=== PATIENT | male | born 1945 | race Caucasian/White ===

== ENCOUNTER → 2018-05-20 | Outpatient (CLI) | payer MEDICARE ==
--- NOTE | 2018-05-20 14:28 | XR ---
EXAMINATION TYPE: XR chest 2V DATE OF EXAM: 05/20/2018 COMPARISON: Chest x-ray January 12, 2016 HISTORY: History of COPD with shortness of breath for 3 weeks. TECHNIQUE: Frontal and lateral views of the chest are obtained. FINDINGS: There is background chronic emphysematous change redemonstrated. There is no focal air spa ce opacity, pleural effusion, or pneumothorax seen. The cardiac silhouette size is mildly enlarged o n current study. The osseous structures are intact. IMPRESSION: Chronic emphysematous change and mild cardiomegaly without acute pulmonary process.
== END | disposition home or self-care (01) ==
LOC: RADXRMAIN 13:47
PROVIDERS: ATTEND Family Medicine
DX: J43.9 Emphysema, unspecified (principal); I51.7 Cardiomegaly
CPT/HCPCS: 71046

== ENCOUNTER → 2019-05-05 | Outpatient (CLI) | payer MEDICARE ==
--- NOTE | 2019-05-05 16:09 | MR ---
EXAMINATION TYPE: MR brain wo/w con DATE OF EXAM: 05/05/2019 COMPARISON: MRI IAC from 2011. HISTORY: Chronic Headache Disorder TECHNIQUE: Multiplanar, multisequence images of the brain and brainstem is performed without and with IV contras t, utilizing 9 mL intravenous Gadavist . FINDINGS: Diffusion weighted images demonstrate no evidence of a recent infarct or other diffusion ab normality. There is no worrisome extra-axial fluid collection. Diffuse ventricular and sulcal promin ence. Scattered foci of T2 hyperintensity throughout the white matter most prominent periventricular levels. Some progression in both from 2011 MRI. Midline structures demonstrate normal morphology. The craniocervical junction appears within normal limits. Post contrast images demonstrate no abnormal enhancement. The dural venous sinuses appear pa tent. There is moderate mucosal thickening and patchy opacification left frontal sinus. Mild mucosal thickening right frontal sinus. Fairly severe mucosal thickening and patchy fluid throughout the ethm oid sinuses bilaterally on current study. Fluid completely filling the larger left sphenoid sinus and current study. There is artifact distortion or level of maxillary sinuses. There is some artifact di stortion of the globes on current study. IMPRESSION: 1. There is [id number] diffuse cerebral atrophy and nonspecific white matter changes presumed o n the basis of product of chronic small vessel ischemic change in patient of this age. Products of al tered vascular mechanics related to migraine headaches is in differential. Some progression from 2011 MRI noted. 2. There is acute on chronic paranasal sinus disease as detailed above also progressed from 2011 MRI.
== END | disposition home or self-care (01) ==
LOC: RADMRIMAIN 14:48
PROVIDERS: ATTEND Family Medicine
DX: G31.9 Degenerative disease of nervous system, unspecified (principal); R90.89 Other abnormal findings on diagnostic imaging of central nervous system
CPT/HCPCS: 70553; A9585

== ENCOUNTER 2019-10-29 14:32 | Emergency (ER) | payer MEDICARE ==
[2019-10-29 14:41] VITALS: PULSE 78; RESP 18; TEMP 98.3
[2019-10-29] MEDS ORDERED: PANTOPRAZOLE 40 MG/10 ML VIAL IVP STA (15:22)
[2019-10-29 15:38] LABS: HCT 44.1 % (39.0-53.0); HGB 14.7 gm/dL (13.0-17.5); MCH 30.5 pg (25.0-35.0); MCHC 33.3 g/dL (31.0-37.0); MCV 91.5 fL (80.0-100.0); Mean Platelet Volume 8.5; Platelet Count 243 k/uL (150-450); RBC 4.82 m/uL (4.30-5.90); RDW 13.4 % (11.5-15.5); WBC 9.6 k/uL (3.8-10.6)
[2019-10-29 15:45] LABS: ALT 22 U/L (4-49); AST 25 U/L (17-59); African American GFR (CKD) >90 (>60 ml/min/1.73 sqM); Albumin 4.3 g/dL (3.5-5.0); Alkaline Phosphatase 100 U/L (38-126); Anion Gap 11 mmol/L; Blood Urea Nitrogen 16 mg/dL (9-20); Calcium 9.1 mg/dL (8.4-10.2); Carbon Dioxide 22 mmol/L (22-30); Chloride 101 mmol/L (98-107); Glucose 137 mg/dL (74-99); Non-African American GFR(CKD) >90 (>60 ml/min/1.73 sqM); Potassium 4.7 mmol/L (3.5-5.1); Sodium 134 mmol/L (137-145); Total Bilirubin 0.7 mg/dL (0.2-1.3); Total Protein 8.2 g/dL (6.3-8.2)
--- NOTE | 2019-10-29 15:52 | XR ---
EXAMINATION TYPE: XR chest 2V DATE OF EXAM: 10/29/2019 COMPARISON: Prior chest x-ray 05/20/2018 HISTORY: Shortness of breath, pain, rectal bleeding TECHNIQUE: Frontal and lateral views of the chest are obtained. FINDINGS: Left hilar region appears abnormal increased intensity is compared to prior exam. No evide nt pneumothorax or pleural effusion. Patient is rotated. Heart size is stable. Aorta is dense. Possib le patchy subsegmental basilar atelectatic changes on the left, interstitium is mildly increased. Bon e mineralization is unchanged. There are overlying leads. IMPRESSION: There may be an underlying pneumonia. Follow-up to resolution, consider chest CT for bet ter evaluation as indicated. Possible underlying interstitial lung changes.
[2019-10-29 16:18] LABS: INR 0.9 (<1.2); Partial Thromboplastin Time 23.2 sec (22.0-30.0); Prothrombin Time 9.8 sec (9.0-12.0)
[2019-10-29 16:32] LABS: Eosinophils # (M) 0.29 k/uL (0-0.7); Lymphocytes # (M) 1.44 k/uL (1.0-4.8); Monocytes # (M) 1.15 k/uL (0-1.0); Neutrophils # (M) 6.72 k/uL (1.3-7.7); Neutrophils % (M) 70 %; Nucleated Red Blood Cells 0 /100 WBC (0-0); Total Cells Counted 100
[2019-10-29] MEDS ORDERED: CLINDAMYCIN 150 MG CAP PO STA (18:07)
--- NOTE | 2019-10-29 18:08 | ED ---
GI Bleed HPI - General Chief complaint: GI Bleed Stated complaint: SOB, blood in stool, sore on foot Time Seen by Provider: 10/29/19 15:00 Source: patient Mode of arrival: ambulatory Limitations: no limitations - History of Present Illness Initial comments: The patient is a 74-year-old male with past medical history of diabetes, hyperlipidemia and hyperthyroidism presents emergency room with reported bright red blood per rectum. He states the incident happened 3 days ago when he was straining to have a bowel movement. States that after his bowel movement he turned to look the toilet was bright red blood in the bowl. Denies melenic stools. No history of GI bleeding. He had a colonoscopy several years ago. She says no history of polyps. He has had bowel movement since this episode and denies that the bleeding is still present. He also reports to a boil that has been on his buttock. States that it was draining a few days ago however has stopped. He denies any rectal pain or abdominal pain. No fevers or chills. Denies dizziness, headaches or weakness. He takes aspirin however denies any blood thinners. He may Dr. Martino aware that he was having blood in his stool and Dr. Martino instructed that he going to the emergency room. The patient also mentions that he has exertional shortness of breath which seems to be getting progressively worse over the past year. Does admit a history of COPD. Is not on any oxygen at home. Does use inhalers but has never seen a credit collections specialist. Denies any chest pain. No history of cardiac disease. Denies any lower she was swelling. No history of DVT or PE. There are no alleviating, precipitating or modifying factors - Related Data Home Medications Medication Instructions Recorded Confirmed Ranitidine HCl [Zantac] 150 mg PO DAILY PRN 12/15/13 08/05/15 Levothyroxine Sodium [Synthroid] 25 mcg PO DAILY 04/12/15 08/05/15 amLODIPine BESYLATE [Norvasc] 5 mg PO HS 04/12/15 08/05/15 Albuterol Inhaler (Bulk) [Ventolin 2 puff INHALATION Q4-6H PRN 08/02/15 08/05/15 Hfa Inhaler (Bulk)] Aspirin 81 mg PO DAILY 08/02/15 08/05/15 Atorvastatin [Lipitor] 20 mg PO HS 08/02/15 08/05/15 Cholecalciferol [Vitamin D3] 2,000 unit PO DAILY@1200 08/02/15 08/05/15 Fluticasone Nasal [place] [Flonase 2 spr EA NOSTRIL DAILY 08/02/15 08/05/15 Nasal [place]] Fluticasone/Vilanterol [Breo 1 each IH DAILY PRN 08/02/15 08/05/15 Ellipta 200-25 Mcg INH] Glimepiride [Amaryl] 4 mg PO AC-BRKFST 08/02/15 08/05/15 [place]-3 Fatty Acids/Fish Oil [Fish 1 each PO DAILY 08/02/15 08/05/15 Oil 1,000 mg Softgel] Previous Rx's Medication Instructions Recorded Clindamycin HCl [Cleocin] 300 mg PO Q6HR #28 cap 10/29/19 Allergies Allergy/AdvReac Type Severity Reaction Status Date / Time latex Allergy Rash/Hives Verified 10/29/19 14:46 Penicillins Allergy Swelling Verified 10/29/19 14:46 Sulfa (Sulfonamide Allergy Swelling Verified 10/29/19 14:46 Antibiotics) Review of Systems ROS Statement: Those systems with pertinent positive or pertinent negative responses have been documented in the HPI. ROS Other: All systems not noted in ROS Statement are negative. Past Medical History Past Medical History: COPD, Diabetes Mellitus, GERD/Reflux, Hyperlipidemia, Hypertension, Thyroid Disorder History of Any Multi-Drug Resistant Organisms: None Reported Past Surgical History: Heart Catheterization, Orthopedic Surgery Past Psychological History: No Psychological Hx Reported Smoking Status: Former smoker General Exam Limitations: no limitations General appearance: alert, in no apparent distress Head exam: Present: atraumatic, normocephalic, normal inspection Eye exam: Present: normal appearance, PERRL, EOMI. Absent: scleral icterus, conjunctival injection, periorbital swelling ENT exam: Present: normal exam, mucous membranes moist Neck exam: Present: normal inspection. Absent: tenderness, meningismus, lymphadenopathy Respiratory exam: Present: normal lung sounds bilaterally. Absent: respiratory distress, wheezes, rales, rhonchi, stridor Cardiovascular Exam: Present: regular rate, normal rhythm, normal heart sounds. Absent: systolic murmur, diastolic murmur, rubs, gallop, clicks GI/Abdominal exam: Present: soft, normal bowel sounds. Absent: distended, tenderness, guarding, rebound, rigid Rectal exam: Present: normal inspection, heme (-) stool, hemorrhoids. Absent: black stool, bloody stool Extremities exam: Present: normal inspection, full ROM, normal capillary refill. Absent: tenderness, pedal edema, joint swelling, calf tenderness Back exam: Present: normal inspection Neurological exam: Present: alert, oriented X3, CN II-XII intact Psychiatric exam: Present: normal affect, normal mood Skin exam: Present: warm, dry, normal color, other (scabbed abscess with no fluctuance on the right buttock measuring 1.0 x 1.0 x 1.0 cm. Very minimal surrounding erythema. Abscess does not extend to the rectum). Absent: rash Course Vital Signs 10/29/19 10/29/19 10/29/19 14:35 14:41 15:41 Temperature 98.3 F Pulse Rate 78 Respiratory 18 18 18 Rate Blood Pressure 124/75 O2 Sat by Pulse 97 Oximetry 10/29/19 10/29/19 10/29/19 16:41 17:41 18:29 Temperature Pulse Rate 72 78 78 Respiratory 18 18 18 Rate Blood Pressure 121/78 117/78 117/78 O2 Sat by Pulse 97 Oximetry Procedures - Stool Hemoccult Hemoccult result: negative Medical Decision Making - Medical Decision Making Upon arrival the patient is placed in room 9. A thorough history and physical exam is performed. Peripheral IV is established. A 12-lead EKG demonstrates no acute ST segment elevation or depression. CBC, coagulation studies are unremarkable. Sodium is 134. Rectal exam is performed and is negative for fecal occult blood. Troponin is negative. Chest x-ray is performed because of the patient's worsening dyspnea over one year which demonstrates an underlying possible pneumonia. The patient denies any symptoms of cough, fevers or sick contacts with similar symptoms. I did recommend antibiotic treatment because of the patient's buttock boil which has no fluctuance at this time does not require drainage. The patient does not have any abdominal pain and therefore I do not CT his abdomen. He is feccal occult negative at this time with a stable hemoglobin. The patient has had worsening dyspnea for the past year for which I do think he should follow with the credit collections specialist. I did recommend CT of his chest because of his abnormal x-ray however the patient can have this done on an outpatient basis. The patient agreed to this treatment plan. He is eager to go home. I sent the antibiotic to the pharmacy and the patient was discharged h ome in stable condition - Lab Data Result diagrams: 10/29/19 14:51 10/29/19 14:51 Lab Results 10/29/19 10/29/19 10/29/19 Range/Units 14:51 14:51 14:51 WBC 9.6 (3.8-10.6) k/uL RBC 4.82 (4.30-5.90) m/uL Hgb 14.7 (13.0-17.5) gm/dL Hct 44.1 (39.0-53.0) % MCV 91.5 (80.0-100.0) fL MCH 30.5 (25.0-35.0) pg MCHC 33.3 (31.0-37.0) g/dL RDW 13.4 (11.5-15.5) % Plt Count 243 (150-450) k/uL Neutrophils % (Manual) 70 % Lymphocytes % (Manual) 15 % Monocytes % (Manual) 12 % Eosinophils % (Manual) 3 % Neutrophils # (Manual) 6.72 (1.3-7.7) k/uL Lymphocytes # (Manual) 1.44 (1.0-4.8) k/uL Monocytes # (Manual) 1.15 H (0-1.0) k/uL Eosinophils # (Manual) 0.29 (0-0.7) k/uL Nucleated RBCs 0 (0-0) /100 WBC Manual Slide Review Performed PT 9.8 (9.0-12.0) sec INR 0.9 (<1.2) APTT 23.2 (22.0-30.0) sec Sodium 134 L (137-145) mmol/L Potassium 4.7 (3.5-5.1) mmol/L Chloride 101 (98-107) mmol/L Carbon Dioxide 22 (22-30) mmol/L Anion Gap 11 mmol/L BUN 16 (9-20) mg/dL Creatinine 0.62 L (0.66-1.25) mg/dL Est GFR (CKD-EPI)AfAm >90 (>60 ml/min/1.73 sqM) Est GFR (CKD-EPI)NonAf >90 (>60 ml/min/1.73 sqM) Glucose 137 H (74-99) mg/dL Plasma Lactic Acid Luis (0.7-2.0) mmol/L Calcium 9.1 (8.4-10.2) mg/dL Total Bilirubin 0.7 (0.2-1.3) mg/dL AST 25 (17-59) U/L ALT 22 (4-49) U/L Alkaline Phosphatase 100 (38-126) U/L Troponin I (0.000-0.034) ng/mL Total Protein 8.2 (6.3-8.2) g/dL Albumin 4.3 (3.5-5.0) g/dL Stool Occult Blood (Negative) Blood Type Blood Type Confirm Blood Type Recheck Bld Type Recheck Status Antibody Screen Spec Expiration Date 10/29/19 10/29/19 10/29/19 Range/Units 14:51 14:51 14:51 WBC (3.8-10.6) k/uL RBC (4.30-5.90) m/uL Hgb (13.0-17.5) gm/dL Hct (39.0-53.0) % MCV (80.0-100.0) fL MCH (25.0-35.0) pg MCHC (31.0-37.0) g/dL RDW (11.5-15.5) % Plt Count (150-450) k/uL Neutrophils % (Manual) % Lymphocytes % (Manual) % Monocytes % (Manual) % Eosinophils % (Manual) % Neutrophils # (Manual) (1.3-7.7) k/uL Lymphocytes # (Manual) (1.0-4.8) k/uL Monocytes # (Manual) (0-1.0) k/uL Eosinophils # (Manual) (0-0.7) k/uL Nucleated RBCs (0-0) /100 WBC Manual Slide Review PT (9.0-12.0) sec INR (<1.2) APTT (22.0-30.0) sec Sodium (137-145) mmol/L Potassium (3.5-5.1) mmol/L Chloride (98-107) mmol/L Carbon Dioxide (22-30) mmol/L Anion Gap mmol/L BUN (9-20) mg/dL Creatinine (0.66-1.25) mg/dL Est GFR (CKD-EPI)AfAm (>60 ml/min/1.73 sqM) Est GFR (CKD-EPI)NonAf (>60 ml/min/1.73 sqM) Glucose (74-99) mg/dL Plasma Lactic Acid Luis 1.9 (0.7-2.0) mmol/L Calcium (8.4-10.2) mg/dL Total Bilirubin (0.2-1.3) mg/dL AST (17-59) U/L ALT (4-49) U/L Alkaline Phosphatase (38-126) U/L Troponin I <0.012 (0.000-0.034) ng/mL Total Protein (6.3-8.2) g/dL Albumin (3.5-5.0) g/dL Stool Occult Blood (Negative) Blood Type O Positive Blood Type Confirm Blood Type Recheck No Previous Record Bld Type Recheck Status CABO Indicated Antibody Screen NEGATIVE Spec Expiration Date 11/01/2019 - 235010/29/19 10/29/19 Range/Units 14:54 16:57 WBC (3.8-10.6) k/uL RBC (4.30-5.90) m/uL Hgb (13.0-17.5) gm/dL Hct (39.0-53.0) % MCV (80.0-100.0) fL MCH (25.0-35.0) pg MCHC (31.0-37.0) g/dL RDW (11.5-15.5) % Plt Count (150-450) k/uL Neutrophils % (Manual) % Lymphocytes % (Manual) % Monocytes % (Manual) % Eosinophils % (Manual) % Neutrophils # (Manual) (1.3-7.7) k/uL Lymphocytes # (Manual) (1.0-4.8) k/uL Monocytes # (Manual) (0-1.0) k/uL Eosinophils # (Manual) (0-0.7) k/uL Nucleated RBCs (0-0) /100 WBC Manual Slide Review PT (9.0-12.0) sec INR (<1.2) APTT (22.0-30.0) sec Sodium (137-145) mmol/L Potassium (3.5-5.1) mmol/L Chloride (98-107) mmol/L Carbon Dioxide (22-30) mmol/L Anion Gap mmol/L BUN (9-20) mg/dL Creatinine (0.66-1.25) mg/dL Est GFR (CKD-EPI)AfAm (>60 ml/min/1.73 sqM) Est GFR (CKD-EPI)NonAf (>60 ml/min/1.73 sqM) Glucose (74-99) mg/dL Plasma Lactic Acid Luis (0.7-2.0) mmol/L Calcium (8.4-10.2) mg/dL Total Bilirubin (0.2-1.3) mg/dL AST (17-59) U/L ALT (4-49) U/L Alkaline Phosphatase (38-126) U/L Troponin I (0.000-0.034) ng/mL Total Protein (6.3-8.2) g/dL Albumin (3.5-5.0) g/dL Stool Occult Blood Negative (Negative) Blood Type Blood Type Confirm O Positive Blood Type Recheck Bld Type Recheck Status Antibody Screen Spec Expiration Date - EKG Data EKG Comments: EKG demonstrates a normal sinus rhythm with a ventricular rate of 74. OH interval 194. QRS 88. QTC of 439. No acute ST segment elevations or depressions concerning for ischemic changes Disposition Clinical Impression: Hematochezia, Abscess of buttock, Exertional shortness of breath, COPD (chronic obstructive pulmonary disease), Hemorrhoids, Constipation Disposition: HOME SELF-CARE Condition: Stable Instructions (If sedation given, give patient instructions): Hemorrhoids (ED), Abscess (ED) Additional Instructions: Please follow-up with Dr. Martino in 2-4 days. Take the antibiotic as directed. Take MiraLAX daily for your constipation. Please follow-up with the credit collections specialist in regards to your symptoms. I do recommend a CAT scan of your lungs. Return to the emergency room for any new or worsening symptoms Prescriptions: Clindamycin HCl [Cleocin] 300 mg PO Q6HR #28 cap Is patient prescribed a controlled substance at d/c from ED?: No Referrals: Benito Martino MD [Primary Care Provider] - 1-2 days Time of Disposition: 18:07
[2019-10-29 18:25] VITALS: BP 117/78
== END 2019-10-29 18:32 | disposition home or self-care (01) ==
LOC: EC 14:32
DX: L02.31 Cutaneous abscess of buttock (principal); K92.1 Melena; J44.9 Chronic obstructive pulmonary disease, unspecified; K64.9 Unspecified hemorrhoids; K59.00 Constipation, unspecified; E11.9 Type 2 diabetes mellitus without complications; K21.9 Gastro-esophageal reflux disease without esophagitis; E78.5 Hyperlipidemia, unspecified; I10 Essential (primary) hypertension; E07.9 Disorder of thyroid, unspecified; Z79.890 Hormone replacement therapy; Z79.51 Long term (current) use of inhaled steroids; Z79.84 Long term (current) use of oral hypoglycemic drugs; Z79.899 Other long term (current) drug therapy; Z79.82 Long term (current) use of aspirin; Z88.0 Allergy status to penicillin; Z91.040 Latex allergy status; Z88.2 Allergy status to sulfonamides; Z95.5 Presence of coronary angioplasty implant and graft; Z87.891 Personal history of nicotine dependence
CPT/HCPCS: 99285; 96374; 36415; 93005; 86900; 86901; 80053; 83605; 84484; 85025; 85610; 85730; 86850; 82272; 71046; C9113

== ENCOUNTER 2020-04-09 11:18 | Emergency (ER) | payer MEDICARE ==
[2020-04-09 11:25] VITALS: TEMP 98.1
--- NOTE | 2020-04-09 12:14 | XR ---
EXAMINATION TYPE: XR shoulder complete LT DATE OF EXAM: 04/09/2020 CLINICAL HISTORY: Left shoulder pain after falling injury 2 weeks ago. TECHNIQUE: Three views of the left shoulder are obtained. COMPARISON: Chest x-ray 2 days ago.. FINDINGS: Osseous structures demineralized. There is no acute fracture/dislocation evident in the le ft shoulder. Mild to moderate narrowing gadolinium, a ventricular joint with moderate capsular hypert rophy. Distal acromion morphology unremarkable. Glenohumeral joint preserved. The visualized ribs are intact. There is suspicious left hilar spiculated mass or nodule redemonstrated. IMPRESSION: There is no acute fracture or dislocation in the left shoulder.
[2020-04-09] MEDS ORDERED: HYDROcodone/APAP 5-325MG 1 EACH TAB PO STA (12:29)
[2020-04-09] MEDS ORDERED: IBUPROFEN 600 MG TAB PO STA (12:29)
[2020-04-09] MEDS ORDERED: ACET/COD 300 MG/30 MG STARTER PACK 6 TAB BTL PO STA (12:36)
--- NOTE | 2020-04-09 12:37 | ED ---
Upper Extremity HPI - General Source: patient, RN notes reviewed Mode of arrival: ambulatory Limitations: no limitations <Melecio Olson - Last Filed: 04/09/20 12:28> <Raymundo Peres - Last Filed: 04/09/20 14:08> - General Chief Complaint: Extremity Injury, Upper Stated Complaint: Left Shoulder Pain Time Seen by Provider: 04/09/20 11:47 - History of Present Illness Initial Comments: 75-year-old male present emergency Department with chief complaint of left shoulder pain. Patient states he fell 3 weeks ago onto outstretched arm. Patient states she's has pain at top of his shoulder. Patient states it's been worsening and more achy. Patient states he cannot tolerate the pain. Patient denies any decreased range of motion or paresthesias no focal weakness. No head injury no loss conscious, neck pain. (Melecio Olson) - Related Data Home Medications Medication Instructions Recorded Confirmed Ranitidine HCl [Zantac] 150 mg PO DAILY PRN 12/15/13 08/05/15 Levothyroxine Sodium [Synthroid] 25 mcg PO DAILY 04/12/15 08/05/15 amLODIPine BESYLATE [Norvasc] 5 mg PO HS 04/12/15 08/05/15 Albuterol Inhaler (Mhu) [Ventolin 2 puff INHALATION Q4-6H PRN 08/02/15 08/05/15 Hfa Inhaler (Mhu)] Aspirin 81 mg PO DAILY 08/02/15 08/05/15 Atorvastatin [Lipitor] 20 mg PO HS 08/02/15 08/05/15 Cholecalciferol [Vitamin D3] 2,000 unit PO DAILY@1200 08/02/15 08/05/15 Fluticasone Nasal [place] [Flonase 2 spr EA NOSTRIL DAILY 08/02/15 08/05/15 Nasal [place]] Fluticasone/Vilanterol [Breo 1 each IH DAILY PRN 08/02/15 08/05/15 Ellipta 200-25 Mcg INH] Glimepiride [Amaryl] 4 mg PO AC-BRKFST 08/02/15 08/05/15 [place]-3 Fatty Acids/Fish Oil [Fish 1 each PO DAILY 08/02/15 08/05/15 Oil 1,000 mg Softgel] Previous Rx's Medication Instructions Recorded clindamycin HCL [Cleocin] 300 mg PO Q6HR #28 cap 10/29/19 Allergies Allergy/AdvReac Type Severity Reaction Status Date / Time latex Allergy Rash/Hives Verified 04/09/20 11:22 Penicillins Allergy Swelling Verified 04/09/20 11:22 Sulfa (Sulfonamide Allergy Swelling Verified 04/09/20 11:22 Antibiotics) Review of Systems ROS Other: All systems not noted in ROS Statement are negative. <Melecio Olson - Last Filed: 04/09/20 12:28> ROS Other: All systems not noted in ROS Statement are negative. <Raymundo Peres - Last Filed: 04/09/20 14:08> ROS Statement: Those systems with pertinent positive or pertinent negative responses have been documented in the HPI. Past Medical History Past Medical History: COPD, Diabetes Mellitus, GERD/Reflux, Hyperlipidemia, Hypertension, Thyroid Disorder Additional Past Medical History / Comment(s): "spot on lungs" History of Any Multi-Drug Resistant Organisms: None Reported Past Surgical History: Heart Catheterization, Orthopedic Surgery Past Psychological History: No Psychological Hx Reported Smoking Status: Former smoker Past Alcohol Use History: None Reported Past Drug Use History: None Reported <Melecio Olsno - Last Filed: 04/09/20 12:28> General Exam Limitations: no limitations General appearance: alert, in no apparent distress Head exam: Present: atraumatic, normocephalic, normal inspection Eye exam: Present: normal appearance, PERRL, EOMI. Absent: scleral icterus, conjunctival injection, periorbital swelling Neck exam: Present: normal inspection, full ROM. Absent: tenderness, meningismus, lymphadenopathy Respiratory exam: Present: normal lung sounds bilaterally. Absent: respiratory distress, wheezes, rales, rhonchi, stridor Cardiovascular Exam: Present: regular rate, normal rhythm, normal heart sounds. Absent: systolic murmur, diastolic murmur, rubs, gallop, clicks Extremities exam: Present: other (Left shoulder some tenderness over the AC joint, tenderness of the left trapezius patient does have full range of motion reports moderate discomfort. An and flexion. No pain with pronation supination or external rotation of the arm. Radial pulses equal bilaterally resident medical officer strength equal) <Melecio Olson - Last Filed: 04/09/20 12:28> Course <Raymundo Peres - Last Filed: 04/09/20 14:08> Vital Signs 04/09/20 04/09/20 11:22 12:57 Temperature 98.1 F Pulse Rate 77 68 Respiratory 18 16 Rate Blood Pressure 116/72 115/75 O2 Sat by Pulse 97 96 Oximetry - Reevaluation(s) Reevaluation #1: 04/09/20 14:08 PA supervision: I personally evaluate this case patient did present with complains left shoulder pain. There is tenderness palpation over left shoulder. X-ray shows no evidence of acute fractures or subluxation. Patient be discharged and follow-up as planned. (Raymundo Peres) Medical Decision Making <Melecio Olson - Last Filed: 04/09/20 12:28> - Medical Decision Making There is some tenderness over the AC joint neck surgery review shows slight separation, mild degenerative changes otherwise unremarkable. Patient will follow-up with orthopedics for possible MRI. Patient provided anti- inflammatories. (Melecio Olson) Disposition Is patient prescribed a controlled substance at d/c from ED?: No Time of Disposition: 12:37 <Melecio Olson - Last Filed: 04/09/20 12:28> <Raymundo Peres - Last Filed: 04/09/20 14:08> Clinical Impression: Left shoulder strain, AC separation Disposition: HOME SELF-CARE Condition: Stable Instructions (If sedation given, give patient instructions): Shoulder Sprain (ED) Additional Instructions: Please return to the Emergency Department if symptoms worsen or any other concerns. Referrals: Benito Martino MD [Primary Care Provider] - 1-2 days Heber Garrett MD [STAFF PHYSICIAN] - 1-2 days
[2020-04-09 12:59] VITALS: BP 115/75; PULSE 68; RESP 16
== END 2020-04-09 13:07 | disposition home or self-care (01) ==
LOC: EC 11:18
DX: S46.912A Strain of unspecified muscle, fascia and tendon at shoulder and upper arm level, left arm, initial encounter (principal); S43.102A Unspecified dislocation of left acromioclavicular joint, initial encounter; J44.9 Chronic obstructive pulmonary disease, unspecified; E07.9 Disorder of thyroid, unspecified; E78.5 Hyperlipidemia, unspecified; I10 Essential (primary) hypertension; K21.9 Gastro-esophageal reflux disease without esophagitis; E11.9 Type 2 diabetes mellitus without complications; Z79.51 Long term (current) use of inhaled steroids; Z79.890 Hormone replacement therapy; Z79.899 Other long term (current) drug therapy; Z79.84 Long term (current) use of oral hypoglycemic drugs; Z88.0 Allergy status to penicillin; Z88.2 Allergy status to sulfonamides; Z91.040 Latex allergy status; Z95.5 Presence of coronary angioplasty implant and graft; Z87.891 Personal history of nicotine dependence; W01.0XXA Fall on same level from slipping, tripping and stumbling without subsequent striking against object, initial encounter
CPT/HCPCS: 99283

== ENCOUNTER → 2020-04-09 | Outpatient (CLI) | payer MEDICARE ==
[2020-04-09 13:42] LABS: African American GFR (CKD) >90 (>60 ml/min/1.73 sqM); Blood Urea Nitrogen 10 mg/dL (9-20); Non-African American GFR(CKD) >90 (>60 ml/min/1.73 sqM)
--- NOTE | 2020-04-10 17:56 | CT ---
"EXAMINATION TYPE: CT chest w con DATE OF EXAM: 04/09/2020 COMPARISON: 08/30/2014 HISTORY: Abnormal chest x-ray, weight loss CT DLP: 373.0 mGycm, Automated exposure control for dose reduction was used. CONTRAST: Performed injected with 100 mL of Isovue 300. TECHNIQUE: Axial images were obtained at 5 mm thick sections. Reconstructed images are reviewed on [employer] computer in the coronal plane. FINDINGS: There is a hypodensity within the left lobe thyroid. There is a 6.3 x 4.3 cm mass in the posterior left hilar region. Soft tissue extension mediastinum is likely present. Enlarged lymphadenopathy is within the left perihilar region with a 1.3 cm lymph nod e adjacent to the left main pulmonary artery. Series 3 image 27. A 1.5 cm lymph node is in the left i nfrahilar region. Aortopulmonic window lymphadenopathy is present 1.7 cm laterally and a 1.4 cm lymph node immediately. Small paratracheal lymphadenopathy is present. A 1.4 cm subcarinal lymph node may be present. The ascending aorta diameter at the level of the main pulmonary artery is 4.1 cm. The main pulmonary artery diameter at the bifurcation is 2.8 cm. There is some mild compressive atelectasis within the dependent portions of the lung bases. Limited CT sections are obtained through the upper abdomen. Abdomen is essentially unremarkable. IMPRESSIONS: 1. 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 Additional workup with PET CT is recommended. A Yellow level critical message alert has been initiated for Benito Martino MD via the [employer] | Critical Results System on 04/10/2020 5:53 PM. This message alert has been sent to Benito Martino MD via the preferences provided by the clinician for the receipt of Radiology Critical Findings. [facility] ID [id number]."
== END | disposition home or self-care (01) ==
LOC: RADCTMAIN 06:59
PROVIDERS: ATTEND Family Medicine
DX: R59.0 Localized enlarged lymph nodes (principal); R91.8 Other nonspecific abnormal finding of lung field
CPT/HCPCS: 82565; 84520; 71260; 36415; Q9967

== ENCOUNTER → 2020-04-16 | Outpatient (CLI) | payer MEDICARE ==
--- NOTE | 2020-04-17 15:06 | PE ---
Nuclear medicine PET/CT HISTORY: Left lung nodule, initial Patient received 11.5 mCi F-18 FDG intravenously in delayed scanning was performed from skull base to the mid thighs. Localization and attenuation correction CT scan was performed. Correlation CT chest 04/09/2020 Chest and neck: At the level of the hyoid bone on the left deep to the sternocleidomastoid muscle the re is an enlarged node with associated hypermetabolic uptake. Supraclavicular node is also present on the left which shows enlargement and associated uptake. At the level of the thoracic inlet anteriorl y there is an additional no with increased uptake, superior mediastinum shows a nonenlarged node axia l image #76 on the right as well as adjacent to the trachea anterior to the esophagus on axial image 79 which shows abnormal uptake. Some mild uptake present in the aorticopulmonary window, there is abn ormal uptake present at the level of the left hilum and prevascular space, multiple nodes showing abn ormal uptake, patient's mass in the left lower lobe, left hilar region shows abnormal uptake. There i s no pleural or pericardial effusion present. ABDOMEN: No evident adrenal mass or hypermetabolic uptake, no retroperitoneal adenopathy or evident l iver uptake. Aorta and iliac regions show atheromatous change. There is some abnormal soft tissue pre sent just cephalad to the urinary bladder within the fat there is ill-defined which shows abnormal up take. Osseous structures show no hypermetabolic uptake. 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 Indeterminate soft tissu e within the pelvis may represent a metastatic focus.
== END | disposition home or self-care (01) ==
LOC: RADPETMAIN 08:05
PROVIDERS: ATTEND Family Medicine
DX: R91.1 Solitary pulmonary nodule (principal); C34.90 Malignant neoplasm of unspecified part of unspecified bronchus or lung
CPT/HCPCS: 78815; A9552

== ENCOUNTER 2020-04-19 10:56 | Day surgery (SDC) | payer MEDICARE ==
[2020-04-15 15:24] VITALS: BMI 22.8
[~2020-04-19 10:56] MED LIST: ALBUTEROL NEB (CONC) 2.5 MG/0.5 ML INHALATION ONE; LACTATED RINGERS 1,000 ML IV SCH; LIDOCAINE 2% (PF) 20 MG/ML 5 ML VIAL INHALATION ONE; LIDOCAINE VISCOUS 300 MG/15 ML CUP MUCOUS MEM ONE; SODIUM CHLORIDE 0.9% 1,000 ML IV SCH
[2020-04-19 11:43] VITALS: TEMP 97
[2020-04-19] MEDS ORDERED: LIDOCAINE 1% (10MG/ML) FOR IV START INTRADERMA ONE (11:45)
[2020-04-19] MEDS ORDERED: PROPOFOL 10 MG/ML 20 ML VIAL IV ONE (12:32)
[2020-04-19] MEDS ORDERED: fentaNYL (PF) 50 MCG/ML 2 ML AMP ONE (12:32)
[2020-04-19] MEDS ORDERED: LIDOCAINE 1% INJ 10MG/ML (20 ML MDV) ONE (12:32)
[2020-04-19] MEDS ORDERED: LIDOCAINE 2% INJ 20 MG/ML INTRATRACH ONE (12:46)
--- NOTE | 2020-04-19 13:12 | P.PCN ---
Date of Procedure: 04/19/20 Preoperative Diagnosis: LLL mass, hemoptysis Postoperative Diagnosis: LLL mass Procedure(s) Performed: Flexible bronchoscopy, airway inspection, Endobronchial biopsy of a LLL mass, brushig of a LLL mass, BAL of the LLL Anesthesia: MAC Surgeon: Jac Coronel Estimated Blood Loss (ml): 5 Pathology: other Disposition: same day Operative Findings: This is a flexible bronchoscopy that was done for left lower lobe mass. The patient presented to [facility] with an abnormal CAT scan of the chest revealing a left lower lobe mass and the patient was having episodic hemoptysis. The procedure was done under conscious sedation in the endoscopy suite. The patient was given a combination of propofol, and lidocaine and fentanyl. After achieving adequate sedation, the flexible bronchoscope was introduced through the left nostril was advanced into the upper airway. Examination of the posterior oropharynx, larynx, epiglottis, arytenoids and the vocal cords was done and all of the upper airway structures were within normal limits. Vocal cords structure and function was within normal and the patient had normal abduction and abduction of the vocal cords. A total of 2 mL of 1% lidocaine was applied to the vocal cords and following that the bronchoscope was advanced into the upper trachea. Examination of the airways was done and the visualized airways included the entire trachea, elder, bilateral mainstem bronchi, right upper lobe bronchus, bronchus intermedius, right middle lobe bronchus, the right lower lobe lobe bronchus, left upper lobe bronchus and left lower lobe bronchus. The examination of the right thigh was within normal limits. Examination of left side revealed a narrowing and endobronchial tumor extending into the posterior segment of the left lower lobe bronchus. The orifice of the second and was quite narrowed and the airway had an endobronchial irregularity representing the edge of the left lower lobe tumor. At that point, under direct visualization, endobronchial biopsies of the left lower lobe bronchus was done and multiple biopsies were obtained from the involved segment. Following that, the bronchial brushings of the left lower lobe mass was done through the posterior segment. At the completion of the procedure, I bronchioloalveolar lavage of the left lower lobe posterior segment was done with a total of 80 mL of fluid was infused and 20 disease was aspirated without any major difficulties. Aspirate was obviously bloody. Note that following the biopsy, we did have some blood return from the left lower lobe bronchus, the source of bleeding was probably the endobronchial tumor. This ultimately stopped spontaneously and that was bloody secretion and the clots were suctioned out of the airway. The bronchoscope was removed. The patient was transferred recovery in stable condition. Note that the oxygenation remained stable throughout the procedure without any significant desaturation. The patient tolerated the procedure well and the patient will be discharged home.
[2020-04-19 13:24] VITALS: BP 107/59; PULSE 71; RESP 16
== END 2020-04-19 14:14 | disposition home or self-care (01) ==
LOC: ORWHC2ENDO 10:56
PROVIDERS: ATTEND Internal Medicine Critical Care Medicine
DX: C7A.090 Malignant carcinoid tumor of the bronchus and lung (principal); I25.10 Atherosclerotic heart disease of native coronary artery without angina pectoris; I10 Essential (primary) hypertension; J44.9 Chronic obstructive pulmonary disease, unspecified; K21.9 Gastro-esophageal reflux disease without esophagitis; G43.909 Migraine, unspecified, not intractable, without status migrainosus; E03.9 Hypothyroidism, unspecified; E11.9 Type 2 diabetes mellitus without complications; E78.5 Hyperlipidemia, unspecified; Z88.0 Allergy status to penicillin; Z88.1 Allergy status to other antibiotic agents; Z88.2 Allergy status to sulfonamides; Z79.82 Long term (current) use of aspirin; Z79.1 Long term (current) use of non-steroidal anti-inflammatories (NSAID); Z79.899 Other long term (current) drug therapy; Z79.890 Hormone replacement therapy; Z79.51 Long term (current) use of inhaled steroids; Z82.49 Family history of ischemic heart disease and other diseases of the circulatory system; Z80.9 Family history of malignant neoplasm, unspecified; Z81.8 Family history of other mental and behavioral disorders; Z87.891 Personal history of nicotine dependence; Z98.890 Other specified postprocedural states
CPT/HCPCS: 87798 ×3; 87496; 87498; 87529; 88104; 88108; 88305; 88342; 87252; 87502; 87634; 88341; 87070; 87205; 87116; 87102; 87206; 31625; 31623; 31624; J2001 ×2; J3010; J2704; 31628

== ENCOUNTER 2020-05-10 19:13 | Inpatient (IN) | payer MEDICARE ==
[2020-05-10] MEDS ORDERED: SODIUM CHLORIDE 0.9% 1,000 ML IV STA (19:25)
--- NOTE | 2020-05-10 19:41 | ED ---
Weakness HPI - General Chief complaint: Weakness Stated complaint: Near Syncope Time Seen by Provider: 05/10/20 19:25 Source: patient Mode of arrival: wheelchair Limitations: no limitations - History of Present Illness Initial comments: 75-year-old male with history of coronary artery disease small cell lung cancer currently undergoing treatment with carboplatin and tecentriq,COPD diabetes hypertension is lipidemia and thyroid disorder presenting to the emergency department today for chief complaint of lightheadedness and nausea slight shortness breath. Patient states that this afternoon he fell on while he states he felt lightheaded and like he was going to pass out when he stood up. Patient denies any syncopal episodes he denies any chest pain he states is slight shortness of breath however this is the pretty consistent with his daily short ness of breath since he's been diagnosed with a lung mass. Patient denies experiencing this before he denies headache vision changes diarrhea dark tarry stools or bloody stools. Denies sensation that room is spinning or headaches. Patient denies any anticoagulation use he states he is not even taking a daily aspirin at this time. Patient states that his previous hemoglobin on 1016 was within normal limits at 13.5. Patient denies abdominal pain denies rashes or new cough,denies fevers. Patient on arrival appear pale, nontoxic, he is not diaphoretic--he does not appear in distress. Pleasant. BP on the lower aspect of normal. Pt oncologist Dr. Samson, supplier engineer Dr. Coronel. - Related Data Home Medications Medication Instructions Recorded Confirmed Levothyroxine Sodium [Synthroid] 25 mcg PO HS 04/12/15 05/10/20 amLODIPine BESYLATE [Norvasc] 5 mg PO DAILY 04/12/15 05/10/20 Atorvastatin [Lipitor] 20 mg PO HS 08/02/15 05/10/20 Cholecalciferol [Vitamin D3] 2,000 unit PO HS 08/02/15 05/10/20 Fluticasone Nasal [place] [Flonase 1 spr EA NOSTRIL BID 08/02/15 05/10/20 Nasal [place]] Acetaminophen-Codeine 300-30mg 1 tab PO Q6H PRN 04/15/20 05/10/20 [Tylenol w/codeine #3] Budesonide-Formot 160-4.5 Mcg 2 puff INHALATION RT-BID 04/15/20 05/10/20 [Symbicort 160-4.5 Mcg Inhaler] Empagliflozin [Jardiance] 25 mg PO DAILY 04/15/20 05/10/20 Fish Oil (Unknown Dose) 1 tab PO HS 04/15/20 05/10/20 Ibuprofen [Motrin] 600 mg PO Q8HR PRN 04/15/20 05/10/20 Linagliptin [Tradjenta] 5 mg PO DAILY 04/15/20 05/10/20 Loratadine [Claritin] 10 mg PO DAILY 04/15/20 05/10/20 Montelukast [Singulair] 10 mg PO DAILY 04/15/20 05/10/20 Allergies Allergy/AdvReac Type Severity Reaction Status Date / Time Sulfa (Sulfonamide Allergy Severe Anaphylaxis Verified 05/10/20 21:25 Antibiotics) cefuroxime [From Ceftin] Allergy Unknown Verified 05/10/20 21:25 latex Allergy Rash/Hives Verified 05/10/20 21:25 Penicillins Allergy Swelling Verified 05/10/20 21:25 Review of Systems ROS Statement: Those systems with pertinent positive or pertinent negative responses have been documented in the HPI. ROS Other: All systems not noted in ROS Statement are negative. Past Medical History Past Medical History: Coronary Artery Disease (CAD), Cancer, Chest Pain / Angina, COPD, Diabetes Mellitus, GERD/Reflux, Hyperlipidemia, Hypertension, Osteoarthritis (OA), Thyroid Disorder Additional Past Medical History / Comment(s): Skin cancer, lung CA Hx of hemoptysis, wgt loss 70# in 3 months, found lung mass on scan. History of Any Multi-Drug Resistant Organisms: None Reported Past Surgical History: Heart Catheterization, Orthopedic Surgery Additional Past Surgical History / Comment(s): hear cath x2. Lt Knee scope, Rt Shoulder surg. Colonoscopy. bilat cataracts w/ lens implants Past Anesthesia/Blood Transfusion Reactions: No Reported Reaction Past Psychological History: No Psychological Hx Reported Smoking Status: Former smoker - Past Family History Mother Family Medical History: Cancer, Dementia General Exam - General Exam Comments Initial Comments: General: The patient is awake and alert, in no distress, cachectic Eye: Pupils are equal, round and reactive to light, extra-ocular movements are intact. No nystagmus. There is normal conjunctiva bilaterally. No signs of icterus. Ears, nose, mouth and throat: There are moist mucous membranes and no oral lesions. Neck: The neck is supple, there is no tenderness or JVD. Cardiovascular: There is a regular rate and rhythm. No murmur, rub or gallop is appreciated. Respiratory: Lungs are clear to auscultation, respirations are non-labored, breath sounds are equal. No wheezes, stridor, rales, or rhonchi. Gastrointestinal: Soft, non-distended, non-tender abdomen without masses or organomegaly noted. There is no rebound or guarding present. Musculoskeletal: Normal ROM, no tenderness. Strength 5/5. Sensation intact. Radial pulses equal bilaterally 2+. Neurological: A&O x 3. CN II-XII intact, There are no obvious motor or sensory deficits. Coordination appears grossly intact. Speech is normal. Skin: Skin is warm and dry and no rashes or lesions are noted. No LE pitting edema, swelling or calf pain Psychiatric: Cooperative, appropriate mood & affect, normal judgment. Limitations: no limitations Course Vital Signs 05/10/20 05/10/20 05/10/20 19:19 20:18 21:28 Temperature 98.1 F Pulse Rate 84 70 75 Respiratory 16 18 18 Rate Blood Pressure 96/59 109/70 108/66 O2 Sat by Pulse 95 96 95 Oximetry Medical Decision Making - Medical Decision Making 75-year-old male presented for presyncope he states he feels like he is going to pass out when he stands up. Patient blood pressure the lower aspect of normal on arrival. He denies any melena hematochezia or bright red stools patient does not have any significant changes in his hemoglobin. Patient sodium decreased at 128. Patient endorses some nausea. EKG no acute changes, troponin (-). Dimer +, CTA (-) for PE. Patient on 75cc/hr of 0.9NS he will be admitted on telemetry for monitoring. Paitent is agreeable to admission. I discussed case with attending Dr Schulz who reviewed laboratory studies/EKG. I soke with accepting admitting provider JANAK Blanco who is agreeable to care plan and requested medication reconciliation. - Lab Data Result diagrams: 05/10/20 19:37 05/10/20 19:37 Lab Results 10/27/20 10/27/20 10/27/20 Range/Units 19:37 19:37 19:37 WBC 0.9 L* (3.8-10.6) k/uL RBC 4.19 L (4.30-5.90) m/uL Hgb 12.8 L (13.0-17.5) gm/dL Hct 38.3 L (39.0-53.0) % MCV 91.4 (80.0-100.0) fL MCH 30.5 (25.0-35.0) pg MCHC 33.4 (31.0-37.0) g/dL RDW 14.3 (11.5-15.5) % Plt Count 90 L (150-450) k/uL Manual Slide Review Performed PT 9.9 (9.0-12.0) sec INR 0.9 (<1.2) APTT 23.6 (22.0-30.0) sec D-Dimer 1.54 H (<0.60) mg/L FEU Sodium 128 L (137-145) mmol/L Potassium 4.3 (3.5-5.1) mmol/L Chloride 100 (98-107) mmol/L Carbon Dioxide 21 L (22-30) mmol/L Anion Gap 7 mmol/L BUN 13 (9-20) mg/dL Creatinine 0.48 L (0.66-1.25) mg/dL Est GFR (CKD-EPI)AfAm >90 (>60 ml/min/1.73 sqM) Est GFR (CKD-EPI)NonAf >90 (>60 ml/min/1.73 sqM) Glucose 133 H (74-99) mg/dL Plasma Lactic Acid Luis (0.7-2.0) mmol/L Calcium 8.3 L (8.4-10.2) mg/dL Magnesium 2.0 (1.6-2.3) mg/dL Total Bilirubin 0.9 (0.2-1.3) mg/dL AST 34 (17-59) U/L ALT 25 (4-49) U/L Alkaline Phosphatase 94 (38-126) U/L Troponin I (0.000-0.034) ng/mL NT-Pro-B Natriuret Pep pg/mL Total Protein 7.5 (6.3-8.2) g/dL Albumin 3.5 (3.5-5.0) g/dL 05/10/20 05/10/20 05/10/20 Range/Units 19:37 19:37 19:37 WBC (3.8-10.6) k/uL RBC (4.30-5.90) m/uL Hgb (13.0-17.5) gm/dL Hct (39.0-53.0) % MCV (80.0-100.0) fL MCH (25.0-35.0) pg MCHC (31.0-37.0) g/dL RDW (11.5-15.5) % Plt Count (150-450) k/uL Manual Slide Review PT (9.0-12.0) sec INR (<1.2) APTT (22.0-30.0) sec D-Dimer (<0.60) mg/L FEU Sodium (137-145) mmol/L Potassium (3.5-5.1) mmol/L Chloride (98-107) mmol/L Carbon Dioxide (22-30) mmol/L Anion Gap mmol/L BUN (9-20) mg/dL Creatinine (0.66-1.25) mg/dL Est GFR (CKD-EPI)AfAm (>60 ml/min/1.73 sqM) Est GFR (CKD-EPI)NonAf (>60 ml/min/1.73 sqM) Glucose (74-99) mg/dL Plasma Lactic Acid Luis 0.9 (0.7-2.0) mmol/L Calcium (8.4-10.2) mg/dL Magnesium (1.6-2.3) mg/dL Total Bilirubin (0.2-1.3) mg/dL AST (17-59) U/L ALT (4-49) U/L Alkaline Phosphatase (38-126) U/L Troponin I <0.012 (0.000-0.034) ng/mL NT-Pro-B Natriuret Pep 195 pg/mL Total Protein (6.3-8.2) g/dL Albumin (3.5-5.0) g/dL Disposition Clinical Impression: Pre-syncope, Generalized weakness, Hyponatremia Disposition: ADMITTED IP TO THIS HOSP Condition: Stable Is patient prescribed a controlled substance at d/c from ED?: No Referrals: Benito Martino MD [Primary Care Provider] - 1-2 days Time of Disposition: 21:32 Decision to Admit Reason: Admit from EC Decision Date: 05/10/20 Decision Time: 21:32
[2020-05-10 20:08] LABS: ALT 25 U/L (4-49); AST 34 U/L (17-59); African American GFR (CKD) >90 (>60 ml/min/1.73 sqM); Albumin 3.5 g/dL (3.5-5.0); Alkaline Phosphatase 94 U/L (38-126); Anion Gap 7 mmol/L; Blood Urea Nitrogen 13 mg/dL (9-20); Calcium 8.3 mg/dL (8.4-10.2); Carbon Dioxide 21 mmol/L (22-30); Chloride 100 mmol/L (98-107); Glucose 133 mg/dL (74-99); Non-African American GFR(CKD) >90 (>60 ml/min/1.73 sqM); Potassium 4.3 mmol/L (3.5-5.1); Sodium 128 mmol/L (137-145); Total Bilirubin 0.9 mg/dL (0.2-1.3); Total Protein 7.5 g/dL (6.3-8.2)
[2020-05-10 20:13] LABS: INR 0.9 (<1.2); Partial Thromboplastin Time 23.6 sec (22.0-30.0); Prothrombin Time 9.9 sec (9.0-12.0)
--- NOTE | 2020-05-10 20:19 | XR ---
EXAMINATION TYPE: XR chest 2V DATE OF EXAM: 05/10/2020 COMPARISON: 04/07/2020 HISTORY: Weakness TECHNIQUE: FINDINGS: There is some mild linear infiltrate and atelectasis at the left lung base. There is no hea rt failure. There is slight coarsening of interstitial markings. There are chest leads. Bony thorax i s intact. IMPRESSION: There is some mild linear infiltrate and atelectasis at the left lung base not significan tly different than old exam. No heart failure seen. There is probably pulmonary interstitial fibrosis .
[2020-05-10 20:20] LABS: HCT 38.3 % (39.0-53.0); HGB 12.8 gm/dL (13.0-17.5); MCH 30.5 pg (25.0-35.0); MCHC 33.4 g/dL (31.0-37.0); MCV 91.4 fL (80.0-100.0); Mean Platelet Volume 7.5; Platelet Count 90 k/uL (150-450); RBC 4.19 m/uL (4.30-5.90); RDW 14.3 % (11.5-15.5)
[2020-05-10] MEDS ORDERED: ONDANSETRON 4 MG/2 ML VIAL IVP STA (20:35)
[2020-05-10 20:39] LABS: D-Dimer 1.54 mg/L FEU (<0.60)
[2020-05-10 20:52] LABS: WBC 0.9 k/uL (3.8-10.6)
--- NOTE | 2020-05-10 21:27 | CT ---
EXAMINATION TYPE: CT chest angio for PE DATE OF EXAM: 05/10/2020 COMPARISON: PET/CT scan 04/16/2020 HISTORY: elevated d-dimer, hx of lung ca CT DLP: 322.8 mGycm Automated exposure control for dose reduction was used. CONTRAST: Performed with IV Contrast, patient injected with 68cc mL of Isovue 370. Heart is enlarged. There is no pericardial effusion. There is some patchy atelectasis at the lung bas es. There is no pleural effusion. There is masslike infiltrate at the inferior left perihilum the noa sures 5 cm consistent with tumor. There is normal contrast opacification of the pulmonary arteries. There are no filling defects. There is no mediastinal adenopathy. Thoracic aorta shows mild atheromatous change. Bony thorax is intact. IMPRESSION: No evidence of pulmonary embolism. 5 cm mass at the posterior aspect left pulmonary hilum consistent with tumor unchanged. Patchy atelec tasis at the lung bases unchanged.
[2020-05-10] MEDS ORDERED: NALOXONE 0.4 MG/ML 1 ML VIAL IV PRN (21:41)
[2020-05-10] MEDS: CHOLECALCIFEROL 1,000 UNIT TAB PO SCH (23:10)
[2020-05-10] MEDS: ATORVASTATIN 20 MG TAB PO SCH (23:10)
[2020-05-10] MEDS: LEVOFLOXACIN 750MG-D5W PMX 750 MG in DEXTROSE/WATER 1 150ML.BAG IVPB SCH (23:11)
[2020-05-10] MEDS: Acetaminophen-Codeine 300-30mg TAB PO PRN (23:13)
[2020-05-10] MEDS: LEVOTHYROXINE 25 MCG TAB PO SCH (23:13)
[2020-05-11 00:38] LABS: Appearance,Urine Clear (Clear); Bilirubin,Urine Negative (Negative); Blood,Urine Negative (Negative); Color,Urine Yellow; Glucose,Urine (UA) 4+ (Negative); Ketones,Urine 1+ (Negative); Leukocyte Esterase,Urine Negative (Negative); Nitrite,Urine Negative (Negative); Protein,Urine Negative (Negative); Specific Gravity,Urine 1.039 (1.001-1.035); Urobilinogen,Urine <2.0 mg/dL (<2.0)
[2020-05-11] MEDS: LORATADINE 10 MG TAB PO SCH (08:44)
[2020-05-11] MEDS ORDERED: NON FORMULARY DRUG (Empagliflozin [Jardiance] 25 MG Tablet) PO SCH (09:00)
[2020-05-11] MEDS ORDERED: LINAGLIPTIN 5 MG TABLET PO SCH (09:00)
[2020-05-11] MEDS: SYMBICORT 160-4.5 MCG INHALER INHALATION SCH ×2 (09:54→20:23)
--- NOTE | 2020-05-11 10:07 | P.HPIM ---
History of Present Illness H&P Date: 05/11/20 Chief Complaint: lightheadedness with associated near syncopal episode 75-year-old male presented to the emergency center with the complaint of lightheadedness with associated nausea and mild shortness of breath. Patient attempted to stand up, and became lightheaded, nausea and mild shortness of breath. Patient denies syncopal episode. Significant medical history of coronary artery disease, small cell lung cancer, currently undergoing chemotherapy; COPD, diabetes mellitus type two, hypertension, hyperlipidemia, hypothyroidism Review of Systems Constitutional: Reports chills, Reports chronic pain (Mid scapular pain), Reports fatigue, Reports weakness, Reports weight loss Cardiovascular: Reports dyspnea on exertion, Reports lightheadedness, Reports shortness of breath (With exertion) Respiratory: Reports dyspnea Gastrointestinal: Reports nausea Musculoskeletal: Reports muscle weakness (GENERALIZED) Neurological: Reports balance difficulties Past Medical History Past Medical History: Coronary Artery Disease (CAD), Cancer, Chest Pain / Angina, COPD, Diabetes Mellitus, GERD/Reflux, Hyperlipidemia, Hypertension, Osteoarthritis (OA), Pneumonia, Thyroid Disorder Additional Past Medical History / Comment(s): Skin cancer, lung CA Hx of hemoptysis, wgt loss 70# in 3 months, found lung mass on scan. History of Any Multi-Drug Resistant Organisms: None Reported Past Surgical History: Heart Catheterization, Orthopedic Surgery Additional Past Surgical History / Comment(s): hear cath x2. Lt Knee scope, Rt Shoulder surg. Colonoscopy. bilat cataracts w/ lens implants Past Anesthesia/Blood Transfusion Reactions: No Reported Reaction Past Psychological History: No Psychological Hx Reported Smoking Status: Former smoker Past Alcohol Use History: None Reported Past Drug Use History: None Reported - Past Family History Mother Family Medical History: Cancer, Dementia Medications and Allergies Home Medications and Allergies Comment(s): Home medications and ALLERGIES reviewed Home Medications Medication Instructions Recorded Confirmed Type Levothyroxine Sodium [Synthroid] 25 mcg PO HS 04/12/15 05/10/20 History amLODIPine BESYLATE [Norvasc] 5 mg PO DAILY 04/12/15 05/10/20 History Atorvastatin [Lipitor] 20 mg PO HS 08/02/15 05/10/20 History Cholecalciferol [Vitamin D3] 2,000 unit PO HS 08/02/15 05/10/20 History Fluticasone Nasal [place] [Flonase 1 spr EA NOSTRIL BID 08/02/15 05/10/20 History Nasal [place]] Acetaminophen-Codeine 300-30mg 1 tab PO Q6H PRN 04/15/20 05/10/20 History [Tylenol w/codeine #3] Budesonide-Formot 160-4.5 Mcg 2 puff INHALATION RT-BID 04/15/20 05/10/20 History [Symbicort 160-4.5 Mcg Inhaler] Empagliflozin [Jardiance] 25 mg PO DAILY 04/15/20 05/10/20 History Fish Oil (Unknown Dose) 1 tab PO HS 04/15/20 05/10/20 History Ibuprofen [Motrin] 600 mg PO Q8HR PRN 04/15/20 05/10/20 History Linagliptin [Tradjenta] 5 mg PO DAILY 04/15/20 05/10/20 History Loratadine [Claritin] 10 mg PO DAILY 04/15/20 05/10/20 History Montelukast [Singulair] 10 mg PO DAILY 04/15/20 05/10/20 History Allergies Allergy/AdvReac Type Severity Reaction Status Date / Time Sulfa (Sulfonamide Allergy Severe Anaphylaxis Verified 05/10/20 21:25 Antibiotics) cefuroxime [From Ceftin] Allergy Unknown Verified 05/10/20 21:25 latex Allergy Rash/Hives Verified 05/10/20 21:25 Penicillins Allergy Swelling Verified 05/10/20 21:25 Physical Exam Vitals: Vital Signs Temp Pulse Pulse Resp BP BP Pulse Ox 05/11/20 05:29 98.4 F 74 18 115/68 93 L 05/11/20 00:00 20 05/10/20 23:00 98.9 F 82 20 128/72 94 L 05/10/20 21:28 75 18 108/66 95 05/10/20 20:18 70 18 109/70 96 05/10/20 19:19 98.1 F 84 16 96/59 95 Intake and Output 05/10/20 05/11/20 05/11/20 22:59 06:59 14:59 Other: # Voids 4 Weight 77.111 kg - Constitutional General appearance: average body habitus, cooperative - EENT Eyes: PERRLA Ears: bilateral: normal - Respiratory Respiratory: bilateral: diminished (Posterior bases) - Cardiovascular Heart rate: 74 Rhythm: regular Abnormal Heart Sounds: systolic murmur - Gastrointestinal General gastrointestinal: normal bowel sounds - Integumentary Integumentary: decreased turgor, pale - Neurologic Neurologic: CNII-XII intact - Musculoskeletal Musculoskeletal: generalized weakness - Psychiatric Psychiatric: A&O x's 3, appropriate affect, intact judgment & insight Results CBC & Chem 7: 05/10/20 19:37 05/10/20 19:37 Labs: Abnormal Lab Results - Last 24 Hours (Table) 05/10/20 05/10/20 05/10/20 Range/Units 19:37 19:37 19:37 WBC 0.9 L* (3.8-10.6) k/uL RBC 4.19 L (4.30-5.90) m/uL Hgb 12.8 L (13.0-17.5) gm/dL Hct 38.3 L (39.0-53.0) % Plt Count 90 L (150-450) k/uL D-Dimer 1.54 H (<0.60) mg/L FEU Sodium 128 L (137-145) mmol/L Carbon Dioxide 21 L (22-30) mmol/L Creatinine 0.48 L (0.66-1.25) mg/dL Glucose 133 H (74-99) mg/dL Calcium 8.3 L (8.4-10.2) mg/dL Ur Specific [place] (1.001-1.035) Urine Glucose (UA) (Negative) Urine Ketones (Negative) 05/11/20 Range/Units 00:25 WBC (3.8-10.6) k/uL RBC (4.30-5.90) m/uL Hgb (13.0-17.5) gm/dL Hct (39.0-53.0) % Plt Count (150-450) k/uL D-Dimer (<0.60) mg/L FEU Sodium (137-145) mmol/L Carbon Dioxide (22-30) mmol/L Creatinine (0.66-1.25) mg/dL Glucose (74-99) mg/dL Calcium (8.4-10.2) mg/dL Ur Specific [place] 1.039 H (1.001-1.035) Urine Glucose (UA) 4+ H (Negative) Urine Ketones 1+ H (Negative) Chest x-ray: report reviewed CT scan - chest: report reviewed Thrombosis Risk Factor Assmnt - Choose All That Apply Any of the Below Risk Factors Present?: Yes Other Risk Factors: Yes Each Risk Factor Represents 2 Points: Malignancy Each Risk Factor Represents 3 Points: Age 75 years or older Other congenital or acquired thrombophilia - If yes, enter type in comment: No Thrombosis Risk Factor Assessment Total Risk Factor Score: 5 Thrombosis Risk Factor Assessment Level: High Risk Assessment and Plan Assessment: Neutropenic Small cell lung cancer with lung mass Hyponatremia Near syncopal episode COPD Diabetes mellitus type 2 Hyperlipidemia Hypothyroidism Coronary artery disease Osteoarthritis Diabetic peripheral neuropathy Hypertension GERD Plan: Continue broad-spectrum IV antibiotics Continue home medications as prescribed Continue consultation with oncology for small cell lung cancer with lung mass Continue consultation with cardiology for near syncopal episode Time with Patient: Greater than 30
[2020-05-11 11:18] LABS: Glucose,Whole Blood 113 mg/dL (75-99)
[2020-05-11 11:24] VITALS: BMI 21.8
[2020-05-11] MEDS: FILGRASTIM-SNDZ 480 MCG/0.8 ML SYRINGE SQ SCH (11:57)
[2020-05-11] MEDS: FLUTICASONE 50MCG/SPRAY NASAL 16GM EA NOSTRIL SCH ×2 (11:57→21:12)
[2020-05-11] MEDS: INSULIN ASPART (NovoLOG) 100 UNIT/ML VIAL SQ SCH ×3 (12:34→21:12)
[2020-05-11] MEDS: SODIUM CHLORIDE 0.9% 1,000 ML IV SCH (12:35)
--- NOTE | 2020-05-11 13:36 | P.CNPUL ---
History of Present Illness Consult date: 05/11/20 Reason for consult: lung mass History of present illness: 75-year-old male patient with a recent diagnosis of small cell lung cancer, metastatic was started on systemic chemotherapy approximately 2 weeks ago, was feeling progressively weak over this past few days and the patient was getting lightheaded and had 2 episodes of presyncope at home. He was also feeling nauseated and his oral intake was quite down. There was no S4 distress patient to come into the hospital for further care. Currently he is doing well. He is not having any respiratory distress. The patient had a follow-up CAT scan of the chest in the ED and it showed again a mass in the posterior segment of the left lower lobe, infrahilar area which is essentially unchanged compared to the previous CAT scan. There is some patchy atelectasis in lung bases which remains essentially unchanged. No evidence of any pneumonia or pulmonary embolism. The CAT scan that was done on 04/16/2020 showed lymphadenopathy within the mediastinum involving the supraclavicular lymph node on the left and there was also lymph node in the thoracic inlet anteriorly increased uptake, 70 mediastinal area and uptake within the AP window and at the level of the left hilum. There was no evidence of any pleural or pericardial effusion. No osseous abnormalities. The patient is still having episodic hemoptysis and last bout was around 2 weeks ago, none recently. No seizure activity. No focal neurological deficits. His white cell count is down to 0.9 and this is related to chemotherapy. He is afebrile. Saturations around 93% on room air oxygen. The blood work also showed a sodium level of 128. Troponin was negative. ProBNP was nonelevated. Glucose was within normal limits. EKG showed a sinus rhythm with a premature age her complexes and left axis deviation. Review of Systems Constitutional: Reports fatigue, Reports poor appetite (And the patient has lost approximately 70 pounds), Reports weakness, Reports weight loss Eyes: denies as per HPI, denies blurred vision, denies bulging eye, denies decreased vision, denies diplopia, denies discharge, denies dry eye, denies irritation, denies itching, denies pain, denies photophobia, denies loss of peripheral vision, denies loss of vision, denies tunnel vision/blind spots Ears: deny: decreased hearing, ear discharge, earache, tinnitus Ears, nose, mouth and throat: Reports as per HPI Breasts: absent: as per HPI, gynecomastia Cardiovascular: Reports decreased exercise tolerance, Reports dyspnea on exertion Respiratory: Reports dyspnea, Reports hemoptysis Gastrointestinal: Reports loss of appetite, Reports nausea Genitourinary: Reports as per HPI Musculoskeletal: Reports as per HPI Musculoskeletal: absent: ankle pain, ankle stiffness, ankle swelling Integumentary: Reports as per HPI Neurological: Reports syncope (Presyncope without any loss in consciousness), Reports weakness Psychiatric: Reports as per HPI Endocrine: Reports as per HPI Hematologic/Lymphatic: Reports as per HPI Allergic/Immunologic: Reports as per HPI Past Medical History Past Medical History: Coronary Artery Disease (CAD), Cancer, Chest Pain / Angina, COPD, Diabetes Mellitus, GERD/Reflux, Hyperlipidemia, Hypertension, Osteoarthritis (OA), Thyroid Disorder Additional Past Medical History / Comment(s): Skin cancer, small cell lung cancer, metastatic, COPD History of Any Multi-Drug Resistant Organisms: None Reported Past Surgical History: Heart Catheterization, Orthopedic Surgery Additional Past Surgical History / Comment(s): hear cath x2. Lt Knee scope, Rt Shoulder surg. Colonoscopy. bilat cataracts w/ lens implants Past Anesthesia/Blood Transfusion Reactions: No Reported Reaction Past Psychological History: No Psychological Hx Reported Smoking Status: Former smoker - Past Family History Mother Family Medical History: Cancer, Dementia Medications and Allergies Home Medications Medication Instructions Recorded Confirmed Type Levothyroxine Sodium [Synthroid] 25 mcg PO HS 04/12/15 05/10/20 History amLODIPine BESYLATE [Norvasc] 5 mg PO DAILY 04/12/15 05/10/20 History Atorvastatin [Lipitor] 20 mg PO HS 08/02/15 05/10/20 History Cholecalciferol [Vitamin D3] 2,000 unit PO HS 08/02/15 05/10/20 History Fluticasone Nasal [place] [Flonase 1 spr EA NOSTRIL BID 08/02/15 05/10/20 History Nasal [place]] Acetaminophen-Codeine 300-30mg 1 tab PO Q6H PRN 04/15/20 05/10/20 History [Tylenol w/codeine #3] Budesonide-Formot 160-4.5 Mcg 2 puff INHALATION RT-BID 04/15/20 05/10/20 History [Symbicort 160-4.5 Mcg Inhaler] Empagliflozin [Jardiance] 25 mg PO DAILY 04/15/20 05/10/20 History Fish Oil (Unknown Dose) 1 tab PO HS 04/15/20 05/10/20 History Ibuprofen [Motrin] 600 mg PO Q8HR PRN 04/15/20 05/10/20 History Linagliptin [Tradjenta] 5 mg PO DAILY 04/15/20 05/10/20 History Loratadine [Claritin] 10 mg PO DAILY 04/15/20 05/10/20 History Montelukast [Singulair] 10 mg PO DAILY 04/15/20 05/10/20 History Allergies Allergy/AdvReac Type Severity Reaction Status Date / Time Sulfa (Sulfonamide Allergy Severe Anaphylaxis Verified 05/10/20 21:25 Antibiotics) cefuroxime [From Ceftin] Allergy Unknown Verified 05/10/20 21:25 latex Allergy Rash/Hives Verified 05/10/20 21:25 Penicillins Allergy Swelling Verified 05/10/20 21:25 Physical Exam Vitals: Vital Signs Temp Pulse Pulse Resp BP BP Pulse Ox 05/11/20 05:29 98.4 F 74 18 115/68 93 L 05/11/20 00:00 20 05/10/20 23:00 98.9 F 82 20 128/72 94 L 05/10/20 21:28 75 18 108/66 95 05/10/20 20:18 70 18 109/70 96 05/10/20 19:19 98.1 F 84 16 96/59 95 Intake and Output 05/10/20 05/11/20 05/11/20 22:59 06:59 14:59 Other: # Voids 4 Weight 77.111 kg 77.111 kg The patient appeared well nourished and normally developed. Vital signs as documented. Head exam is unremarkable. No scleral icterus or corneal arcus noted. Neck is without jugular venous distension, thyromegaly, or carotid br uits. Carotid upstrokes are brisk bilaterally. Lungs are clear to auscultation and percussion. Cardiac exam reveals the PMI to be normally sized and situated. Rhythm is regular. First and second heart sounds normal. No murmurs, rubs or gallops. Abdominal exam reveals normal bowel sounds, no masses, no organomegaly and no aortic enlargement. Extremities are nonedematous and both femoral and pedal pulses are normal.Examination of the skin revealed no evidence of significant rashes, suspicious appearing nevi or other concerning lesions.Neurologically, the patient is awake and alert and the patient does not have any focal neurological deficit. Cranial nerves are essentially intact. Results - Laboratory Findings CBC and BMP: 05/10/20 19:37 05/10/20 19:37 PT/INR, D-dimer PT 9.9 sec (9.0-12.0) 05/10/20 19:37 INR 0.9 (<1.2) 05/10/20 19:37 D-Dimer 1.54 mg/L FEU (<0.60) H 05/10/20 19:37 Abnormal lab findings: Abnormal Labs 05/10/20 05/10/20 05/10/20 19:37 19:37 19:37 WBC 0.9 L* RBC 4.19 L Hgb 12.8 L Hct 38.3 L Plt Count 90 L D-Dimer 1.54 H Sodium 128 L Carbon Dioxide 21 L Creatinine 0.48 L Glucose 133 H POC Glucose (mg/dL) Calcium 8.3 L Ur Specific [place] Urine Glucose (UA) Urine Ketones 05/11/20 05/11/20 00:25 11:09 WBC RBC Hgb Hct Plt Count D-Dimer Sodium Carbon Dioxide Creatinine Glucose POC Glucose (mg/dL) 113 H Calcium Ur Specific [place] 1.039 H Urine Glucose (UA) 4+ H Urine Ketones 1+ H - Diagnostic Findings CT scan - chest: image reviewed Assessment and Plan Plan: 1 presyncope with some lightheadedness. Consider the possibility of an underlying intravascular volume depletion/dehydration/orthostasis contributing to this presyncope. The patient is currently hemodynamically stable. Pulse ox 90% on room air. Would need further neuro workup including a repeat MRI of the brain to make sure there is no [employer] metastases from metastatic small cell lung cancer. 2 metastatic small cell lung cancer currently on systemic chemotherapy 3 leukopenia secondary to above currently on Zarxio 4 hyponatremia, likely hypovolemic. She will reduce SIDH is also possible 5 COPD 6 coronary artery disease 7 hypertension 8 hyperlipidemia 9 diabetes mellitus 10 history of skin cancer 11 hypothyroidism 12 significant weight loss secondary to underlying malignancy Plan IV fluids normal saline today to 75 mL an hour Agree on filgrastim for underlying leukopenia The patient is afebrile and there are no signs of septicemia MRI of the brain will be needed to rule out [employer] metastases. Last MRI of the brain was done and April 2019 and the findings were essentially within normal limits back then We'll continue to follow the progress. The patient has received only one session of systemic chemotherapy and the left lower lobe tumor is essentially unchanged in the follow-up CAT scan. Monitor sodium level Blood cultures We'll follow
--- NOTE | 2020-05-11 13:38 | P.CRDCN ---
History of Present Illness Consult date: 05/11/20 History of present illness: CHIEF COMPLAINT: Presyncope HISTORY OF PRESENT ILLNESS: This is a 75-year old male with a past medical history significant for COPD, hypertension, hyperlipidemia, and lung cancer. Patient follows in the office with Dr. Matthews. We have been asked to see the patient in consultation for presyncope. Patient states he was with his daughter yesterday and he was not feeling well most of the the day. He reports two episodes of feeling lightheaded and felt like he was going to pass out. Patient however did not pass out. He denies any LOC. He denies falling. He denies any chest pain or pressure prior to these episodes. He reports mild shortness of breath which she states is his baseline. He denies any palpitations. Patient had a heart catheterization performed by Dr. Matthews in 2009 revealing 35% mid LAD lesion and also 30-40% diagonal lesion. Patient also underwent Lexiscan stress test in June 2018 which was negative for stress-induced ischemia. DIAGNOSTICS: EKG reveals sinus rhythm with no signs of acute ischemia Chest xray mild linear infiltrate and atelectasis at the left lung base. No heart failure seen. Chest CTA: No evidence of pulmonary embolism. 5 cm mass at the posterior aspect left pulmonary hilum consistent with tumor. Patchy atelectasis at the lung bases unchanged. Laboratory data: WBC 0.9. Hemoglobin 12.8. Platelet count 90. D-dimer 1.54. Sodium 128. Potassium 4.3. BUN 13. Creatinine 0.48. Lactic acid 0.9. Troponin negative 1. BNP 195. Current home cardiac medications include Norvasc 5 mg daily and Lipitor 20 mg daily REVIEW OF SYSTEMS: At the time of my exam: CONSTITUTIONAL: Denies fever or chills. HEENT: Denies blurred vision, vision changes, or eye pain. Denies hemoptysis CARDIOVASCULAR: Denies chest pain, orthopnea, PND or palpitations RESPIRATORY: Reports mild shortness of breath. GASTROINTESTINAL: Denies abdominal pain. Denies nausea or vomiting. HEMATOLOGIC: Denies bleeding disorders. GENITOURINARY: Denies any blood in urine. SKIN: Denies pruitis. Denies rash. PHYSICAL EXAM: VITAL SIGNS: Reviewed. GENERAL: Well-developed in no acute distress. HEENT: Head is normocephalic. Pupils are equal, round. Sclerae anicteric. Mucous membranes of the mouth are moist. Neck supple. No JVD or thyromegaly LUNGS: Respirations even and unlabored. Lungs diminished. HEART: Regular rate and rhythm. S1 and S2 heard. ABDOMEN: Soft. Nondistended. Nontender. EXTREMITIES: Normal range of motion. No clubbing or cyanosis. Peripheral pulses intact. No lower extremity edema NEUROLOGIC: Awake and alert. Oriented x 3. ASSESSMENT: Presyncope Orthostatic hypotension Small cell lung cancer Hyponatremia Mild nonobstructive coronary artery disease Hypertension Hyperlipidemia COPD PLAN: Orthostatics reviewed and were mildly positive with 15mmHg drop in blood pressure Discontinue Norvasc Patient reports decreased oral intake. Dr. John spoke with patient and encouraged him to increase oral intake and also increase sodium intake due to hyponatremia Obtain 2-D echo to assess cardiac structure and function Nurse practitioner note has been reviewed by physician. Signing provider agrees with the documented findings, assessment, and plan of care. Past Medical History Past Medical History: Coronary Artery Disease (CAD), Cancer, Chest Pain / Angina, COPD, Diabetes Mellitus, GERD/Reflux, Hyperlipidemia, Hypertension, Osteoarthritis (OA), Thyroid Disorder Additional Past Medical History / Comment(s): Skin cancer, lung CA Hx of he moptysis, wgt loss 70# in 3 months, found lung mass on scan. History of Any Multi-Drug Resistant Organisms: None Reported Past Surgical History: Heart Catheterization, Orthopedic Surgery Additional Past Surgical History / Comment(s): hear cath x2. Lt Knee scope, Rt Shoulder surg. Colonoscopy. bilat cataracts w/ lens implants Past Anesthesia/Blood Transfusion Reactions: No Reported Reaction Past Psychological History: No Psychological Hx Reported Smoking Status: Former smoker - Past Family History Mother Family Medical History: Cancer, Dementia Medications and Allergies Home Medications Medication Instructions Recorded Confirmed Type Levothyroxine Sodium [Synthroid] 25 mcg PO HS 04/12/15 05/10/20 History amLODIPine BESYLATE [Norvasc] 5 mg PO DAILY 04/12/15 05/10/20 History Atorvastatin [Lipitor] 20 mg PO HS 08/02/15 05/10/20 History Cholecalciferol [Vitamin D3] 2,000 unit PO HS 08/02/15 05/10/20 History Fluticasone Nasal [place] [Flonase 1 spr EA NOSTRIL BID 08/02/15 05/10/20 History Nasal [place]] Acetaminophen-Codeine 300-30mg 1 tab PO Q6H PRN 04/15/20 05/10/20 History [Tylenol w/codeine #3] Budesonide-Formot 160-4.5 Mcg 2 puff INHALATION RT-BID 04/15/20 05/10/20 History [Symbicort 160-4.5 Mcg Inhaler] Empagliflozin [Jardiance] 25 mg PO DAILY 04/15/20 05/10/20 History Fish Oil (Unknown Dose) 1 tab PO HS 04/15/20 05/10/20 History Ibuprofen [Motrin] 600 mg PO Q8HR PRN 04/15/20 05/10/20 History Linagliptin [Tradjenta] 5 mg PO DAILY 04/15/20 05/10/20 History Loratadine [Claritin] 10 mg PO DAILY 04/15/20 05/10/20 History Montelukast [Singulair] 10 mg PO DAILY 04/15/20 05/10/20 History Allergies Allergy/AdvReac Type Severity Reaction Status Date / Time Sulfa (Sulfonamide Allergy Severe Anaphylaxis Verified 05/10/20 21:25 Antibiotics) cefuroxime [From Ceftin] Allergy Unknown Verified 05/10/20 21:25 latex Allergy Rash/Hives Verified 05/10/20 21:25 Penicillins Allergy Swelling Verified 05/10/20 21:25 Physical Exam Vitals: Vital Signs Temp Pulse Pulse Resp BP BP Pulse Ox 05/11/20 05:29 98.4 F 74 18 115/68 93 L 05/11/20 00:00 20 05/10/20 23:00 98.9 F 82 20 128/72 94 L 05/10/20 21:28 75 18 108/66 95 05/10/20 20:18 70 18 109/70 96 05/10/20 19:19 98.1 F 84 16 96/59 95 Intake and Output 05/10/20 05/11/20 05/11/20 22:59 06:59 14:59 Other: # Voids 4 Weight 77.111 kg 77.111 kg Results 05/10/20 19:37 05/10/20 19:37 Cardiac Enzymes 05/10/20 05/10/20 Range/Units 19:37 19:37 AST 34 (17-59) U/L Troponin I <0.012 (0.000-0.034) ng/mL Coagulation 05/10/20 Range/Units 19:37 PT 9.9 (9.0-12.0) sec APTT 23.6 (22.0-30.0) sec CBC 05/10/20 Range/Units 19:37 WBC 0.9 L* (3.8-10.6) k/uL RBC 4.19 L (4.30-5.90) m/uL Hgb 12.8 L (13.0-17.5) gm/dL Hct 38.3 L (39.0-53.0) % Plt Count 90 L (150-450) k/uL Comprehensive Metabolic Panel 05/10/20 Range/Units 19:37 Sodium 128 L (137-145) mmol/L Potassium 4.3 (3.5-5.1) mmol/L Chloride 100 (98-107) mmol/L Carbon Dioxide 21 L (22-30) mmol/L BUN 13 (9-20) mg/dL Creatinine 0.48 L (0.66-1.25) mg/dL Glucose 133 H (74-99) mg/dL Calcium 8.3 L (8.4-10.2) mg/dL AST 34 (17-59) U/L ALT 25 (4-49) U/L Alkaline Phosphatase 94 (38-126) U/L Total Protein 7.5 (6.3-8.2) g/dL Albumin 3.5 (3.5-5.0) g/dL Current Medications Generic Name Dose Route Start Last Admin Trade Name Freq PRN Reason Stop Dose Admin Acetaminophen/Codeine Phosphate 1 each 05/10/20 21:36 05/10/20 23:13 Acetaminophen-Codeine 300-30mg Tab PO 1 each Q6H PRN Administration Pain Atorvastatin Calcium 20 mg 05/10/20 23:00 05/10/20 23:10 Atorvastatin 20 Mg Tab PO 20 mg HS DEBBY Administration Budesonide/Formoterol Fumarate 2 puff 05/11/20 08:00 05/11/20 09:54 Symbicort 160-4.5 Mcg Inhaler INHALATION 2 puff RT-BID DEBBY Administration Cholecalciferol 2,000 unit 05/10/20 23:00 05/10/20 23:10 Cholecalciferol 1,000 Unit Tab PO 2,000 unit HS DEBBY Administration Filgrastim-Sndz 480 mcg 05/11/20 09:15 05/11/20 11:57 Filgrastim-Sndz 480 Mcg/0.8 Ml Syringe SQ 480 mcg DAILY DEBBY Administration Fluticasone Propionate 1 spray 05/11/20 09:00 05/11/20 11:57 Fluticasone 50mcg/[place] Nasal 16gm EA NOSTRIL 1 spray BID DEBBY Administration Levofloxacin 750 mg/ IV 150 mls @ 100 mls/hr 05/10/20 22:45 05/10/20 23:11 Solution IVPB 100 mls/hr DAILY@2100 DEBBY Administration Sodium Chloride 1,000 mls @ 75 mls/hr 05/11/20 12:00 05/11/20 12:35 Saline 0.9% IV 75 mls/hr .[id number] DEBBY Administration Insulin Aspart 0 unit 05/11/20 12:30 05/11/20 12:34 Insulin Aspart (Novolog) 100 Unit/Ml Vial SQ Not Given ACHS [facility] Protocol Levothyroxine Sodium 25 mcg 05/10/20 23:00 05/10/20 23:13 Levothyroxine 25 Mcg Tab PO 25 mcg HS DEBBY Administration Loratadine 10 mg 05/11/20 09:00 05/11/20 08:44 Loratadine 10 Mg Tab PO 10 mg DAILY DEBBY Administration Naloxone HCl 0.2 mg 05/10/20 21:41 Naloxone 0.4 Mg/Ml 1 Ml Vial IV Q2M PRN Opioid Reversal Intake and Output 05/10/20 05/11/20 05/11/20 22:59 06:59 14:59 Other: # Voids 4 Weight 77.111 kg 77.111 kg Patient Weight 05/12/20 06:59 Weight 77.111 kg 05/10/20 19:37 05/10/20 19:37
--- NOTE | 2020-05-11 15:44 | P.CONS ---
History of Present Illness - Reason for Consult Consult date: 05/11/20 Small cell NET lung cancer Requesting physician: Mela Thompson - Chief Complaint weak, near syncopy - History of Present Illness Mr. Norris is a 75 year old male pt of Dr. 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 He presented 04/09 with c/o of shoulder pain, persistent after a fall. Incidentally a lt hilar mass was noted. He reported at that time unintentional wt. loss and some episodes of hemoptysis. CT chest 04/10 showed lt hilar mass, mediastinal adenopathy. 04/17 PET confirmed FDG avid disease in the lt lung and chest with a questionable area of soft tissue in the pelvis. He had biopsy of LLL mass 04/19, path + small cell neuroendocrine lung cancer. He had a MRI of the brain 05/02/20 for dizziness, no evidence of disease. He had his 1st cycle of carbo/ADOPTION MANAGER/tecentriq 05/01, no GCSF. He was hydrated in the office end of last week. He presented to the ER with c/o dizziness, poor appetite and constipation. D- dimer elevated, CTA - for PE, Na+ 128, plt t 90K, WBC 0.9. He denies fever, difficulty swallowing, nausea, vomiting, chest pain, abd pain, dysuria, hematuria, bleeding, swelling or pain. Review of Systems 14 point ROS is negative except as stated in HPI Past Medical History Past Medical History: Coronary Artery Disease (CAD), Cancer, Chest Pain / Angina, COPD, Diabetes Mellitus, GERD/Reflux, Hyperlipidemia, Hypertension, Osteoarthritis (OA), Thyroid Disorder Additional Past Medical History / Comment(s): Skin cancer, lung CA Hx of hemoptysis, wgt loss 70# in 3 months, found lung mass on scan. History of Any Multi-Drug Resistant Organisms: None Reported Past Surgical History: Heart Catheterization, Orthopedic Surgery Additional Past Surgical History / Comment(s): hear cath x2. Lt Knee scope, Rt Shoulder surg. Colonoscopy. bilat cataracts w/ lens implants Past Anesthesia/Blood Transfusion Reactions: No Reported Reaction Past Psychological History: No Psychological Hx Reported Smoking Status: Former smoker - Past Family History Mother Family Medical History: Cancer, Dementia Medications and Allergies Home Medications Medication Instructions Recorded Confirmed Type Levothyroxine Sodium [Synthroid] 25 mcg PO HS 04/12/15 05/10/20 History Atorvastatin [Lipitor] 20 mg PO HS 08/02/15 05/10/20 History Cholecalciferol [Vitamin D3] 2,000 unit PO HS 08/02/15 05/10/20 History Fluticasone Nasal [place] [Flonase 1 spr EA NOSTRIL BID 08/02/15 05/10/20 History Nasal [place]] Acetaminophen-Codeine 300-30mg 1 tab PO Q6H PRN 04/15/20 05/10/20 History [Tylenol w/codeine #3] Budesonide-Formot 160-4.5 Mcg 2 puff INHALATION RT-BID 04/15/20 05/10/20 History [Symbicort 160-4.5 Mcg Inhaler] Empagliflozin [Jardiance] 25 mg PO DAILY 04/15/20 05/10/20 History Fish Oil (Unknown Dose) 1 tab PO HS 04/15/20 05/10/20 History Ibuprofen [Motrin] 600 mg PO Q8HR PRN 04/15/20 05/10/20 History Linagliptin [Tradjenta] 5 mg PO DAILY 04/15/20 05/10/20 History Loratadine [Claritin] 10 mg PO DAILY 04/15/20 05/10/20 History Montelukast [Singulair] 10 mg PO DAILY 04/15/20 05/10/20 History Allergies Allergy/AdvReac Type Severity Reaction Status Date / Time Sulfa (Sulfonamide Allergy Severe Anaphylaxis Verified 05/10/20 21:25 Antibiotics) cefuroxime [From Ceftin] Allergy Unknown Verified 05/10/20 21:25 latex Allergy Rash/Hives Verified 05/10/20 21:25 Penicillins Allergy Swelling Verified 05/10/20 21:25 Physical Exam Vitals: Vital Signs Temp Pulse Pulse Resp BP BP Pulse Ox 05/11/20 05:29 98.4 F 74 18 115/68 93 L 05/11/20 00:00 20 05/10/20 23:00 98.9 F 82 20 128/72 94 L 05/10/20 21:28 75 18 108/66 95 05/10/20 20:18 70 18 109/70 96 05/10/20 19:19 98.1 F 84 16 96/59 95 Intake and Output 05/10/20 05/11/20 05/11/20 22:59 06:59 14:59 Other: # Voids 4 Weight 77.111 kg - Constitutional General appearance: average body habitus, cooperative, no acute distress - EENT Eyes: anicteric sclerae, EOMI ENT: hearing grossly normal, normal oropharynx - Neck Neck: no lymphadenopathy - Respiratory Respiratory: bilateral: CTA - Cardiovascular Heart sounds: normal: S1, S2 Abnormal Heart Sounds: no systolic murmur, no diastolic murmur, no rub, no S3 Gallop, no S4 Gallop, no click, no other leg Peripheral Edema: bilateral: None - Gastrointestinal General gastrointestinal: no absent bowel sounds, no decreased bowel sounds, no distended, no hepatomegaly, no hyperactive bowel sounds, normal bowel sounds, no organomegaly, no rigid, no scaphoid, soft, no splenomegaly, no tenderness, no umbilical hernia, no ventral hernia - Neurologic Neurologic: CNII-XII intact - Musculoskeletal Musculoskeletal: generalized weakness, strength equal bilaterally - Psychiatric Psychiatric: A&O x's 3, appropriate affect, intact judgment & insight Results CBC & Chem 7: 05/10/20 19:37 05/10/20 19:37 Labs: Abnormal Lab Results - Last 24 Hours (Table) 05/10/20 05/10/20 05/10/20 Range/Units 19:37 19:37 19:37 WBC 0.9 L* (3.8-10.6) k/uL RBC 4.19 L (4.30-5.90) m/uL Hgb 12.8 L (13.0-17.5) gm/dL Hct 38.3 L (39.0-53.0) % Plt Count 90 L (150-450) k/uL D-Dimer 1.54 H (<0.60) mg/L FEU Sodium 128 L (137-145) mmol/L Carbon Dioxide 21 L (22-30) mmol/L Creatinine 0.48 L (0.66-1.25) mg/dL Glucose 133 H (74-99) mg/dL Calcium 8.3 L (8.4-10.2) mg/dL Ur Specific [place] (1.001-1.035) Urine Glucose (UA) (Negative) Urine Ketones (Negative) 05/11/20 Range/Units 00:25 WBC (3.8-10.6) k/uL RBC (4.30-5.90) m/uL Hgb (13.0-17.5) gm/dL Hct (39.0-53.0) % Plt Count (150-450) k/uL D-Dimer (<0.60) mg/L FEU Sodium (137-145) mmol/L Carbon Dioxide (22-30) mmol/L Creatinine (0.66-1.25) mg/dL Glucose (74-99) mg/dL Calcium (8.4-10.2) mg/dL Ur Specific [place] 1.039 H (1.001-1.035) Urine Glucose (UA) 4+ H (Negative) Urine Ketones 1+ H (Negative) Comments: PET scan report reviewed Chest x-ray: report reviewed CT scan - chest: report reviewed Assessment and Plan (1) Hyponatremia Narrative/Plan: Multifactorial including no oral intake, free water vs fluids with electrolytes and small cell lung cancer. Pt being hydrated with NS, he is tolerating some oral intake. Cont IV fluids. Pt educated in the importance of electrolyte containing fluids. We will see how his sodium does. If there is a problem getting it to a level where pt is able to function then we may have to consider demeclocycline. Current Visit: Yes Status: Acute Priority: High Code(s): E87.1 - HYPO- OSMOLALITY AND HYPONATREMIA SNOMED Code(s): 13496957 (2) SCLC (small cell lung carcinoma) Narrative/Plan: Pt is s/p 1st carbo/ADOPTION MANAGER/tecentriq. Hemodynamically he did well other then signif icantly low WBC. Message to Primary Oncologist to see if they would like to add GCSF to regimen or adjust dose. Pt is not due for treatment until later next week. Will follow his course. Current Visit: Yes Status: Acute Priority: High Code(s): C34.90 - MALIGNANT NEOPLASM OF UNSP PART OF UNSP BRONCHUS OR LUNG SNOMED Code(s): 467655097 (3) Generalized weakness Narrative/Plan: Due to poor oral intake, hyponatremtia, pt feeling weak. Dietitian, PT/OT ROSA Current Visit: Yes Status: Acute Priority: High Code(s): R53.1 - WEAKNESS SNOMED Code(s): 78427183 (4) Leukopenia due to antineoplastic chemotherapy Narrative/Plan: GCSF added, labs daily Current Visit: Yes Status: Acute Priority: High Code(s): D70.1 - AGRANULOCYTOSIS SECONDARY TO CANCER CHEMOTHERAPY; T45.1X5A - ADVERSE EFFECT OF ANTINEOPLASTIC AND IMMUNOSUP DRUGS, INIT SNOMED Code(s): 634756592 Plan: Doctor attests: I performed a history and physical examination of this patient, developed impression and plan of care. Discussed with dictator. I agree with dictators note, documented as a scribe.
[2020-05-11 17:01] LABS: Glucose,Whole Blood 142 mg/dL (75-99)
[2020-05-11] MEDS: ONDANSETRON 4 MG/2 ML VIAL IVP PRN (18:01)
--- NOTE | 2020-05-11 18:53 | XR ---
EXAMINATION TYPE: XR shoulder complete LT DATE OF EXAM: 05/11/2020 COMPARISON: NONE HISTORY: Older pain TECHNIQUE: 3 views FINDINGS: There is no sign of fracture nor dislocation. Glenohumeral joint is intact. There are no pa thologic calcifications. IMPRESSION: Negative left shoulder exam.
[2020-05-11 20:18] LABS: Glucose,Whole Blood 194 mg/dL (75-99)
[2020-05-11] MEDS: ATORVASTATIN 20 MG TAB PO SCH (21:11)
[2020-05-11] MEDS: CHOLECALCIFEROL 1,000 UNIT TAB PO SCH (21:11)
[2020-05-11] MEDS: LEVOTHYROXINE 25 MCG TAB PO SCH (21:12)
[2020-05-11] MEDS: LEVOFLOXACIN 750MG-D5W PMX 750 MG in DEXTROSE/WATER 1 150ML.BAG IVPB SCH (22:19)
--- NOTE | 2020-05-11 22:21 | MR ---
EXAMINATION TYPE: MR brain wo con DATE OF EXAM: 05/11/2020 COMPARISON: 05/05/2019 HISTORY: Syncope Multiplanar multiecho imaging of the brain was performed without contrast. There is cerebral cortical atrophy. There is no mass effect nor midline shift. There is no sign of in tracranial hemorrhage. There is no evidence of cortical infarct. Brainstem is intact. There is slight increased signal on the T2 images in the white matter around the occipital horns of the lateral vent ricles. There is mucosal thickening in the frontal and ethmoid and sphenoid sinuses. Sella turcica ap pears normal. Corpus callosum is intact. IMPRESSION: White matter signal changes around the lateral ventricles in the occipital lobes could relate to some chronic small vessel ischemia and appears slightly increased compared to old exam. No evidence of co rtical infarct. There is sinusitis improved compared to old exam.
[2020-05-12] MEDS: ONDANSETRON 4 MG/2 ML VIAL IVP PRN ×2 (01:48→21:51)
[2020-05-12] MEDS: SODIUM CHLORIDE 0.9% 1,000 ML IV SCH ×2 (01:49→16:39)
[2020-05-12 04:00] LABS: HCT 36.6 % (39.0-53.0); MCH 30.6 pg (25.0-35.0); MCHC 32.7 g/dL (31.0-37.0); MCV 93.5 fL (80.0-100.0); Mean Platelet Volume 7.9; Platelet Count 103 k/uL (150-450); RBC 3.91 m/uL (4.30-5.90); RDW 14.8 % (11.5-15.5); WBC 1.8 k/uL (3.8-10.6)
[2020-05-12 05:07] LABS: Nucleated Red Blood Cells 0 /100 WBC (0-0)
[2020-05-12 05:08] LABS: Band Neutrophils % 45 %; Lymphocytes # (M) 0.32 k/uL (1.0-4.8); Monocytes # (M) 0.29 k/uL (0-1.0); Neutrophils % (M) 21 %; Total Cells Counted 100
[2020-05-12 06:52] LABS: Glucose,Whole Blood 112 mg/dL (75-99)
[2020-05-12] MEDS: INSULIN ASPART (NovoLOG) 100 UNIT/ML VIAL SQ SCH ×4 (07:22→22:28)
[2020-05-12] MEDS: SYMBICORT 160-4.5 MCG INHALER INHALATION SCH ×2 (07:27→20:08)
[2020-05-12 07:30] LABS: Glucose,Whole Blood 109 mg/dL (75-99)
[2020-05-12] MEDS: FILGRASTIM-SNDZ 480 MCG/0.8 ML SYRINGE SQ SCH (08:41)
[2020-05-12] MEDS: LORATADINE 10 MG TAB PO SCH (08:41)
[2020-05-12] MEDS: FLUTICASONE 50MCG/SPRAY NASAL 16GM EA NOSTRIL SCH ×2 (08:44→21:50)
[2020-05-12 09:44] LABS: African American GFR (CKD) 112.4 (60.0-200.0); Albumin 3.2 g/dL (3.80-4.90); Albumin/Globulin Ratio 1.1 (1.60-3.17); Anion Gap 9.8 mmol/L (4.00-12.00); BUN/Creat Ratio 16.67 Ratio (12.00-20.00); Calcium 7.8 mg/dL (8.7-10.3); Carbon Dioxide 21.2 mmol/L (21.6-31.8); Globulin 2.9 g/dL (1.6-3.3); Potassium 3.9 mmol/L (3.5-5.5); Total Bilirubin 0.6 mg/dL (0.3-1.2); Total Protein 6.1 g/dL (6.2-8.2)
--- NOTE | 2020-05-12 09:53 | P.PN ---
Subjective Progress Note Date: 05/12/20 Principal diagnosis: Near-syncopalunderlying intervascular depletion Metastatic small lung cancer currently on systemic chemotherapywith 5 centimeter lung mass Leukopenia on zarxio Hyponatremia 75-year-old male receiving moderate hydration therapy for hyponatremia and dehydration. Leukopenia noted on admissionon filgrastimincrease of white blood cell count from 0.9 to 1.7. Patient continues to complain of generalized body aches, analgesic therapy reducing pain intensity. Objective - Vital Signs Vital signs: Vital Signs Temp 98.2 F 05/12/20 05:00 Pulse 75 05/12/20 05:00 Resp 18 05/12/20 05:00 BP 112/67 05/12/20 05:00 Pulse Ox 95 05/12/20 05:00 Intake & Output 05/11/20 05/12/20 05/12/20 18:59 06:59 18:59 Intake Total 600 900 Output Total 107 100 Balance 600 793 -100 Weight 77.111 kg Intake: Intake, IV Titration 600 900 Amount Sodium Chloride 0.9% 1, 600 900 000 ml @ 75 mls/hr IV . [id number] [facility] Rx#:[id number] Output: Urine 100 Post Void Residual 107 Other: Voiding Method Toilet Toilet # Voids 3 1 - Constitutional General appearance: Present: thin - EENT Eyes: Present: PERRLA Ears: bilateral: normal - Neck Carotids: bilateral: upstroke normal Thyroid: bilateral: normal size - Respiratory Respiratory: right: rales (Posterior), left: diminished (Anterior and posterior) - Cardiovascular Details: Sinus rhythm Heart rate: 74 Rhythm: regular Abnormal Heart Sounds: Present: systolic murmur - Gastrointestinal General gastrointestinal: Present: normal bowel sounds - Integumentary Integumentary: Present: decreased turgor, pale - Neurologic Neurologic: Present: CNII-XII intact - Musculoskeletal Musculoskeletal: Present: generalized weakness - Psychiatric Psychiatric: Present: A&O x's 3, appropriate affect, intact judgment & insight - Labs CBC & Chem 7: 05/12/20 03:45 05/10/20 19:37 Labs: Abnormal Lab Results - Last 24 Hours (Table) 05/11/20 05/11/20 05/11/20 Range/Units 07:12 11:09 12:37 WBC (3.8-10.6) k/uL RBC (4.30-5.90) m/uL Hgb (13.0-17.5) gm/dL Hct (39.0-53.0) % Plt Count (150-450) k/uL Neutrophils # (Manual) (1.3-7.7) k/uL Lymphocytes # (Manual) (1.0-4.8) k/uL POC Glucose (mg/dL) 109 H 113 H (75-99) mg/dL Procalcitonin 1.81 H (0.02-0.09) ng/mL 05/11/20 05/11/20 05/12/20 Range/Units 16:59 20:09 03:45 WBC 1.8 L (3.8-10.6) k/uL RBC 3.91 L (4.30-5.90) m/uL Hgb 12.0 L (13.0-17.5) gm/dL Hct 36.6 L (39.0-53.0) % Plt Count 103 L (150-450) k/uL Neutrophils # (Manual) 1.10 L (1.3-7.7) k/uL Lymphocytes # (Manual) 0.32 L (1.0-4.8) k/uL POC Glucose (mg/dL) 142 H 194 H (75-99) mg/dL Procalcitonin (0.02-0.09) ng/mL 05/12/20 Range/Units 06:49 WBC (3.8-10.6) k/uL RBC (4.30-5.90) m/uL Hgb (13.0-17.5) gm/dL Hct (39.0-53.0) % Plt Count (150-450) k/uL Neutrophils # (Manual) (1.3-7.7) k/uL Lymphocytes # (Manual) (1.0-4.8) k/uL POC Glucose (mg/dL) 112 H (75-99) mg/dL Procalcitonin (0.02-0.09) ng/mL Microbiology - Last 24 Hours (Table) 05/10/20 22:55 Blood Culture - Preliminary Blood No Growth after 24 hours - Imaging and Cardiology MRI - head: report reviewed Left shoulder x-ray reviewed Assessment and Plan Assessment: Presyncopal Metastatic small lung cancer currently on systemic chemotherapy Leukopenia secondary to systemic therapycurrently receiving zarxio Hyponatremiacontinue moderate hydration therapy COPD Coronary artery disease Hypertension Hyperlipidemia Diabetes mellitus type 2 Hypothyroidism Plan: Continue isotonic IV fluid at 75 ML's an hour for hydration therapy Continue filgrastim for leukopenia Continue consultation with oncology with recommendationsregarding small cell lung CA metastatic Continue consultation with pulmonology regarding COPD and lung mass Continue consultation with cardiology regarding near syncopal episode We'll continue to medically manage with recommendations of consultants Time with Patient: Less than 30
--- NOTE | 2020-05-12 10:00 | ECHOF ---
Referral Reason:LV function MEASUREMENTS -------- HEIGHT: 182.9 cm WEIGHT: 77.1 kg BP: RVIDd: 2.3 cm (< 3.3) IVSd: 1.0 cm (0.6 - 1.1) LVIDd: 5.3 cm (3.9 - 5.3) LVPWd: 1.1 cm (0.6 - 1.1) IVSs: 1.3 cm LVIDs: 3.0 cm LVPWs: 1.2 cm Ao Diam: 3.9 cm (2.0 - 3.7) AV Cusp: 2.2 cm (1.5 - 2.6) MV EXCURSION: 16.396 mm (> 18.000) MV EF SLOPE: 52 mm/s (70 - 150) EPSS: 0.6 cm MV E Dav: 0.69 m/s MV DecT: 252 ms MV A Dav: 1.00 m/s MV E/A Ratio: 0.69 RAP: 5.00 mmHg RVSP: 17.32 mmHg FINDINGS -------- Sinus rhythm. This was a technically adequate study. LV size, wall thickness and systolic function are normal, with an EF greater than 55%. The left briseyda tricular size is normal. The right ventricle is normal in size. The left atrial size is normal. The right atrial size is normal. The aortic valve is trileaflet, and appears structurally normal. No aortic stenosis or regurgitation. Mild mitral regurgitation is present. Mild tricuspid regurgitation present. Right ventricular systolic pressure is normal at < 35 mmHg. There is no pulmonic regurgitation present. Aortic Root is dilated 3.9cm. Echo free space represents a pericardial fat pad. CONCLUSIONS -------- 1. LV size, wall thickness and systolic function are normal, with an EF greater than 55%. 2. The left ventricular size is normal. 3. The right ventricle is normal in size. 4. The left atrial size is normal. 5. The right atrial size is normal. 6. Mild mitral regurgitation is present. 7. Mild tricuspid regurgitation present. 8. Aortic Root is dilated 3.9cm. 9. Echo free space represents a pericardial fat pad. PUBLIC [employer] STAFF NURSE: Delia Crooks RDCS
[2020-05-12 11:43] LABS: Glucose,Whole Blood 104 mg/dL (75-99)
--- NOTE | 2020-05-12 13:01 | P.PN ---
Subjective Progress Note Date: 05/12/20 CHIEF COMPLAINT: Presyncope HISTORY OF PRESENT ILLNESS: Patient examined at the bedside. He states he is feeling better today compared to yesterday. Denies chest pain or pressure. Denies shortness of breath. Patient's sodium 130 today. He remains on normal saline at 75 mL an hour. Orthostatic blood pressures repeated today revealing supine blood pressure 99/51. Sitting 88/61. Standing 83/50. Echocardiogram completed revealing ejection fraction greater than 55%, mild mitral regurgitation, and mild tricuspid regurgitation. PHYSICAL EXAM: VITAL SIGNS: Reviewed. GENERAL: Well-developed in no acute distress. HEENT: Head is normocephalic. Pupils are equal, round. Sclerae anicteric. Mucous membranes of the mouth are moist. Neck supple. No JVD or thyromegaly LUNGS: Respirations even and unlabored. Lungs diminished. HEART: Regular rate and rhythm. S1 and S2 heard. Systolic murmur. ABDOMEN: Soft. Nondistended. Nontender. EXTREMITIES: Normal range of motion. No clubbing or cyanosis. Peripheral pulses intact. No lower extremity edema NEUROLOGIC: Awake and alert. Oriented x 3. ASSESSMENT: Presyncope Orthostatic hypotension Small cell lung cancer Hyponatremia Mild nonobstructive coronary artery disease Hypertension Hyperlipidemia COPD PLAN: Orthostatics repeated today and reviewed which were mildly positive with 15mmHg drop in blood pressure Continue to hold Norvasc Begin Midodrine 5 mg 3 times a day Repeat orthostatics tomorrow DELFINO hose to bilateral lower extremities Nurse practitioner note has been reviewed by physician. Signing provider agrees with the documented findings, assessment, and plan of care. Objective - Vital Signs Vital signs: Vital Signs Temp 98.2 F 05/12/20 11:00 Pulse 80 05/12/20 11:00 Resp 18 05/12/20 11:00 BP 99/51 05/12/20 11:00 Pulse Ox 95 05/12/20 05:00 Intake & Output 05/11/20 05/12/20 05/12/20 18:59 06:59 18:59 Intake Total 600 900 Output Total 107 100 Balance 600 793 -100 Weight 77.111 kg Intake: Intake, IV Titration 600 900 Amount Sodium Chloride 0.9% 1, 600 900 000 ml @ 75 mls/hr IV . [id number] [facility] Rx#:[id number] Output: Urine 100 Post Void Residual 107 Other: Voiding Method Toilet Toilet # Voids 3 1 - Labs CBC & Chem 7: 05/12/20 03:45 05/12/20 03:45 Labs: Abnormal Lab Results - Last 24 Hours (Table) 05/11/20 05/11/20 05/11/20 Range/Units 07:12 12:37 16:59 WBC (3.8-10.6) k/uL RBC (4.30-5.90) m/uL Hgb (13.0-17.5) gm/dL Hct (39.0-53.0) % Plt Count (150-450) k/uL Neutrophils # (Manual) (1.3-7.7) k/uL Lymphocytes # (Manual) (1.0-4.8) k/uL Sodium (135-145) mmol/L Carbon Dioxide (21.6-31.8) mmol/L Glucose (70-110) mg/dL POC Glucose (mg/dL) 109 H 142 H (75-99) mg/dL Calcium (8.7-10.3) mg/dL AST (14-35) U/L Total Protein (6.2-8.2) g/dL Albumin (3.80-4.90) g/dL Albumin/Globulin Ratio (1.60-3.17) g/dL Procalcitonin 1.81 H (0.02-0.09) ng/mL 05/11/20 05/12/20 05/12/20 Range/Units 20:09 03:45 03:45 WBC 1.8 L (3.8-10.6) k/uL RBC 3.91 L (4.30-5.90) m/uL Hgb 12.0 L (13.0-17.5) gm/dL Hct 36.6 L (39.0-53.0) % Plt Count 103 L (150-450) k/uL Neutrophils # (Manual) 1.10 L (1.3-7.7) k/uL Lymphocytes # (Manual) 0.32 L (1.0-4.8) k/uL Sodium 130 L (135-145) mmol/L Carbon Dioxide 21.2 L (21.6-31.8) mmol/L Glucose 112 H (70-110) mg/dL POC Glucose (mg/dL) 194 H (75-99) mg/dL Calcium 7.8 L (8.7-10.3) mg/dL AST 37 H (14-35) U/L Total Protein 6.1 L (6.2-8.2) g/dL Albumin 3.20 L (3.80-4.90) g/dL Albumin/Globulin Ratio 1.10 L (1.60-3.17) g/dL Procalcitonin (0.02-0.09) ng/mL 05/12/20 05/12/20 Range/Units 06:49 11:41 WBC (3.8-10.6) k/uL RBC (4.30-5.90) m/uL Hgb (13.0-17.5) gm/dL Hct (39.0-53.0) % Plt Count (150-450) k/uL Neutrophils # (Manual) (1.3-7.7) k/uL Lymphocytes # (Manual) (1.0-4.8) k/uL Sodium (135-145) mmol/L Carbon Dioxide (21.6-31.8) mmol/L Glucose (70-110) mg/dL POC Glucose (mg/dL) 112 H 104 H (75-99) mg/dL Calcium (8.7-10.3) mg/dL AST (14-35) U/L Total Protein (6.2-8.2) g/dL Albumin (3.80-4.90) g/dL Albumin/Globulin Ratio (1.60-3.17) g/dL Procalcitonin (0.02-0.09) ng/mL Microbiology - Last 24 Hours (Table) 05/10/20 22:55 Blood Culture - Preliminary Blood No Growth after 24 hours
--- NOTE | 2020-05-12 14:36 | P.PN ---
Subjective Progress Note Date: 05/12/20 Principal diagnosis: Dyspnea, weakness This a very pleasant 73-year-old female patient who follows with Dr. Willis as her primary care provider. She is a history of coronary artery disease with previous stent placement to the LAD, congestive heart failure, hypertension, hyperlipidemia, osteoarthritis, rheumatoid arthritis, end-stage renal disease on dialysis Saturday. She was has a history of significant end- stage chronic obstructive pulmonary disease and is oxygen dependent. She states she did quit smoking years ago but has a cigarette on occasion. She has had multiple admissions for COPD exacerbations, congestive heart failure exacerbations secondary to fluid volume overload. She states she has been compliant with her dialysis and has not missed any. She was just discharged from here on 05/10/2020. She presented here to the emergency room again y day with complaints of increasing shortness of breath. Chest x-ray shows evidence of cardiomegaly but no acute cardiopulmonary process. Small tiny left pleural effusion. White count 6.9. Hemoglobin 8.7. Sodium 132. Potassium 3.4. Creatinine 2.41. ProBNP 53,900. She has been initiated on DuoNeb inhalations, IV Solu-Medrol. No fever, chills or night sweats. No nausea, vomiting or diarrhea. No productive cough. She is maintaining good O2 saturations in the 90s on 3 L/m per nasal cannula. On 05/12/2020 patient seen in follow-up on medical oncology floor. He is resting comfortably in bed, appears to be in no acute distress, he states he is feeling better, still has some ongoing weakness, but overall feeling better, denies any worsening dyspnea, today's labs have been reviewed, white blood cell count is up to 1.8, hemoglobin is 12, serum sodium has improved with IV hydratio n, and is currently at 130, CO2 is 21, renal profile is within normal limits, pro-calcitonin did come back elevated at 1.8, urinalysis showed 4+ glucose, 1+ ketones, but negative for any sign of infection. Blood culture showed no growth at the 24-hour darrin. Patient has had no fever or chills, he is on 2 L of oxygen with pulse ox of 90-97%, his been afebrile, hemodynamically patient has been stable, no complaints of chest pain, lung sounds reveal bibasilar crackles, no significant rhonchi or wheezing. Patient remains on IV hydration, and antibiotics in the form of Levaquin. No altered mentation, patient is answering questions appropriately. Objective - Vital Signs Vital signs: Vital Signs Temp 98.2 F 05/12/20 11:00 Pulse 80 05/12/20 11:00 Resp 18 05/12/20 11:00 BP 99/51 05/12/20 11:00 Pulse Ox 95 05/12/20 05:00 Intake & Output 05/11/20 05/12/20 05/12/20 18:59 06:59 18:59 Intake Total 600 900 600 Output Total 107 100 Balance 600 793 500 Weight 77.111 kg Intake: Intake, IV Titration 600 900 600 Amount Sodium Chloride 0.9% 1, 600 900 600 000 ml @ 75 mls/hr IV . [id number] [facility] Rx#:[id number] Output: Urine 100 Post Void Residual 107 Other: Voiding Method Toilet Toilet # Voids 3 1 - Exam GENERAL EXAM: Alert, very pleasant, 75-year-old white male, on room air, with a pulse ox 95% comfortable in no apparent distress. HEAD: Normocephalic/atraumatic. EYES: Normal reaction of pupils, equal size. Conjunctiva pink, sclera white. NOSE: Clear with pink turbinates. THROAT: No erythema or exudates. NECK: No masses, no JVD, no thyroid enlargement, no adenopathy. CHEST: No chest wall deformity. Symmetrical expansion. LUNGS: Equal air entry with no crackles, wheeze, rhonchi or dullness. CVS: Regular rate and rhythm, normal S1 and S2, no gallops, no murmurs, no rubs ABDOMEN: Soft, nontender. No hepatosplenomegaly, normal bowel sounds, no guarding or rigidity. EXTREMITIES: No clubbing, no edema, no cyanosis, 2+ pulses and upper and lower extremities. MUSCULOSKELETAL: Muscle strength and tone normal. SPINE: No scoliosis or deformity SKIN: No rashes CENTRAL NERVOUS SYSTEM: Alert and oriented -3. No focal deficits, tone is normal in all 4 extremities. PSYCHIATRIC: Alert and oriented -3. Appropriate affect. Intact judgment and insight. - Labs CBC & Chem 7: 05/12/20 03:45 05/12/20 03:45 Labs: Abnormal Lab Results - Last 24 Hours (Table) 05/11/20 05/11/20 05/11/20 Range/Units 07:12 12:37 16:59 WBC (3.8-10.6) k/uL RBC (4.30-5.90) m/uL Hgb (13.0-17.5) gm/dL Hct (39.0-53.0) % Plt Count (150-450) k/uL Neutrophils # (Manual) (1.3-7.7) k/uL Lymphocytes # (Manual) (1.0-4.8) k/uL Sodium (135-145) mmol/L Carbon Dioxide (21.6-31.8) mmol/L Glucose (70-110) mg/dL POC Glucose (mg/dL) 109 H 142 H (75-99) mg/dL Calcium (8.7-10.3) mg/dL AST (14-35) U/L Total Protein (6.2-8.2) g/dL Albumin (3.80-4.90) g/dL Albumin/Globulin Ratio (1.60-3.17) g/dL Procalcitonin 1.81 H (0.02-0.09) ng/mL 05/11/20 05/12/20 05/12/20 Range/Units 20:09 03:45 03:45 WBC 1.8 L (3.8-10.6) k/uL RBC 3.91 L (4.30-5.90) m/uL Hgb 12.0 L (13.0-17.5) gm/dL Hct 36.6 L (39.0-53.0) % Plt Count 103 L (150-450) k/uL Neutrophils # (Manual) 1.10 L (1.3-7.7) k/uL Lymphocytes # (Manual) 0.32 L (1.0-4.8) k/uL Sodium 130 L (135-145) mmol/L Carbon Dioxide 21.2 L (21.6-31.8) mmol/L Glucose 112 H (70-110) mg/dL POC Glucose (mg/dL) 194 H (75-99) mg/dL Calcium 7.8 L (8.7-10.3) mg/dL AST 37 H (14-35) U/L Total Protein 6.1 L (6.2-8.2) g/dL Albumin 3.20 L (3.80-4.90) g/dL Albumin/Globulin Ratio 1.10 L (1.60-3.17) g/dL Procalcitonin (0.02-0.09) ng/mL 05/12/20 05/12/20 Range/Units 06:49 11:41 WBC (3.8-10.6) k/uL RBC (4.30-5.90) m/uL Hgb (13.0-17.5) gm/dL Hct (39.0-53.0) % Plt Count (150-450) k/uL Neutrophils # (Manual) (1.3-7.7) k/uL Lymphocytes # (Manual) (1.0-4.8) k/uL Sodium (135-145) mmol/L Carbon Dioxide (21.6-31.8) mmol/L Glucose (70-110) mg/dL POC Glucose (mg/dL) 112 H 104 H (75-99) mg/dL Calcium (8.7-10.3) mg/dL AST (14-35) U/L Total Protein (6.2-8.2) g/dL Albumin (3.80-4.90) g/dL Albumin/Globulin Ratio (1.60-3.17) g/dL Procalcitonin (0.02-0.09) ng/mL Microbiology - Last 24 Hours (Table) 05/10/20 22:55 Blood Culture - Preliminary Blood No Growth after 24 hours Assessment and Plan Plan: Assessment: 1 presyncope with some lightheadedness. Consider the possibility of an underlying intravascular volume depletion/dehydration/orthostasis contributing to this presyncope. The patient is currently hemodynamically stable. Pulse ox 90% on room air. Would need further neuro workup including a repeat MRI of the brain to make sure there is no ROBOTICS SPECIALIST metastases from metastatic small cell lung cancer. 2 metastatic small cell lung cancer currently on systemic chemotherapy 3 leukopenia secondary to above currently on Zarxio 4 hyponatremia, likely hypovolemic. She will reduce SIDH is also possible 5 COPD 6 coronary artery disease 7 hypertension 8 hyperlipidemia 9 diabetes mellitus 10 history of skin cancer 11 hypothyroidism 12 significant weight loss secondary to underlying malignancy 13 hyponatremia Plan: Continue current medical treatment, MRI of the brain was reviewed. Feeling better today, labs show improvement of serum sodium, continue IV hydration, continue antibiotics, cultures remain negative to date, no fever. No worsening dyspnea, on room air. Echocardiogram reviewed. We'll continue to follow I performed a history & physical examination of the patient and discussed their management with my nurse practitioner, Lilian Dougherty. I reviewed the nurse practitioner's note and agree with the documented findings and plan of care. Lung sounds are positive for diminished breath sounds. The findings and the impression was discussed with the patient. I attest to the documentation by the nurse practitioner. Time with Patient: Less than 30
[2020-05-12 15:01] LABS: Hemoglobin A1C 6.9 % (4.0-6.0)
--- NOTE | 2020-05-12 15:29 | XR ---
EXAMINATION TYPE: XR chest 2V DATE OF EXAM: 05/12/2020 COMPARISON: Prior chest x-ray 05/10/2020 HISTORY: Shortness of breath and cough TECHNIQUE: Frontal and lateral views of the chest are obtained. FINDINGS: Patchy basilar density is noted. There is no evident pneumothorax or pleural effusion. Int erstitium is increased. Cardiac mediastinal silhouette, pulmonary vascularity and asif are stable, le ft hilar mass is noted. Patient is rotated. IMPRESSION: Basilar atelectasis or scarring, there is likely underlying interstitial lung disease, l eft hilar mass.
[2020-05-12] MEDS: MIDODRINE 5 MG TAB PO SCH (17:00)
[2020-05-12 17:01] LABS: Glucose,Whole Blood 101 mg/dL (75-99)
--- NOTE | 2020-05-12 17:23 | P.PN ---
Subjective Progress Note Date: 05/12/20 Principal diagnosis: Near syncopy, general malaize, small cell lung cancer Pt in f/u doing a little better, no acute c/o. Objective - Vital Signs Vital signs: Vital Signs Temp 98.2 F 05/12/20 11:00 Pulse 80 05/12/20 11:00 Resp 18 05/12/20 11:00 BP 99/51 05/12/20 11:00 Pulse Ox 95 05/12/20 05:00 Intake & Output 05/11/20 05/12/20 05/12/20 18:59 06:59 18:59 Intake Total 600 900 600 Output Total 107 100 Balance 600 793 500 Weight 77.111 kg Intake: Intake, IV Titration 600 900 600 Amount Sodium Chloride 0.9% 1, 600 900 600 000 ml @ 75 mls/hr IV . [id number] [facility] Rx#:[id number] Output: Urine 100 Post Void Residual 107 Other: Voiding Method Toilet Toilet # Voids 3 1 - Constitutional General appearance: Present: average body habitus, cooperative, no acute d istress - EENT Eyes: Present: anicteric sclerae, EOMI ENT: Present: hearing grossly normal - Respiratory Respiratory: bilateral: CTA - Cardiovascular Rhythm: regular Heart sounds: normal: S1, S2 - Gastrointestinal General gastrointestinal: Present: normal bowel sounds, soft - Musculoskeletal Musculoskeletal: Present: generalized weakness, strength equal bilaterally - Psychiatric Psychiatric: Present: A&O x's 3, appropriate affect, intact judgment & insight - Labs CBC & Chem 7: 05/12/20 03:45 05/12/20 03:45 Labs: Abnormal Lab Results - Last 24 Hours (Table) 05/11/20 05/11/20 05/11/20 Range/Units 07:12 12:37 20:09 WBC (3.8-10.6) k/uL RBC (4.30-5.90) m/uL Hgb (13.0-17.5) gm/dL Hct (39.0-53.0) % Plt Count (150-450) k/uL Neutrophils # (Manual) (1.3-7.7) k/uL Lymphocytes # (Manual) (1.0-4.8) k/uL Sodium (135-145) mmol/L Carbon Dioxide (21.6-31.8) mmol/L Glucose (70-110) mg/dL POC Glucose (mg/dL) 109 H 194 H (75-99) mg/dL Hemoglobin A1c (4.0-6.0) % Calcium (8.7-10.3) mg/dL AST (14-35) U/L Total Protein (6.2-8.2) g/dL Albumin (3.80-4.90) g/dL Albumin/Globulin Ratio (1.60-3.17) g/dL Procalcitonin 1.81 H (0.02-0.09) ng/mL 05/12/20 05/12/20 05/12/20 Range/Units 03:45 03:45 03:45 WBC 1.8 L (3.8-10.6) k/uL RBC 3.91 L (4.30-5.90) m/uL Hgb 12.0 L (13.0-17.5) gm/dL Hct 36.6 L (39.0-53.0) % Plt Count 103 L (150-450) k/uL Neutrophils # (Manual) 1.10 L (1.3-7.7) k/uL Lymphocytes # (Manual) 0.32 L (1.0-4.8) k/uL Sodium 130 L (135-145) mmol/L Carbon Dioxide 21.2 L (21.6-31.8) mmol/L Glucose 112 H (70-110) mg/dL POC Glucose (mg/dL) (75-99) mg/dL Hemoglobin A1c 6.9 H (4.0-6.0) % Calcium 7.8 L (8.7-10.3) mg/dL AST 37 H (14-35) U/L Total Protein 6.1 L (6.2-8.2) g/dL Albumin 3.20 L (3.80-4.90) g/dL Albumin/Globulin Ratio 1.10 L (1.60-3.17) g/dL Procalcitonin (0.02-0.09) ng/mL 05/12/20 05/12/20 05/12/20 Range/Units 06:49 11:41 16:59 WBC (3.8-10.6) k/uL RBC (4.30-5.90) m/uL Hgb (13.0-17.5) gm/dL Hct (39.0-53.0) % Plt Count (150-450) k/uL Neutrophils # (Manual) (1.3-7.7) k/uL Lymphocytes # (Manual) (1.0-4.8) k/uL Sodium (135-145) mmol/L Carbon Dioxide (21.6-31.8) mmol/L Glucose (70-110) mg/dL POC Glucose (mg/dL) 112 H 104 H 101 H (75-99) mg/dL Hemoglobin A1c (4.0-6.0) % Calcium (8.7-10.3) mg/dL AST (14-35) U/L Total Protein (6.2-8.2) g/dL Albumin (3.80-4.90) g/dL Albumin/Globulin Ratio (1.60-3.17) g/dL Procalcitonin (0.02-0.09) ng/mL Microbiology - Last 24 Hours (Table) 05/10/20 22:55 Blood Culture - Preliminary Blood No Growth after 24 hours - Imaging and Cardiology MRI - head: report reviewed right shoulder xray report reviewed ECHO report reviewed Assessment and Plan (1) Hyponatremia Narrative/Plan: Multifactorial including no oral intake, free water vs fluids with electrolytes and small cell lung cancer. Pt being hydrated with NS, Na+130 today. Improved mental status. Cont IV fluids. Pt re-educated in the importance of electrolyte containing fluids. 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 Hemodynamically he did well other then significantly low WBC. Message to Primary Oncologist to see if they would like to add GCSF to regimen or adjust dose. Pt is not due for treatment until later next week. Cont on sched Current Visit: Yes Status: Acute Priority: High Code(s): C34.90 - MALIGNANT NEOPLASM OF UNSP PART OF UNSP BRONCHUS OR LUNG SNOMED Code(s): 339383069 (3) Generalized weakness Narrative/Plan: Due to poor oral intake, hyponatremtia, pt feeling weak. Dietitian, PT/OT Current Visit: Yes Status: Acute Priority: High Code(s): R53.1 - WEAKNESS SNOMED Code(s): 81546738 (4) Leukopenia due to antineoplastic chemotherapy Narrative/Plan: Cont GCSF, WBC 1.8 today, ANC 1,100, dose again in AM, review labs. Current Visit: Yes Status: Acute Priority: High Code(s): D70.1 - AGRANULOCYTOSIS SECONDARY TO CANCER CHEMOTHERAPY; T45.1X5A - ADVERSE EFFECT OF A NTINEOPLASTIC AND IMMUNOSUP DRUGS, INIT SNOMED Code(s): 612576727
[2020-05-12 20:31] LABS: Glucose,Whole Blood 119 mg/dL (75-99)
[2020-05-12] MEDS: ATORVASTATIN 20 MG TAB PO SCH (21:50)
[2020-05-12] MEDS: CHOLECALCIFEROL 1,000 UNIT TAB PO SCH (21:50)
[2020-05-12] MEDS: LEVOTHYROXINE 25 MCG TAB PO SCH (21:51)
[2020-05-12] MEDS: LEVOFLOXACIN 750 MG TAB PO SCH (21:51)
[2020-05-12] MEDS: Acetaminophen-Codeine 300-30mg TAB PO PRN (22:07)
[2020-05-13 05:52] LABS: HCT 36.4 % (39.0-53.0); HGB 12.4 gm/dL (13.0-17.5); MCH 30.9 pg (25.0-35.0); MCV 90.9 fL (80.0-100.0); Mean Platelet Volume 9.2; Platelet Count 109 k/uL (150-450); RBC 4.01 m/uL (4.30-5.90); RDW 14.7 % (11.5-15.5)
[2020-05-13] MEDS: SODIUM CHLORIDE 0.9% 1,000 ML IV SCH ×2 (05:59→17:36)
[2020-05-13 06:00] LABS: ALT 38 U/L (4-49); AST 53 U/L (17-59); African American GFR (CKD) >90 (>60 ml/min/1.73 sqM); Albumin 2.9 g/dL (3.5-5.0); Albumin/Globulin Ratio 0.8; Alkaline Phosphatase 75 U/L (38-126); Anion Gap 10 mmol/L; Blood Urea Nitrogen 9 mg/dL (9-20); C Reactive Protein 65.8 mg/L (<10.0); Calcium 7.9 mg/dL (8.4-10.2); Carbon Dioxide 16 mmol/L (22-30); Chloride 103 mmol/L (98-107); Globulin 3.7 g/dL; Glucose 80 mg/dL (74-99); Non-African American GFR(CKD) >90 (>60 ml/min/1.73 sqM); Sodium 129 mmol/L (137-145); Total Bilirubin 0.8 mg/dL (0.2-1.3); Total Protein 6.6 g/dL (6.3-8.2)
[2020-05-13 06:58] LABS: Band Neutrophils % 53 %; Lymphocytes # (M) 0.98 k/uL (1.0-4.8); Metamyelocytes # (M) 0.07 k/uL (0); Metamyelocytes % 1 %; Monocytes # (M) 0.21 k/uL (0-1.0); Neutrophils % (M) 31 %; Nucleated Red Blood Cells 0 /100 WBC (0-0); Total Cells Counted 200
[2020-05-13 07:00] LABS: Anisocytosis (M) Present; Large Platelets Present
[2020-05-13 07:01] LABS: Toxic Vacuolation Present
[2020-05-13 07:04] LABS: Polychromasia Present
[2020-05-13 07:04] LABS: Glucose,Whole Blood 88 mg/dL (75-99)
[2020-05-13] MEDS: INSULIN ASPART (NovoLOG) 100 UNIT/ML VIAL SQ SCH ×4 (07:34→21:55)
[2020-05-13] MEDS: SYMBICORT 160-4.5 MCG INHALER INHALATION SCH ×2 (07:42→19:54)
[2020-05-13] MEDS: LORATADINE 10 MG TAB PO SCH (08:09)
[2020-05-13] MEDS: FILGRASTIM-SNDZ 480 MCG/0.8 ML SYRINGE SQ SCH (08:09)
[2020-05-13] MEDS: MIDODRINE 5 MG TAB PO SCH ×3 (08:09→17:39)
[2020-05-13] MEDS: FLUTICASONE 50MCG/SPRAY NASAL 16GM EA NOSTRIL SCH ×2 (08:10→21:59)
--- NOTE | 2020-05-13 10:18 | P.PN ---
Subjective Progress Note Date: 05/13/20 Principal diagnosis: Near-syncopalunderlying intervascular depletion Metastatic small lung cancer currently on systemic chemotherapywith 5 centimeter lung mass Leukopenia on zarxio Hyponatremia 75-year-old male receiving moderate hydration therapy for hyponatremia and dehydration. Leukopenia noted on admissionon filgrastimincrease of white blood cell count from 0.9 to 7.0. Throughout the night the patient had a low- grade fever, no antipyretic was use patient afebrile this morning. Patient active alert and no complaints at this time. Patient ambulating with assistance Patient continues to complain of generalized body aches, analgesic therapy reducing pain intensity. Objective - Vital Signs Vital signs: Vital Signs Temp 97.8 F 05/13/20 05:00 Pulse 75 05/13/20 05:00 Resp 18 05/13/20 05:00 BP 107/62 05/13/20 05:00 Pulse Ox 94 L 05/13/20 05:00 Intake & Output 05/12/20 05/13/20 05/13/20 18:59 06:59 18:59 Intake Total 600 1350 Output Total 100 Balance 500 1350 Intake: Intake, IV Titration 600 900 Amount Sodium Chloride 0.9% 1, 600 900 000 ml @ 75 mls/hr IV . [id number] [facility] Rx#:[id number] Oral 450 Output: Urine 100 Other: Voiding Method Toilet Toilet Toilet # Voids 1 2 - Constitutional General appearance: Present: thin - EENT Eyes: Present: PERRLA, normal appearance ENT: Present: hard of hearing Ears: bilateral: normal - Neck Carotids: bilateral: upstroke normal Thyroid: bilateral: normal size - Respiratory Respiratory: bilateral: diminished (Posterior bases) - Cardiovascular Details: Normal sinus rhythm with no acute changes Heart rate: 70 Rhythm: regular Abnormal Heart Sounds: Present: systolic murmur - Gastrointestinal General gastrointestinal: Present: normal bowel sounds, soft - Integumentary Integumentary: Present: normal, normal turgor - Neurologic Neurologic: Present: CNII-XII intact - Musculoskeletal Musculoskeletal: Present: generalized weakness - Psychiatric Psychiatric: Present: A&O x's 3, appropriate affect, intact judgment & insight - Labs CBC & Chem 7: 05/13/20 05:12 05/13/20 05:12 Labs: Abnormal Lab Results - Last 24 Hours (Table) 05/12/20 05/12/20 05/12/20 Range/Units 03:45 11:41 16:59 RBC (4.30-5.90) m/uL Hgb (13.0-17.5) gm/dL Hct (39.0-53.0) % Plt Count (150-450) k/uL Lymphocytes # (Manual) (1.0-4.8) k/uL Metamyelocytes # (Man) (0) k/uL Sodium (137-145) mmol/L Carbon Dioxide (22-30) mmol/L Creatinine (0.66-1.25) mg/dL POC Glucose (mg/dL) 104 H 101 H (75-99) mg/dL Hemoglobin A1c 6.9 H (4.0-6.0) % Calcium (8.4-10.2) mg/dL C-Reactive Protein (<10.0) mg/L Albumin (3.5-5.0) g/dL 05/12/20 05/13/20 05/13/20 Range/Units 20:18 05:12 05:12 RBC 4.01 L (4.30-5.90) m/uL Hgb 12.4 L (13.0-17.5) gm/dL Hct 36.4 L (39.0-53.0) % Plt Count 109 L (150-450) k/uL Lymphocytes # (Manual) 0.98 L (1.0-4.8) k/uL Metamyelocytes # (Man) 0.07 H (0) k/uL Sodium 129 L (137-145) mmol/L Carbon Dioxide 16 L (22-30) mmol/L Creatinine 0.47 L (0.66-1.25) mg/dL POC Glucose (mg/dL) 119 H (75-99) mg/dL Hemoglobin A1c (4.0-6.0) % Calcium 7.9 L (8.4-10.2) mg/dL C-Reactive Protein 65.8 H (<10.0) mg/L Albumin 2.9 L (3.5-5.0) g/dL Microbiology - Last 24 Hours (Table) 05/10/20 22:55 Blood Culture - Preliminary Blood No Growth after 48 hours - Imaging and Cardiology Chest x-ray: report reviewed Assessment and Plan Assessment: Presyncopal Metastatic small lung cancer currently on systemic chemotherapy Leukopenia secondary to systemic therapycurrently receiving zarxio Hyponatremiacontinue moderate hydration therapy COPD Coronary artery disease Hypertension Hyperlipidemia Diabetes mellitus type 2 Hypothyroidism (1) Generalized weakness Current Visit: Yes Status: Acute Priority: High Code(s): R53.1 - WEAKNESS SNOMED Code(s): 65683967 (2) Hyponatremia Current Visit: Yes Status: Acute Priority: High Code(s): E87.1 - HYPO-OSMOLALITY AND HYPONATREMIA SNOMED Code(s): 32596347 (3) Leukopenia due to antineoplastic chemotherapy Current Visit: Yes Status: Acute Priority: High Code(s): D70.1 - AGRANULOCYTOSIS SECONDARY TO CANCER CHEMOTHERAPY; T45.1X5A - ADVERSE EFFECT OF ANTINEOPLASTIC AND IMMUNOSUP DRUGS, INIT SNOMED Code(s): 865869351 (4) Pre-syncope Current Visit: Yes Status: Acute Code(s): R55 - SYNCOPE AND COLLAPSE SNOMED Code(s): 689828448 (5) SCLC (small cell lung carcinoma) Current Visit: Yes Status: Acute Priority: High Code(s): C34.90 - MALIGNANT NEOPLASM OF UNSP PART OF UNSP BRONCHUS OR LUNG SNOMED Code(s): 835483459 (6) Mass of lower lobe of left lung Current Visit: No Status: Acute Code(s): R91.8 - OTHER NONSPECIFIC ABNORMAL FINDING OF LUNG FIELD SNOMED Code(s): 479389854 Plan: Continue isotonic IV fluid at 75 ML's an hour for hydration therapy Continue filgrastim for leukopenia Continue consultation with oncology with recommendationsregarding small cell lung CA metastatic Continue consultation with pulmonology regarding COPD and lung mass Continue consultation with cardiology regarding near syncopal episode We'll continue to medically manage with recommendations of consultants Time with Patient: Less than 30
[2020-05-13 12:15] LABS: Glucose,Whole Blood 130 mg/dL (75-99)
--- NOTE | 2020-05-13 12:36 | P.PN ---
Subjective Progress Note Date: 05/13/20 Principal diagnosis: Dyspnea, weakness This a very pleasant 73-year-old female patient who follows with Dr. Willis as her primary care provider. She is a history of coronary artery disease with previous stent placement to the LAD, congestive heart failure, hypertension, hyperlipidemia, osteoarthritis, rheumatoid arthritis, end-stage renal disease on dialysis Saturday. She was has a history of significant end- stage chronic obstructive pulmonary disease and is oxygen dependent. She states she did quit smoking years ago but has a cigarette on occasion. She has had multiple admissions for COPD exacerbations, congestive heart failure exacerbations secondary to fluid volume overload. She states she has been compliant with her dialysis and has not missed any. She was just discharged from here on 05/10/2020. She presented here to the emergency room again y day with complaints of increasing shortness of breath. Chest x-ray shows evidence of cardiomegaly but no acute cardiopulmonary process. Small tiny left pleural effusion. White count 6.9. Hemoglobin 8.7. Sodium 132. Potassium 3.4. Creatinine 2.41. ProBNP 53,900. She has been initiated on DuoNeb inhalations, IV Solu-Medrol. No fever, chills or night sweats. No nausea, vomiting or diarrhea. No productive cough. She is maintaining good O2 saturations in the 90s on 3 L/m per nasal cannula. On 05/12/2020 patient seen in follow-up on medical oncology floor. He is resting comfortably in bed, appears to be in no acute distress, he states he is feeling better, still has some ongoing weakness, but overall feeling better, denies any worsening dyspnea, today's labs have been reviewed, white blood cell count is up to 1.8, hemoglobin is 12, serum sodium has improved with IV hydratio n, and is currently at 130, CO2 is 21, renal profile is within normal limits, pro-calcitonin did come back elevated at 1.8, urinalysis showed 4+ glucose, 1+ ketones, but negative for any sign of infection. Blood culture showed no growth at the 24-hour darrin. Patient has had no fever or chills, he is on 2 L of oxygen with pulse ox of 90-97%, his been afebrile, hemodynamically patient has been stable, no complaints of chest pain, lung sounds reveal bibasilar crackles, no significant rhonchi or wheezing. Patient remains on IV hydration, and antibiotics in the form of Levaquin. No altered mentation, patient is answering questions appropriately. On 05/13/2020 patient seen in follow-up on medical oncology floor, he is feeling better today, he states his appetite has improved, he told his breakfast, he has been drinking quite a bit of water, feels stronger, denies any shortness of breath, room air pulse ox is 94%. Last night patient did have a fever spike of 101.5 degrees Fahrenheit. Denies any shortness of breath cough or congestion, lung sounds are clear, blood cultures have been negative, patient has been covered with Levaquin for empiric antibiotic coverage, denies any urinary symptoms. No nausea vomiting or diarrhea, afebrile today, vital signs have been stable. No altered mentation. Today's labs have been reviewed, showing with a silk on a 7.0, hemoglobin of 12.4, today sodium is 129, potassium 4.0, BUN of 9 and creatinine 0.47. Patient has been able to get up out of bed with a walker and assistance. Objective - Vital Signs Vital signs: Vital Signs Temp 97.8 F 05/13/20 05:00 Pulse 75 05/13/20 05:00 Resp 18 05/13/20 05:00 BP 107/62 05/13/20 05:00 Pulse Ox 94 L 05/13/20 05:00 Intake & Output 05/12/20 05/13/20 05/13/20 18:59 06:59 18:59 Intake Total 600 1350 Output Total 100 Balance 500 1350 Intake: Intake, IV Titration 600 900 Amount Sodium Chloride 0.9% 1, 600 900 000 ml @ 75 mls/hr IV . [id number] [facility] Rx#:[id number] Oral 450 Output: Urine 100 Other: Voiding Method Toilet Toilet Toilet # Voids 1 2 - Exam GENERAL EXAM: Alert, very pleasant, 75-year-old white male, on room air, with a pulse ox 94% comfortable in no apparent distress. HEAD: Normocephalic/atraumatic. EYES: Normal reaction of pupils, equal size. Conjunctiva pink, sclera white. NOSE: Clear with pink turbinates. THROAT: No erythema or exudates. NECK: No masses, no JVD, no thyroid enlargement, no adenopathy. CHEST: No chest wall deformity. Symmetrical expansion. LUNGS: Equal air entry with no crackles, wheeze, rhonchi or dullness. CVS: Regular rate and rhythm, normal S1 and S2, no gallops, no murmurs, no rubs ABDOMEN: Soft, nontender. No hepatosplenomegaly, normal bowel sounds, no guarding or rigidity. EXTREMITIES: No clubbing, no edema, no cyanosis, 2+ pulses and upper and lower extremities. MUSCULOSKELETAL: Muscle strength and tone normal. SPINE: No scoliosis or deformity SKIN: No rashes CENTRAL NERVOUS SYSTEM: Alert and oriented -3. No focal deficits, tone is normal in all 4 extremities. PSYCHIATRIC: Alert and oriented -3. Appropriate affect. Intact judgment and insight. - Labs CBC & Chem 7: 05/13/20 05:12 05/13/20 05:12 Labs: Abnormal Lab Results - Last 24 Hours (Table) 05/12/20 05/12/20 05/12/20 Range/Units 03:45 16:59 20:18 RBC (4.30-5.90) m/uL Hgb (13.0-17.5) gm/dL Hct (39.0-53.0) % Plt Count (150-450) k/uL Lymphocytes # (Manual) (1.0-4.8) k/uL Metamyelocytes # (Man) (0) k/uL ESR (0-20) mm/Hr Sodium (137-145) mmol/L Carbon Dioxide (22-30) mmol/L Creatinine (0.66-1.25) mg/dL POC Glucose (mg/dL) 101 H 119 H (75-99) mg/dL Hemoglobin A1c 6.9 H (4.0-6.0) % Calcium (8.4-10.2) mg/dL C-Reactive Protein (<10.0) mg/L Albumin (3.5-5.0) g/dL 05/13/20 05/13/20 05/13/20 Range/Units 05:12 05:12 05:51 RBC 4.01 L (4.30-5.90) m/uL Hgb 12.4 L (13.0-17.5) gm/dL Hct 36.4 L (39.0-53.0) % Plt Count 109 L (150-450) k/uL Lymphocytes # (Manual) 0.98 L (1.0-4.8) k/uL Metamyelocytes # (Man) 0.07 H (0) k/uL ESR 80 H (0-20) mm/Hr Sodium 129 L (137-145) mmol/L Carbon Dioxide 16 L (22-30) mmol/L Creatinine 0.47 L (0.66-1.25) mg/dL POC Glucose (mg/dL) (75-99) mg/dL Hemoglobin A1c (4.0-6.0) % Calcium 7.9 L (8.4-10.2) mg/dL C-Reactive Protein 65.8 H (<10.0) mg/L Albumin 2.9 L (3.5-5.0) g/dL 05/13/20 Range/Units 12:13 RBC (4.30-5.90) m/uL Hgb (13.0-17.5) gm/dL Hct (39.0-53.0) % Plt Count (150-450) k/uL Lymphocytes # (Manual) (1.0-4.8) k/uL Metamyelocytes # (Man) (0) k/uL ESR (0-20) mm/Hr Sodium (137-145) mmol/L Carbon Dioxide (22-30) mmol/L Creatinine (0.66-1.25) mg/dL POC Glucose (mg/dL) 130 H (75-99) mg/dL Hemoglobin A1c (4.0-6.0) % Calcium (8.4-10.2) mg/dL C-Reactive Protein (<10.0) mg/L Albumin (3.5-5.0) g/dL Microbiology - Last 24 Hours (Table) 05/10/20 22:55 Blood Culture - Preliminary Blood No Growth after 48 hours Assessment and Plan Plan: Assessment: 1 presyncope with some lightheadedness. Consider the possibility of an underlying intravascular volume depletion/dehydration/orthostasis contributing to this presyncope. The patient is currently hemodynamically stable. Pulse ox 90% on room air. Would need further neuro workup including a repeat MRI of the brain to make sure there is no [employer] TECHNICIAN metastases from metastatic small cell lung cancer. 2 metastatic small cell lung cancer currently on systemic chemotherapy 3 leukopenia secondary to above currently on Zarxio 4 hyponatremia, likely hypovolemic. She will reduce SIDH is also possible 5 COPD 6 coronary artery disease 7 hypertension 8 hyperlipidemia 9 diabetes mellitus 10 history of skin cancer 11 hypothyroidism 12 significant weight loss secondary to underlying malignancy 13 hyponatremia Plan: Patient had a single fever spike last night, however he is afebrile today, continue with empiric antibiotic coverage in the form of Levaquin, complete a seven-day course, patient's oral intake has improved, lung sounds are clear, increase activity as tolerated, no cough or congestion, patient feels stronger, oral intake has improved, from pulmonary perspective patient is stable for discharge home today to complete a seven-day course of Levaquin, and follow-up with PCP next week, follow up with Dr. Coronel in the office in 7-10 days. I performed a history & physical examination of the patient and discussed their management with my nurse practitioner, Lilian Dougherty. I reviewed the nurse pra ctitioner's note and agree with the documented findings and plan of care. Lung sounds are positive for diminished breath sounds. The findings and the impression was discussed with the patient. I attest to the documentation by the nurse practitioner. Time with Patient: Less than 30
--- NOTE | 2020-05-13 14:15 | P.PN ---
Subjective Progress Note Date: 05/13/20 CHIEF COMPLAINT: Presyncope HISTORY OF PRESENT ILLNESS: Patient examined at the bedside. He denies chest pain or pressure. Denies shortness of breath. Denies dizziness or lightheadedness. Orthostatics repeated again today revealing blood pressure 114/66 supine. 95/62 sitting. 85/47 standing. Patient remains on Midodrine. PHYSICAL EXAM: VITAL SIGNS: Reviewed. GENERAL: Well-developed in no acute distress. HEENT: Head is normocephalic. Pupils are equal, round. Sclerae anicteric. Mucous membranes of the mouth are moist. Neck supple. No JVD or thyromegaly LUNGS: Respirations even and unlabored. Lungs diminished. HEART: Regular rate and rhythm. S1 and S2 heard. Systolic murmur. ABDOMEN: Soft. Nondistended. Nontender. EXTREMITIES: Normal range of motion. No clubbing or cyanosis. Peripheral pulses intact. No lower extremity edema NEUROLOGIC: Awake and alert. Oriented x 3. ASSESSMENT: Presyncope Orthostatic hypotension Small cell lung cancer Hyponatremia Mild nonobstructive coronary artery disease Hypertension Hyperlipidemia COPD PLAN: Continue to hold Norvasc Continue Midodrine 5 mg 3 times a day DELFINO hose to bilateral lower extremities We will follow on an as-needed basis. Please call with questions or concerns. Nurse practitioner note has been reviewed by physician. Signing provider agrees with the documented findings, assessment, and plan of care. Objective - Vital Signs Vital signs: Vital Signs Temp 98.8 F 05/13/20 14:04 Pulse 69 05/13/20 14:04 Resp 20 05/13/20 14:04 BP 114/66 05/13/20 14:04 Pulse Ox 94 L 05/13/20 14:04 Intake & Output 05/12/20 05/13/20 05/13/20 18:59 06:59 18:59 Intake Total 600 1350 Output Total 100 Balance 500 1350 Intake: Intake, IV Titration 600 900 Amount Sodium Chloride 0.9% 1, 600 900 000 ml @ 75 mls/hr IV . [id number] Rx#:[id number] Oral 450 Output: Urine 100 Other: Voiding Method Toilet Toilet Toilet # Voids 1 2 3 - Labs CBC & Chem 7: 05/13/20 05:12 05/13/20 05:12 Labs: Abnormal Lab Results - Last 24 Hours (Table) 05/12/20 05/12/20 05/12/20 Range/Units 03:45 16:59 20:18 RBC (4.30-5.90) m/uL Hgb (13.0-17.5) gm/dL Hct (39.0-53.0) % Plt Count (150-450) k/uL Lymphocytes # (Manual) (1.0-4.8) k/uL Metamyelocytes # (Man) (0) k/uL ESR (0-20) mm/Hr Sodium (137-145) mmol/L Carbon Dioxide (22-30) mmol/L Creatinine (0.66-1.25) mg/dL POC Glucose (mg/dL) 101 H 119 H (75-99) mg/dL Hemoglobin A1c 6.9 H (4.0-6.0) % Calcium (8.4-10.2) mg/dL C-Reactive Protein (<10.0) mg/L Albumin (3.5-5.0) g/dL 05/13/20 05/13/20 05/13/20 Range/Units 05:12 05:12 05:51 RBC 4.01 L (4.30-5.90) m/uL Hgb 12.4 L (13.0-17.5) gm/dL Hct 36.4 L (39.0-53.0) % Plt Count 109 L (150-450) k/uL Lymphocytes # (Manual) 0.98 L (1.0-4.8) k/uL Metamyelocytes # (Man) 0.07 H (0) k/uL ESR 80 H (0-20) mm/Hr Sodium 129 L (137-145) mmol/L Carbon Dioxide 16 L (22-30) mmol/L Creatinine 0.47 L (0.66-1.25) mg/dL POC Glucose (mg/dL) (75-99) mg/dL Hemoglobin A1c (4.0-6.0) % Calcium 7.9 L (8.4-10.2) mg/dL C-Reactive Protein 65.8 H (<10.0) mg/L Albumin 2.9 L (3.5-5.0) g/dL 05/13/20 Range/Units 12:13 RBC (4.30-5.90) m/uL Hgb (13.0-17.5) gm/dL Hct (39.0-53.0) % Plt Count (150-450) k/uL Lymphocytes # (Manual) (1.0-4.8) k/uL Metamyelocytes # (Man) (0) k/uL ESR (0-20) mm/Hr Sodium (137-145) mmol/L Carbon Dioxide (22-30) mmol/L Creatinine (0.66-1.25) mg/dL POC Glucose (mg/dL) 130 H (75-99) mg/dL Hemoglobin A1c (4.0-6.0) % Calcium (8.4-10.2) mg/dL C-Reactive Protein (<10.0) mg/L Albumin (3.5-5.0) g/dL Microbiology - Last 24 Hours (Table) 05/10/20 22:55 Blood Culture - Preliminary Blood No Growth after 48 hours
[2020-05-13 17:23] LABS: Glucose,Whole Blood 135 mg/dL (75-99)
[2020-05-13 21:17] LABS: Glucose,Whole Blood 181 mg/dL (75-99)
[2020-05-13] MEDS: ONDANSETRON 4 MG/2 ML VIAL IVP PRN (21:54)
[2020-05-13] MEDS: LEVOTHYROXINE 25 MCG TAB PO SCH (21:55)
[2020-05-13] MEDS: CHOLECALCIFEROL 1,000 UNIT TAB PO SCH (21:55)
[2020-05-13] MEDS: ATORVASTATIN 20 MG TAB PO SCH (21:55)
[2020-05-13] MEDS: LEVOFLOXACIN 750 MG TAB PO SCH (21:55)
--- NOTE | 2020-05-13 22:17 | P.PN ---
Subjective Progress Note Date: 05/13/20 Principal diagnosis: Hyponatremia and Fever Febrile 101.5 on 05/12. Blood Cultures negative. Per nursing patient is still orthostatic. Objective - Vital Signs Vital signs: Vital Signs Temp 97.8 F 05/13/20 05:00 Pulse 75 05/13/20 05:00 Resp 18 05/13/20 05:00 BP 107/62 05/13/20 05:00 Pulse Ox 94 L 05/13/20 05:00 Intake & Output 05/12/20 05/13/20 05/13/20 18:59 06:59 18:59 Intake Total 600 1350 Output Total 100 Balance 500 1350 Intake: Intake, IV Titration 600 900 Amount Sodium Chloride 0.9% 1, 600 900 000 ml @ 75 mls/hr IV . [id number] [facility] Rx#:[id number] Oral 450 Output: Urine 100 Other: Voiding Method Toilet Toilet Toilet # Voids 1 2 - Exam - Constitutional General appearance: Present: average body habitus, cooperative, no acute distress - EENT Eyes: Present: anicteric sclerae, EOMI ENT: Present: hearing grossly normal - Respiratory Respiratory: bilateral: CTA - Cardiovascular Rhythm: regular Heart sounds: normal: S1, S2 - Gastrointestinal General gastrointestinal: Present: normal bowel sounds, soft - Musculoskeletal Musculoskeletal: Present: generalized weakness, strength equal bilaterally - Psychiatric Psychiatric: Present: A&O x's 3, appropriate affect, intact judgment & insight - Labs CBC & Chem 7: 05/13/20 05:12 05/13/20 05:12 Labs: Abnormal Lab Results - Last 24 Hours (Table) 05/12/20 05/12/20 05/12/20 Range/Units 03:45 16:59 20:18 RBC (4.30-5.90) m/uL Hgb (13.0-17.5) gm/dL Hct (39.0-53.0) % Plt Count (150-450) k/uL Lymphocytes # (Manual) (1.0-4.8) k/uL Metamyelocytes # (Man) (0) k/uL ESR (0-20) mm/Hr Sodium (137-145) mmol/L Carbon Dioxide (22-30) mmol/L Creatinine (0.66-1.25) mg/dL POC Glucose (mg/dL) 101 H 119 H (75-99) mg/dL Hemoglobin A1c 6.9 H (4.0-6.0) % Calcium (8.4-10.2) mg/dL C-Reactive Protein (<10.0) mg/L Albumin (3.5-5.0) g/dL 05/13/20 05/13/20 05/13/20 Range/Units 05:12 05:12 05:51 RBC 4.01 L (4.30-5.90) m/uL Hgb 12.4 L (13.0-17.5) gm/dL Hct 36.4 L (39.0-53.0) % Plt Count 109 L (150-450) k/uL Lymphocytes # (Manual) 0.98 L (1.0-4.8) k/uL Metamyelocytes # (Man) 0.07 H (0) k/uL ESR 80 H (0-20) mm/Hr Sodium 129 L (137-145) mmol/L Carbon Dioxide 16 L (22-30) mmol/L Creatinine 0.47 L (0.66-1.25) mg/dL POC Glucose (mg/dL) (75-99) mg/dL Hemoglobin A1c (4.0-6.0) % Calcium 7.9 L (8.4-10.2) mg/dL C-Reactive Protein 65.8 H (<10.0) mg/L Albumin 2.9 L (3.5-5.0) g/dL 05/13/20 Range/Units 12:13 RBC (4.30-5.90) m/uL Hgb (13.0-17.5) gm/dL Hct (39.0-53.0) % Plt Count (150-450) k/uL Lymphocytes # (Manual) (1.0-4.8) k/uL Metamyelocytes # (Man) (0) k/uL ESR (0-20) mm/Hr Sodium (137-145) mmol/L Carbon Dioxide (22-30) mmol/L Creatinine (0.66-1.25) mg/dL POC Glucose (mg/dL) 130 H (75-99) mg/dL Hemoglobin A1c (4.0-6.0) % Calcium (8.4-10.2) mg/dL C-Reactive Protein (<10.0) mg/L Albumin (3.5-5.0) g/dL Microbiology - Last 24 Hours (Table) 05/10/20 22:55 Blood Culture - Preliminary Blood No Growth after 48 hours Assessment and Plan Plan: Assessment and Plan Hyponatremia Multifactorial including no oral intake, free water vs fluids with electrolytes and small cell lung cancer. Pt being hydrated with NS, Na+130 today. Improved mental status. Cont IV fluids. Pt re-educated in the importance of electrolyte containing fluids. 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 Hemodynamically he did well other then significantly low WBC. Message to Primary Oncologist to see if they would like to add add GCSF to remainder of treatments Chronic Illness Myopathy Generalized weakness - Secondary to overall weakness, fatigue from dehydration and decreased performance on treatment for cancer Leukopenia due to antineoplastic chemotherapy - WBC and neutrophils recovering can hold zarxio Would like to be afebrile 24 hours and improved orthostatics. OK with discharge from onc, but to follow-up next week in office prior to continuing chemo Physcian Attest: I have completed the full history and physcial and agree with above dictation, dictated as a scribe
[2020-05-14 07:28] LABS: Glucose,Whole Blood 108 mg/dL (75-99)
[2020-05-14 08:25] LABS: HCT 35.5 % (39.0-53.0); HGB 11.5 gm/dL (13.0-17.5); MCH 29.7 pg (25.0-35.0); MCHC 32.5 g/dL (31.0-37.0); MCV 91.5 fL (80.0-100.0); Mean Platelet Volume 9.3; Platelet Count 128 k/uL (150-450); RBC 3.88 m/uL (4.30-5.90); RDW 15.2 % (11.5-15.5); WBC 12.3 k/uL (3.8-10.6)
[2020-05-14] MEDS: INSULIN ASPART (NovoLOG) 100 UNIT/ML VIAL SQ SCH ×4 (08:25→22:26)
[2020-05-14] MEDS: SYMBICORT 160-4.5 MCG INHALER INHALATION SCH ×2 (08:39→19:29)
[2020-05-14 09:16] LABS: Band Neutrophils % 2 %; Lymphocytes # (M) 0.86 k/uL (1.0-4.8); Monocytes # (M) 0.98 k/uL (0-1.0); Myelocytes # (M) 0.12 k/uL (0); Myelocytes % 1 %; Neutrophils % (M) 83 %; Nucleated Red Blood Cells 0 /100 WBC (0-0); Total Cells Counted 200
[2020-05-14 09:19] LABS: Large Platelets Present
[2020-05-14] MEDS: MIDODRINE 5 MG TAB PO SCH ×3 (11:24→22:26)
[2020-05-14] MEDS: FLUTICASONE 50MCG/SPRAY NASAL 16GM EA NOSTRIL SCH ×2 (11:25→22:26)
[2020-05-14] MEDS: LORATADINE 10 MG TAB PO SCH (11:25)
[2020-05-14] MEDS: SODIUM CHLORIDE 0.9% 1,000 ML IV SCH (11:28)
[2020-05-14 11:53] LABS: Glucose,Whole Blood 201 mg/dL (75-99)
[2020-05-14 12:48] LABS: ALT 45 U/L (4-49); AST 58 U/L (17-59); African American GFR (CKD) >90 (>60 ml/min/1.73 sqM); Albumin 2.6 g/dL (3.5-5.0); Albumin/Globulin Ratio 0.8; Alkaline Phosphatase 93 U/L (38-126); Anion Gap 6 mmol/L; Blood Urea Nitrogen 10 mg/dL (9-20); Calcium 7.6 mg/dL (8.4-10.2); Carbon Dioxide 22 mmol/L (22-30); Chloride 100 mmol/L (98-107); Globulin 3.3 g/dL; Glucose 117 mg/dL (74-99); Non-African American GFR(CKD) >90 (>60 ml/min/1.73 sqM); Potassium 3.4 mmol/L (3.5-5.1); Sodium 128 mmol/L (137-145); Total Bilirubin 0.6 mg/dL (0.2-1.3); Total Protein 5.9 g/dL (6.3-8.2)
[2020-05-14 17:19] LABS: Glucose,Whole Blood 182 mg/dL (75-99)
[2020-05-14 20:39] LABS: Glucose,Whole Blood 184 mg/dL (75-99)
[2020-05-14] MEDS: LEVOFLOXACIN 750 MG TAB PO SCH (22:26)
[2020-05-14] MEDS: LEVOTHYROXINE 25 MCG TAB PO SCH (22:26)
[2020-05-14] MEDS: ATORVASTATIN 20 MG TAB PO SCH (22:26)
[2020-05-14] MEDS: CHOLECALCIFEROL 1,000 UNIT TAB PO SCH (22:26)
[2020-05-15] MEDS: SODIUM CHLORIDE 0.9% 1,000 ML IV SCH ×2 (05:28→08:30)
[2020-05-15 07:14] LABS: HCT 35.6 % (39.0-53.0); HGB 11.9 gm/dL (13.0-17.5); MCH 30.7 pg (25.0-35.0); MCHC 33.6 g/dL (31.0-37.0); MCV 91.4 fL (80.0-100.0); Mean Platelet Volume 9.3; Platelet Count 139 k/uL (150-450); RBC 3.89 m/uL (4.30-5.90); RDW 14.7 % (11.5-15.5); WBC 9.7 k/uL (3.8-10.6)
[2020-05-15] MEDS: SYMBICORT 160-4.5 MCG INHALER INHALATION SCH ×2 (07:27→20:57)
[2020-05-15 07:40] LABS: Glucose,Whole Blood 138 mg/dL (75-99)
[2020-05-15] MEDS: INSULIN ASPART (NovoLOG) 100 UNIT/ML VIAL SQ SCH ×4 (07:49→22:32)
[2020-05-15] MEDS: LORATADINE 10 MG TAB PO SCH (08:28)
[2020-05-15] MEDS: MIDODRINE 5 MG TAB PO SCH ×3 (08:29→18:02)
[2020-05-15] MEDS: FLUTICASONE 50MCG/SPRAY NASAL 16GM EA NOSTRIL SCH ×2 (08:30→22:32)
[2020-05-15 09:33] LABS: Band Neutrophils % 1 %; Lymphocytes # (M) 0.39 k/uL (1.0-4.8); Monocytes # (M) 0.97 k/uL (0-1.0); Myelocytes % 1 %; Neutrophils % (M) 85 %; Nucleated Red Blood Cells 0 /100 WBC (0-0); Total Cells Counted 200
[2020-05-15 10:50] LABS: African American GFR (CKD) 121.1 (60.0-200.0); Anion Gap 8.7 mmol/L (4.00-12.00); Calcium 7.6 mg/dL (8.7-10.3); Carbon Dioxide 23.3 mmol/L (21.6-31.8); Non-African American GFR(CKD) 104.5 (60.0-200.0); Potassium 3.4 mmol/L (3.5-5.5)
[2020-05-15 11:47] LABS: Glucose,Whole Blood 152 mg/dL (75-99)
[2020-05-15 17:07] LABS: Glucose,Whole Blood 186 mg/dL (75-99)
[2020-05-15 22:03] LABS: Glucose,Whole Blood 206 mg/dL (75-99)
[2020-05-15] MEDS: ATORVASTATIN 20 MG TAB PO SCH (22:31)
[2020-05-15] MEDS: LEVOFLOXACIN 750 MG TAB PO SCH (22:31)
[2020-05-15] MEDS: LEVOTHYROXINE 25 MCG TAB PO SCH (22:32)
[2020-05-15] MEDS: CHOLECALCIFEROL 1,000 UNIT TAB PO SCH (22:32)
--- NOTE | 2020-05-15 22:59 | P.PN ---
Subjective Progress Note Date: 05/14/20 Principal diagnosis: Near-syncopalunderlying intervascular depletion Metastatic small lung cancer currently on systemic chemotherapywith 5 centimeter lung mass Leukopenia on zarxio Hyponatremia 75-year-old male receiving moderate hydration therapy for hyponatremia and dehydration. Leukopenia noted on admissionon filgrastimincrease of white blood cell count from 0.9 to 7.0. Throughout the night the patient had a low- grade fever, no antipyretic was use patient afebrile this morning. Patient active alert and no complaints at this time. Patient ambulating with assistance Patient continues to complain of generalized body aches, analgesic therapy reducing pain intensity. 05/14/2020 Patient is currently lying in the bed comfortably. Still having some dizziness with getting up. No complaints of chest pain or shortness breath. Sodium level 128 today. Currently being continued on IV hydration with normal saline. WBC count improved to 12.3 and hemoglobin 11.5 and platelets 128 Potassium 3.4 which is being replaced. Patient has been afebrile since yesterday. All other review of systems negative except as above. Current medications reviewed. Objective - Vital Signs Vital signs: Vital Signs Temp 98.4 F 05/14/20 20:38 Pulse 85 05/14/20 20:38 Resp 16 05/14/20 20:38 BP 130/73 05/14/20 20:38 Pulse Ox 93 L 05/14/20 20:38 Intake & Output 05/14/20 05/14/20 05/15/20 06:59 18:59 05:59 Intake Total 225 750 Balance 225 750 Intake: Intake, IV Titration 225 Amount Sodium Chloride 0.9% 1, 225 000 ml @ 75 mls/hr IV . [id number] [facility] Rx#:[id number] Oral 750 Other: Voiding Method Toilet Toilet # Voids 5 3 - Exam PHYSICAL EXAMINATION: Patient is lying in the bed comfortably, no acute distress, awake alert and oriented.. HEENT: Normocephalic. Neck is supple. Pupils reactive. Nostrils clear. Oral cavity is moist. Ears reveal no drainage. Neck reveals no JVD, carotid bruits, or thyromegaly. CHEST EXAMINATION: Trachea is central. Symmetrical expansion. Lung dunn clear to auscultation and percussion. CARDIAC: Normal S1, S2 with no gallops. No murmurs ABDOMEN: Soft. Bowel sounds normal. No organomegaly. No abdominal bruits. Extremities: reveal no edema. No clubbing or cyanosis Neurologically awake, alert, oriented x3 with well-coordinated movements. No focal deficits noted Skin: No rash or skin lesions. Psychiatric: Coperative. Nonsuicidal Musculoskeletal: No joint swelling or deformity. Normal range of motion. - Labs CBC & Chem 7: 05/15/20 06:22 05/15/20 06:22 Labs: Abnormal Lab Results - Last 24 Hours (Table) 05/13/20 05/14/20 05/14/20 Range/Units 21:15 06:32 06:32 WBC 12.3 H (3.8-10.6) k/uL RBC 3.88 L (4.30-5.90) m/uL Hgb 11.5 L (13.0-17.5) gm/dL Hct 35.5 L (39.0-53.0) % Plt Count 128 L (150-450) k/uL Neutrophils # (Manual) 10.40 H (1.3-7.7) k/uL Lymphocytes # (Manual) 0.86 L (1.0-4.8) k/uL Myelocytes # (Manual) 0.12 H (0) k/uL Sodium 128 L (137-145) mmol/L Potassium 3.4 L (3.5-5.1) mmol/L Creatinine 0.50 L (0.66-1.25) mg/dL Glucose 117 H (74-99) mg/dL POC Glucose (mg/dL) 181 H (75-99) mg/dL Calcium 7.6 L (8.4-10.2) mg/dL Total Protein 5.9 L (6.3-8.2) g/dL Albumin 2.6 L (3.5-5.0) g/dL 05/14/20 05/14/20 05/14/20 Range/Units 07:25 11:52 17:18 WBC (3.8-10.6) k/uL RBC (4.30-5.90) m/uL Hgb (13.0-17.5) gm/dL Hct (39.0-53.0) % Plt Count (150-450) k/uL Neutrophils # (Manual) (1.3-7.7) k/uL Lymphocytes # (Manual) (1.0-4.8) k/uL Myelocytes # (Manual) (0) k/uL Sodium (137-145) mmol/L Potassium (3.5-5.1) mmol/L Creatinine (0.66-1.25) mg/dL Glucose (74-99) mg/dL POC Glucose (mg/dL) 108 H 201 H 182 H (75-99) mg/dL Calcium (8.4-10.2) mg/dL Total Protein (6.3-8.2) g/dL Albumin (3.5-5.0) g/dL 05/14/20 Range/Units 20:38 WBC (3.8-10.6) k/uL RBC (4.30-5.90) m/uL Hgb (13.0-17.5) gm/dL Hct (39.0-53.0) % Plt Count (150-450) k/uL Neutrophils # (Manual) (1.3-7.7) k/uL Lymphocytes # (Manual) (1.0-4.8) k/uL Myelocytes # (Manual) (0) k/uL Sodium (137-145) mmol/L Potassium (3.5-5.1) mmol/L Creatinine (0.66-1.25) mg/dL Glucose (74-99) mg/dL POC Glucose (mg/dL) 184 H (75-99) mg/dL Calcium (8.4-10.2) mg/dL Total Protein (6.3-8.2) g/dL Albumin (3.5-5.0) g/dL Microbiology - Last 24 Hours (Table) 05/10/20 22:55 Blood Culture - Preliminary Blood No Growth after 72 hours Assessment and Plan Assessment: Presyncopal Likely due to orthostatic hypotension. Metastatic small lung cancer currently on systemic chemotherapy Leukopenia secondary to systemic therapycurrently receiving zarxio HyponatremiaHypovolemic. continue moderate hydration therapy Chronic Illness Myopathy Generalized weakness COPD Coronary artery disease Hypertension Hyperlipidemia Diabetes mellitus type 2 Hypothyroidism Plan: Patient will be continued on normal saline at 75 cc/h. Patient was started on filgrastim for leukopenia. WBC count did improve and currently was discontinued. Continue with breathing treatments as needed. Encourage oral intake and PT OT. Will follow closely. Pulmonary and oncology is on board. Time with Patient: Greater than 30
--- NOTE | 2020-05-15 23:02 | P.PN ---
Subjective Progress Note Date: 05/15/20 Principal diagnosis: Near-syncopalunderlying intervascular depletion Metastatic small lung cancer currently on systemic chemotherapywith 5 centimeter lung mass Leukopenia on zarxio Hyponatremia 75-year-old male receiving moderate hydration therapy for hyponatremia and dehydration. Leukopenia noted on admissionon filgrastimincrease of white blood cell count from 0.9 to 7.0. Throughout the night the patient had a low- grade fever, no antipyretic was use patient afebrile this morning. Patient active alert and no complaints at this time. Patient ambulating with assistance Patient continues to complain of generalized body aches, analgesic therapy reducing pain intensity. 05/14/2020 Patient is currently lying in the bed comfortably. Still having some dizziness with getting up. No complaints of chest pain or shortness breath. Sodium level 128 today. Currently being continued on IV hydration with normal saline. WBC count improved to 12.3 and hemoglobin 11.5 and platelets 128 Potassium 3.4 which is being replaced. Patient has been afebrile since yesterday. 05/15/20 Patient is currently lying in the bed comfortably. Blood pressure is 96/54 and is currently saturating well on at 92% on room air. Currently being continued on IV hydration. Patient did have a shower today and felt symptomatically better. Patient has been afebrile otherwise. No complaints of chest pain or shortness of breath. Blood cultures are negative so far. Laboratory data showed WBC count is 9.7 and platelets 139 and hemoglobin 11.9 Sodium 131 and potassium 3.4 which is being replaced. Anticipate discharge in the next 24 hours with symptomatic improvement. Patient is being continued on midodrine 5 mg 3 times daily for orthostatic hypotension. Currently empiric antibiotics in the form of Levaquin. All other review of systems negative except as above. Current medications reviewed. Objective - Vital Signs Vital signs: Vital Signs Temp 97.7 F 05/15/20 20:54 Pulse 97 05/15/20 20:54 Resp 18 05/15/20 20:54 BP 109/62 05/15/20 20:54 Pulse Ox 92 L 05/15/20 20:54 Intake & Output 05/15/20 05/15/20 05/16/20 06:59 18:59 06:59 Intake Total Balance Intake: Intake, IV Titration Amount Sodium Chloride 0.9% 1, 000 ml @ 75 mls/hr IV . [id number] [facility] Rx#:[id number] Oral Other: Voiding Method Toilet # Voids 2 - Exam PHYSICAL EXAMINATION: Patient is lying in the bed comfortably, no acute distress, awake alert and oriented.. HEENT: Normocephalic. Neck is supple. Pupils reactive. Nostrils clear. Oral cavity is moist. Ears reveal no drainage. Neck reveals no JVD, carotid bruits, or thyromegaly. CHEST EXAMINATION: Trachea is central. Symmetrical expansion. Lung dunn clear to auscultation and percussion. CARDIAC: Normal S1, S2 with no gallops. No murmurs ABDOMEN: Soft. Bowel sounds normal. No organomegaly. No abdominal bruits. Extremities: reveal no edema. No clubbing or cyanosis Neurologically awake, alert, oriented x3 with well-coordinated movements. No focal deficits noted Skin: No rash or skin lesions. Psychiatric: Coperative. Nonsuicidal Musculoskeletal: No joint swelling or deformity. Normal range of motion. - Labs CBC & Chem 7: 05/15/20 06:22 05/15/20 06:22 Labs: Abnormal Lab Results - Last 24 Hours (Table) 05/15/20 05/15/20 05/15/20 Range/Units 06:22 06:22 07:38 RBC 3.89 L (4.30-5.90) m/uL Hgb 11.9 L (13.0-17.5) gm/dL Hct 35.6 L (39.0-53.0) % Plt Count 139 L (150-450) k/uL Neutrophils # (Manual) 8.30 H (1.3-7.7) k/uL Lymphocytes # (Manual) 0.39 L (1.0-4.8) k/uL Myelocytes # (Manual) 0.10 H (0) k/uL Sodium 131 L (135-145) mmol/L Potassium 3.4 L (3.5-5.5) mmol/L BUN 7.0 L (9.0-27.0) mg/dL Creatinine 0.5 L (0.6-1.5) mg/dL Glucose 150 H (70-110) mg/dL POC Glucose (mg/dL) 138 H (75-99) mg/dL Calcium 7.6 L (8.7-10.3) mg/dL 05/15/20 05/15/20 Range/Units 11:40 17:03 RBC (4.30-5.90) m/uL Hgb (13.0-17.5) gm/dL Hct (39.0-53.0) % Plt Count (150-450) k/uL Neutrophils # (Manual) (1.3-7.7) k/uL Lymphocytes # (Manual) (1.0-4.8) k/uL Myelocytes # (Manual) (0) k/uL Sodium (135-145) mmol/L Potassium (3.5-5.5) mmol/L BUN (9.0-27.0) mg/dL Creatinine (0.6-1.5) mg/dL Glucose (70-110) mg/dL POC Glucose (mg/dL) 152 H 186 H (75-99) mg/dL Calcium (8.7-10.3) mg/dL Microbiology - Last 24 Hours (Table) 05/10/20 22:55 Blood Culture - Preliminary Blood No Growth after 96 hours Assessment and Plan Assessment: Presyncopal Likely due to orthostatic hypotension. c/w midodrin Metastatic small lung cancer currently on systemic chemotherapy Leukopenia secondary to systemic therapycurrently receiving zarxio HyponatremiaHypovolemic. continue moderate hydration therapy Chronic Illness Myopathy Generalized weakness COPD Coronary artery disease Hypertension Hyperlipidemia Diabetes mellitus type 2 Hypothyroidism Plan: Patient will be continued on normal saline at 75 cc/h. Patient was started on filgrastim for leukopenia. WBC count did improve and currently was discontinued. Continue with breathing treatments as needed. Encourage oral intake and PT OT. Will follow closely. Pulmonary and oncology is on board. Time with Patient: Greater than 30
[2020-05-16] MEDS: SODIUM CHLORIDE 0.9% 1,000 ML IV SCH ×2 (06:22→15:56)
[2020-05-16 06:32] LABS: HCT 32.9 % (39.0-53.0); MCH 30.3 pg (25.0-35.0); MCHC 33.4 g/dL (31.0-37.0); MCV 90.7 fL (80.0-100.0); Platelet Count 172 k/uL (150-450); RBC 3.63 m/uL (4.30-5.90); RDW 15.4 % (11.5-15.5); WBC 9.3 k/uL (3.8-10.6)
[2020-05-16 07:03] LABS: Band Neutrophils % 4 %; Lymphocytes # (M) 0.74 k/uL (1.0-4.8); Neutrophils % (M) 74 %; Nucleated Red Blood Cells 0 /100 WBC (0-0); Total Cells Counted 100
[2020-05-16 07:17] LABS: Glucose,Whole Blood 163 mg/dL (75-99)
[2020-05-16] MEDS: SYMBICORT 160-4.5 MCG INHALER INHALATION SCH ×2 (07:18→20:14)
[2020-05-16 09:13] LABS: Protein, Total 5.3 g/dL (6.2-8.2)
[2020-05-16] MEDS: INSULIN ASPART (NovoLOG) 100 UNIT/ML VIAL SQ SCH ×4 (09:17→20:23)
[2020-05-16] MEDS: FLUTICASONE 50MCG/SPRAY NASAL 16GM EA NOSTRIL SCH ×2 (09:18→21:08)
[2020-05-16] MEDS: MIDODRINE 5 MG TAB PO SCH ×3 (09:18→18:23)
[2020-05-16] MEDS: LORATADINE 10 MG TAB PO SCH (09:18)
[2020-05-16 09:31] LABS: African American GFR (CKD) 132.8 (60.0-200.0); Albumin 2.6 g/dL (3.80-4.90); Albumin/Globulin Ratio 0.93 (1.60-3.17); BUN/Creat Ratio 17.5 Ratio (12.00-20.00); Calcium 7.3 mg/dL (8.7-10.3); Globulin 2.8 g/dL (1.6-3.3); Magnesium 1.8 mg/dL (1.5-2.4); Non-African American GFR(CKD) 114.6 (60.0-200.0); Potassium 3.2 mmol/L (3.5-5.5); Total Bilirubin 0.6 mg/dL (0.2-1.2); Total Protein 5.4 g/dL (6.2-8.2)
[2020-05-16 11:30] LABS: Glucose,Whole Blood 259 mg/dL (75-99)
--- NOTE | 2020-05-16 13:18 | P.PN ---
Subjective Progress Note Date: 05/16/20 Principal diagnosis: Hyponatremia and Fever He was feeling a little better today, although still remains symptomatically weak, dizzy, and decreased overall appetite and PO intake. His last orthostatics do not show rise in HR, although do show drop of BP. His sodium today 129, Pot assium 3.2, no s/s diarrhea. Serum osmolarity decreased. 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 A repeat image of his brain was performed, although unfortunately this was performed without Haile and therefore not the most sensitive imaging to identify metastatic disease to the brain which could account for many symptoms. Objective - Vital Signs Vital signs: Vital Signs Temp 97.5 F L 05/16/20 13:00 Pulse 80 05/16/20 13:00 Resp 19 05/16/20 13:00 BP 108/65 05/16/20 13:00 Pulse Ox 92 L 05/16/20 13:00 Intake & Output 05/15/20 05/16/20 05/16/20 18:59 06:59 18:59 Intake Total 1325 Balance 1325 Intake: Intake, IV Titration 825 Amount Sodium Chloride 0.9% 1, 825 000 ml @ 75 mls/hr IV . [id number] [facility] Rx#:[id number] Oral 500 Other: Voiding Method Toilet Toilet Toilet Urinal # Voids 2 3 - Exam - Constitutional General appearance: Present: average body habitus, cooperative, no acute distress - EENT Eyes: Present: anicteric sclerae, EOMI ENT: Present: hearing grossly normal - Respiratory Respiratory: bilateral: CTA - Cardiovascular Rhythm: regular Heart sounds: normal: S1, S2 - Gastrointestinal General gastrointestinal: Present: normal bowel sounds, soft - Musculoskeletal Musculoskeletal: Present: generalized weakness, strength equal bilaterally - Psychiatric Psychiatric: Present: A&O x's 3, appropriate affect, intact judgment & insight - Labs CBC & Chem 7: 05/16/20 05:21 05/16/20 05:21 Labs: Abnormal Lab Results - Last 24 Hours (Table) 05/15/20 05/15/20 05/16/20 Range/Units 17:03 22:00 05:21 RBC 3.63 L (4.30-5.90) m/uL Hgb 11.0 L (13.0-17.5) gm/dL Hct 32.9 L (39.0-53.0) % Lymphocytes # (Manual) 0.74 L (1.0-4.8) k/uL Monocytes # (Manual) 1.30 H (0-1.0) k/uL Sodium (135-145) mmol/L Potassium (3.5-5.5) mmol/L BUN (9.0-27.0) mg/dL Creatinine (0.6-1.5) mg/dL Glucose (70-110) mg/dL POC Glucose (mg/dL) 186 H 206 H (75-99) mg/dL Osmolality (280-301) mosm/kg Calcium (8.7-10.3) mg/dL AST (14-35) U/L Total Protein (6.2-8.2) g/dL Total Protein (PEP) (6.2-8.2) g/dL Albumin (3.80-4.90) g/dL Albumin/Globulin Ratio (1.60-3.17) g/dL Cortisol (3.10-22.40) ug/dL 05/16/20 05/16/20 05/16/20 Range/Units 05:21 05:21 07:14 RBC (4.30-5.90) m/uL Hgb (13.0-17.5) gm/dL Hct (39.0-53.0) % Lymphocytes # (Manual) (1.0-4.8) k/uL Monocytes # (Manual) (0-1.0) k/uL Sodium 129 L (135-145) mmol/L Potassium 3.2 L (3.5-5.5) mmol/L BUN 7.0 L (9.0-27.0) mg/dL Creatinine 0.4 L (0.6-1.5) mg/dL Glucose 165 H (70-110) mg/dL POC Glucose (mg/dL) 163 H (75-99) mg/dL Osmolality 263 L (280-301) mosm/kg Calcium 7.3 L (8.7-10.3) mg/dL AST 47 H (14-35) U/L Total Protein 5.4 L (6.2-8.2) g/dL Total Protein (PEP) 5.3 L (6.2-8.2) g/dL Albumin 2.60 L (3.80-4.90) g/dL Albumin/Globulin Ratio 0.93 L (1.60-3.17) g/dL Cortisol 29.9 H (3.10-22.40) ug/dL 05/16/20 Range/Units 11:27 RBC (4.30-5.90) m/uL Hgb (13.0-17.5) gm/dL Hct (39.0-53.0) % Lymphocytes # (Manual) (1.0-4.8) k/uL Monocytes # (Manual) (0-1.0) k/uL Sodium (135-145) mmol/L Potassium (3.5-5.5) mmol/L BUN (9.0-27.0) mg/dL Creatinine (0.6-1.5) mg/dL Glucose (70-110) mg/dL POC Glucose (mg/dL) 259 H (75-99) mg/dL Osmolality (280-301) mosm/kg Calcium (8.7-10.3) mg/dL AST (14-35) U/L Total Protein (6.2-8.2) g/dL Total Protein (PEP) (6.2-8.2) g/dL Albumin (3.80-4.90) g/dL Albumin/Globulin Ratio (1.60-3.17) g/dL Cortisol (3.10-22.40) ug/dL Microbiology - Last 24 Hours (Table) 05/10/20 22:55 Blood Culture - Preliminary Blood No Growth after 120 hours Assessment and Plan Plan: Assessment and Plan Hyponatremia/SIADH: Multifactorial including no oral intake, free water vs fluids with electrolytes and small cell lung cancer. Pt being hydrated with NS, Na+130 today. Improved mental status. Cont IV fluids. Pt re-educated in the importance of electrolyte containing fluids. Orthostatic Hypotension: - Continue on midodrine Component SIADH and nutrition decrease add demeclocyline and megace SCLC (small cell lung carcinoma) Pt is s/p 1st carbo/[employer]/tecentriq. Hemodynamically he did well other then significantly low WBC. Message to Primary Oncologist to see if they would like to add add GCSF to remainder of treatments Chronic Illness Myopathy Generalized weakness - Secondary to overall weakness, fatigue from dehydration and decreased performance on treatment for cancer Leukopenia due to antineoplastic chemotherapy - WBC and neutrophils recovering , zarxio has been discontinued
[2020-05-16] MEDS: DEMECLOCYCLINE 150 MG TAB PO SCH ×2 (13:45→21:10)
[2020-05-16] MEDS ORDERED: POTASSIUM CHLORIDE ER 20 MEQ TAB.ER PO STA (16:24)
[2020-05-16 17:35] LABS: Glucose,Whole Blood 187 mg/dL (75-99)
[2020-05-16] MEDS ORDERED: JARDIANCE 25 MG PO SCH (18:00)
[2020-05-16] MEDS: JARDIANCE 25 MG PO SCH (18:30)
[2020-05-16 20:09] LABS: Glucose,Whole Blood 122 mg/dL (75-99)
[2020-05-16] MEDS: CHOLECALCIFEROL 1,000 UNIT TAB PO SCH (21:08)
[2020-05-16] MEDS: LEVOFLOXACIN 750 MG TAB PO SCH (21:08)
[2020-05-16] MEDS: ATORVASTATIN 20 MG TAB PO SCH (21:10)
[2020-05-16] MEDS: LEVOTHYROXINE 25 MCG TAB PO SCH (21:10)
[2020-05-16 21:45] VITALS: RESP 16
[2020-05-17] MEDS ORDERED: Potassium Replacement Protocol 1 EACH MISC MISCELLANE PRN (00:09)
--- NOTE | 2020-05-17 00:12 | P.PN ---
Subjective Progress Note Date: 05/16/20 Principal diagnosis: Near-syncopalunderlying intervascular depletion Metastatic small lung cancer currently on systemic chemotherapywith 5 centimeter lung mass Leukopenia on zarxio Hyponatremia 75-year-old male receiving moderate hydration therapy for hyponatremia and dehydration. Leukopenia noted on admissionon filgrastimincrease of white blood cell count from 0.9 to 7.0. Throughout the night the patient had a low- grade fever, no antipyretic was use patient afebrile this morning. Patient active alert and no complaints at this time. Patient ambulating with assistance Patient continues to complain of generalized body aches, analgesic therapy reducing pain intensity. 05/14/2020 Patient is currently lying in the bed comfortably. Still having some dizziness with getting up. No complaints of chest pain or shortness breath. Sodium level 128 today. Currently being continued on IV hydration with normal saline. WBC count improved to 12.3 and hemoglobin 11.5 and platelets 128 Potassium 3.4 which is being replaced. Patient has been afebrile since yesterday. 05/15/20 Patient is currently lying in the bed comfortably. Blood pressure is 96/54 and is currently saturating well on at 92% on room air. Currently being continued on IV hydration. Patient did have a shower today and felt symptomatically better. Patient has been afebrile otherwise. No complaints of chest pain or shortness of breath. Blood cultures are negative so far. Laboratory data showed WBC count is 9.7 and platelets 139 and hemoglobin 11.9 Sodium 131 and potassium 3.4 which is being replaced. Anticipate discharge in the next 24 hours with symptomatic improvement. Patient is being continued on midodrine 5 mg 3 times daily for orthostatic hypotension. Currently empiric antibiotics in the form of Levaquin. 05/16/2020 Patient is currently lying in the bed comfortably. Patient did have dizziness this morning and orthostatic were positive positive. Patient is being continued on midodrine 5 mg 3 times daily. Laboratory data showed sodium level is 129 and potassium 3.2 Serum osmolality 263, BUN 7 and creatinine 0.4. Cortisol level is 29.9 and TSH 0.820 Patient was started on demeclocycline for possible SIADH. Monitor CBC and BMP tomorrow. We will hold continuous IV hydration and fluid boluses if needed. Patient denied any complaints of chest pain or shortness of the. No headache or dizziness while in the bed. No fever no chills. Laboratory data reviewed. All other review of systems negative except as above. Current medications reviewed. Objective - Vital Signs Vital signs: Vital Signs Temp 98.3 F 05/16/20 21:00 Pulse 85 05/16/20 21:00 Resp 16 05/16/20 21:00 BP 107/65 05/16/20 21:00 Pulse Ox 92 L 05/16/20 21:00 Intake & Output 05/16/20 05/16/20 05/17/20 06:59 18:59 06:59 Intake Total 1325 1230 225 Balance 1325 1230 225 Intake: Intake, IV Titration 825 225 Amount Sodium Chloride 0.9% 1, 825 225 000 ml @ 75 mls/hr IV . [id number] [facility] Rx#:[id number] Oral 500 1230 Other: Voiding Method Toilet Toilet Urinal # Voids 3 2 - Exam PHYSICAL EXAMINATION: Patient is lying in the bed comfortably, no acute distress, awake alert and oriented.. HEENT: Normocephalic. Neck is supple. Pupils reactive. Nostrils clear. Oral cavity is moist. Ears reveal no drainage. Neck reveals no JVD, carotid bruits, or thyromegaly. CHEST EXAMINATION: Trachea is central. Symmetrical expansion. Lung dunn clear to auscultation and percussion. CARDIAC: Normal S1, S2 with no gallops. No murmurs ABDOMEN: Soft. Bowel sounds normal. No organomegaly. No abdominal bruits. Extremities: reveal no edema. No clubbing or cyanosis Neurologically awake, alert, oriented x3 with well-coordinated movements. No focal deficits noted Skin: No rash or skin lesions. Psychiatric: Coperative. Nonsuicidal Musculoskeletal: No joint swelling or deformity. Normal range of motion. - Labs CBC & Chem 7: 05/16/20 05:21 05/16/20 05:21 Labs: Abnormal Lab Results - Last 24 Hours (Table) 05/16/20 05/16/20 05/16/20 Range/Units 05:21 05:21 05:21 RBC 3.63 L (4.30-5.90) m/uL Hgb 11.0 L (13.0-17.5) gm/dL Hct 32.9 L (39.0-53.0) % Lymphocytes # (Manual) 0.74 L (1.0-4.8) k/uL Monocytes # (Manual) 1.30 H (0-1.0) k/uL Sodium 129 L (135-145) mmol/L Potassium 3.2 L (3.5-5.5) mmol/L BUN 7.0 L (9.0-27.0) mg/dL Creatinine 0.4 L (0.6-1.5) mg/dL Glucose 165 H (70-110) mg/dL POC Glucose (mg/dL) (75-99) mg/dL Osmolality 263 L (280-301) mosm/kg Calcium 7.3 L (8.7-10.3) mg/dL AST 47 H (14-35) U/L Total Protein 5.4 L (6.2-8.2) g/dL Total Protein (PEP) 5.3 L (6.2-8.2) g/dL Albumin 2.60 L (3.80-4.90) g/dL Albumin/Globulin Ratio 0.93 L (1.60-3.17) g/dL Cortisol 29.9 H (3.10-22.40) ug/dL 05/16/20 05/16/20 05/16/20 Range/Units 07:14 11:27 17:33 RBC (4.30-5.90) m/uL Hgb (13.0-17.5) gm/dL Hct (39.0-53.0) % Lymphocytes # (Manual) (1.0-4.8) k/uL Monocytes # (Manual) (0-1.0) k/uL Sodium (135-145) mmol/L Potassium (3.5-5.5) mmol/L BUN (9.0-27.0) mg/dL Creatinine (0.6-1.5) mg/dL Glucose (70-110) mg/dL POC Glucose (mg/dL) 163 H 259 H 187 H (75-99) mg/dL Osmolality (280-301) mosm/kg Calcium (8.7-10.3) mg/dL AST (14-35) U/L Total Protein (6.2-8.2) g/dL Total Protein (PEP) (6.2-8.2) g/dL Albumin (3.80-4.90) g/dL Albumin/Globulin Ratio (1.60-3.17) g/dL Cortisol (3.10-22.40) ug/dL 05/16/20 Range/Units 20:08 RBC (4.30-5.90) m/uL Hgb (13.0-17.5) gm/dL Hct (39.0-53.0) % Lymphocytes # (Manual) (1.0-4.8) k/uL Monocytes # (Manual) (0-1.0) k/uL Sodium (135-145) mmol/L Potassium (3.5-5.5) mmol/L BUN (9.0-27.0) mg/dL Creatinine (0.6-1.5) mg/dL Glucose (70-110) mg/dL POC Glucose (mg/dL) 122 H (75-99) mg/dL Osmolality (280-301) mosm/kg Calcium (8.7-10.3) mg/dL AST (14-35) U/L Total Protein (6.2-8.2) g/dL Total Protein (PEP) (6.2-8.2) g/dL Albumin (3.80-4.90) g/dL Albumin/Globulin Ratio (1.60-3.17) g/dL Cortisol (3.10-22.40) ug/dL Microbiology - Last 24 Hours (Table) 05/10/20 22:55 Blood Culture - Preliminary Blood No Growth after 120 hours Assessment and Plan Assessment: Presyncopal Likely due to orthostatic hypotension. c/w midodrin Metastatic small lung cancer currently on systemic chemotherapy Leukopenia secondary to systemic therapycurrently receiving zarxio HyponatremiaHypovolemic. Possible SIADH Chronic Illness Myopathy Generalized weakness COPD Coronary artery disease Hypertension Hyperlipidemia Diabetes mellitus type 2 Hypothyroidism Plan: Patient will be continued on Midrodrin. Patient was started on filgrastim for leukopenia. WBC count did improve and currently was discontinued. Continue with breathing treatments as needed. Encourage oral intake and PT OT. Will follow closely. Pulmonary and oncology is on board. Time with Patient: Greater than 30
[2020-05-17] MEDS: MAGNESIUM SULFATE-D5W PMX 1 GM in DEXTROSE/WATER 1 100ML.BAG IVPB SCH ×2 (00:45→02:31)
[2020-05-17 06:48] LABS: HCT 36.6 % (39.0-53.0); HGB 11.5 gm/dL (13.0-17.5); MCH 29.7 pg (25.0-35.0); MCHC 31.4 g/dL (31.0-37.0); MCV 94.5 fL (80.0-100.0); Mean Platelet Volume 9.2; Platelet Count 227 k/uL (150-450); RBC 3.88 m/uL (4.30-5.90); RDW 15.6 % (11.5-15.5); WBC 10.2 k/uL (3.8-10.6)
[2020-05-17 07:06] LABS: Glucose,Whole Blood 104 mg/dL (75-99)
[2020-05-17] MEDS: INSULIN ASPART (NovoLOG) 100 UNIT/ML VIAL SQ SCH ×2 (07:20→12:38)
[2020-05-17] MEDS: SYMBICORT 160-4.5 MCG INHALER INHALATION SCH (07:25)
[2020-05-17 08:12] LABS: Lymphocytes # (M) 1.02 k/uL (1.0-4.8); Monocytes # (M) 0.92 k/uL (0-1.0); Neutrophils # (M) 8.26 k/uL (1.3-7.7); Neutrophils % (M) 81 %; Nucleated Red Blood Cells 0 /100 WBC (0-0); Total Cells Counted 100
[2020-05-17 08:13] LABS: Poikilocytosis (M) Present
[2020-05-17] MEDS: MIDODRINE 5 MG TAB PO SCH ×2 (08:17→12:39)
[2020-05-17] MEDS: DEMECLOCYCLINE 150 MG TAB PO SCH (08:18)
[2020-05-17] MEDS: LORATADINE 10 MG TAB PO SCH (08:25)
[2020-05-17] MEDS: FLUTICASONE 50MCG/SPRAY NASAL 16GM EA NOSTRIL SCH (08:26)
[2020-05-17] MEDS: JARDIANCE 25 MG PO SCH (08:27)
[2020-05-17 09:05] LABS: African American GFR (CKD) 132.8 (60.0-200.0); Albumin 2.5 g/dL (3.80-4.90); Albumin/Globulin Ratio 0.86 (1.60-3.17); Anion Gap 7.4 mmol/L (4.00-12.00); BUN/Creat Ratio 17.5 Ratio (12.00-20.00); Calcium 7.5 mg/dL (8.7-10.3); Carbon Dioxide 27.6 mmol/L (21.6-31.8); Globulin 2.9 g/dL (1.6-3.3); Non-African American GFR(CKD) 114.6 (60.0-200.0); Potassium 3.8 mmol/L (3.5-5.5); Total Bilirubin 0.6 mg/dL (0.2-1.2); Total Protein 5.4 g/dL (6.2-8.2)
[2020-05-17 12:00] LABS: Glucose,Whole Blood 205 mg/dL (75-99)
[2020-05-17 12:16] VITALS: BP 93/55; TEMP 97.8
[2020-05-17 12:59] LABS: Albumin 2.07 g/dL (3.80-4.90); Gamma Globulin 0.55 g/dL (0.70-1.50)
[2020-05-17 14:32] VITALS: PULSE 80
--- NOTE | 2020-05-17 14:48 | P.PN ---
Subjective Progress Note Date: 05/17/20 Principal diagnosis: Hyponatremia and Fever Doing a little better today, in speaking with yesterday she is concerned he is depressed and not eating. Remeron was started at for appetite and depression. Objective - Vital Signs Vital signs: Vital Signs Temp 97.8 F 05/17/20 09:00 Pulse 73 05/17/20 09:00 Resp 16 05/17/20 09:00 BP 93/55 05/17/20 09:00 Pulse Ox 91 L 05/17/20 09:00 Intake & Output 05/16/20 05/17/20 05/17/20 18:59 06:59 18:59 Intake Total 1230 825 960 Balance 1230 825 960 Weight 77.111 kg Intake: Intake, IV Titration 825 Amount Sodium Chloride 0.9% 1, 825 000 ml @ 75 mls/hr IV . [id number] [facility] Rx#:[id number] Oral 1230 960 Other: Voiding Method Toilet Toilet Toilet Urinal Urinal Urinal # Voids 2 1 - Exam - Constitutional General appearance: Present: average body habitus, cooperative, no acute distress - EENT Eyes: Present: anicteric sclerae, EOMI ENT: Present: hearing grossly normal - Respiratory Respiratory: bilateral: CTA - Cardiovascular Rhythm: regular Heart sounds: normal: S1, S2 - Gastrointestinal General gastrointestinal: Present: normal bowel sounds, soft - Musculoskeletal Musculoskeletal: Present: generalized weakness, strength equal bilaterally - Psychiatric Psychiatric: Present: A&O x's 3, appropriate affect, intact judgment & insight - Labs CBC & Chem 7: 05/17/20 05:54 05/17/20 05:54 Labs: Abnormal Lab Results - Last 24 Hours (Table) 05/16/20 05/16/20 05/16/20 Range/Units 05:21 17:33 20:08 RBC (4.30-5.90) m/uL Hgb (13.0-17.5) gm/dL Hct (39.0-53.0) % RDW (11.5-15.5) % Neutrophils # (Manual) (1.3-7.7) k/uL Sodium (135-145) mmol/L BUN (9.0-27.0) mg/dL Creatinine (0.6-1.5) mg/dL Glucose (70-110) mg/dL POC Glucose (mg/dL) 187 H 122 H (75-99) mg/dL Calcium (8.7-10.3) mg/dL AST (14-35) U/L Total Protein (6.2-8.2) g/dL Albumin (3.80-4.90) g/dL Albumin (PEP) 2.07 L (3.80-4.90) g/dL Albumin/Globulin Ratio (1.60-3.17) g/dL Qvegk-[id number] 0.41 H (0.10-0.40) g/dL Beta Globulins 1.44 H (0.60-1.30) g/dL Gamma Globulins 0.55 L (0.70-1.50) g/dL 05/17/20 05/17/20 05/17/20 Range/Units 05:54 05:54 07:04 RBC 3.88 L (4.30-5.90) m/uL Hgb 11.5 L (13.0-17.5) gm/dL Hct 36.6 L (39.0-53.0) % RDW 15.6 H (11.5-15.5) % Neutrophils # (Manual) 8.26 H (1.3-7.7) k/uL Sodium 134 L (135-145) mmol/L BUN 7.0 L (9.0-27.0) mg/dL Creatinine 0.4 L (0.6-1.5) mg/dL Glucose 111 H (70-110) mg/dL POC Glucose (mg/dL) 104 H (75-99) mg/dL Calcium 7.5 L (8.7-10.3) mg/dL AST 38 H (14-35) U/L Total Protein 5.4 L (6.2-8.2) g/dL Albumin 2.50 L (3.80-4.90) g/dL Albumin (PEP) (3.80-4.90) g/dL Albumin/Globulin Ratio 0.86 L (1.60-3.17) g/dL Yymnm-7-Jycbakuun (0.10-0.40) g/dL Beta Globulins (0.60-1.30) g/dL Gamma Globulins (0.70-1.50) g/dL 05/17/20 Range/Units 11:58 RBC (4.30-5.90) m/uL Hgb (13.0-17.5) gm/dL Hct (39.0-53.0) % RDW (11.5-15.5) % Neutrophils # (Manual) (1.3-7.7) k/uL Sodium (135-145) mmol/L BUN (9.0-27.0) mg/dL Creatinine (0.6-1.5) mg/dL Glucose (70-110) mg/dL POC Glucose (mg/dL) 205 H (75-99) mg/dL Calcium (8.7-10.3) mg/dL AST (14-35) U/L Total Protein (6.2-8.2) g/dL Albumin (3.80-4.90) g/dL Albumin (PEP) (3.80-4.90) g/dL Albumin/Globulin Ratio (1.60-3.17) g/dL Ssrwo-5-Ddcntwxhg (0.10-0.40) g/dL Beta Globulins (0.60-1.30) g/dL Gamma Globulins (0.70-1.50) g/dL Microbiology - Last 24 Hours (Table) 05/10/20 22:55 Blood Culture - Final Blood No Growth after 144 hours Assessment and Plan Plan: Assessment and Plan Hyponatremia/SIADH: Multifactorial including no oral intake, free water vs fluids with electrolytes and small cell lung cancer. Pt being hydrated with NS, Na+130 today. Improved mental status. Cont IV fluids. Pt re-educated in the importance of electrolyte containing fluids. Orthostatic Hypotension: - Continue on midodrine Component SIADH and nutrition decrease add demeclocyline and megace SCLC (small cell lung carcinoma) Pt is s/p 1st carbo/[employer]/tecentriq. Hemodynamically he did well other then significantly low WBC. Message to Primary Oncologist to see if they would like to add add GCSF to remainder of treatments Chronic Illness Myopathy Generalized weakness - Secondary to overall weakness, fatigue from dehydration and decreased performance on treatment for cancer Leukopenia due to antineoplastic chemotherapy - WBC and neutrophils recovering , zarxio has been discontinued Decreased PO intake: Depression: - Prescription for remeron sent to pharmacy for patient. Plan to follow-up in office within one week Physician Attest: I have completed the full history and physical and agree with above dictation, dictated as a scribe
--- NOTE | 2020-05-17 16:59 | CDI ---
Documentation Clarification Form Date: 05/17/2020 04:31:10 PM From: Sofiya Greene RN CCDS Admit Date: 05/10/2020 09:55:00 PM Patient Name: Aly Norris Visit Number: [id number] Discharge Date: ATTENTION: The Clinical Documentation Specialists (CDI) and [facility] Coding Staff appreciate your assistance in clarifying documentation. Please respond to the clarification below the line at the bottom and electronically sign. The CDI & [facility] Coding staff will review the response and follow-up if needed. Please note: Queries are made part of the Legal Health Record. If you have any questions, please contact the author of this message via ITS. Dr. Benito Martino Reported weight loss is documented in the H&P 05/11 History/Risk Factors: 75-year-old male presents to the ED with lightheadedness with nausea and shortness of breath. Clinical Indicators: Medical history COPD; newly diagnosed Lung CA; and DM 05/10 Labs: WBC 0/9; NA 128; Calcium 8.3; Albumin 3.5 Nutritional Assessment 05/11 Height 6ft 2in weight 77.111kg BMI 21.8 BMI classification: underweight. Calculated ideal body weight 86 kg IBW % 90%, usual weight 117kg %; usual body 66%; weight loss 40kg Weight change: decreased intake related to nausea and vomiting. Pt reports weight loss in the last three months. Nutritional diagnosis: increased nutrient needs protein and kcals Related to chemo, dialysis and newly diagnosed lung CA Treatment: Dietary Consult: see above in Nutritional assessment Supplements: Ensure TID Other: Regular diet, monitor po and supplement intake. In your professional opinion, can you please clarify if these findings signify one of the following conditions? Mild Protein-Calorie Malnutrition Moderate Protein-Calorie Malnutrition Severe Protein-Calorie Malnutrition Other condition, please specify Unable to determine 05/17 Query response on DCS moderate protein calorie malnutrition by attending service. (Last Revision: January 2019) CORAL
--- NOTE | 2020-05-17 18:55 | P.DS ---
Providers Date of admission: 05/10/20 21:55 Expected date of discharge: 05/17/20 Attending physician: Benito Martino Consults: 05/10/20 21:42 Consult Physician Routine Consulting Provider: Suhas Samson Consult Reason/Comments: established patient, presyncope Do you want consulting provider notified?: Yes, Notify in am Primary care physician: Benito Martino - Discharge Diagnosis(es) (1) Generalized weakness Status: Acute Priority: High (2) Hyponatremia Status: Acute Priority: High (3) Leukopenia due to antineoplastic chemotherapy Status: Acute Priority: High (4) Pre-syncope Status: Acute (5) SCLC (small cell lung carcinoma) Status: Acute Priority: High (6) Mass of lower lobe of left lung Status: Acute Hospital Course: 75-year-old male was sent into the emergency department with a compl aint of lightheadedness, nausea and mild shortness of breath. During emergency room stay patient stated that he felt lightheaded and had the sensation that he was going to pass out during emergency room stay patient had extensive workuprevealing presyncope, generalized weakness, hyponatremia, and leukopenia. Patient was admitted to the hospital,, with consultation and oncology, pulmonology, and cardiology. During hospital course patient received IV hydration, Midodrine, increase oral intake for hyponatremia/SIADH. Leukopeniaplaced on IV Levaquin for possible infiltrate on chest CTA;placed on Zarxio to increase WBCs with significant increase of 0.9-10.2 on discharge noted; chronic illness myopathy generalized weaknesspatient received oral rehydration, increased protein calorie intake, and IV hydration. Patient received a comprehensive approach from medical team and consultants, increasing WBCs, increasing strength, no episodes of fever or orthostatic hypotension for the last 48 hours, hyponatremia corrected with IV hydration. Patient stable on discharge Assessment: Hyponatremia/SIADH Small cell lung carcinoma Chronic illness myopathy generalized weakness Leukopenia due to anti- neoplastic chemotherapy Presyncopallikely due due to orthostatic hypotension COPD Coronary artery disease Hypertension Hyperlipidemia Diabetes mellitus type 2 Hypothyroidism Health Concerns: Health concerns of moderate protein calorie malnutrition Pertinent Studies: Chest x-ray Chest CTA Echocardiogram Doppler Shoulder x-ray Brain MRI Chest x-ray Procedures: None noted Patient Condition at Discharge: Stable Plan - Discharge Summary Discharge Rx Participant: Yes New Discharge Prescriptions: New Demeclocycline [Declomycin] 300 mg PO BID #60 tab Fluticasone Nasal [place] [Flonase Nasal [place]] 1 spray EA NOSTRIL BID spr Dronabinol [Marinol] 2.5 mg PO AC-BID 3 Days #6 cap Mirtazapine [Remeron] 15 mg PO HS #30 tab Continue Levothyroxine Sodium [Synthroid] 25 mcg PO HS Atorvastatin [Lipitor] 20 mg PO HS Cholecalciferol [Vitamin D3 (25 Mcg = 1000 Iu)] 2,000 unit PO HS Linagliptin [Tradjenta] 5 mg PO DAILY Budesonide-Formot 160-4.5 Mcg [Symbicort 160-4.5 Mcg Inhaler] 2 puff INHALATION RT-BID Montelukast [Singulair] 10 mg PO DAILY Loratadine [Claritin] 10 mg PO DAILY Empagliflozin [Jardiance] 25 mg PO DAILY Acetaminophen-Codeine 300-30mg [Tylenol w/codeine #3] 1 tab PO Q6H PRN PRN Reason: Pain Discontinued amLODIPine BESYLATE [Norvasc] 5 mg PO DAILY Fluticasone Nasal [place] [Flonase Nasal [place]] 1 spr EA NOSTRIL BID Ibuprofen [Motrin] 600 mg PO Q8HR PRN PRN Reason: Pain Fish Oil (Unknown Dose) 1 tab PO HS Discharge Medication List Levothyroxine Sodium [Synthroid] 25 mcg PO HS 04/12/15 [History] Atorvastatin [Lipitor] 20 mg PO HS 08/02/15 [History] Cholecalciferol [Vitamin D3 (25 Mcg = 1000 Iu)] 2,000 unit PO HS 08/02/15 [History] Acetaminophen-Codeine 300-30mg [Tylenol w/codeine #3] 1 tab PO Q6H PRN 04/15/20 [History] Budesonide-Formot 160-4.5 Mcg [Symbicort 160-4.5 Mcg Inhaler] 2 puff INHALATION RT-BID 04/15/20 [History] Empagliflozin [Jardiance] 25 mg PO DAILY 04/15/20 [History] Linagliptin [Tradjenta] 5 mg PO DAILY 04/15/20 [History] Loratadine [Claritin] 10 mg PO DAILY 04/15/20 [History] Montelukast [Singulair] 10 mg PO DAILY 04/15/20 [History] Demeclocycline [Declomycin] 300 mg PO BID #60 tab 05/16/20 [Rx] Dronabinol [Marinol] 2.5 mg PO AC-BID 3 Days #6 cap 05/16/20 [Rx] Fluticasone Nasal [place] [Flonase Nasal [place]] 1 spray EA NOSTRIL BID spr 05/16/20 [Rx] Mirtazapine [Remeron] 15 mg PO HS #30 tab 05/17/20 [Rx] Follow up Appointment(s)/Referral(s): Benito Martino MD [Primary Care Provider] - 05/20/20 2:30 pm Kal Matthews MD [STAFF PHYSICIAN] - 05/24/20 2:15 pm ([facility] office address is [facility] [address] [facility], [NON-STAFF] - 1 Week Suhas Samson MD [STAFF PHYSICIAN] - 05/23/20 8:30 am (You will see you Nehaly the [employer].) Jac Coronel MD [STAFF PHYSICIAN] - 06/01/20 3:15 pm (You will see Yandy Ayala.) Discharge Disposition: HOME WITH HOME HEALTH SERVICES
[2020-05-17] MEDS ORDERED: MIRTAZAPINE 15 MG TAB PO SCH (21:00)
== END 2020-05-17 17:04 | disposition home health service (06) | DRG 644 ==
LOC: EC 19:13 → 6NMEDSUR 21:55
PROVIDERS: ADMIT Family Medicine; ATTEND Family Medicine
DX: E22.2 Syndrome of inappropriate secretion of antidiuretic hormone (principal); R64 Cachexia; C34.92 Malignant neoplasm of unspecified part of left bronchus or lung; J98.11 Atelectasis; R04.2 Hemoptysis; E44.0 Moderate protein-calorie malnutrition; I13.2 Hypertensive heart and chronic kidney disease with heart failure and with stage 5 chronic kidney disease, or end stage renal disease; E78.5 Hyperlipidemia, unspecified; E11.42 Type 2 diabetes mellitus with diabetic polyneuropathy; E86.1 Hypovolemia; E86.0 Dehydration; F32.9 Major depressive disorder, single episode, unspecified; I25.10 Atherosclerotic heart disease of native coronary artery without angina pectoris; K21.9 Gastro-esophageal reflux disease without esophagitis; K59.00 Constipation, unspecified; Z20.828 Contact with and (suspected) exposure to other viral communicable diseases; M06.9 Rheumatoid arthritis, unspecified; T45.1X5A Adverse effect of antineoplastic and immunosuppressive drugs, initial encounter; Z96.1 Presence of intraocular lens; E11.22 Type 2 diabetes mellitus with diabetic chronic kidney disease; I50.9 Heart failure, unspecified; J44.9 Chronic obstructive pulmonary disease, unspecified; E03.9 Hypothyroidism, unspecified; D70.1 Agranulocytosis secondary to cancer chemotherapy; I95.1 Orthostatic hypotension; M19.90 Unspecified osteoarthritis, unspecified site; Z79.899 Other long term (current) drug therapy; Z79.890 Hormone replacement therapy; Z79.84 Long term (current) use of oral hypoglycemic drugs; Z79.51 Long term (current) use of inhaled steroids; Z88.0 Allergy status to penicillin; Z88.2 Allergy status to sulfonamides; Z88.1 Allergy status to other antibiotic agents; Z91.040 Latex allergy status; Z99.81 Dependence on supplemental oxygen; Z99.2 Dependence on renal dialysis; Z87.891 Personal history of nicotine dependence; Z95.5 Presence of coronary angioplasty implant and graft; Z85.828 Personal history of other malignant neoplasm of skin; Z85.118 Personal history of other malignant neoplasm of bronchus and lung; Z98.42 Cataract extraction status, left eye; Z98.41 Cataract extraction status, right eye; Z98.890 Other specified postprocedural states; Z80.9 Family history of malignant neoplasm, unspecified; Z81.8 Family history of other mental and behavioral disorders; Z68.21 Body mass index [BMI] 21.0-21.9, adult
CPT/HCPCS: 36415; 70551; 71046; 71275; 80048; 80053; 81003; 82533; 83036; 83605; 83735; 83880; 83930; 84145; 84165; 84443; 84484; 85025; 85379; 85610; 85652; 85730; 86140; 87040; 93005; 93306; 94640; 96361; 96374; 99285

== ENCOUNTER 2020-05-24 18:40 | Emergency (ER) | payer MEDICARE ==
[2020-05-24 19:03] VITALS: RESP 18; TEMP 98.2
--- NOTE | 2020-05-24 21:05 | ED ---
General Adult HPI - General Chief complaint: Abdominal Pain Stated complaint: Bowel trouble Time Seen by Provider: 05/24/20 20:14 Source: patient Mode of arrival: wheelchair Limitations: no limitations - History of Present Illness Initial comments: 75-year-old male presents to the emergency department for a chief complaint of abdominal pain. Patient reports he had a CAT scan earlier today that showed a fecal impaction. States he has not had a bowel movement for several days. States he is now having pain. Patient reports his doctor sent him to the emergency room. Patient last received chemotherapy for lung cancer about one month ago. CT of the abdomen and pelvis did show lower lung bilateral infiltrates and a small pleural effusion as well as a fecal impaction. Patient denies cough or fever. Patient has no other complaints at this time including shortness of breath, chest pain, nausea or vomiting, headache, or visual changes. - Related Data Home Medications Medication Instructions Recorded Confirmed Levothyroxine Sodium [Synthroid] 25 mcg PO HS 04/12/15 05/24/20 Atorvastatin [Lipitor] 20 mg PO HS 08/02/15 05/24/20 Cholecalciferol [Vitamin D3 (25 2,000 unit PO HS 08/02/15 05/24/20 Mcg = 1000 Iu)] Acetaminophen-Codeine 300-30mg 1 tab PO Q6H PRN 04/15/20 05/24/20 [Tylenol w/codeine #3] Budesonide-Formot 160-4.5 Mcg 2 puff INHALATION RT-BID 04/15/20 05/24/20 [Symbicort 160-4.5 Mcg Inhaler] Empagliflozin [Jardiance] 25 mg PO DAILY 04/15/20 05/24/20 Linagliptin [Tradjenta] 5 mg PO DAILY 04/15/20 05/24/20 Loratadine [Claritin] 10 mg PO DAILY 04/15/20 05/24/20 Montelukast [Singulair] 10 mg PO DAILY 04/15/20 05/24/20 Previous Rx's Medication Instructions Recorded Demeclocycline [Declomycin] 300 mg PO BID #60 tab 05/16/20 Fluticasone Nasal [place] [Flonase 1 spray EA NOSTRIL BID spr 05/16/20 Nasal [place]] Mirtazapine [Remeron] 15 mg PO HS #30 tab 05/17/20 Allergies Allergy/AdvReac Type Severity Reaction Status Date / Time Sulfa (Sulfonamide Allergy Severe Anaphylaxis Verified 05/24/20 23:14 Antibiotics) cefuroxime [From Ceftin] Allergy Unknown Verified 05/24/20 23:14 latex Allergy Rash/Hives Verified 05/24/20 23:14 Penicillins Allergy Swelling Verified 05/24/20 23:14 Review of Systems ROS Statement: Those systems with pertinent positive or pertinent negative responses have been documented in the HPI. ROS Other: All systems not noted in ROS Statement are negative. Past Medical History Past Medical History: Coronary Artery Disease (CAD), Cancer, Chest Pain / Angina, COPD, Diabetes Mellitus, GERD/Reflux, Hyperlipidemia, Hypertension, Osteoarthritis (OA), Thyroid Disorder Additional Past Medical History / Comment(s): Skin cancer, lung CA Hx of hemoptysis, wgt loss 70# in 3 months, found lung mass on scan. History of Any Multi-Drug Resistant Organisms: None Reported Past Surgical History: Heart Catheterization, Orthopedic Surgery Additional Past Surgical History / Comment(s): hear cath x2. Lt Knee scope, Rt Shoulder surg. Colonoscopy. bilat cataracts w/ lens implants Past Anesthesia/Blood Transfusion Reactions: No Reported Reaction Past Psychological History: No Psychological Hx Reported Smoking Status: Former smoker Past Alcohol Use History: None Reported Past Drug Use History: None Reported - Past Family History Mother Family Medical History: Cancer, Dementia General Exam Limitations: no limitations Course Vital Signs 05/24/20 19:01 Temperature 98.2 F Pulse Rate 98 Respiratory 18 Rate Blood Pressure 111/70 O2 Sat by Pulse 95 Oximetry Medical Decision Making - Medical Decision Making Those are stable. Minimal lower abdominal tenderness. CBC is unremarkable. White blood cell count was 11.1. CMP shows a sodium of 132. CT was reviewed from outpatient imaging. There is a left pleural effusion and bilateral lower lobe pulmonary infiltrates. Left pleural effusion is mostly new compared to old exam. This is mild. Rectal fecal impaction is new. Patient does not have fever or cough. No symptoms consistent with pneumonia. He was treated with Levaquin for possible pneumonia on previous admission. Patient was given 2 enemas and had a small bowel movement. I did attempt to disimpact patient. He was able to remove some small amount of stool however patient did not tolerate more because of discomfort. Patient was given GoLYTELY for discharge home. He will return for any worsening symptoms. He will follow-up with his doctor. He will watch for fever and cough. - Lab Data Result diagrams: 05/24/20 20:48 05/24/20 22:49 Lab Results 05/24/20 05/24/20 05/24/20 Range/Units 20:48 20:52 22:49 WBC 11.1 H (3.8-10.6) k/uL RBC 4.15 L (4.30-5.90) m/uL Hgb 12.5 L (13.0-17.5) gm/dL Hct 38.7 L (39.0-53.0) % MCV 93.0 (80.0-100.0) fL MCH 30.1 (25.0-35.0) pg MCHC 32.3 (31.0-37.0) g/dL RDW 15.4 (11.5-15.5) % Plt Count 513 H D (150-450) k/uL MPV 7.7 Neutrophils % (Manual) 80 % Band Neuts % (Manual) 2 % Lymphocytes % (Manual) 14 % Monocytes % (Manual) 4 % Neutrophils # (Manual) 9.10 H (1.3-7.7) k/uL Lymphocytes # (Manual) 1.55 (1.0-4.8) k/uL Monocytes # (Manual) 0.44 (0-1.0) k/uL Nucleated RBCs 0 (0-0) /100 WBC Manual Slide Review Performed Large Platelets Present Polychromasia Present Anisocytosis (manual) Present Sodium 132 L (137-145) mmol/L Potassium 4.3 (3.5-5.1) mmol/L Chloride 101 (98-107) mmol/L Carbon Dioxide 26 (22-30) mmol/L Anion Gap 5 mmol/L BUN 9 (9-20) mg/dL Creatinine 0.54 L (0.66-1.25) mg/dL Est GFR (CKD-EPI)AfAm >90 (>60 ml/min/1.73 sqM) Est GFR (CKD-EPI)NonAf >90 (>60 ml/min/1.73 sqM) Glucose 101 H (74-99) mg/dL Plasma Lactic Acid Luis 1.3 (0.7-2.0) mmol/L Calcium 8.8 (8.4-10.2) mg/dL Total Bilirubin 1.0 (0.2-1.3) mg/dL AST 28 (17-59) U/L ALT 20 (4-49) U/L Alkaline Phosphatase 90 (38-126) U/L Total Protein 7.9 (6.3-8.2) g/dL Albumin 3.5 (3.5-5.0) g/dL Disposition Clinical Impression: Constipation Disposition: HOME SELF-CARE Condition: Good Instructions (If sedation given, give patient instructions): Constipation (ED) Additional Instructions: Please drink GoLYTELY up to a cup every 30 mintues. Drink plenty of fluids. Try over the counter glycerin suppositories. Follow-up with your doctor. Return to the emergency room for any worsening symptoms. Is patient prescribed a controlled substance at d/c from ED?: No Referrals: Benito Martino MD [Primary Care Provider] - 1-2 days Time of Disposition: 01:19
[2020-05-24 23:25] LABS: HCT 38.7 % (39.0-53.0); HGB 12.5 gm/dL (13.0-17.5); MCH 30.1 pg (25.0-35.0); MCHC 32.3 g/dL (31.0-37.0); Mean Platelet Volume 7.7; RBC 4.15 m/uL (4.30-5.90); RDW 15.4 % (11.5-15.5); WBC 11.1 k/uL (3.8-10.6)
[2020-05-24 23:34] LABS: ALT 20 U/L (4-49); AST 28 U/L (17-59); African American GFR (CKD) >90 (>60 ml/min/1.73 sqM); Albumin 3.5 g/dL (3.5-5.0); Alkaline Phosphatase 90 U/L (38-126); Anion Gap 5 mmol/L; Blood Urea Nitrogen 9 mg/dL (9-20); Calcium 8.8 mg/dL (8.4-10.2); Carbon Dioxide 26 mmol/L (22-30); Chloride 101 mmol/L (98-107); Glucose 101 mg/dL (74-99); Non-African American GFR(CKD) >90 (>60 ml/min/1.73 sqM); Potassium 4.3 mmol/L (3.5-5.1); Sodium 132 mmol/L (137-145); Total Protein 7.9 g/dL (6.3-8.2)
[2020-05-24 23:50] LABS: Platelet Count 513 k/uL (150-450)
[2020-05-25 00:56] LABS: Anisocytosis (M) Present; Band Neutrophils % 2 %; Large Platelets Present; Lymphocytes # (M) 1.55 k/uL (1.0-4.8); Monocytes # (M) 0.44 k/uL (0-1.0); Neutrophils % (M) 80 %; Nucleated Red Blood Cells 0 /100 WBC (0-0); Total Cells Counted 100
[2020-05-25 00:57] LABS: Polychromasia Present
[2020-05-25 01:59] VITALS: BP 108/65; PULSE 88
[2020-05-25] MEDS ORDERED: PEG 3350-NA SULF,BICARB,CL/KCL 4,000 ML BOTTLE PO ONE (02:00)
== END 2020-05-25 02:07 | disposition home or self-care (01) ==
LOC: EC 18:40
DX: K59.00 Constipation, unspecified (principal); E07.9 Disorder of thyroid, unspecified; E78.5 Hyperlipidemia, unspecified; J90 Pleural effusion, not elsewhere classified; J44.9 Chronic obstructive pulmonary disease, unspecified; E11.9 Type 2 diabetes mellitus without complications; Z79.890 Hormone replacement therapy; Z79.899 Other long term (current) drug therapy; Z79.84 Long term (current) use of oral hypoglycemic drugs; Z79.51 Long term (current) use of inhaled steroids; Z88.0 Allergy status to penicillin; Z88.1 Allergy status to other antibiotic agents; Z88.2 Allergy status to sulfonamides; Z91.040 Latex allergy status; Z87.891 Personal history of nicotine dependence; Z85.118 Personal history of other malignant neoplasm of bronchus and lung; Z85.828 Personal history of other malignant neoplasm of skin; Z92.21 Personal history of antineoplastic chemotherapy; Z98.42 Cataract extraction status, left eye; Z98.41 Cataract extraction status, right eye; Z96.1 Presence of intraocular lens
CPT/HCPCS: 36415; 80053; 83605; 85025; 87040; 99284

== ENCOUNTER → 2020-05-24 | Outpatient (CLI) | payer MEDICARE ==
--- NOTE | 2020-05-24 17:17 | CT ---
EXAMINATION TYPE: CT abdomen pelvis w con DATE OF EXAM: 05/24/2020 COMPARISON: 04/16/2020 HISTORY: Generalized abdominal pain, weakness and diarrhea. CT DLP: 1265 mGycm Automated exposure control for dose reduction was used. CONTRAST: Performed with IV Contrast, patient injected with 100ml mL of Isovue 300. Images obtained from the diaphragm to the floor the pelvis with IV contrast. There is mild left pleural effusion. There is bilateral lower lobe pulmonary airspace and interstitia l infiltrates and atelectasis. There is no pericardial effusion. There is coronary artery calcificati on. Liver spleen pancreas gallbladder appear intact. Bile ducts are not dilated. There is no adrenal mass. Kidneys show satisfactory contrast opacification. There is no hydronephrosi s. Delayed images show normal renal excretion. There is no retroperitoneal adenopathy. Ureters are no t dilated. Bladder distends smoothly. There is no inguinal hernia. There is retained fecal material i n the rectum. Rectum measures 7.6 cm. There is no free fluid in the pelvis. Appendix appears normal. There is no mesenteric edema. There is no ascites. There is no sign of free air. Lumbar vertebra have normal alignment. There is atheromatous change in the abdominal aorta. There is no lumbar compression fracture. Posterior elements are intact. The hip joints are intact. Bony pelvis is intact. I see no abnormal density in the pelvis at the urinary bladder to suggest metastatic dise ase. IMPRESSION: There is left pleural effusion and bilateral lower lobe pulmonary infiltrates. Left pleural effusion is mostly new compared to the previous exam. Rectal fecal impaction is new compared to old exam. I se e no evidence of metastatic disease within the abdomen and pelvis.
== END | disposition home or self-care (01) ==
LOC: RADCTMAIN 15:28
PROVIDERS: ATTEND Nurse Practitioner
DX: K56.41 Fecal impaction (principal)
CPT/HCPCS: 74177; Q9967

== ENCOUNTER → 2020-06-20 | Outpatient (CLI) | payer MEDICARE ==
--- NOTE | 2020-06-20 16:02 | XR ---
EXAMINATION TYPE: XR chest 2V DATE OF EXAM: 06/20/2020 COMPARISON: Chest x-ray May 12, 2020. CT chest April 09, 2020. HISTORY: History of lung cancer with cough and difficulty breathing. TECHNIQUE: Frontal and lateral views of the chest are obtained. FINDINGS: There is background chronic emphysematous change with known posterior left mid lung mass o r neoplasm redemonstrated. Elevated left hemidiaphragm with left basilar linear scarring and atelecta sis again seen. No new focal airspace opacity, pleural effusion, or pneumothorax. The cardiac silhoue tte size is stable and mildly enlarged. The osseous structures are intact. IMPRESSION: Chronic changes without new acute infiltrate clearly identified.
== END | disposition home or self-care (01) ==
LOC: RAD 15:40
PROVIDERS: ATTEND Nurse Practitioner
DX: R93.89 Abnormal findings on diagnostic imaging of other specified body structures (principal)
CPT/HCPCS: 71046

== ENCOUNTER → 2020-06-24 | Outpatient (CLI) | payer MEDICARE ==
--- NOTE | 2020-06-24 16:46 | XR ---
EXAMINATION TYPE: XR cervical spine comp DATE OF EXAM: 06/24/2020 COMPARISON: 02/24/2015 HISTORY: 75-year-old male chronic neck pain, recent fall TECHNIQUE: 5 views FINDINGS: No predental space widening or prevertebral soft tissue swelling. Trace grade 1 anterolisthesis at C3 -C4 redemonstrated moderate disc/endplate degenerative change C5-C6. On the swimmer's view, remaining alignment appears maintained. Scattered facet and uncovertebral joint arthropathy. Limited assessmen t of the bilateral neuroforamen due to the degree of obliquity. I able to exclude multilevel bilatera l moderate neuroforaminal stenosis. Odontoid view is limited. IMPRESSION: Limitations due to patient's ability to position. Moderate degenerative disc disease C5-C6. Moderate multilevel spondylotic change with degenerative grade 1 anterolisthesis C3-C4.
== END | disposition home or self-care (01) ==
LOC: RAD 15:26
PROVIDERS: ATTEND Internal Medicine Hematology & Oncology
DX: M50.322 Other cervical disc degeneration at C5-C6 level (principal); M43.12 Spondylolisthesis, cervical region; M47.812 Spondylosis without myelopathy or radiculopathy, cervical region; R63.0 Anorexia; E22.2 Syndrome of inappropriate secretion of antidiuretic hormone; C34.90 Malignant neoplasm of unspecified part of unspecified bronchus or lung; F32.5 Major depressive disorder, single episode, in full remission
CPT/HCPCS: 72050

== ENCOUNTER → 2020-07-16 | Outpatient (CLI) | payer MEDICARE ==
--- NOTE | 2020-07-16 09:27 | MR ---
EXAMINATION TYPE: MR brain wo/w con DATE OF EXAM: 07/16/2020 COMPARISON: MRI brain May 05, 2019 HISTORY: Dizziness, memory loss, Hx of Lung Ca TECHNIQUE: Multiplanar, multisequence images of the brain and brainstem is performed without and with IV contras t, utilizing 7 mL intravenous Gadavist . FINDINGS: Diffusion weighted images demonstrate no evidence of a recent infarct or other diffusion ab normality. There is no worrisome extra-axial fluid collection. Mild to moderate ventricular and sulc al prominence. Areas of T2 hyperintensity in the deep and greatest in the periventricular white matte r are redemonstrated Midline structures demonstrate normal morphology. The craniocervical junction appears within normal limits. Post contrast images demonstrate no abnormal enhancement. The dural venous sinuses appear pa tent. Left frontal sinus is now completely fluid-filled mild to moderate mucosal thickening involving anterior ethmoid sinuses bilaterally on current study improved from prior. Improved aeration in the sphenoid sinuses. Mild mucosal thickening inferiorly in the maxillary sinuses on current study. Globe s are intact. Improved artifact aggravation. IMPRESSION: 1. [id number] generalized cerebral atrophy and chronic small vessel ischemic changes redemonstr ated, no significant change from prior study. 2. Acute on chronic paranasal sinus disease majority significantly improved from prior study though m ore prominent left frontal sinus findings noted on current study. 3. No suspicious new enhancing masses or enhancement to suggest metastatic disease to the brain.
== END | disposition home or self-care (01) ==
LOC: RADMRIMAIN 07:58
PROVIDERS: ATTEND Internal Medicine Hematology & Oncology
DX: G31.9 Degenerative disease of nervous system, unspecified (principal); I67.82 Cerebral ischemia; C34.90 Malignant neoplasm of unspecified part of unspecified bronchus or lung; R41.82 Altered mental status, unspecified
CPT/HCPCS: 70553; A9585

== ENCOUNTER → 2020-07-22 | Outpatient (CLI) | payer MEDICARE ==
--- NOTE | 2020-07-22 14:01 | PE ---
EXAMINATION TYPE: PET CT fusion skull to thigh DATE OF EXAM: 07/22/2020 COMPARISON: Prior PET/CT April 16, 2020 HISTORY: Left-sided small cell lung cancer completed chemotherapy April 2020 TECHNIQUE: Following the intravenous administration of 8.64 mCi of F-18 FDG, whole body images are p erformed from the skull base to the midthigh. Images are reviewed on the computer in the coronal, ax ial, and sagittal planes. Reconstructed rotating images are created on independent workstation and r eviewed on the computer. A localization and attenuation correction CT is performed in conjunction w ith the PET scan. SCAN: Subsequent Scan FINDINGS: SKULL BASE AND NECK: Exaggerated cervical curvature positioning on current study. Previously visuali zed enlarged hypermetabolic left neck lymph node not clearly seen on current study likely diminished in size on axial image 38 with residual punctate 2 to 3 mm lesion. CHEST, MEDIASTINUM, AND HILAR REGION: Background moderate underlying emphysematous changes redemonstr ated. Persistent hypermetabolic left mid lung mass extending posteriorly measuring 3.2 x 3.7 cm axial image 68, max SUV is 6.41 on current study axial image 67. This area shows improvement in size from prior study. Prior abnormal prevascular, AP window, and left hilar hypermetabolic adenopathy shows si gnificant interval improvement. Single residual hypermetabolic enlarged left prevascular lymph node m easuring 1.6 x 1.3 cm current study image 63 decreased in size from prior study, max SUV is 5.08. Hyp ermetabolic 1.3 x 1.2 cm anterior superior mediastinal lymph node at level of proximal clavicles axia l image 50, max SUV is 6.19 on current study No new areas of abnormal hypermetabolic uptake. ABDOMEN AND PELVIS: No new areas of abnormal hypermetabolic uptake. No new adrenal masses. Normal exc retion. OSSEOUS STRUCTURES: No new areas of abnormal hypermetabolic uptake. OTHER CT: Coronary artery calcification and/or stents redemonstrated. Cardiomegaly again seen. Moderate calcified plaque of the aorta extends into branch vessels. Scattered bilateral pelvic phlebo liths. Exaggerated kyphosis in the cervicothoracic spine. IMPRESSION: Overall partial positive treatment response as detailed above.
== END | disposition home or self-care (01) ==
LOC: RADPETMAIN 11:37
PROVIDERS: ATTEND Internal Medicine Hematology & Oncology
DX: Z98.890 Other specified postprocedural states (principal); C34.81 Malignant neoplasm of overlapping sites of right bronchus and lung; C34.82 Malignant neoplasm of overlapping sites of left bronchus and lung
CPT/HCPCS: 78815; A9552

== ENCOUNTER → 2020-08-29 | Outpatient (CLI) | payer MEDICARE ==
--- NOTE | 2020-08-29 17:18 | XR ---
EXAMINATION TYPE: XR chest 2V DATE OF EXAM: 08/29/2020 COMPARISON: 06/20/2020 HISTORY: Difficulty breathing TECHNIQUE: 2 views FINDINGS: There is coarse interstitial infiltrate in both lungs. Heart size is fairly normal. There i s no heart failure. There is some poorly marginated infiltrate posteriorly in the left upper lobe beh ind the left pulmonary hilum that measures approximate 5 x 2 cm unchanged. IMPRESSION: Infiltrate superior segment left lower lobe unchanged and consistent with some residual t umor. Pulmonary fibrosis. Heart and lungs not significantly different than old exam.
== END | disposition home or self-care (01) ==
LOC: RADXRMAIN 16:48
PROVIDERS: ATTEND Nurse Practitioner
DX: J06.9 Acute upper respiratory infection, unspecified (principal); J84.10 Pulmonary fibrosis, unspecified; R91.8 Other nonspecific abnormal finding of lung field
CPT/HCPCS: 71046

== ENCOUNTER → 2020-11-26 | Outpatient (CLI) | payer MEDICARE ==
--- NOTE | 2020-11-29 06:30 | PE ---
EXAMINATION TYPE: PET CT fusion skull to thigh DATE OF EXAM: 11/26/2020 COMPARISON: Prior PET/CT July 22, 2020 and older studies. HISTORY: Left-sided lung cancer progress study. Originally diagnosed in April 2020 completed chem otherapy July 2020. TECHNIQUE: Following the intravenous administration of 7.76 mCi of F-18 FDG, whole body images are p erformed from the skull base to the midthigh. Images are reviewed on the computer in the coronal, ax ial, and sagittal planes. Reconstructed rotating images are created on independent workstation and r eviewed on the computer. A localization and attenuation correction CT is performed in conjunction w ith the PET scan. Blood glucose level equals 114. SCAN: Subsequent Scan FINDINGS: SKULL BASE AND NECK: Exaggerated cervical curvature or positioning on current study is less prominen t than most recent prior. No new areas of abnormal hypermetabolic uptake. CHEST, MEDIASTINUM, AND HILAR REGION: Background moderate underlying emphysematous change is redemons trated. Persistent hypermetabolic left mid lung mass extending posteriorly enlarging in size measurin g 5.7 x 5.2 cm current study image 72 versus 3.2 x 3.7 cm axial image 68, max SUV is 8.43 current tom dy versus 6.41 on prior study . Enlarging hypermetabolic left prevascular lymph node measures 2.8 x 2.7 cm current study axial image 67 versus 1.6 x 1.3 cm prior study study increased in size , max SUV is 8.48 current study versus 5.0 8 prior study. Enlarging Hypermetabolic 2.5 x 2.3 cm lymph node node superior mediastinum versus 1.3 x 1.2 cm prior study at level of proximal clavicles axial image 51, max SUV is 6.62 Current study is increased from 6.19. No new areas of abnormal hypermetabolic uptake. ABDOMEN AND PELVIS: No new areas of abnormal hypermetabolic uptake. No new adrenal masses. Normal exc retion. OSSEOUS STRUCTURES: No new areas of abnormal hypermetabolic uptake. OTHER CT: Coronary artery calcification and/or stents redemonstrated. Cardiomegaly again seen. Moderate calcified plaque of the aorta extends into branch vessels. Scattered bilateral pelvic phlebo liths. Exaggerated kyphosis in the cervicothoracic spine. IMPRESSION: Interval neoplastic progression in the thorax as detailed above.
== END | disposition home or self-care (01) ==
LOC: RADPETMAIN 09:23
PROVIDERS: ATTEND Internal Medicine Hematology & Oncology
DX: C34.12 Malignant neoplasm of upper lobe, left bronchus or lung (principal)
CPT/HCPCS: 78815; A9552

== ENCOUNTER 2021-01-10 15:16 | Inpatient (IN) | payer MEDICARE ==
[2021-01-10 17:32] LABS: ALT 25 U/L (4-49); AST 28 U/L (17-59); African American GFR (CKD) >90 (>60 ml/min/1.73 sqM); Albumin 3.9 g/dL (3.5-5.0); Alkaline Phosphatase 112 U/L (38-126); Anion Gap 11 mmol/L; Blood Urea Nitrogen 20 mg/dL (9-20); Calcium 9.2 mg/dL (8.4-10.2); Carbon Dioxide 19 mmol/L (22-30); Chloride 106 mmol/L (98-107); Globulin 4.1 g/dL; Glucose 166 mg/dL (74-99); Magnesium 2.1 mg/dL (1.6-2.3); Non-African American GFR(CKD) >90 (>60 ml/min/1.73 sqM); Potassium 4.1 mmol/L (3.5-5.1); Sodium 136 mmol/L (137-145); Total Bilirubin 0.4 mg/dL (0.2-1.3)
[2021-01-10 18:02] LABS: Anisocytosis Slight; HCT 35.7 % (39.0-53.0); HGB 11.7 gm/dL (13.0-17.5); MCH 28.8 pg (25.0-35.0); MCHC 32.8 g/dL (31.0-37.0); MCV 87.8 fL (80.0-100.0); Mean Platelet Volume 8.6; Platelet Count 128 k/uL (150-450); RBC 4.07 m/uL (4.30-5.90); RDW 16.9 % (11.5-15.5); WBC 1.6 k/uL (3.8-10.6)
--- NOTE | 2021-01-10 18:15 | XR ---
EXAMINATION TYPE: XR chest 2V DATE OF EXAM: 01/10/2021 COMPARISON: 08/29/2020. HISTORY: Shortness of breath. History of lung carcinoma. TECHNIQUE: Frontal and lateral views of the chest are obtained. FINDINGS: There is mild bibasilar peripheral opacity. Known left hilar mass is depicted on prior umer ges. No pleural effusion, or pneumothorax seen. The cardiac silhouette size is within normal limits. The osseous structures are intact. IMPRESSION: Mild bibasilar opacities, favor atelectasis.
[2021-01-10 18:47] LABS: Eosinophils # (M) 0.06 k/uL (0-0.7); Lymphocytes # (M) 0.45 k/uL (1.0-4.8); Monocytes # (M) 0.35 k/uL (0-1.0); Neutrophils # (M) 0.74 k/uL (1.3-7.7); Neutrophils % (M) 46 %; Nucleated Red Blood Cells 0 /100 WBC (0-0); Total Cells Counted 100
--- NOTE | 2021-01-10 20:12 | P.HPIM ---
History of Present Illness H&P Date: 01/10/21 Chief Complaint: Generalized weakness with frequent falls 76-year-old male was directed admitted from the office due to generalized weakness with frequent falls with significant history of small cell lung carcinoma with history of leukopenia. Patient has been going aggressive treatment for small cell lung carcinoma with a mass in the lower lobe of left lung from hematology and oncology. Patient has significant medical history of small cell lung carcinoma, hyperlipidemia, mixed anxiety and depression, diabetes mellitus type 2, hypothyroidism, COPD, pulmonary fibrosis and significant weight loss with aggressive treatment for small cell lung carcinoma. Review of labs patient shows leukopenia, mild dehydration with indirect bicarb of 19 and elevated glucose of 166. Review chest x-ray, most likely atelectasis with known left lung mass. Review of Systems Constitutional: Reports fatigue, Reports malaise, Reports weakness, Reports weight loss Cardiovascular: Reports decreased exercise tolerance, Reports dyspnea on exertion, Reports edema, Reports orthopnea, Reports shortness of breath Respiratory: Reports congestion, Reports cough Gastrointestinal: Reports loss of appetite Musculoskeletal: Reports muscle cramps, Reports muscle weakness Integumentary: Reports sores Neurological: Reports balance difficulties, Reports lack of coordination, Reports memory loss Psychiatric: Reports insomnia Endocrine: Reports fatigue Hematologic/Lymphatic: Reports as per HPI Allergic/Immunologic: Reports as per HPI Past Medical History Past Medical History: Coronary Artery Disease (CAD), Cancer, Chest Pain / Angina, COPD, Diabetes Mellitus, GERD/Reflux, Hyperlipidemia, Hypertension, Osteoarthritis (OA), Skin Disorder, Thyroid Disorder Additional Past Medical History / Comment(s): Skin cancer, lung CA Hx of hemoptysis, wgt loss 70# in 3 months, found lung mass on scan. History of Any Multi-Drug Resistant Organisms: None Reported Past Surgical History: Heart Catheterization, Orthopedic Surgery Additional Past Surgical History / Comment(s): hear cath x2. Lt Knee scope, Rt Shoulder surg. Colonoscopy. bilat cataracts w/ lens implants Past Anesthesia/Blood Transfusion Reactions: No Reported Reaction Past Psychological History: No Psychological Hx Reported Smoking Status: Former smoker Past Alcohol Use History: None Reported Additional Past Alcohol Use History / Comment(s): Smoked from age 12 - quit 1989, 2 ppd. Past Drug Use History: None Reported - Past Family History Mother Family Medical History: Cancer, Dementia Medications and Allergies Home Medications and Allergies Comment(s): Medications and ALLERGIES reviewed Home Medications Medication Instructions Recorded Confirmed Type Levothyroxine Sodium [Synthroid] 25 mcg PO DAILY 04/12/15 01/10/21 History Atorvastatin [Lipitor] 20 mg PO HS 08/02/15 01/10/21 History Empagliflozin [Jardiance] 25 mg PO DAILY 04/15/20 01/10/21 History Mirtazapine [Remeron] 15 mg PO HS #30 tab 05/17/20 01/10/21 Rx Beta Prostate 1 tab PO DAILY 01/10/21 01/10/21 History Escitalopram [Lexapro] 10 mg PO HS 01/10/21 01/10/21 History Fluticasone/Umeclidin/Vilanter 1 puff INHALATION RT-DAILY 01/10/21 01/10/21 History [Trelegy Ellipta 100-62.5-25] HYDROcodone/APAP 7.5-325MG [[place] 1 tab PO Q4-6H PRN 01/10/21 01/10/21 History 7.5-325] Triamcinolone 0.1% Cream [Kenalog 1 applic TOPICAL BID 01/10/21 01/10/21 History 0.1% Cream] Allergies Allergy/AdvReac Type Severity Reaction Status Date / Time Sulfa (Sulfonamide Allergy Severe Anaphylaxis Verified 01/10/21 17:46 Antibiotics) cefuroxime [From Ceftin] Allergy Unknown Verified 01/10/21 17:46 latex Allergy Rash/Hives Verified 01/10/21 17:46 Penicillins Allergy Swelling Verified 01/10/21 17:46 Physical Exam Vitals: Vital Signs Temp Pulse Resp BP Pulse Ox 01/10/21 19:30 98.0 F 77 16 109/69 96 01/10/21 17:06 97.8 F 72 16 131/75 97 Intake and Output 01/10/21 01/10/21 01/10/21 06:59 14:59 22:59 Other: Weight 75.75 kg - Constitutional General appearance: mild distress, thin - EENT Eyes: EOMI, PERRLA ENT: hard of hearing - Neck Carotids: bilateral: upstroke normal - Respiratory Respiratory: bilateral: diminished (Anterior and posterior lung dunn) - Cardiovascular Heart rate: 84 Rhythm: regular Heart sounds: normal: S1, S2 ankle Peripheral Edema: bilateral: Trace radial pulse Peripheral Pulses: bilateral: Normal dorsalis pedis Peripheral Pulses: bilateral: Normal - Gastrointestinal General gastrointestinal: normal bowel sounds - Integumentary Integumentary: decreased turgor, pale - Neurologic Neurologic: CNII-XII intact - Musculoskeletal Musculoskeletal: generalized weakness - Psychiatric Psychiatric: A&O x's 3 Results CBC & Chem 7: 01/10/21 15:17 01/10/21 15:17 Labs: Abnormal Lab Results - Last 24 Hours (Table) 01/10/21 01/10/21 Range/Units 15:17 15:17 WBC 1.6 L (3.8-10.6) k/uL RBC 4.07 L (4.30-5.90) m/uL Hgb 11.7 L (13.0-17.5) gm/dL Hct 35.7 L (39.0-53.0) % RDW 16.9 H (11.5-15.5) % Plt Count 128 L (150-450) k/uL Neutrophils # 0.0 L* (1.3-7.7) k/uL Neutrophils # (Manual) 0.74 L (1.3-7.7) k/uL Lymphocytes # 0.5 L (1.0-4.8) k/uL Lymphocytes # (Manual) 0.45 L (1.0-4.8) k/uL Sodium 136 L (137-145) mmol/L Carbon Dioxide 19 L (22-30) mmol/L Creatinine 0.46 L (0.66-1.25) mg/dL Glucose 166 H (74-99) mg/dL Chest x-ray: report reviewed Thrombosis Risk Factor Assmnt - Choose All That Apply Each Factor Represents 1 point: Abnormal pulmonary function (COPD) Each Risk Factor Represents 3 Points: Age 75 years or older Thrombosis Risk Factor Assessment Total Risk Factor Score: 4 Thrombosis Risk Factor Assessment Level: Moderate Risk Assessment and Plan Assessment: Small cell lung carcinoma 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
[2021-01-10] MEDS: LACTATED RINGERS 1,000 ML IV SCH (20:28)
[2021-01-10 21:14] LABS: Glucose,Whole Blood 148 mg/dL (75-99)
[2021-01-10] MEDS: ATORVASTATIN 20 MG TAB PO SCH (21:41)
[2021-01-10] MEDS: ESCITALOPRAM 10 MG TAB PO SCH (21:41)
[2021-01-10] MEDS: TRIAMCINOLONE 0.1% CREAM 80 GM TUBE TOPICAL SCH (21:42)
[2021-01-10] MEDS: INSULIN ASPART (NovoLOG) 100 UNIT/ML VIAL SQ SCH (21:42)
[2021-01-10] MEDS: MIRTAZAPINE 15 MG TAB PO SCH (21:42)
[2021-01-11 01:59] LABS: Appearance,Urine Clear (Clear); Bilirubin,Urine Negative (Negative); Blood,Urine Negative (Negative); Color,Urine Colorless; Glucose,Urine (UA) 4+ (Negative); Ketones,Urine Negative (Negative); Leukocyte Esterase,Urine Negative (Negative); Nitrite,Urine Negative (Negative); PH, Urine 5.5 (5.0-8.0); Protein,Urine Negative (Negative); Specific Gravity,Urine 1.007 (1.001-1.035); Urobilinogen,Urine <2.0 mg/dL (<2.0)
[2021-01-11] MEDS: LEVOTHYROXINE 25 MCG TAB PO SCH (05:37)
[2021-01-11 06:07] LABS: Anisocytosis Slight; HCT 35.7 % (39.0-53.0); HGB 11.6 gm/dL (13.0-17.5); MCH 28.5 pg (25.0-35.0); MCHC 32.5 g/dL (31.0-37.0); MCV 87.6 fL (80.0-100.0); Mean Platelet Volume 8.4; Platelet Count 143 k/uL (150-450); RBC 4.08 m/uL (4.30-5.90); RDW 17.1 % (11.5-15.5); WBC 1.5 k/uL (3.8-10.6)
[2021-01-11 06:47] LABS: Eosinophils # (M) 0.03 k/uL (0-0.7); Lymphocytes # (M) 0.62 k/uL (1.0-4.8); Monocytes # (M) 0.23 k/uL (0-1.0); Neutrophils # (M) 0.63 k/uL (1.3-7.7); Neutrophils % (M) 42 %; Nucleated Red Blood Cells 0 /100 WBC (0-0); Total Cells Counted 100
[2021-01-11 07:53] LABS: Glucose,Whole Blood 114 mg/dL (75-99)
[2021-01-11] MEDS: IPRATROPIUM 0.5 MG/2.5 ML NEBU INHALATION SCH ×4 (08:30→21:49)
[2021-01-11] MEDS: SYMBICORT 80-4.5 MCG INHALER INHALATION SCH ×2 (08:30→21:49)
[2021-01-11] MEDS ORDERED: BETA PROSTATE PO SCH (09:00)
[2021-01-11] MEDS: NON FORMULARY DRUG (Empagliflozin [Jardiance] 25 MG Tablet) PO SCH (09:29)
[2021-01-11] MEDS: INSULIN ASPART (NovoLOG) 100 UNIT/ML VIAL SQ SCH ×4 (09:29→21:45)
[2021-01-11] MEDS: LACTATED RINGERS 1,000 ML IV SCH ×2 (09:32→21:44)
[2021-01-11] MEDS: TRIAMCINOLONE 0.1% CREAM 80 GM TUBE TOPICAL SCH ×2 (09:33→21:45)
[2021-01-11 11:00] LABS: African American GFR (CKD) 111.6 (60.0-200.0); Albumin 3.8 g/dL (3.80-4.90); Anion Gap 11.1 mmol/L (4.00-12.00); Calcium 8.5 mg/dL (8.7-10.3); Carbon Dioxide 20.9 mmol/L (21.6-31.8); Globulin 3.8 g/dL (1.6-3.3); Non-African American GFR(CKD) 96.3 (60.0-200.0); Potassium 3.9 mmol/L (3.5-5.5); Total Bilirubin 0.6 mg/dL (0.2-1.2); Total Protein 7.6 g/dL (6.2-8.2)
[2021-01-11 12:23] LABS: Glucose,Whole Blood 181 mg/dL (75-99)
[2021-01-11 13:37] VITALS: BMI 21.4
--- NOTE | 2021-01-11 14:38 | P.CONS ---
History of Present Illness - Reason for Consult Consult date: 01/11/21 SCLC on treatment Requesting physician: Nabil Blanco - Chief Complaint weakness - History of Present Illness Mr. Norris is a very pleasant 76 year old male pt of Dr. Samson, diagnosed with small cell neuroendocrine lung cancer. He presented 04/09/20 with c/o of shoulder pain, persistent after a fall. Incidentally a lt hilar mass was noted. He reported at that time unintentional wt. loss and some episodes of hemoptysis. CT chest 04/10/21 showed lt hilar mass, mediastinal adenopathy. 04/17/20 PET confirmed FDG avid disease in the lt lung and chest with a questionable area of soft tissue in the pelvis. He had biopsy of LLL mass 04/19, path + small cell neuroendocrine cinda g cancer. MRI of the brain 05/02/20 for dizziness, no evidence of disease. He had his 1st cycle of carbo/[employer]/tecentriq 05/01, no GCSF. He had moderate tolerance issues with treatment, he completed chemo and continued on IO until treatment follow up imaging 11/2020, disease progression. He was started on zepzelca and is s/p 2 cycles-12/29/20. He was in ofc last week wiht no c/o, gained wt. Pt brought to hospital for fall, hurt his right hand, he denies tripping on anything-he states that his legs gave out. Denied fever, nausea, cough, chest pain, palpitations, dysuria, hematuria, diarrhea, co nstipation, swelling in the legs, rash or pain. Review of Systems 10 point ROS is neg except as stated in HPI Past Medical History Past Medical History: Coronary Artery Disease (CAD), Cancer, Chest Pain / Angina, COPD, Diabetes Mellitus, GERD/Reflux, Hyperlipidemia, Hypertension, Osteoarthritis (OA), Skin Disorder, Thyroid Disorder Additional Past Medical History / Comment(s): Skin cancer, lung CA Hx of hemoptysis, wgt loss 70# in 3 months, found lung mass on scan. History of Any Multi-Drug Resistant Organisms: None Reported Past Surgical History: Heart Catheterization, Orthopedic Surgery Additional Past Surgical History / Comment(s): hear cath x2. Lt Knee scope, Rt Shoulder surg. Colonoscopy. bilat cataracts w/ lens implants Past Anesthesia/Blood Transfusion Reactions: No Reported Reaction Past Psychological History: No Psychological Hx Reported Smoking Status: Former smoker Past Alcohol Use History: None Reported Additional Past Alcohol Use History / Comment(s): Smoked from age 12 - quit 1989, 2 ppd. Past Drug Use History: None Reported - Past Family History Mother Family Medical History: Cancer, Dementia Medications and Allergies Home Medications Medication Instructions Recorded Confirmed Type Levothyroxine Sodium [Synthroid] 25 mcg PO DAILY 04/12/15 01/10/21 History Atorvastatin [Lipitor] 20 mg PO HS 08/02/15 01/10/21 History Empagliflozin [Jardiance] 25 mg PO DAILY 04/15/20 01/10/21 History Mirtazapine [Remeron] 15 mg PO HS #30 tab 05/17/20 01/10/21 Rx Beta Prostate 1 tab PO DAILY 01/10/21 01/10/21 History Escitalopram [Lexapro] 10 mg PO HS 01/10/21 01/10/21 History Fluticasone/Umeclidin/Vilanter 1 puff INHALATION RT-DAILY 01/10/21 01/10/21 History [Trelegy Ellipta 100-62.5-25] HYDROcodone/APAP 7.5-325MG [[place] 1 tab PO Q4-6H PRN 01/10/21 01/10/21 History 7.5-325] Triamcinolone 0.1% Cream [Kenalog 1 applic TOPICAL BID 01/10/21 01/10/21 History 0.1% Cream] Allergies Allergy/AdvReac Type Severity Reaction Status Date / Time Sulfa (Sulfonamide Allergy Severe Anaphylaxis Verified 01/10/21 17:46 Antibiotics) cefuroxime [From Ceftin] Allergy Unknown Verified 01/10/21 17:46 latex Allergy Rash/Hives Verified 01/10/21 17:46 Penicillins Allergy Swelling Verified 01/10/21 17:46 Physical Exam Vitals: Vital Signs Temp Pulse Resp BP Pulse Ox 01/11/21 04:43 98.3 F 71 16 106/64 96 01/10/21 19:30 98.0 F 77 16 109/69 96 01/10/21 17:06 97.8 F 72 16 131/75 97 Intake and Output 01/10/21 01/11/21 01/11/21 22:59 06:59 14:59 Intake Total 1305 Output Total 900 Balance 405 Intake: Intake, IV Titration 825 Amount Lactated Ringers 1,000 ml 825 @ 75 mls/hr IV .[id number] Rx#:[id number] Oral 480 Output: Urine 900 Other: # Voids 1 Weight 75.75 kg - Constitutional General appearance: average body habitus, cooperative, no acute distress - EENT Eyes: anicteric sclerae, EOMI ENT: hearing grossly normal, normal oropharynx - Neck Neck: no lymphadenopathy - Respiratory Respiratory: bilateral: CTA - Cardiovascular Rhythm: regular Heart sounds: normal: S1, S2 Abnormal Heart Sounds: systolic murmur (soft), no diastolic murmur, no rub, no S3 Gallop, no S4 Gallop, no click, no other leg Peripheral Edema: bilateral: 1+ (compression stockings on ), Pitting - Gastrointestinal General gastrointestinal: no absent bowel sounds, no decreased bowel sounds, no distended, no hepatomegaly, no hyperactive bowel sounds, normal bowel sounds, no organomegaly, no rigid, no scaphoid, soft, no splenomegaly, no tenderness, no umbilical hernia, no ventral hernia - Integumentary right hand ecchymosis - Neurologic Neurologic: CNII-XII intact - Musculoskeletal Musculoskeletal: generalized weakness, strength equal bilaterally - Psychiatric Psychiatric: A&O x's 3, appropriate affect, intact judgment & insight Results CBC & Chem 7: 01/11/21 05:44 01/11/21 05:44 Labs: Abnormal Lab Results - Last 24 Hours (Table) 01/10/21 01/10/21 01/10/21 Range/Units 15:17 15:17 21:12 WBC 1.6 L (3.8-10.6) k/uL RBC 4.07 L (4.30-5.90) m/uL Hgb 11.7 L (13.0-17.5) gm/dL Hct 35.7 L (39.0-53.0) % RDW 16.9 H (11.5-15.5) % Plt Count 128 L (150-450) k/uL Neutrophils # (Manual) 0.74 L (1.3-7.7) k/uL Lymphocytes # (Manual) 0.45 L (1.0-4.8) k/uL Sodium 136 L (137-145) mmol/L Carbon Dioxide 19 L (22-30) mmol/L Creatinine 0.46 L (0.66-1.25) mg/dL Glucose 166 H (74-99) mg/dL POC Glucose (mg/dL) 148 H (75-99) mg/dL Urine Glucose (UA) (Negative) 01/11/21 01/11/21 01/11/21 Range/Units 01:48 05:44 07:52 WBC 1.5 L (3.8-10.6) k/uL RBC 4.08 L (4.30-5.90) m/uL Hgb 11.6 L (13.0-17.5) gm/dL Hct 35.7 L (39.0-53.0) % RDW 17.1 H (11.5-15.5) % Plt Count 143 L (150-450) k/uL Neutrophils # (Manual) 0.63 L (1.3-7.7) k/uL Lymphocytes # (Manual) 0.62 L (1.0-4.8) k/uL Sodium (137-145) mmol/L Carbon Dioxide (22-30) mmol/L Creatinine (0.66-1.25) mg/dL Glucose (74-99) mg/dL POC Glucose (mg/dL) 114 H (75-99) mg/dL Urine Glucose (UA) 4+ H (Negative) Chest x-ray: report reviewed Assessment and Plan (1) SCLC (small cell lung carcinoma) Narrative/Plan: Progression on PET 11/28/20. Treatment regimen changed, s/p 2 cycles. Too early to image for disease response. Going to assess MRI brain due to sudden weakness and fall which brought pt to the hospital. Pt seems to be doing fairly well with hydration. Cont supportive care PT/OT eval and treat Current Visit: Yes Status: Chronic Priority: High Code(s): C34.90 - MALIGNANT NEOPLASM OF UNSP PART OF UNSP BRONCHUS OR LUNG SNOMED Code(s): 943444799 (2) Leukopenia due to antineoplastic chemotherapy Narrative/Plan: Low WBC, ANC >500, no fever. No acute intervention at this time. Pt may have to receive GCSF with future treatments. Current Visit: Yes Status: Acute Priority: Medium Code(s): D70.1 - AGRANULOCYTOSIS SECONDARY TO CANCER CHEMOTHERAPY; T45.1X5A - ADVERSE EFFECT OF ANTINEOPLASTIC AND IMMUNOSUP DRUGS, INIT SNOMED Code(s): 910054351 Plan: Attests: I have seen and examined pt, performed H&P, developed impression and plan of care. Discussed with dictator, agree with documentation, documented as a scribe.
[2021-01-11 17:32] LABS: Glucose,Whole Blood 148 mg/dL (75-99)
[2021-01-11 20:19] LABS: Glucose,Whole Blood 182 mg/dL (75-99)
--- NOTE | 2021-01-11 20:46 | P.PN ---
Subjective Progress Note Date: 01/11/21 Principal diagnosis: Dehydration Syncopal episodes Leukopenia 76-year-old male was directed admitted from the office due to generalized weakness with frequent falls with significant history of small cell lung carcinoma with history of leukopenia. Patient has been going aggressive treatment for small cell lung carcinoma with a mass in the lower lobe of left lung from hematology and oncology. Patient has significant medical history of small cell lung carcinoma, hyperlipidemia, mixed anxiety and depression, diabetes mellitus type 2, hypothyroidism, COPD, pulmonary fibrosis and significant weight loss with aggressive treatment for small cell lung carcinoma. Review of labs patient shows leukopenia, mild dehydration with indirect bicarb of 19 and elevated glucose of 166. Review chest x-ray, most likely atelectasis with known left lung mass. Upon evaluation of patient this a.m., resting comfortably in bed. Patient patient continues to endorse generalized weakness, and fatigue. Patient denies fever, chills, shortness of breath, chest pain, palpitations, abdominal pain, nausea or vomiting and diarrhea at this time. Awaiting to review a.m. labs and diagnostic testing. Awaiting recommendations from hematology/oncology. Objective - Vital Signs Vital signs: Vital Signs Temp 99.1 F 01/11/21 12:19 Pulse 75 01/11/21 12:19 Resp 16 01/11/21 12:19 BP 107/64 01/11/21 12:19 Pulse Ox 96 01/11/21 12:19 Intake & Output 01/11/21 01/11/21 01/12/21 06:59 18:59 06:59 Intake Total 1305 1040 Output Total 900 Balance 405 1040 Weight 75.75 kg Intake: Intake, IV Titration 825 640 Amount Lactated Ringers 1,000 ml 825 640 @ 75 mls/hr IV .[id number] DEBBY Rx#:[id number] Oral 480 400 Output: Urine 900 Other: # Voids 1 4 - Constitutional General appearance: Present: cooperative - EENT Eyes: Present: EOMI, PERRLA, normal appearance ENT: Present: hard of hearing Ears: bilateral: normal - Neck Neck: Present: normal ROM Carotids: bilateral: upstroke normal - Respiratory Respiratory: bilateral: CTA (Anterior and posterior lung dunn) - Cardiovascular Heart rate: 74 Rhythm: regular Heart sounds: normal: S1, S2 - Peripheral edema foot Peripheral Edema: bilateral: Trace - Peripheral pulses radial pulse Peripheral Pulses: bilateral: Normal - Gastrointestinal General gastrointestinal: Present: normal bowel sounds - Integumentary Integumentary: Present: decreased turgor, pale - Neurologic Neurologic: Present: CNII-XII intact - Musculoskeletal Musculoskeletal: Present: generalized weakness - Psychiatric Psychiatric: Present: A&O x's 3, appropriate affect, intact judgment & insight - Allied health notes Allied health notes reviewed: nursing - Labs CBC & Chem 7: 01/11/21 05:44 01/11/21 05:44 Labs: Abnormal Lab Results - Last 24 Hours (Table) 01/10/21 01/11/21 01/11/21 Range/Units 21:12 01:48 05:44 WBC 1.5 L (3.8-10.6) k/uL RBC 4.08 L (4.30-5.90) m/uL Hgb 11.6 L (13.0-17.5) gm/dL Hct 35.7 L (39.0-53.0) % RDW 17.1 H (11.5-15.5) % Plt Count 143 L (150-450) k/uL Neutrophils # (Manual) 0.63 L (1.3-7.7) k/uL Lymphocytes # (Manual) 0.62 L (1.0-4.8) k/uL Carbon Dioxide (21.6-31.8) mmol/L BUN/Creatinine Ratio (12.00-20.00) Ratio Glucose (70-110) mg/dL POC Glucose (mg/dL) 148 H (75-99) mg/dL Calcium (8.7-10.3) mg/dL Globulin (1.6-3.3) g/dL Albumin/Globulin Ratio (1.60-3.17) g/dL Urine Glucose (UA) 4+ H (Negative) 01/11/21 01/11/21 01/11/21 Range/Units 05:44 07:52 12:21 WBC (3.8-10.6) k/uL RBC (4.30-5.90) m/uL Hgb (13.0-17.5) gm/dL Hct (39.0-53.0) % RDW (11.5-15.5) % Plt Count (150-450) k/uL Neutrophils # (Manual) (1.3-7.7) k/uL Lymphocytes # (Manual) (1.0-4.8) k/uL Carbon Dioxide 20.9 L (21.6-31.8) mmol/L BUN/Creatinine Ratio 25.00 H (12.00-20.00) Ratio Glucose 145 H (70-110) mg/dL POC Glucose (mg/dL) 114 H 181 H (75-99) mg/dL Calcium 8.5 L (8.7-10.3) mg/dL Globulin 3.8 H (1.6-3.3) g/dL Albumin/Globulin Ratio 1.00 L (1.60-3.17) g/dL Urine Glucose (UA) (Negative) 01/11/21 01/11/21 Range/Units 17:27 20:17 WBC (3.8-10.6) k/uL RBC (4.30-5.90) m/uL Hgb (13.0-17.5) gm/dL Hct (39.0-53.0) % RDW (11.5-15.5) % Plt Count (150-450) k/uL Neutrophils # (Manual) (1.3-7.7) k/uL Lymphocytes # (Manual) (1.0-4.8) k/uL Carbon Dioxide (21.6-31.8) mmol/L BUN/Creatinine Ratio (12.00-20.00) Ratio Glucose (70-110) mg/dL POC Glucose (mg/dL) 148 H 182 H (75-99) mg/dL Calcium (8.7-10.3) mg/dL Globulin (1.6-3.3) g/dL Albumin/Globulin Ratio (1.60-3.17) g/dL Urine Glucose (UA) (Negative) Assessment and Plan Assessment: Small cell lung carcinoma 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
[2021-01-11] MEDS: HYDROcodone/APAP 7.5-325MG 1 EACH TAB PO PRN (21:15)
[2021-01-11] MEDS: ATORVASTATIN 20 MG TAB PO SCH (21:44)
[2021-01-11] MEDS: MIRTAZAPINE 15 MG TAB PO SCH (21:44)
[2021-01-11] MEDS: ESCITALOPRAM 10 MG TAB PO SCH (21:44)
--- NOTE | 2021-01-11 22:13 | MR ---
EXAMINATION TYPE: MR brain wo/w con DATE OF EXAM: 01/11/2021 COMPARISON: 07/16/2020 HISTORY: Unusual weakness, fall, SCLC. CONTRAST: Standard multiplanar, multisequence MRI departmental protocol utilizing 7.5 mL intravenous Gadavist g adolinium contrast. There is diffuse cerebral cortical atrophy. There is no mass effect nor midline shift. There is no si gn of intracranial hemorrhage. Diffusion images show no evidence of an acute infarct. The brainstem i s intact. There is some increased signal adjacent to the lateral ventricles in a linear distribution on the T2 and FLAIR images. There is no evidence of orbital mass. The contrast images show no pathologic enhancement there is normal enhancement of the venous sinuses. Calvarium appears normal. There is no evidence of posterior fossa mass. IMPRESSION: Cerebral atrophy. Linear increased signal in the white matter adjacent to the lateral ventricles coul d be related to some mild chronic small vessel ischemia and hydrocephalus. I do not see evidence of o bstructive hydrocephalus. There is some frontal and ethmoid sinusitis that is not significantly diffe rent than old exam.
[2021-01-12] MEDS: HYDROcodone/APAP 7.5-325MG 1 EACH TAB PO PRN (04:06)
[2021-01-12 04:10] VITALS: BP 145/80; RESP 18; TEMP 98.2
[2021-01-12] MEDS: LEVOTHYROXINE 25 MCG TAB PO SCH (05:39)
[2021-01-12 06:36] LABS: Anisocytosis Slight; HCT 32.3 % (39.0-53.0); HGB 10.9 gm/dL (13.0-17.5); MCH 29.1 pg (25.0-35.0); MCHC 33.8 g/dL (31.0-37.0); Mean Platelet Volume 7.8; Platelet Count 159 k/uL (150-450); RBC 3.76 m/uL (4.30-5.90); RDW 17.1 % (11.5-15.5); WBC 1.6 k/uL (3.8-10.6)
[2021-01-12 06:44] LABS: African American GFR (CKD) >90 (>60 ml/min/1.73 sqM); Anion Gap 8 mmol/L; Blood Urea Nitrogen 12 mg/dL (9-20); Calcium 8.8 mg/dL (8.4-10.2); Carbon Dioxide 22 mmol/L (22-30); Chloride 108 mmol/L (98-107); Glucose 131 mg/dL (74-99); Magnesium 2.2 mg/dL (1.6-2.3); Non-African American GFR(CKD) >90 (>60 ml/min/1.73 sqM); Potassium 4.1 mmol/L (3.5-5.1); Sodium 138 mmol/L (137-145)
[2021-01-12 07:07] LABS: Glucose,Whole Blood 128 mg/dL (75-99)
[2021-01-12] MEDS: INSULIN ASPART (NovoLOG) 100 UNIT/ML VIAL SQ SCH (07:29)
[2021-01-12 08:44] LABS: Eosinophils # (M) 0.03 k/uL (0-0.7); Lymphocytes # (M) 0.48 k/uL (1.0-4.8); Monocytes # (M) 0.37 k/uL (0-1.0); Neutrophils # (M) 0.72 k/uL (1.3-7.7); Neutrophils % (M) 45 %; Nucleated Red Blood Cells 0 /100 WBC (0-0); Total Cells Counted 100
[2021-01-12] MEDS: IPRATROPIUM 0.5 MG/2.5 ML NEBU INHALATION SCH (08:55)
[2021-01-12] MEDS: SYMBICORT 80-4.5 MCG INHALER INHALATION SCH (08:55)
[2021-01-12 09:05] VITALS: PULSE 72
[2021-01-12] MEDS: NON FORMULARY DRUG (Empagliflozin [Jardiance] 25 MG Tablet) PO SCH (09:05)
[2021-01-12] MEDS: TRIAMCINOLONE 0.1% CREAM 80 GM TUBE TOPICAL SCH (09:08)
[2021-01-12] MEDS ORDERED: FILGRASTIM-SNDZ 480 MCG/0.8 ML SYRINGE SQ ONE (09:30)
--- NOTE | 2021-01-12 10:23 | P.PN ---
Subjective Progress Note Date: 01/12/21 Principal diagnosis: weakness, dehydration, SCLC, leukopenia/neutropenia In f/u pt is much more alert, he states he is able to get up independently and use a walker. Denies any nausea, is tolerating oral intake, breathing is stable Objective - Vital Signs Vital signs: Vital Signs Temp 98.2 F 01/12/21 04:09 Pulse 72 01/12/21 09:05 Resp 18 01/12/21 04:09 BP 145/80 01/12/21 04:09 Pulse Ox 97 01/12/21 04:09 Intake & Output 01/11/21 01/12/21 01/12/21 18:59 06:59 18:59 Intake Total 1040 2120 Balance 1040 2120 Weight 75.75 kg Intake: Intake, IV Titration 640 1800 Amount Lactated Ringers 1,000 ml 640 1800 @ 75 mls/hr IV .[id number] Rx#:[id number] Oral 400 320 Other: # Voids 4 2 # Bowel Movements 1 - Constitutional General appearance: Present: average body habitus, cooperative, no acute distress - EENT Eyes: Present: anicteric sclerae, EOMI ENT: Present: hearing grossly normal - Respiratory Respiratory: bilateral: CTA, diminished - Cardiovascular Heart sounds: normal: S1, S2 - Peripheral edema leg Peripheral Edema: bilateral: None - Gastrointestinal General gastrointestinal: Present: normal bowel sounds, soft - Neurologic Neurologic: Present: CNII-XII intact - Musculoskeletal Musculoskeletal: Present: generalized weakness - Psychiatric Psychiatric: Present: A&O x's 3, appropriate affect, intact judgment & insight - Labs CBC & Chem 7: 01/12/21 06:09 01/12/21 06:09 Labs: Abnormal Lab Results - Last 24 Hours (Table) 01/11/21 01/11/21 01/11/21 Range/Units 05:44 12:21 17:27 WBC (3.8-10.6) k/uL RBC (4.30-5.90) m/uL Hgb (13.0-17.5) gm/dL Hct (39.0-53.0) % RDW (11.5-15.5) % Neutrophils # (Manual) (1.3-7.7) k/uL Lymphocytes # (Manual) (1.0-4.8) k/uL Chloride (98-107) mmol/L Carbon Dioxide 20.9 L (21.6-31.8) mmol/L Creatinine (0.66-1.25) mg/dL BUN/Creatinine Ratio 25.00 H (12.00-20.00) Ratio Glucose 145 H (70-110) mg/dL POC Glucose (mg/dL) 181 H 148 H (75-99) mg/dL Calcium 8.5 L (8.7-10.3) mg/dL Globulin 3.8 H (1.6-3.3) g/dL Albumin/Globulin Ratio 1.00 L (1.60-3.17) g/dL 01/11/21 01/12/21 01/12/21 Range/Units 20:17 06:09 06:09 WBC 1.6 L (3.8-10.6) k/uL RBC 3.76 L (4.30-5.90) m/uL Hgb 10.9 L (13.0-17.5) gm/dL Hct 32.3 L (39.0-53.0) % RDW 17.1 H (11.5-15.5) % Neutrophils # (Manual) 0.72 L (1.3-7.7) k/uL Lymphocytes # (Manual) 0.48 L (1.0-4.8) k/uL Chloride 108 H (98-107) mmol/L Carbon Dioxide (21.6-31.8) mmol/L Creatinine 0.38 L (0.66-1.25) mg/dL BUN/Creatinine Ratio (12.00-20.00) Ratio Glucose 131 H (70-110) mg/dL POC Glucose (mg/dL) 182 H (75-99) mg/dL Calcium (8.7-10.3) mg/dL Globulin (1.6-3.3) g/dL Albumin/Globulin Ratio (1.60-3.17) g/dL 01/12/21 Range/Units 07:00 WBC (3.8-10.6) k/uL RBC (4.30-5.90) m/uL Hgb (13.0-17.5) gm/dL Hct (39.0-53.0) % RDW (11.5-15.5) % Neutrophils # (Manual) (1.3-7.7) k/uL Lymphocytes # (Manual) (1.0-4.8) k/uL Chloride (98-107) mmol/L Carbon Dioxide (21.6-31.8) mmol/L Creatinine (0.66-1.25) mg/dL BUN/Creatinine Ratio (12.00-20.00) Ratio Glucose (70-110) mg/dL POC Glucose (mg/dL) 128 H (75-99) mg/dL Calcium (8.7-10.3) mg/dL Globulin (1.6-3.3) g/dL Albumin/Globulin Ratio (1.60-3.17) g/dL - Imaging and Cardiology MRI - head: report reviewed Assessment and Plan (1) SCLC (small cell lung carcinoma) Narrative/Plan: Progression on PET 11/28/20. Treatment regimen changed, s/p 2 cycles zepzelca. Too early to image for disease response. Going to assess MRI brain due to sudden weakness and fall which brought pt to the hospital. MRI was neg for any metastatic disease, results reviewed with pt Pt doing well today after hydration. Ok from Hem/Onc for DC per Medicine F/U with Dr. Samson tomorrow already scheduled Current Visit: Yes Status: Chronic Priority: High Code(s): C34.90 - MALIGNANT NEOPLASM OF UNSP PART OF UNSP BRONCHUS OR LUNG SNOMED Code(s): 264057824 (2) Leukopenia due to antineoplastic chemotherapy Narrative/Plan: Low WBC, ANC still under 1000. With plan for DC today one time dose of GCSF ordered. Primary Onc will determine if GCSF needed post future treatments Current Visit: Yes Status: Acute Priority: Medium Code(s): D70.1 - AGRANULOCYTOSIS SECONDARY TO CANCER CHEMOTHERAPY; T45.1X5A - ADVERSE EFFECT OF ANTINEOPLASTIC AND IMMUNOSUP DRUGS, INIT SNOMED Code(s): 194754766
--- NOTE | 2021-01-13 06:47 | P.DS ---
Providers Date of admission: 01/10/21 16:32 Expected date of discharge: 01/12/21 Attending physician: Benito Martino Consults: 01/10/21 16:22 Consult Physician Urgent Consulting Provider: Kellie Dean Consult Reason/Comments: LUNG CA Do you want consulting provider notified?: Yes Primary care physician: Benito Martino Hospital Course: 76-year-old male was directed admitted from the office due to generalized weakness with frequent falls with significant history of small cell lung carcinoma with history of leukopenia. Patient has been going aggressive treatment for small cell lung carcinoma with a mass in the lower lobe of left lung followed by hematology and oncology. Patient has significant medical history of small cell lung carcinoma, hyperlipidemia, mixed anxiety and depression, diabetes mellitus type 2, hypothyroidism, COPD, pulmonary fibrosis and significant weight loss with aggressive treatment for small cell lung carcinoma. Patient underwent gentle hydration for dehydration and generalized weakness. Patient was evaluated by hematology oncology for ongoing small cell lung carcinoma with mass and lower lobe of left lung, and leukopenia due to anti-neoplastic chemotherapy. Patient received 1 time dose of GCSF for leukopenia will continue to be followed by hematology/oncology. Patient tolerated hospital stay well was evaluated by physical therapy and occupational therapy. Patient have close follow-up with primary care and hematology oncology Constitutional General appearance: Present: cooperative - EENT Eyes: Present: EOMI, PERRLA, normal appearance ENT: Present: hard of hearing Ears: bilateral: normal - Neck Neck: Present: normal ROM Carotids: bilateral: upstroke normal - Respiratory Respiratory: bilateral: CTA (Anterior and posterior lung dunn) - Cardiovascular Heart rate: 74 Rhythm: regular Heart sounds: normal: S1, S2 - Peripheral edema foot Peripheral Edema: bilateral: Trace - Peripheral pulses radial pulse Peripheral Pulses: bilateral: Normal - Gastrointestinal General gastrointestinal: Present: normal bowel sounds - Integumentary Integumentary: Present: decreased turgor, pale - Neurologic Neurologic: Present: CNII-XII intact - Musculoskeletal Musculoskeletal: Present: generalized weakness - Psychiatric Psychiatric: Present: A&O x's 3, appropriate affect, intact judgment & insight Assessment: Dehydration resolved with gentle hydration with lactated Ringer's Generalized weakness improved with hydration and therapy from occupational and physical therapy Leukopenia, patient received 1 dose of GSCF Small cell lung carcinoma Mass of lower lobe of left lung COPD Diabetes mellitus type 2 GERD/reflux Hypertension Hyperlipidemia Osteoarthritis Hypothyroidism History of cardiac catheterization Full code Health Concerns: Multiple comorbidities Pertinent Studies: Chest x-ray MRI of the brain with and without contrast Procedures: None performed Patient Condition at Discharge: Fair Plan - Discharge Summary Discharge Rx Participant: Yes New Discharge Prescriptions: Continue Levothyroxine Sodium [Synthroid] 25 mcg PO DAILY Atorvastatin [Lipitor] 20 mg PO HS Empagliflozin [Jardiance] 25 mg PO DAILY Mirtazapine [Remeron] 15 mg PO HS #30 tab Fluticasone/Umeclidin/Vilanter [Trelegy Ellipta 100-62.5-25] 1 puff INHALATION RT-DAILY Triamcinolone 0.1% Cream [Kenalog 0.1% Cream] 1 applic TOPICAL BID HYDROcodone/APAP 7.5-325MG [[place] 7.5-325] 1 tab PO Q4-6H PRN PRN Reason: Pain Beta Prostate 1 tab PO DAILY Escitalopram [Lexapro] 10 mg PO HS Discharge Medication List Levothyroxine Sodium [Synthroid] 25 mcg PO DAILY 04/12/15 [History] Atorvastatin [Lipitor] 20 mg PO HS 08/02/15 [History] Empagliflozin [Jardiance] 25 mg PO DAILY 04/15/20 [History] Mirtazapine [Remeron] 15 mg PO HS #30 tab 05/17/20 [Rx] Beta Prostate 1 tab PO DAILY 01/10/21 [History] Escitalopram [Lexapro] 10 mg PO HS 01/10/21 [History] Fluticasone/Umeclidin/Vilanter [Trelegy Ellipta 100-62.5-25] 1 puff INHALATION RT-DAILY 01/10/21 [History] HYDROcodone/APAP 7.5-325MG [[place] 7.5-325] 1 tab PO Q4-6H PRN 01/10/21 [History] Triamcinolone 0.1% Cream [Kenalog 0.1% Cream] 1 applic TOPICAL BID 01/10/21 [History] Follow up Appointment(s)/Referral(s): Benito Martino MD [Primary Care Provider] - 01/19/21 2:20 pm (Appointment sched [facility] for 01/19/21 at 2:20 PM) [facility], [NON-STAFF] - 1-2 Days (pallitive care) Suhas Samson MD [STAFF PHYSICIAN] - 01/13/21 11:15 am (Patient already has appointment scheduled for tomorrow, 01/13/21 at 11:15 AM) Patient Instructions/Handouts: Weakness (DC), Fall Prevention (DC) Discharge Disposition: HOME WITH HOME HEALTH SERVICES
== END 2021-01-12 10:40 | disposition home health service (06) | DRG 181 ==
LOC: 5NMEDONC 16:32
PROVIDERS: ADMIT Family Medicine; ATTEND Family Medicine
DX: C34.32 Malignant neoplasm of lower lobe, left bronchus or lung (principal); C7A.8 Other malignant neuroendocrine tumors; D70.1 Agranulocytosis secondary to cancer chemotherapy; E03.9 Hypothyroidism, unspecified; E11.65 Type 2 diabetes mellitus with hyperglycemia; E78.5 Hyperlipidemia, unspecified; E86.0 Dehydration; Z20.822 Contact with and (suspected) exposure to COVID-19; I10 Essential (primary) hypertension; I25.10 Atherosclerotic heart disease of native coronary artery without angina pectoris; K21.9 Gastro-esophageal reflux disease without esophagitis; M19.90 Unspecified osteoarthritis, unspecified site; J44.9 Chronic obstructive pulmonary disease, unspecified; Z79.84 Long term (current) use of oral hypoglycemic drugs; T45.1X5A Adverse effect of antineoplastic and immunosuppressive drugs, initial encounter; Z79.890 Hormone replacement therapy; Z96.1 Presence of intraocular lens; Z87.891 Personal history of nicotine dependence; Z85.828 Personal history of other malignant neoplasm of skin; Z85.118 Personal history of other malignant neoplasm of bronchus and lung; Z79.899 Other long term (current) drug therapy; R29.6 Repeated falls; H91.90 Unspecified hearing loss, unspecified ear; F41.8 Other specified anxiety disorders
CPT/HCPCS: 70553; 71046; 80048; 80053; 81003; 83735; 85025; 87040; 87635; 94640

== ENCOUNTER → 2021-02-23 | Outpatient (CLI) | payer MEDICARE ==
--- NOTE | 2021-02-23 16:50 | XR ---
EXAMINATION TYPE: XR ribs bilat w pa chest xray DATE OF EXAM: 02/23/2021 COMPARISON: 01/10/2021 HISTORY: 76-year-old male R07.81, right-sided pleurodynia TECHNIQUE: 9 views FINDINGS: Frontal view of the chest is stable with mild cardiomegaly and scattered interstitial densities. New strandy opacity, likely atelectasis at the left base and periphery of the right midlung. Left hilar p rominence likely corresponds to the patient's known posteromedial left mid lung mass. AP window nodul arity corresponds to known lymphadenopathy. No displaced rib fracture is seen on either side. IMPRESSION: 1. No displaced rib fracture seen on either side. 2. Chronic changes in the chest. Known posteromedial left mid lung mass and AP window lymphadenopathy . 3. Advanced emphysematous change and fibrosis.
== END | disposition home or self-care (01) ==
LOC: RADXRMAIN 12:50
PROVIDERS: ATTEND Nurse Practitioner
DX: R59.0 Localized enlarged lymph nodes (principal); R91.8 Other nonspecific abnormal finding of lung field; R07.81 Pleurodynia
CPT/HCPCS: 71111

== ENCOUNTER 2021-02-24 16:25 | Inpatient (IN) | payer MEDICARE ==
[2021-02-24] MEDS ORDERED: SODIUM CHLORIDE 0.9% 500 ML 500 ML IV STA (17:06)
[2021-02-24] MEDS ORDERED: SODIUM CHLORIDE 0.9% 1,000 ML IV STA (17:06)
--- NOTE | 2021-02-24 17:11 | ED ---
Dizziness HPI - General Chief Complaint: Syncope Stated Complaint: syncope Time Seen by Provider: 02/24/21 16:45 Source: patient, family, RN/MD, RN notes reviewed Mode of arrival: wheelchair Limitations: no limitations - History of Present Illness Initial Comments: 76-year-old male with a history of stage IV lung cancer COPD who is been doing chemotherapy with his last chemo 2 weeks ago who was sent in because of weakness some lightheadedness dizziness or syncopal episode today he's been falling at least once a week for the past several weeks per his family. He's had weight loss with decreased oral intake. He's had fevers chills and sweats he states. He was found have a low white blood cell count and sent in for further evaluation. He also states he has some chest pain on the right side of his ribs were he fell recently. No focal weakness no other complaints or modifying factors at this time MD Complaint: dizziness, lightheadedness, near syncope, other - Related Data Home Medications Medication Instructions Recorded Confirmed Levothyroxine Sodium [Synthroid] 25 mcg PO DAILY 04/12/15 02/24/21 Atorvastatin [Lipitor] 20 mg PO HS 08/02/15 02/24/21 Escitalopram [Lexapro] 10 mg PO DAILY 01/10/21 02/24/21 Fluticasone/Umeclidin/Vilanter 1 puff INHALATION RT-DAILY 01/10/21 02/24/21 [Trelegy Ellipta 100-62.5-25] Fexofenadine HCl [Ene Allergy] 180 mg PO DAILY 02/24/21 02/24/21 HYDROcodone/APAP 10-325MG [[place] 1 tab PO Q6HR PRN 02/24/21 02/24/21 10-325] Lactulose [Constulose] 10 gm PO BID PRN 02/24/21 02/24/21 Lubiprostone 24 mcg PO BID 02/24/21 02/24/21 Midodrine [ProAmatine] 5 mg PO TID 02/24/21 02/24/21 Montelukast [Singulair] 10 mg PO DAILY 02/24/21 02/24/21 Ondansetron Odt [Zofran Odt] 4 mg PO Q6H PRN 08/13/21 08/13/21 Previous Rx's Medication Instructions Recorded Mirtazapine [Remeron] 15 mg PO HS #30 tab 05/17/20 Allergies Allergy/AdvReac Type Severity Reaction Status Date / Time Sulfa (Sulfonamide Allergy Severe Anaphylaxis Verified 02/24/21 17:31 Antibiotics) cefuroxime [From Ceftin] Allergy Unknown Verified 02/24/21 17:31 latex Allergy Rash/Hives Verified 02/24/21 17:31 Penicillins Allergy Swelling Verified 02/24/21 17:31 Review of Systems ROS Statement: Those systems with pertinent positive or pertinent negative responses have been documented in the HPI. ROS Other: All systems not noted in ROS Statement are negative. Past Medical History Past Medical History: Coronary Artery Disease (CAD), Cancer, Chest Pain / Angina, COPD, Diabetes Mellitus, GERD/Reflux, Hyperlipidemia, Hypertension, Osteoarthritis (OA), Skin Disorder, Thyroid Disorder Additional Past Medical History / Comment(s): Skin cancer, lung CA Hx of hemoptysis, wgt loss 70# in 3 months, found lung mass on scan. History of Any Multi-Drug Resistant Organisms: None Reported Past Surgical History: Heart Catheterization, Orthopedic Surgery Additional Past Surgical History / Comment(s): hear cath x2. Lt Knee scope, Rt Shoulder surg. Colonoscopy. bilat cataracts w/ lens implants Past Anesthesia/Blood Transfusion Reactions: No Reported Reaction Past Psychological History: No Psychological Hx Reported Smoking Status: Former smoker Past Alcohol Use History: None Reported Past Drug Use History: None Reported - Past Family History Mother Family Medical History: Cancer, Dementia General Exam - General Exam Comments Initial Comments: This a well-developed sec appearing male who is awake alert oriented 3 Limitations: no limitations General appearance: alert, in no apparent distress Head exam: Present: atraumatic, normocephalic, normal inspection Eye exam: Present: normal appearance, PERRL, EOMI. Absent: scleral icterus, conjunctival injection, periorbital swelling ENT exam: Present: mucous membranes dry Neck exam: Present: normal inspection, full ROM, other (No stridor JVD or bruits). Absent: tenderness, meningismus, lymphadenopathy Respiratory exam: Present: normal lung sounds bilaterally, chest wall tenderness (Tennis palpation of the right lateral inferior anterior chest wall no definite step-off or crepitation). Absent: respiratory distress, wheezes, rales, rhonchi, stridor Cardiovascular Exam: Present: regular rate, normal rhythm, normal heart sounds. Absent: systolic murmur, diastolic murmur, rubs, gallop, clicks GI/Abdominal exam: Present: soft, normal bowel sounds. Absent: distended, tenderness, guarding, rebound, rigid Extremities exam: Present: normal inspection, full ROM, normal capillary refill. Absent: tenderness, pedal edema, joint swelling, calf tenderness Back exam: Present: normal inspection Neurological exam: Present: alert, oriented X3, CN II-XII intact Psychiatric exam: Present: normal affect, normal mood Skin exam: Present: warm, dry, intact, normal color. Absent: rash Course Vital Signs 02/24/21 16:39 Temperature 98.3 F Pulse Rate 88 Respiratory 20 Rate Blood Pressure 94/65 O2 Sat by Pulse 99 Oximetry EKG Findings - EKG Results: EKG: interpreted by EDWARD, sinus rhythm (Sinus rhythm with PACs rate 88. Interval 170 QRS duration 92 QT since QTC 392/474 evidence of left anterior fascicular block.) Medical Decision Making - Medical Decision Making I did discuss [employer] the patient family as well as with Dr. Martino's office initially and later with Dr. Crowley's group. Patient be admitted for inpatient evaluation and treatment - Lab Data Result diagrams: 02/24/21 19:00 02/24/21 17:10 Lab Results 02/24/21 02/24/21 Range/Units 17:10 19:00 WBC 2.9 L (3.8-10.6) k/uL RBC 3.48 L (4.30-5.90) m/uL Hgb 11.2 L (13.0-17.5) gm/dL Hct 33.0 L (39.0-53.0) % MCV 94.6 D (80.0-100.0) fL MCH 32.0 (25.0-35.0) pg MCHC 33.8 (31.0-37.0) g/dL RDW 19.9 H (11.5-15.5) % Plt Count 206 (150-450) k/uL MPV 7.9 Anisocytosis Slight Macrocytosis Slight Sodium 135 L (137-145) mmol/L Potassium 4.9 (3.5-5.1) mmol/L Chloride 105 (98-107) mmol/L Carbon Dioxide 15 L (22-30) mmol/L Anion Gap 15 mmol/L BUN 13 (9-20) mg/dL Creatinine 0.47 L (0.66-1.25) mg/dL Est GFR (CKD-EPI)AfAm >90 (>60 ml/min/1.73 sqM) Est GFR (CKD-EPI)NonAf >90 (>60 ml/min/1.73 sqM) Glucose 192 H (74-99) mg/dL Calcium 9.6 (8.4-10.2) mg/dL Magnesium 2.1 (1.6-2.3) mg/dL Total Bilirubin 0.7 (0.2-1.3) mg/dL AST 40 (17-59) U/L ALT 22 (4-49) U/L Alkaline Phosphatase 116 (38-126) U/L Creatine Kinase 61 (55-170) U/L Total Protein 8.2 (6.3-8.2) g/dL Albumin 4.3 (3.5-5.0) g/dL - Radiology Data Radiology results: report reviewed (Imaging reviewed no acute findings.), image reviewed Disposition Clinical Impression: Lung cancer, COPD exacerbation, Neutropenia, Dehydration, Failure to thrive Disposition: ADMITTED IP TO THIS HOSP Condition: Fair Referrals: Benito Martino MD [Primary Care Provider] - 1-2 days
[2021-02-24 17:45] LABS: ALT 22 U/L (4-49); AST 40 U/L (17-59); African American GFR (CKD) >90 (>60 ml/min/1.73 sqM); Albumin 4.3 g/dL (3.5-5.0); Alkaline Phosphatase 116 U/L (38-126); Anion Gap 15 mmol/L; Blood Urea Nitrogen 13 mg/dL (9-20); Calcium 9.6 mg/dL (8.4-10.2); Carbon Dioxide 15 mmol/L (22-30); Chloride 105 mmol/L (98-107); Creatine Kinase 61 U/L (55-170); Glucose 192 mg/dL (74-99); Magnesium 2.1 mg/dL (1.6-2.3); Non-African American GFR(CKD) >90 (>60 ml/min/1.73 sqM); Sodium 135 mmol/L (137-145); Total Bilirubin 0.7 mg/dL (0.2-1.3); Total Protein 8.2 g/dL (6.3-8.2)
[2021-02-24 17:50] LABS: Potassium 4.9 mmol/L (3.5-5.1)
--- NOTE | 2021-02-24 17:51 | XR ---
EXAMINATION TYPE: XR chest 2V DATE OF EXAM: 02/24/2021 COMPARISON: 01/10/2021. HISTORY: Right chest pain status post fall. TECHNIQUE: Frontal and lateral views of the chest are obtained. FINDINGS: There is mild interstitial coarsening. No focal air space opacity, pleural effusion, or pn eumothorax seen. The cardiac silhouette size is within normal limits. The osseous structures are i ntact. IMPRESSION: No acute cardiopulmonary process. Chronic interstitial disease in the appropriate clinical setting.
[2021-02-24 19:49] LABS: Anisocytosis Slight; HGB 11.2 gm/dL (13.0-17.5); MCHC 33.8 g/dL (31.0-37.0); Macrocytosis Slight; Mean Platelet Volume 7.9; Platelet Count 206 k/uL (150-450); RBC 3.48 m/uL (4.30-5.90); RDW 19.9 % (11.5-15.5); WBC 2.9 k/uL (3.8-10.6)
[2021-02-24 19:52] LABS: MCV 94.6 fL (80.0-100.0)
[2021-02-24] MEDS ORDERED: NALOXONE 0.4 MG/ML 1 ML VIAL IV PRN (20:18)
[2021-02-24] MEDS ORDERED: HYDROcodone/APAP 10-325MG 1 EACH TAB PO PRN (20:21)
[2021-02-24] MEDS ORDERED: ONDANSETRON ODT 4 MG TAB PO PRN (20:21)
[2021-02-24] MEDS: MIDODRINE 5 MG TAB PO SCH (21:32)
[2021-02-24] MEDS: LACTULOSE 20 GM/30 ML CUP PO PRN (21:32)
[2021-02-24] MEDS: MIRTAZAPINE 15 MG TAB PO SCH (21:32)
[2021-02-24] MEDS: ATORVASTATIN 20 MG TAB PO SCH (21:32)
[2021-02-24] MEDS: NON FORMULARY DRUG (Lubiprostone [Lubiprostone] 24 MCG Capsule) PO SCH (21:33)
[2021-02-24 22:04] LABS: Basophils # (M) 0.03 k/uL (0-0.2); Eosinophils # (M) 0.06 k/uL (0-0.7); Metamyelocytes # (M) 0.03 k/uL (0); Metamyelocytes % 1 %; Monocytes # (M) 0.73 k/uL (0-1.0); Myelocytes # (M) 0.03 k/uL (0); Myelocytes % 1 %; Neutrophils # (M) 1.39 k/uL (1.3-7.7); Neutrophils % (M) 48 %; Nucleated Red Blood Cells 0 /100 WBC (0-0); Total Cells Counted 200
[2021-02-25] MEDS: LEVOTHYROXINE 25 MCG TAB PO SCH (05:33)
[2021-02-25] MEDS: IPRATROPIUM 0.5 MG/2.5 ML NEBU INHALATION SCH ×4 (08:30→19:36)
[2021-02-25] MEDS: SYMBICORT 80-4.5 MCG INHALER INHALATION SCH ×2 (08:30→19:36)
[2021-02-25] MEDS: LORATADINE 10 MG TAB PO SCH (08:55)
[2021-02-25] MEDS: MIDODRINE 5 MG TAB PO SCH ×3 (08:55→20:50)
[2021-02-25] MEDS: ESCITALOPRAM 10 MG TAB PO SCH (08:55)
[2021-02-25] MEDS: MONTELUKAST 10 MG TAB PO SCH (08:55)
[2021-02-25] MEDS: LACTULOSE 20 GM/30 ML CUP PO PRN ×2 (08:57→20:50)
--- NOTE | 2021-02-25 09:36 | P.CONS ---
<Neris Uribe - Last Filed: 02/25/21 14:32> History of Present Illness - Reason for Consult Consult date: 02/25/21 cytopenias after chemo Requesting physician: Raymundo Peres - History of Present Illness Mr. Norris is a very pleasant 76 year old male pt of Dr. Samson, diagnosed with small cell neuroendocrine lung cancer. He presented 04/09/20 with c/o of shoulder pain, persistent after a fall. Incidentally a lt hilar mass was noted. He reported at that time unintentional wt. loss and some episodes of hemoptysis. CT chest 04/10/21 showed lt hilar mass, mediastinal adenopathy. 04/17/20 PET confirmed FDG avid disease in the lt lung and chest with a questionable area of soft tissue in the pelvis. He had biopsy of LLL mass 04/19, path + small cell neuroendocrine lung cancer. MRI of the brain 05/02/20 for dizziness, no evidence of disease. He had his 1st cycle of carbo/LIE[employer]ENANT COLONEL/tecentriq 05/01, no GCSF. He had moderate tolerance issues with treatment, he completed chemo and continued on IO until treatment follow up imaging 11/2020, disease progression. He was started on zepzelca and is s/p 2 cycles-12/29/20. He was in ofc last week with no c/o, gained wt. Last month he presented to hospital after sustaining a fall. Pt brought to hospital for fall, hurt his right hand, he denies tripping on anything-he states that his legs gave out. Denied fever, nausea, cough, chest pain, palpitations, dysuria, hematuria, diarrhea, constipation, swelling in the legs, rash or pain. He is now status post cycle 4 Zepzelca on 02/09 with neulasta. Review of Systems All systems: negative Constitutional: Reports as per HPI Past Medical History Past Medical History: Coronary Artery Disease (CAD), Cancer, Chest Pain / Angina, COPD, Diabetes Mellitus, GERD/Reflux, Hyperlipidemia, Hypertension, Osteoarthritis (OA), Skin Disorder, Thyroid Disorder Additional Past Medical History / Comment(s): Skin cancer, lung CA-stage 4. dx 12/2019 Hx of hemoptysis, wgt loss 120# in 12 months. chemo last 02/11/21 History of Any Multi-Drug Resistant Organisms: None Reported Past Surgical History: Heart Catheterization, Orthopedic Surgery Additional Past Surgical History / Comment(s): heart cath x2. Lt Knee scope, Rt Shoulder surg. Colonoscopy. bilat cataracts w/ lens implants Past Anesthesia/Blood Transfusion Reactions: No Reported Reaction Past Psychological History: No Psychological Hx Reported Smoking Status: Former smoker Past Alcohol Use History: None Reported Additional Past Alcohol Use History / Comment(s): Smoked from age 12 - quit 1989, 2 ppd. Past Drug Use History: None Reported - Past Family History Mother Family Medical History: Cancer, Dementia Medications and Allergies Home Medications Medication Instructions Recorded Confirmed Type Levothyroxine Sodium [Synthroid] 25 mcg PO DAILY 04/12/15 02/24/21 History Atorvastatin [Lipitor] 20 mg PO HS 08/02/15 02/24/21 History Mirtazapine [Remeron] 15 mg PO HS #30 tab 05/17/20 02/24/21 Rx Escitalopram [Lexapro] 10 mg PO DAILY 01/10/21 02/24/21 History Fluticasone/Umeclidin/Vilanter 1 puff INHALATION RT-DAILY 01/10/21 02/24/21 History [Trelegy Ellipta 100-62.5-25] Fexofenadine HCl [Ene Allergy] 180 mg PO DAILY 02/24/21 02/24/21 History HYDROcodone/APAP 10-325MG [[place] 1 tab PO Q6HR PRN 02/24/21 02/24/21 History 10-325] Lactulose [Constulose] 10 gm PO BID PRN 02/24/21 02/24/21 History Lubiprostone 24 mcg PO BID 02/24/21 02/24/21 History Midodrine [ProAmatine] 5 mg PO TID 02/24/21 02/24/21 History Montelukast [Singulair] 10 mg PO DAILY 02/24/21 02/24/21 History Ondansetron Odt [Zofran Odt] 4 mg PO Q6H PRN 02/24/21 02/24/21 History Allergies Allergy/AdvReac Type Severity Reaction Status Date / Time Sulfa (Sulfonamide Allergy Severe Anaphylaxis Verified 02/24/21 17:31 Antibiotics) cefuroxime [From Ceftin] Allergy Unknown Verified 02/24/21 17:31 latex Allergy Rash/Hives Verified 02/24/21 17:31 Penicillins Allergy Swelling Verified 02/24/21 17:31 Physical Exam Vitals: Vital Signs Temp Pulse Pulse Resp BP BP Pulse Ox 02/25/21 08:41 76 02/25/21 08:31 79 02/25/21 05:09 98.3 F 65 16 112/71 95 02/24/21 21:08 97.6 F 32 H 104/66 88 L 02/24/21 16:39 98.3 F 88 20 94/65 99 Intake and Output 02/24/21 02/25/21 02/25/21 22:59 06:59 14:59 Intake Total 480 590 Balance 480 590 Intake: Oral 480 590 Other: Voiding Method Toilet # Voids 1 2 Weight 76.657 kg - Constitutional General appearance: Present: average body habitus, cooperative, no acute distress - EENT Eyes: Present: anicteric sclerae, EOMI ENT: Present: hearing grossly normal - Respiratory Respiratory: bilateral: CTA, diminished - Cardiovascular Heart sounds: normal: S1, S2 - Peripheral edema leg Peripheral Edema: bilateral: None - Gastrointestinal General gastrointestinal: Present: normal bowel sounds, soft - Neurologic Neurologic: Present: CNII-XII intact - Musculoskeletal Musculoskeletal: Present: generalized weakness - Psychiatric Psychiatric: Present: A&O x's 3, appropriate affect, intact judgment & insight Results CBC & Chem 7: 02/24/21 19:00 02/24/21 17:10 Labs: Abnormal Lab Results - Last 24 Hours (Table) 02/24/21 02/24/21 Range/Units 17:10 19:00 WBC 2.9 L (3.8-10.6) k/uL RBC 3.48 L (4.30-5.90) m/uL Hgb 11.2 L (13.0-17.5) gm/dL Hct 33.0 L (39.0-53.0) % RDW 19.9 H (11.5-15.5) % Lymphocytes # (Manual) 0.70 L (1.0-4.8) k/uL Metamyelocytes # (Man) 0.03 H (0) k/uL Myelocytes # (Manual) 0.03 H (0) k/uL Sodium 135 L (137-145) mmol/L Carbon Dioxide 15 L (22-30) mmol/L Creatinine 0.47 L (0.66-1.25) mg/dL Glucose 192 H (74-99) mg/dL Assessment and Plan Plan: Assessment and Plan (1) SCLC (small cell lung carcinoma) Narrative/Plan: Progression on PET 11/28/20. Treatment regimen changed, s/p 4 cycles zepzelca. Current Visit: Yes Status: Chronic Priority: High Code(s): C34.90 - MALIGNANT NEOPLASM OF UNSP PART OF UNSP BRONCHUS OR LUNG SNOMED Code(s): 674324299 Anemia and Leukopenia due to antineoplastic chemotherapy Narrative/Plan: - Stable today no transfusions needed Current Visit: Yes Status: Acute Priority: Medium Code(s): D70.1 - AGRANULOCYTOSIS SECONDARY TO CANCER CHEMOTHERAPY; T45.1X5A - ADVERSE EFFECT OF ANTINEOPLASTIC AND IMMUNOSUP DRUGS, INIT SNOMED Code(s): 017779484 <Marilin Carnes - Last Filed: 02/25/21 15:48> History of Present Illness - Chief Complaint Falls, weakness Physical Exam Vitals: Vital Signs Temp Pulse Pulse Resp BP BP Pulse Ox 02/25/21 12:58 97.9 F 69 18 115/68 95 02/25/21 08:41 76 02/25/21 08:31 79 02/25/21 08:00 65 16 02/25/21 05:09 98.3 F 65 16 112/71 95 02/24/21 21:08 97.6 F 32 H 104/66 88 L 02/24/21 16:39 98.3 F 88 20 94/65 99 Intake and Output 02/25/21 02/25/21 02/25/21 06:59 14:59 22:59 Intake Total 590 Balance 590 Intake: Oral 590 Other: Voiding Method Toilet Toilet # Voids 2 Weight 76.657 kg - Constitutional Gen.: no acute distress HEENT: No conjunctival pallor, mucosa moist. Neck: Supple Lungs: No respiratory distress Heart: Regular rate Abdomen: Soft Skin: No jaundice Neuro: Alert and oriented 3 Psych: Appropriate affect. Results CBC & Chem 7: 02/24/21 19:00 02/24/21 17:10 Labs: Abnormal Lab Results - Last 24 Hours (Table) 02/24/21 02/24/21 02/25/21 Range/Units 17:10 19:00 12:45 WBC 2.9 L (3.8-10.6) k/uL RBC 3.48 L (4.30-5.90) m/uL Hgb 11.2 L (13.0-17.5) gm/dL Hct 33.0 L (39.0-53.0) % RDW 19.9 H (11.5-15.5) % Lymphocytes # (Manual) 0.70 L (1.0-4.8) k/uL Metamyelocytes # (Man) 0.03 H (0) k/uL Myelocytes # (Manual) 0.03 H (0) k/uL Sodium 135 L (137-145) mmol/L Carbon Dioxide 15 L (22-30) mmol/L Creatinine 0.47 L (0.66-1.25) mg/dL Glucose 192 H (74-99) mg/dL Urine Glucose (UA) 4+ H (Negative) Chest x-ray: report reviewed Assessment and Plan Assessment: Small cell lung cancer Bicytopenia due to chemotherapy Fall Dehydration COPD exacerbation Plan: Mr. Norris is a very pleasant 76 yo gentleman with a history of small cell lung cancer, recent progression from 11/2020, currently status 4 cycles of zepzelca, who is here for increased weakness and falls. Workup consistent with mild leukopenia and anemia as well as mild borderline low sodium levels. WBC 2.9, hemoglobin 11.2, platelets 206, a NC 1.4, ALC 0.7. Creatinine normal. He is being hydrated and treated for COPD exacerbation. We'll hold chemo until he clinically improves and is discharged. No overt signs of infection at this point. Monitor his CBC. We'll continue to follow patient with you. Discussed with patient and family at bedside and they're agreeable to the plan. All of their questions were answered.
[2021-02-25] MEDS: NON FORMULARY DRUG (Lubiprostone [Lubiprostone] 24 MCG Capsule) PO SCH (10:55)
[2021-02-25 11:23] VITALS: BMI 22.3
[2021-02-25 13:11] LABS: Appearance,Urine Clear (Clear); Bilirubin,Urine Negative (Negative); Blood,Urine Negative (Negative); Color,Urine Light Yellow; Glucose,Urine (UA) 4+ (Negative); Ketones,Urine Negative (Negative); Leukocyte Esterase,Urine Negative (Negative); Nitrite,Urine Negative (Negative); Protein,Urine Negative (Negative); Urobilinogen,Urine <2.0 mg/dL (<2.0)
--- NOTE | 2021-02-25 14:24 | CT ---
EXAMINATION TYPE: CT brain wo con DATE OF EXAM: 02/25/2021 COMPARISON: None HISTORY: syncope CT DLP: 1354 mGycm Automated exposure control for dose reduction was used. There is some cerebral cortical atrophy. There is no mass effect nor midline shift. There is no sign of intracranial hemorrhage. Calvarium is intact. Sella turcica appears normal. IMPRESSION: Negative unenhanced head CT scan.
--- NOTE | 2021-02-25 15:28 | HP ---
HISTORY AND PHYSICAL I am covering for Dr. Bneito Martino. DATE OF SERVICE: 02/25/2021 CHIEF COMPLAINTS: Syncope and fall. HISTORY OF PRESENT ILLNESS: This 76-year-old gentleman with a past medical history of small-cell neuroendocrine lung cancer was on chemotherapy. The patient received his first dose of chemotherapy. The patient apparently had a syncopal episode at home and the patient had a fall. The patient felt lightheaded, weak, and was taken to [facility] and was admitted for further evaluation and treatment. The white count is 2.9, hemoglobin 11.2. Sodium is 135. There is no history of any fever, rigors or chills. No history of headache, seizures at this time. PAST MEDICAL HISTORY: History of small-cell lung cancer, history of chest pain, COPD, diabetes mellitus, GERD, hypertension, hyperlipidemia, DJD, history of cardiac catheterization. HOME MEDICATIONS: Zofran, Singulair, Remeron, midodrine, Synthroid, Sch[place]ield, Trilogy, Lexapro, Lipitor. Doses are reviewed. ALLERGIES: SULFA, CEFTIN, LATEX, PENICILLIN. FAMILY HISTORY: History of cancer, dementia. SOCIAL HISTORY: Previous history of smoking. No current smoking or alcohol intake. REVIEW OF SYSTEMS: ENT: Diminished hearing. Diminished vision. CARDIOVASCULAR SYSTEM: As mentioned earlier. RESPIRATORY SYSTEM: As mentioned earlier. GI: As mentioned earlier. : No dysuria. NERVOUS SYSTEM: No numbness; otherwise as mentioned earlier. ALLERGY/IMMUNOLOGY: No asthma or hay fever. MUSCULOSKELETAL: As mentioned earlier. HEMATOLOGY/ONCOLOGY: As mentioned earlier. ENDOCRINE: As mentioned earlier. CONSTITUTIONAL: As mentioned earlier. DERMATOLOGY: Negative. RHEUMATOLOGY: Negative. PSYCHIATRY: As mentioned earlier. PHYSICAL EXAMINATION: Patient is alert, oriented x3. The pulse is 79, blood pressure 112/71, respirations 16, temperature 98.3, pulse ox 94% on room air. HEENT: Conjunctivae normal. Oral mucosa moist. NECK: No jugular venous distention. No carotid bruit. No lymph node enlargement. CARDIOVASCULAR SYSTEM: S1, S2 muffled. RESPIRATORY: Breath sounds diminished at the bases. No rhonchi. No crackles. ABDOMEN: Soft, nontender. No mass palpable. LEGS: No edema. No swelling. NERVOUS SYSTEM: Higher functions as mentioned earlier. Moves all 4 limbs. No focal motor or sensory deficit. LYMPHATICS: No lymph node palpable in neck, axillae or groin. SKIN: No ulcer, rash, bleeding. JOINTS: No active deforming arthropathy. LAB STUDIES: WBC 2. Hemoglobin 11.2. Sodium 135. ASSESSMENT: 1. Syncope and fall for evaluation; possibly orthostatic hypotension. 2. Hyponatremia. 3. Leukopenia with neutropenia. 4. Anemia, normocytic, secondary to malignancy and chemotherapy. 5. Decreased carbon dioxide. 6. History of small-cell neuroendocrine lung cancer, on chemotherapy. 7. History of chest pain, angina. 8. Chronic obstructive pulmonary disease. 9. Diabetes mellitus, type 2. 10.Gastroesophageal reflux disease. 11.Hypertension. 12.Hyperlipidemia. 13.History of degenerative joint disease. 14.History of hypothyroidism. 15.History of hemoptysis. 16.History of weight loss. 17.History of cardiac catheterization. 18.History of nicotine dependence. 19.FULL CODE. RECOMMENDATIONS AND DISCUSSION: In this 76-year-old gentleman who presented with multiple complex medical issues, we will monitor the patient closely, continue the current medications, continue with symptomatic treatment. Otherwise, repeat labs. I also recommend a D-dimer. If the D- dimer is positive, a CT angio of the chest. Repeat labs and cultures also will be obtained. Prognosis is guarded because of multiple complex medical issues. Resume the home medications. Orthostatic vitals. Further recommendations to follow. A copy of this dictation is being forwarded to Dr. Martino, who is the primary physician. MMODL / IJN: [id number] /
[2021-02-25] MEDS: SODIUM CHLORIDE 0.9% 1,000 ML IV SCH (16:55)
[2021-02-25] MEDS: ATORVASTATIN 20 MG TAB PO SCH (20:50)
[2021-02-25] MEDS: MIRTAZAPINE 15 MG TAB PO SCH (20:50)
--- NOTE | 2021-02-25 21:08 | CT ---
EXAMINATION TYPE: CT angio chest DATE OF EXAM: 02/25/2021 COMPARISON: 05/10/2020 HISTORY: CT DLP: mGycm Automated exposure control for dose reduction was used. CONTRAST: There are 3-D post processed images. The contrast was Isovue 100 mL. FINDINGS: There is patchy interstitial and airspace infiltrates in the mid and lower lung dunn bilaterally. T here is no pleural effusion. Heart is borderline enlarged. There is no pericardial effusion. There is enlarged left side bronchial lymph nodes that measure up to 3 cm. Thoracic spine is intact. There is no compression fracture. IMPRESSION: Multiple emboli with saddle embolism. Enlarged heart. Right ventricle slightly enlarged and consisten t with right heart strain. Bilateral pulmonary infiltrates. Embolism is new compared to old exam. Left side until adenopathy that appears increased compared to old exam. There is improvement in a mas s at the posterior inferior pulmonary hilum compared to old exam. This exam was discussed with the patient's nurse on the floor at approximately 9:00 PM. There are multiple filling defects in the pulmonary arteries bilaterally. There is saddle embolism wi th blood clot across the distal main pulmonary artery.
[2021-02-25] MEDS ORDERED: HEPARIN SODIUM 1,000 UN/ML (10ML VL) IV PRN (21:12)
[2021-02-25] MEDS ORDERED: HEPARIN SODIUM 1,000 UN/ML (10ML VL) IV ONE (21:12)
[2021-02-25] MEDS: HEPARIN SOD,PORK IN 0.45% NACL 25,000 UNIT in 0.45% NACL 1 250ML.BAG IV SCH (21:38)
[2021-02-25] MEDS: LUBIPROSTONE 24 MCG PO SCH (22:57)
[2021-02-26 04:56] LABS: Partial Thromboplastin Time 48.8 sec (22.0-30.0); Prothrombin Time 10.5 sec (9.0-12.0)
[2021-02-26 04:59] LABS: Anisocytosis Slight; HCT 34.2 % (39.0-53.0); HGB 11.1 gm/dL (13.0-17.5); MCH 31.2 pg (25.0-35.0); MCHC 32.4 g/dL (31.0-37.0); MCV 96.4 fL (80.0-100.0); Macrocytosis Slight; Mean Platelet Volume 7.8; Platelet Count 202 k/uL (150-450); RBC 3.55 m/uL (4.30-5.90); RDW 18.9 % (11.5-15.5); WBC 3.4 k/uL (3.8-10.6)
[2021-02-26 05:10] LABS: Eosinophils # (M) 0.14 k/uL (0-0.7); Lymphocytes # (M) 1.29 k/uL (1.0-4.8); Metamyelocytes # (M) 0.03 k/uL (0); Metamyelocytes % 1 %; Monocytes # (M) 0.41 k/uL (0-1.0); Neutrophils # (M) 1.53 k/uL (1.3-7.7); Neutrophils % (M) 45 %; Nucleated Red Blood Cells 0 /100 WBC (0-0); Polychromasia Present; Total Cells Counted 100
[2021-02-26] MEDS: LEVOTHYROXINE 25 MCG TAB PO SCH (05:49)
[2021-02-26] MEDS: SODIUM CHLORIDE 0.9% 1,000 ML IV SCH ×2 (05:49→16:36)
[2021-02-26] MEDS: IPRATROPIUM 0.5 MG/2.5 ML NEBU INHALATION SCH ×4 (07:13→21:16)
[2021-02-26] MEDS: SYMBICORT 80-4.5 MCG INHALER INHALATION SCH (07:13)
[2021-02-26] MEDS: LORATADINE 10 MG TAB PO SCH (08:43)
[2021-02-26] MEDS: MONTELUKAST 10 MG TAB PO SCH (08:43)
[2021-02-26] MEDS: ESCITALOPRAM 10 MG TAB PO SCH (08:44)
[2021-02-26] MEDS: MIDODRINE 5 MG TAB PO SCH ×3 (08:44→20:04)
[2021-02-26] MEDS: LUBIPROSTONE 24 MCG PO SCH ×2 (08:44→20:04)
[2021-02-26 11:46] LABS: African American GFR (CKD) 120.3 (60.0-200.0); Anion Gap 15.1 mmol/L (4.00-12.00); Calcium 7.9 mg/dL (8.7-10.3); Carbon Dioxide 17.9 mmol/L (21.6-31.8); Non-African American GFR(CKD) 103.8 (60.0-200.0); Potassium 3.9 mmol/L (3.5-5.5)
--- NOTE | 2021-02-26 12:29 | P.CNPUL ---
History of Present Illness Consult date: 02/26/21 Requesting physician: Benito Martino Reason for consult: dyspnea, hypoxemia, pulmonary embolism, pulmonary hypertension, abnormal CXR/CT Chief complaint: Shortness of breath. History of present illness: Pulmonary/critical care consultation dated 02/26/2021. 76-year-old male, evaluated in the emergency department, on February 24. He has a history of advanced/metastatic small cell lung cancer, and is currently undergoing chemotherapy. The patient was diagnosed back in April 2020 by my partner. The patient presents to the emergency department complaining of weakness, lightheadedness, dizziness, and an episode of passing out. He's also had apparent falling spells. His appetite is decreased, and his weight is down. He also admits to some fever and chills, as well as shortness of breath. In the process of evaluating him, he had a CT angiogram, which revealed evidence of bilateral pulmonary emboli, saddle emboli, more distal clots, and right heart strain. The patient was placed on IV heparin the patient is short of breath and we asked the nurse to place him on a couple liters of O2. We went ahead and ordered an echocardiogram, and also asked vascular surgery to see him just in case they wanted to potentially consider catheter directed TPA and ultrasonic dissolution of the clot (EKOS). The patient does complain of being short of breath on exertion. He has a history of coronary artery disease, lung cancer, angina, diabetes mellitus, GERD, hyperlipidemia, hypertension, osteoarthritis, and hypothyroidism. White count 3.4, hemoglobin 11.1, hematocrit 34.2, and platelet count 302,000. D-dimer was 8.24. PTT is 48.8. Sodium potassium chloride normal. CO2 18, anion gap 15, BUN 7, creatinine 0.5. Chest x-ray was interpreted as normal. CT angiogram showed multiple emboli with saddle embolism. The heart is enlarged. There is right ventricular enlargement and right heart strain. Other findings noted. Review of Systems REVIEW OF SYSTEMS: CONSTITUTIONAL: Decreased appetite with weight loss. NEUROLOGIC: Lightheadedness and dizziness, syncope. HEENT: [ Negative.] CARDIAC: Orthostatic hypotension. PULMONARY: Shortness of breath particularly on exertion. GI: [Negative.] : [Negative.] RHEUMATOLOGIC: [ Negative.] IMMUNOLOGIC: [ Negative.] ENDOCRINE: [Negative. ] DERMATOLOGIC: [Negative.] Past Medical History Past Medical History: Coronary Artery Disease (CAD), Cancer, Chest Pain / Angina, COPD, Diabetes Mellitus, GERD/Reflux, Hyperlipidemia, Hypertension, Osteoarthritis (OA), Skin Disorder, Thyroid Disorder Additional Past Medical History / Comment(s): Skin cancer, lung CA-stage 4. dx 12/2019 Hx of hemoptysis, wgt loss 120# in 12 months. chemo last 02/11/21 History of Any Multi-Drug Resistant Organisms: None Reported Past Surgical History: Heart Catheterization, Orthopedic Surgery Additional Past Surgical History / Comment(s): heart cath x2. Lt Knee scope, Rt Shoulder surg. Colonoscopy. bilat cataracts w/ lens implants Past Anesthesia/Blood Transfusion Reactions: No Reported Reaction Past Psychological History: No Psychological Hx Reported Smoking Status: Former smoker Past Alcohol Use History: None Reported Additional Past Alcohol Use History / Comment(s): Smoked from age 12 - quit 1989, 2 ppd. Past Drug Use History: None Reported - Past Family History Mother Family Medical History: Cancer, Dementia Medications and Allergies Home Medications Medication Instructions Recorded Confirmed Type Levothyroxine Sodium [Synthroid] 25 mcg PO DAILY 04/12/15 02/24/21 History Atorvastatin [Lipitor] 20 mg PO HS 08/02/15 02/24/21 History Mirtazapine [Remeron] 15 mg PO HS #30 tab 05/17/20 02/24/21 Rx Escitalopram [Lexapro] 10 mg PO DAILY 01/10/21 02/24/21 History Fluticasone/Umeclidin/Vilanter 1 puff INHALATION RT-DAILY 01/10/21 02/24/21 History [Trelegy Ellipta 100-62.5-25] Fexofenadine HCl [Ene Allergy] 180 mg PO DAILY 02/24/21 02/24/21 History HYDROcodone/APAP 10-325MG [[place] 1 tab PO Q6HR PRN 02/24/21 02/24/21 History 10-325] Lactulose [Constulose] 10 gm PO BID PRN 02/24/21 02/24/21 History Lubiprostone 24 mcg PO BID 02/24/21 02/24/21 History Midodrine [ProAmatine] 5 mg PO TID 02/24/21 02/24/21 History Montelukast [Singulair] 10 mg PO DAILY 02/24/21 02/24/21 History Ondansetron Odt [Zofran Odt] 4 mg PO Q6H PRN 02/24/21 02/24/21 History Allergies Allergy/AdvReac Type Severity Reaction Status Date / Time Sulfa (Sulfonamide Allergy Severe Anaphylaxis Verified 02/24/21 17:31 Antibiotics) cefuroxime [From Ceftin] Allergy Unknown Verified 02/24/21 17:31 latex Allergy Rash/Hives Verified 02/24/21 17:31 Penicillins Allergy Swelling Verified 02/24/21 17:31 Physical Exam Osteopathic Statement: *. No significant issues noted on an osteopathic structural exam other than those noted in the History and Physical/Consult. Vitals: Vital Signs Temp Pulse Pulse Pulse Pulse Pulse Resp 02/26/21 10:54 69 02/26/21 10:44 68 02/26/21 08:00 52 L 71 83 72 16 02/26/21 05:00 98.2 F 52 L 16 02/25/21 21:00 98.0 F 72 16 02/25/21 19:43 88 02/25/21 19:38 83 02/25/21 19:30 16 02/25/21 17:03 71 83 73 02/25/21 15:53 75 02/25/21 15:41 74 02/25/21 12:58 97.9 F 69 18 BP BP BP BP Pulse Ox 02/26/21 10:54 02/26/21 10:44 02/26/21 08:00 02/26/21 05:00 107/65 111/66 116/79 94 L 02/25/21 21:00 114/70 94 L 02/25/21 19:43 02/25/21 19:38 02/25/21 19:30 02/25/21 17:03 86/53 88/53 104/67 02/25/21 15:53 02/25/21 15:41 02/25/21 12:58 115/68 95 Intake and Output 02/25/21 02/26/21 02/26/21 22:59 06:59 14:59 Intake Total 880 590 Balance 880 590 Intake: Oral 880 590 Other: Voiding Method Toilet Toilet # Voids 1 3 Shortness of breath on exertion, none at rest. Oriented 3. 2 L saturation is 98%. HEENT examination is grossly unremarkable. Neck supple. Full range of motion. No adenopathy thyromegaly or neck vein distention. Cardiovascular examination reveals regular rhythm rate. S1-S2 normal. No S3 or S4. No discernible murmur noted. Heart rate 70 bpm. Heart sounds distant. Lungs reveal mostly clear breath sounds. Scattered rhonchi are noted. No wheezes or crackles. Breath sounds equal bilaterally. Abdomen soft bowel sounds are heard. No masses or tenderness. Extremities are intact. No cyanosis clubbing or edema. Skin is without rash or lesion. Neurologic examination is brief but nonfocal. Results - Laboratory Findings CBC and BMP: 02/26/21 04:27 02/26/21 04:27 PT/INR, D-dimer PT 10.5 sec (9.0-12.0) 02/26/21 04:27 INR 1.0 (<1.2) 02/26/21 04:27 D-Dimer 8.24 mg/L FEU (<0.60) H 02/25/21 15:11 Abnormal lab findings: Abnormal Labs 02/24/21 02/24/21 02/25/21 17:10 19:00 12:45 WBC 2.9 L RBC 3.48 L Hgb 11.2 L Hct 33.0 L RDW 19.9 H Lymphocytes # (Manual) 0.70 L Metamyelocytes # (Man) 0.03 H Myelocytes # (Manual) 0.03 H APTT D-Dimer Sodium 135 L Carbon Dioxide 15 L Anion Gap BUN Creatinine 0.47 L Glucose 192 H Calcium Urine Glucose (UA) 4+ H 02/25/21 02/26/21 02/26/21 15:11 04:27 04:27 WBC 3.4 L RBC 3.55 L Hgb 11.1 L Hct 34.2 L RDW 18.9 H Lymphocytes # (Manual) Metamyelocytes # (Man) 0.03 H Myelocytes # (Manual) APTT D-Dimer 8.24 H Sodium Carbon Dioxide 17.9 L Anion Gap 15.10 H BUN 7.0 L Creatinine 0.5 L Glucose Calcium 7.9 L Urine Glucose (UA) 02/26/21 04:27 WBC RBC Hgb Hct RDW Lymphocytes # (Manual) Metamyelocytes # (Man) Myelocytes # (Manual) APTT 48.8 H D-Dimer Sodium Carbon Dioxide Anion Gap BUN Creatinine Glucose Calcium Urine Glucose (UA) - Diagnostic Findings Chest x-ray: image reviewed CT scan - chest: image reviewed Assessment and Plan Assessment: Acute bilateral and saddle pulmonary embolism, with right heart strain, and acute shortness of breath. History of metastatic small cell lung cancer, undergoing treatment/chemotherapy, diagnosed by Dr. Coronel in April 2020. History of hypothyroidism. History of hyperlipidemia. History of COPD. History of coronary artery disease. History of diabetes mellitus. History of gastroesophageal reflux disease. History of hypertension. History of osteoarthritis. Plan: Plan dated 02/26/2021. We will consult vascular surgery to see if they might consider EKOS on this patient. Currently, the patient is on IV heparin. We asked the nurse to place 2 L of oxygen on the patient. He is quite short of breath on exertion. In addition, we asked for echocardiogram to be done right away. Additional recommendations and suggestions are forthcoming. We will continue to follow this patient and make recommendations were appropriate. Medications are revi ewed. We added albuterol sulfate and ipratropium bromide, 4 times a day and when necessary, as well as Symbicort 160/4.5, 2 puffs twice a day. Is guarded. We will continue to follow. Time with Patient: Greater than 30
--- NOTE | 2021-02-26 13:42 | PN ---
PROGRESS NOTE DATE OF SERVICE: 02/26/2021 This 76-year-old gentleman admitted with syncope and fall was found to have acute pulmonary embolism and saddle embolism. The patient also had a right leg DVT also. No chest pain. No palpitations. The patient being followed by Hematology/Oncology. The patient is started on IV heparin. Vascular surgery has been consulted for ECOS. PAST MEDICAL HISTORY: Reviewed. REVIEW OF SYSTEMS: Cardiovascular: No angina or palpitations. Respiration: As mentioned earlier. GI: As mentioned earlier. : No dysuria. CURRENT MEDICATIONS: Reviewed and include: [place] 10 mg, Lipitor, Symbicort, Lexapro, heparin, Cephulac, Synthroid, Singular, doses are reviewed. PHYSICAL EXAMINATION: Patient is alert, oriented x3. Pulse 52. Blood pressure 107/65. Respirations 16, temperature 98.2, pulse ox 94% on room air. HEENT: Conjunctivae normal. NECK: No JVD. CARDIOVASCULAR: S1, S2 muffled. RESPIRATORY: Breath sounds diminished at the bases. A few scattered rhonchi. ABDOMEN: Soft, nontender. No mass palpable. LEGS: No edema. No swelling. NERVOUS SYSTEM: No focal deficits. LABORATORY DATA: Hemoglobin 7.1, D-dimer is 8.24. ASSESSMENT: 1. Acute bilateral pulmonary embolism with saddle pulmonary embolism with possibly right ventricular strain. 2. Syncope and fall. 3. Hyponatremia. 4. Leukopenia with neutropenia. 5. Anemia, normocytic secondary to malignancy and chemotherapy. 6. Decreased CO2. 7. 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 8. History of chest pain, angina. 9. History of chronic obstructive pulmonary disease. 10.Diabetes mellitus type 2. 11.Gastroesophageal reflux disease. 12.Hypertension. 13.Hyperlipidemia. 14.History of degenerative joint disease. 15.History of hypothyroidism. 16.History of hemoptysis. 17.History of weight loss. 18.History of cardiac catheterization. 19.History of nicotine dependence. 20.FULL CODE. RECOMMENDATION AND DISCUSSION: Continue current medications, and symptomatic treatment. Vascular surgery consultation has been sought. Otherwise, continue with IV heparin. Closely follow with pulmonary, Hematology, Oncology. Prognosis guarded. Continue rest of medications. Further recommendations to follow. A copy of this dictation is being forwarded to Dr. Martino, who is the primary physician. MMODL / IJN: [id number] / CORAL
--- NOTE | 2021-02-26 14:28 | US ---
EXAMINATION TYPE: US venous doppler duplex LE BI DATE OF EXAM: 02/26/2021 1:08 PM COMPARISON: CTA chest, US CLINICAL HISTORY: dvt. CA lung per patient, dehydration, PE SIDE PERFORMED: Bilateral TECHNIQUE: The lower extremity deep venous system is examined utilizing real time linear array sonog yvonne with graded compression, doppler sonography and color-flow sonography. VESSELS IMAGED: Common Femoral Vein Deep Femoral Vein Greater Saphenous Vein * Femoral Vein Popliteal Vein Small Saphenous Vein * Proximal Calf Veins (* superficial vessels) Right Leg: Positive for DVT in Right Femoral Vein distally, Popliteal Vein, and in one of two upper calf veins. Left Leg: Negative for DVT Tech findings reported to patient's RN, Hayley, at exam's end. JJ IMPRESSION: POSITIVE DVT IN THE RIGHT LOWER EXTREMITY. SEE BODY OF REPORT.
[2021-02-26] MEDS: HEPARIN SOD,PORK IN 0.45% NACL 25,000 UNIT in 0.45% NACL 1 250ML.BAG IV SCH (15:42)
[2021-02-26] MEDS: LACTULOSE 20 GM/30 ML CUP PO PRN (19:19)
[2021-02-26] MEDS: ATORVASTATIN 20 MG TAB PO SCH (20:04)
[2021-02-26] MEDS: MIRTAZAPINE 15 MG TAB PO SCH (20:04)
[2021-02-26] MEDS: SYMBICORT 160-4.5 MCG INHALER INHALATION SCH (21:16)
[2021-02-27] MEDS ORDERED: HEPARIN SODIUM 1,000 UN/ML (10ML VL) IV ONE (02:55)
[2021-02-27] MEDS: SODIUM CHLORIDE 0.9% 1,000 ML IV SCH ×2 (05:02→17:22)
[2021-02-27] MEDS: LEVOTHYROXINE 25 MCG TAB PO SCH (05:59)
[2021-02-27] MEDS: SYMBICORT 160-4.5 MCG INHALER INHALATION SCH ×2 (07:26→19:24)
[2021-02-27] MEDS: IPRATROPIUM 0.5 MG/2.5 ML NEBU INHALATION SCH ×4 (07:26→19:25)
[2021-02-27 08:01] LABS: Anisocytosis Slight; HCT 34.7 % (39.0-53.0); HGB 11.3 gm/dL (13.0-17.5); MCH 31.5 pg (25.0-35.0); MCHC 32.5 g/dL (31.0-37.0); Macrocytosis Slight; Mean Platelet Volume 7.7; Platelet Count 252 k/uL (150-450); RBC 3.58 m/uL (4.30-5.90); RDW 19.8 % (11.5-15.5); WBC 3.6 k/uL (3.8-10.6)
--- NOTE | 2021-02-27 08:33 | P.GSCN ---
History of Present Illness Consult date: 02/27/21 Reason for Consult: Saddle PE Requesting physician: Lilian Dougherty History of present illness: This is a 76-year-old male who presented to the emergency department this past Saturday for complaints of weakness, dizziness, syncope and fall. His medical history medical history includes metastatic small cell lung cancer, COPD, coronary artery disease, diabetes mellitus, hyperlipidemia, hypertension, GERD, arthritis, skin disorder and thyroid disorder. He was recently started on chemotherapy, last dose 2 weeks ago. Patient was initially worked up with a CT of the head that showed no acute findings. He also was with complaints of right-sided chest pain due to his fall. Patient was noted to have an elevated d-dimer, a CT angiogram of the chest was ordered showing multiple emboli with saddle embolism. Enlarged heart. Right ventricle slightly enlarged and consistent with right heart strain. Bilateral pulmonary infiltrates. Embolism is new compared to old exam. Left side adenopathy that appears increased compared to old exam. There is improvement in a mass at the posterior inferior pulmonary hilum compared to old exam. multiple filling defects in the pulmonary arteries bilaterally. There is saddle embolism with blood clot across the distal main pulmonary artery. He also underwent a venous Doppler of bilateral lower extremity showing positive for DVT in the right lower extremity. Troponins were negative 3. Pulmonology has seen patient and ordered a stat echocardiogram. The patient currently denies any chest pain, shortness of breath, abdominal pain, fevers, or chills. He denies pain to bilateral lower extremities. Review of Systems A 14 point review of systems was completed all pertinent positives and negatives as stated in the HPI Past Medical History Past Medical History: Coronary Artery Disease (CAD), Cancer, Chest Pain / Angina, COPD, Diabetes Mellitus, GERD/Reflux, Hyperlipidemia, Hypertension, Osteoarthritis (OA), Skin Disorder, Thyroid Disorder Additional Past Medical History / Comment(s): Skin cancer, lung CA-stage 4. dx 12/2019 Hx of hemoptysis, wgt loss 120# in 12 months. chemo last 02/11/21 History of Any Multi-Drug Resistant Organisms: None Reported Past Surgical History: Heart Catheterization, Orthopedic Surgery Additional Past Surgical History / Comment(s): heart cath x2. Lt Knee scope, Rt Shoulder surg. Colonoscopy. bilat cataracts w/ lens implants Past Anesthesia/Blood Transfusion Reactions: No Reported Reaction Past Psychological History: No Psychological Hx Reported Smoking Status: Former smoker Past Alcohol Use History: None Reported Additional Past Alcohol Use History / Comment(s): Smoked from age 12 - quit 1989, 2 ppd. Past Drug Use History: None Reported - Past Family History Mother Family Medical History: Cancer, Dementia Medications and Allergies Home Medications Medication Instructions Recorded Confirmed Type Levothyroxine Sodium [Synthroid] 25 mcg PO DAILY 04/12/15 02/24/21 History Atorvastatin [Lipitor] 20 mg PO HS 08/02/15 02/24/21 History Mirtazapine [Remeron] 15 mg PO HS #30 tab 05/17/20 02/24/21 Rx Escitalopram [Lexapro] 10 mg PO DAILY 01/10/21 02/24/21 History Fluticasone/Umeclidin/Vilanter 1 puff INHALATION RT-DAILY 01/10/21 02/24/21 History [Trelegy Ellipta 100-62.5-25] Fexofenadine HCl [Ene Allergy] 180 mg PO DAILY 02/24/21 02/24/21 History HYDROcodone/APAP 10-325MG [Isabella 1 tab PO Q6HR PRN 02/24/21 02/24/21 History 10-325] Lactulose [Constulose] 10 gm PO BID PRN 02/24/21 02/24/21 History Lubiprostone 24 mcg PO BID 02/24/21 02/24/21 History Midodrine [ProAmatine] 5 mg PO TID 02/24/21 02/24/21 History Montelukast [Singulair] 10 mg PO DAILY 02/24/21 02/24/21 History Ondansetron Odt [Zofran Odt] 4 mg PO Q6H PRN 02/24/21 02/24/21 History Allergies Allergy/AdvReac Type Severity Reaction Status Date / Time Sulfa (Sulfonamide Allergy Severe Anaphylaxis Verified 02/24/21 17:31 Antibiotics) cefuroxime [From Ceftin] Allergy Unknown Verified 02/24/21 17:31 latex Allergy Rash/Hives Verified 02/24/21 17:31 Penicillins Allergy Swelling Verified 02/24/21 17:31 Surgical - Exam Vital Signs Temp Pulse Resp BP Pulse Ox 98.3 F 88 20 94/65 99 02/24/21 16:39 02/24/21 16:39 02/24/21 16:39 02/24/21 16:39 02/24/21 16:39 General appearance: The patient is alert, oriented, in no acute distress. HET: Head is normocephalic and atraumatic. Neck: Supple without lymphadenopathy. Trachea midline. Heart: S1 S2. Regular rate and rhythm. Lungs: Clear to auscultation. Abdomen: Soft, nontender, nondistended with bowel sounds. No peritoneal signs. No palpable organomegaly or masses. Extremities: Normal skin color and turgor. No cyanosis, rash, ulceration, clubbing, or edema. Radial and pedal pulses are 2/4 bilaterally. Neurological: No focal deficits. Strength and sensation are grossly intact. Results - Labs 02/27/21 06:02 02/26/21 04:27 Abnormal Lab Results - Last 24 Hours (Table) 02/26/21 02/26/21 02/27/21 Range/Units 04:27 20:31 06:02 WBC (3.8-10.6) k/uL RBC (4.30-5.90) m/uL Hgb (13.0-17.5) gm/dL Hct (39.0-53.0) % RDW (11.5-15.5) % APTT 42.3 H 104.5 H* (22.0-30.0) sec Carbon Dioxide 17.9 L (21.6-31.8) mmol/L Anion Gap 15.10 H (4.00-12.00) mmol/L BUN 7.0 L (9.0-27.0) mg/dL Creatinine 0.5 L (0.6-1.5) mg/dL Calcium 7.9 L (8.7-10.3) mg/dL 02/27/21 Range/Units 06:02 WBC 3.6 L (3.8-10.6) k/uL RBC 3.58 L (4.30-5.90) m/uL Hgb 11.3 L (13.0-17.5) gm/dL Hct 34.7 L (39.0-53.0) % RDW 19.8 H (11.5-15.5) % APTT (22.0-30.0) sec Carbon Dioxide (21.6-31.8) mmol/L Anion Gap (4.00-12.00) mmol/L BUN (9.0-27.0) mg/dL Creatinine (0.6-1.5) mg/dL Calcium (8.7-10.3) mg/dL Microbiology - Last 24 Hours (Table) 02/25/21 12:43 Blood Culture - Preliminary Blood No Growth after 24 hours Diabetes panel 02/26/21 Range/Units 04:27 Sodium 139 (135-145) mmol/L Potassium 3.9 (3.5-5.5) mmol/L Chloride 106 (96-109) mmol/L Carbon Dioxide 17.9 L (21.6-31.8) mmol/L BUN 7.0 L (9.0-27.0) mg/dL Creatinine 0.5 L (0.6-1.5) mg/dL Glucose 103 (70-110) mg/dL Calcium 7.9 L (8.7-10.3) mg/dL Calcium panel 02/26/21 Range/Units 04:27 Calcium 7.9 L (8.7-10.3) mg/dL Pituitary panel 02/26/21 Range/Units 04:27 Sodium 139 (135-145) mmol/L Potassium 3.9 (3.5-5.5) mmol/L Chloride 106 (96-109) mmol/L Carbon Dioxide 17.9 L (21.6-31.8) mmol/L BUN 7.0 L (9.0-27.0) mg/dL Creatinine 0.5 L (0.6-1.5) mg/dL Glucose 103 (70-110) mg/dL Calcium 7.9 L (8.7-10.3) mg/dL Adrenal panel 02/26/21 Range/Units 04:27 Sodium 139 (135-145) mmol/L Potassium 3.9 (3.5-5.5) mmol/L Chloride 106 (96-109) mmol/L Carbon Dioxide 17.9 L (21.6-31.8) mmol/L BUN 7.0 L (9.0-27.0) mg/dL Creatinine 0.5 L (0.6-1.5) mg/dL Glucose 103 (70-110) mg/dL Calcium 7.9 L (8.7-10.3) mg/dL - Imaging Comments: See HPI for details Assessment and Plan Assessment: 1. Multiple pulmonary emboli with saddle urinary embolism 2. Stage IV lung cancer on chemotherapy 3. COPD 4. Coronary artery disease with history of stent 5. Former smoker 6. Diabetes mellitus 7. Hypertension 8. Hyperlipidemia 9. Hypothyroidism 10. GERD Plan: Await echocardiogram results. If confirms right heart strain would consider possible intervention. Will discuss with pulmonology. Continue with IV heparin. Further recommendations to follow. Thank you for this consultation, and allowing us take part in the plan of care of your patient during his hospital stay. The impression and plan of care has been dictated as directed. Dr. Murillo I performed a history and examination of this patient, discussed the same with the dictator. I agree with the dictator's note ,documented as a scribe. Any additional findings or plans will be noted.
[2021-02-27] MEDS: ESCITALOPRAM 10 MG TAB PO SCH (08:38)
[2021-02-27] MEDS: LUBIPROSTONE 24 MCG PO SCH ×2 (08:38→20:41)
[2021-02-27] MEDS: LORATADINE 10 MG TAB PO SCH (08:38)
[2021-02-27] MEDS: MIDODRINE 5 MG TAB PO SCH ×3 (08:38→20:41)
[2021-02-27] MEDS: MONTELUKAST 10 MG TAB PO SCH (08:38)
[2021-02-27 09:00] LABS: Basophils # (M) 0.04 k/uL (0-0.2); Metamyelocytes # (M) 0.07 k/uL (0); Metamyelocytes % 2 %; Nucleated Red Blood Cells 0 /100 WBC (0-0)
[2021-02-27 09:03] LABS: Band Neutrophils % 1 %; Eosinophils # (M) 0.14 k/uL (0-0.7); Lymphocytes # (M) 0.79 k/uL (1.0-4.8); Monocytes # (M) 0.72 k/uL (0-1.0); Myelocytes # (M) 0.07 k/uL (0); Myelocytes % 2 %; Neutrophils % (M) 51 %; Total Cells Counted 200
[2021-02-27] MEDS: HEPARIN SOD,PORK IN 0.45% NACL 25,000 UNIT in 0.45% NACL 1 250ML.BAG IV SCH (09:38)
--- NOTE | 2021-02-27 10:01 | ECHOF ---
Referral Reason:saddle PE, rule out RVHS MEASUREMENTS -------- HEIGHT: 185.4 cm WEIGHT: 76.7 kg BP: 121/70 RVIDd: 5.3 cm (< 3.3) IVSd: 1.0 cm (0.6 - 1.1) LVIDd: 3.8 cm (3.9 - 5.3) LVPWd: 1.1 cm (0.6 - 1.1) IVSs: 1.5 cm LVIDs: 2.4 cm LVPWs: 1.8 cm LAESV Index (A-L): 21.44 ml/m Ao Diam: 3.2 cm (2.0 - 3.7) AV Cusp: 1.8 cm (1.5 - 2.6) MV EXCURSION: 19.315 mm (> 18.000) MV EF SLOPE: 87 mm/s (70 - 150) EPSS: 0.4 cm MV E Dav: 0.86 m/s MV DecT: 178 ms MV A Dav: 1.13 m/s MV E/A Ratio: 0.76 RAP: 5.00 mmHg RVSP: 38.66 mmHg TAPSE: 25.51 mm FINDINGS -------- Sinus rhythm. This was a technically adequate study. The left ventricular size is normal. Left ventricular wall thickness is normal. Overall left vent ricular systolic function is normal with, an EF between 55 - 60 %. The diastolic filling pattern is normal for the age of the patient 15.21. The right ventricle is severely enlarged. Normal LA size by volume 22+/-6 ml/m2. The right atrial size is normal. Interatrial and interventricular septum intact. The aortic valve is trileaflet and appears structurally normal. There is mild aortic valve sclerosi s. There is no evidence of aortic regurgitation. There is no evidence of aortic stenosis. No mitral regurgitation. Mild tricuspid regurgitation present. There is borderline pulmonary artery hypertension. The righ t ventricular systolic pressure, as measured by Doppler, is 38.66mmHg. There is no pulmonic regurgitation present. The aortic root size is normal. IVC Not well visulized. There is no pericardial effusion. CONCLUSIONS -------- 1. The left ventricular size is normal. 2. Left ventricular wall thickness is normal. 3. Overall left ventricular systolic function is normal with, an EF between 55 - 60 %. 4. The diastolic filling pattern is normal for the age of the patient 15.21 5. The right ventricle is severely enlarged. 6. There is mild aortic valve sclerosis. 7. Mild tricuspid regurgitation present. 8. There is borderline pulmonary artery hypertension. WINDOW TINTER: Lizz Rainey RDCS
--- NOTE | 2021-02-27 12:45 | P.PN ---
Subjective Progress Note Date: 02/27/21 Principal diagnosis: Acute DVT/PE New DVT/PE. Continue Heparin drip while awaiting vascular decision on intervention Objective - Vital Signs Vital signs: Vital Signs Temp 98.1 F 02/27/21 05:00 Pulse 70 02/27/21 12:21 Resp 16 02/27/21 07:30 BP 106/69 02/27/21 12:21 Pulse Ox 97 02/27/21 12:21 Intake & Output 02/26/21 02/27/21 02/27/21 18:59 06:59 18:59 Intake Total 1449.284 112.914 126.303 Balance 1449.284 112.914 126.303 Intake: Intake, IV Titration 249.284 112.914 126.303 Amount Heparin Sod,Pork in 0.45% 249.284 112.914 126.303 NaCl 25,000 unit In 0.45 % NaCl 1 250ml.bag @ 18 UNITS/KG/HR 13.798 mls/hr IV .Q18H8M [facility] Rx#: [id number] Oral 1200 Other: Voiding Method Toilet Toilet Toilet # Voids 3 2 # Bowel Movements 0 0 - Exam - Constitutional General appearance: Present: average body habitus, cooperative, no acute distress - EENT Eyes: Present: anicteric sclerae, EOMI ENT: Present: hearing grossly normal - Respiratory Respiratory: bilateral: CTA, diminished - Cardiovascular Heart sounds: normal: S1, S2 - Peripheral edema leg Peripheral Edema: bilateral: None - Gastrointestinal General gastrointestinal: Present: normal bowel sounds, soft - Neurologic Neurologic: Present: CNII-XII intact - Musculoskeletal Musculoskeletal: Present: generalized weakness - Psychiatric Psychiatric: Present: A&O x's 3, appropriate affect, intact judgment & insight - Labs CBC & Chem 7: 02/27/21 06:02 02/26/21 04:27 Labs: Abnormal Lab Results - Last 24 Hours (Table) 02/26/21 02/27/21 02/27/21 Range/Units 20:31 06:02 06:02 WBC 3.6 L (3.8-10.6) k/uL RBC 3.58 L (4.30-5.90) m/uL Hgb 11.3 L (13.0-17.5) gm/dL Hct 34.7 L (39.0-53.0) % RDW 19.8 H (11.5-15.5) % Lymphocytes # (Manual) 0.79 L (1.0-4.8) k/uL Metamyelocytes # (Man) 0.07 H (0) k/uL Myelocytes # (Manual) 0.07 H (0) k/uL APTT 42.3 H 104.5 H* (22.0-30.0) sec Microbiology - Last 24 Hours (Table) 02/25/21 12:43 Blood Culture - Preliminary Blood No Growth after 24 hours Assessment and Plan Plan: Assessment and Plan (1) SCLC (small cell lung carcinoma) Narrative/Plan: Progression on PET 11/28/20. Treatment regimen changed, s/p 4 cycles zepzelca. Current Visit: Yes Status: Chronic Priority: High Code(s): C34.90 - MALIGNANT NEOPLASM OF UNSP PART OF UNSP BRONCHUS OR LUNG SNOMED Code(s): 561789401 Anemia and Leukopenia due to antineoplastic chemotherapy Narrative/Plan: - Stable today no transfusions needed Current Visit: Yes Status: Acute Priority: Medium Code(s): D70.1 - AGRANULOCYTOSIS SECONDARY TO CANCER CHEMOTHERAPY; T45.1X5A - ADVERSE EFFECT OF ANTINEOPLASTIC AND IMMUNOSUP DRUGS, INIT SNOMED Code(s): 662140997 Acute DVT and Pulmonary Emboli: - Await further work-up to determine if heart strain and intervention is needed - Continue Heparin drip in interim in anticipation of possible intervention - Vascular Surgery Following Once confirmed no further intervention can be switched to eliquis (10mg bid x7 days, then 5mg bid). Discussed risks with patient and of falling and bleeding, state understanding. Delay Next weeks scheduled PET scan for accurate read. Otherwise may continue with regular follow-up and last chemotherapy plan
--- NOTE | 2021-02-27 13:42 | P.PN ---
Subjective Progress Note Date: 02/27/21 Principal diagnosis: Dyspnea, hypoxia, acute pulmonary embolism On today's evaluation on 02/27/2021 patient seen in follow-up on medical oncology floor. Is awake and alert, in no acute distress, is on 2 L of oxygen with pulse ox of 97%, no acute events overnight, no chest discomfort, no hemoptysis. No worsening hypoxia. Echocardiogram has been completed showing severe enlargement of the right ventricle, but overall left ventricle systolic function was normal with an EF between 55 and 60%, mild tricuspid regurg, PA pressure was 38.6 mmHg. Pressures have been relatively stable. He remains on high intensity heparin infusion. This morning's PTT is 104.5, and heparin i nfusion was adjusted accordingly. Breasts labs 7 reviewed, his white blood cell count is 3.6, hemoglobin is 11.3, platelet count is 252. Troponins were negative 3 at 0.014, 0.012, and less than 0.012. Overall patient is generally weak, he does get exertional dyspnea, but denies any specific complaints at this time, vascular surgery has been consulted for possibility of a cause, and at this time it was decided that oral anticoagulation should continue, and no urgent indication for EKOS. This was discussed with the patient and his family who were in agreement to continue with IV anticoagulation for another day, and start oral anticoagulation started. Objective - Vital Signs Vital signs: Vital Signs Temp 98.1 F 02/27/21 05:00 Pulse 70 02/27/21 12:21 Resp 16 02/27/21 07:30 BP 106/69 02/27/21 12:21 Pulse Ox 97 02/27/21 12:21 Intake & Output 02/26/21 02/27/21 02/27/21 18:59 06:59 18:59 Intake Total 1449.284 112.914 126.303 Balance 1449.284 112.914 126.303 Intake: Intake, IV Titration 249.284 112.914 126.303 Amount Heparin Sod,Pork in 0.45% 249.284 112.914 126.303 NaCl 25,000 unit In 0.45 % NaCl 1 250ml.bag @ 18 UNITS/KG/HR 13.798 mls/hr IV .Q18H8M [facility] Rx#: [id number] Oral 1200 Other: Voiding Method Toilet Toilet Toilet # Voids 3 2 # Bowel Movements 0 0 - Exam GENERAL EXAM: Alert, very pleasant, 76-year-old white male, slightly pale, chronically ill-looking, but appears to be in no acute distress, currently on 2 L of oxygen pulse ox of 97% comfortable in no apparent distress. HEAD: Normocephalic/atraumatic. EYES: Normal reaction of pupils, equal size. Conjunctiva pink, sclera white. NOSE: Clear with pink turbinates. THROAT: No erythema or exudates. NECK: No masses, no JVD, no thyroid enlargement, no adenopathy. CHEST: No chest wall deformity. Symmetrical expansion. LUNGS: Equal air entry with no crackles, wheeze, rhonchi or dullness. CVS: Regular rate and rhythm, normal S1 and S2, no gallops, no murmurs, no rubs ABDOMEN: Soft, nontender. No hepatosplenomegaly, normal bowel sounds, no guarding or rigidity. EXTREMITIES: No clubbing, no edema, no cyanosis, 2+ pulses and upper and lower extremities. MUSCULOSKELETAL: Muscle strength and tone normal. SPINE: No scoliosis or deformity SKIN: No rashes CENTRAL NERVOUS SYSTEM: Alert and oriented -3. No focal deficits, tone is normal in all 4 extremities. PSYCHIATRIC: Alert and oriented -3. Appropriate affect. Intact judgment and insight. - Labs CBC & Chem 7: 02/27/21 06:02 02/26/21 04:27 Labs: Abnormal Lab Results - Last 24 Hours (Table) 02/26/21 02/27/21 02/27/21 Range/Units 20:31 06:02 06:02 WBC 3.6 L (3.8-10.6) k/uL RBC 3.58 L (4.30-5.90) m/uL Hgb 11.3 L (13.0-17.5) gm/dL Hct 34.7 L (39.0-53.0) % RDW 19.8 H (11.5-15.5) % Lymphocytes # (Manual) 0.79 L (1.0-4.8) k/uL Metamyelocytes # (Man) 0.07 H (0) k/uL Myelocytes # (Manual) 0.07 H (0) k/uL APTT 42.3 H 104.5 H* (22.0-30.0) sec Microbiology - Last 24 Hours (Table) 02/25/21 12:43 Blood Culture - Preliminary Blood No Growth after 24 hours Assessment and Plan Plan: Assessment: #1. Acute bilateral and central pulmonary embolism, with CT evidence of right heart strain and shortness of breath, acute on chronic. Echocardiogram showed severe RV enlargement, but PA pressures were not significantly elevated at 38.6 mmHg and evidence of mild tricuspid regurgitation. No immediate indication for EKOS at this time per the consensus with the vascular surgery and pulmonary service. Continue medical treatment #2. History of advanced/metastatic small cell lung cancer, with history of recent progression from November 2020, currently having completed 4 cycles of Zepzelca, and most recently on Neulasta #3. Increased weakness and falls #4. Leukopenia and anemia, likely chemotherapy induced. #5. History of COPD #6. Diabetes mellitus type 2 #7. Hypertension #8. Hyperlipidemia #9. Hypothyroidism #10. Former smoker #11. Coronary artery disease Plan: Case was discussed with vascular surgery in the patient Echocardiogram reviewed Patient was seen and examined with Dr. Coronel We'll proceed with medical treatment at this time, continue heparin infusion for another 24 hours We'll transition to oral Xa inhibitor tomorrow No immediate indication for EKOS at this time. Continue to follow I performed a history & physical examination of the patient and discussed their management with my nurse practitioner, Lilian Dougherty. I reviewed the nurse practitioner's note and agree with the documented findings and plan of care. Lung sounds are positive for clear breath sounds throughout the lung dunn. The findings and the impression was discussed with the patient. I attest to the documentation by the nurse practitioner. Time with Patient: Less than 30
--- NOTE | 2021-02-27 14:48 | PN ---
PROGRESS NOTE DATE OF SERVICE: 02/27/2021 This 76-year-old gentleman who was admitted with acute bilateral pulmonary embolism and saddle pulmonary embolism also had right ventricular strain pattern. Vascular Surgery has seen the patient and recommended continuing the current medications. Patient is being closely monitored. No chest pain. No palpitations. No fever. PHYSICAL EXAMINATION: On exam, alert and oriented x3. Pulse 102, blood pressure 84/61, respiration 17, temperature normal, pulse ox 97% on 2 L. HEENT: Conjunctivae normal. NECK: No jugular venous distention. RESPIRATION: Breath sounds diminished at the bases. A few scattered rhonchi. ABDOMEN: Soft. NERVOUS SYSTEM: No focal deficit. LABS: WBC 3.6, hemoglobin 11.3. APTT noted. ASSESSMENT: 1. Acute bilateral pulmonary embolism with saddle pulmonary embolism with possibly right ventricular strain and acute cor pulmonale. 2. Syncope and fall. 3. Hyponatremia. 4. Leukopenia and neutropenia. 5. Anemia; normocytic anemia secondary to malignancy and chemotherapy. 6. Decreased carbon dioxide. 7. History of small-cell neuroendocrine lung cancer, on chemotherapy. 8. History of chest pain, angina. 9. History of chronic obstructive pulmonary disease. 10.Diabetes mellitus, type 2. 11.Gastroesophageal reflux disease. 12.Hypertension. 13.Hyperlipidemia. 14.History of degenerative joint disease. 15.History of hypothyroidism. 16.History of hemoptysis. 17.History of weight loss. 18.History of cardiac catheterization. 19.History of nicotine dependence. 20.FULL CODE. RECOMMENDATIONS AND DISCUSSION: I recommend to continue current medications, continue with the monitoring, continue with symptomatic treatment. Otherwise at this time I recommend continuing with IV heparin. Vascular surgery notes appreciated. Will continue to monitor. Prognosis guarded. Further recommendations to follow. Discussed with the family and the patient. Dr. Martino will follow tomorrow. MMODL / IJN: [id number] /
[2021-02-27] MEDS: MIRTAZAPINE 15 MG TAB PO SCH (20:41)
[2021-02-27] MEDS: ATORVASTATIN 20 MG TAB PO SCH (20:42)
[2021-02-27] MEDS: LACTULOSE 20 GM/30 ML CUP PO PRN (20:45)
[2021-02-28] MEDS: HEPARIN SOD,PORK IN 0.45% NACL 25,000 UNIT in 0.45% NACL 1 250ML.BAG IV SCH (03:08)
[2021-02-28] MEDS: SODIUM CHLORIDE 0.9% 1,000 ML IV SCH ×2 (05:14→16:50)
[2021-02-28] MEDS: LEVOTHYROXINE 25 MCG TAB PO SCH (05:14)
[2021-02-28 05:51] LABS: Anisocytosis Slight; HCT 35.7 % (39.0-53.0); MCH 32.5 pg (25.0-35.0); MCHC 33.7 g/dL (31.0-37.0); MCV 96.5 fL (80.0-100.0); Macrocytosis Slight; Platelet Count 277 k/uL (150-450); RDW 19.4 % (11.5-15.5); WBC 5.2 k/uL (3.8-10.6)
[2021-02-28] MEDS ORDERED: HEPARIN SODIUM 1,000 UN/ML (10ML VL) IVP ONE (06:25)
[2021-02-28 06:30] LABS: Anisocytosis (M) Present; Band Neutrophils % 4 %; Eosinophils # (M) 0.21 k/uL (0-0.7); Lymphocytes # (M) 0.83 k/uL (1.0-4.8); Metamyelocytes % 2 %; Monocytes # (M) 0.99 k/uL (0-1.0); Myelocytes # (M) 0.21 k/uL (0); Myelocytes % 4 %; Neutrophils % (M) 52 %; Nucleated Red Blood Cells 0 /100 WBC (0-0); Polychromasia Present; Total Cells Counted 200
[2021-02-28] MEDS: SYMBICORT 160-4.5 MCG INHALER INHALATION SCH ×2 (08:01→19:12)
[2021-02-28] MEDS: IPRATROPIUM 0.5 MG/2.5 ML NEBU INHALATION SCH ×4 (08:01→19:12)
[2021-02-28] MEDS: APIXABAN 5 MG TAB PO SCH ×2 (08:24→21:38)
[2021-02-28] MEDS: MONTELUKAST 10 MG TAB PO SCH (08:24)
[2021-02-28] MEDS: LUBIPROSTONE 24 MCG PO SCH ×2 (08:25→21:38)
[2021-02-28] MEDS: LORATADINE 10 MG TAB PO SCH (08:25)
[2021-02-28] MEDS: ESCITALOPRAM 10 MG TAB PO SCH (08:25)
[2021-02-28] MEDS: MIDODRINE 5 MG TAB PO SCH ×3 (08:25→21:38)
[2021-02-28 09:59] LABS: African American GFR (CKD) 131.9 (60.0-200.0); Albumin 3.6 g/dL (3.80-4.90); Albumin/Globulin Ratio 1.03 (1.60-3.17); Anion Gap 11.2 mmol/L (4.00-12.00); BUN/Creat Ratio 17.5 Ratio (12.00-20.00); Calcium 8.3 mg/dL (8.7-10.3); Carbon Dioxide 20.8 mmol/L (21.6-31.8); Globulin 3.5 g/dL (1.6-3.3); Magnesium 2.1 mg/dL (1.5-2.4); Non-African American GFR(CKD) 113.8 (60.0-200.0); Potassium 4.2 mmol/L (3.5-5.5); Total Bilirubin 0.3 mg/dL (0.2-1.2); Total Protein 7.1 g/dL (6.2-8.2)
--- NOTE | 2021-02-28 10:28 | P.PN ---
Subjective Progress Note Date: 02/28/21 Principal diagnosis: Acute pulmonary embolism On today's evaluation on 02/27/2021 patient seen in follow-up on medical oncology floor. Is awake and alert, in no acute distress, is on 2 L of oxygen with pulse ox of 97%, no acute events overnight, no chest discomfort, no hemopty sis. No worsening hypoxia. Echocardiogram has been completed showing severe enlargement of the right ventricle, but overall left ventricle systolic function was normal with an EF between 55 and 60%, mild tricuspid regurg, PA pressure was 38.6 mmHg. Pressures have been relatively stable. He remains on high intensity heparin infusion. This morning's PTT is 104.5, and heparin infusion was adjust ed accordingly. Breasts labs 7 reviewed, his white blood cell count is 3.6, hemoglobin is 11.3, platelet count is 252. Troponins were negative 3 at 0.014, 0.012, and less than 0.012. Overall patient is generally weak, he does get exertional dyspnea, but denies any specific complaints at this time, vascular surgery has been consulted for possibility of a cause, and at this time it was decided that oral anticoagulation should continue, and no urgent indication for EKOS. This was discussed with the patient and his family who were in agreement to continue with IV anticoagulation for another day, and start oral anticoagulation started. The patient is seen today 02/28/2021 in follow-up on the oncology floor. He is currently resting comfortably in bed. Awake and alert in no acute distress. Breathing easier today compared to yesterday. Maintaining good O2 saturations in the mid 90s on room air. He's been afebrile. Hemodynamically stable. Blood culture reveals no growth to date. White count 5.2. Hemoglobin 12.0. Sodium 138. Potassium 4.2. Creatinine 0.4. Glucose 112. PTT 42.6. He remains on a heparin drip. Being transitioned to Eliquis. Continues on Symbicort, albutero l, Singulair. Objective - Vital Signs Vital signs: Vital Signs Temp 98.1 F 02/28/21 05:00 Pulse 72 02/28/21 08:13 Resp 16 02/28/21 08:00 BP 100/57 02/28/21 05:00 Pulse Ox 94 L 02/28/21 05:00 Intake & Output 0802/28/21 02/28/21 18:59 06:59 18:59 Intake Total 443.020 9286.808 Balance 252.029 9685.808 Intake: Intake, IV Titration 556.679 2783.808 Amount Heparin Sod,Pork in 0.45% 126.303 267.808 NaCl 25,000 unit In 0.45 % NaCl 1 250ml.bag @ 18 UNITS/KG/HR 13.798 mls/hr IV .Q18H8M [facility] Rx#: [id number] Sodium Chloride 0.9% 1, 600 825 000 ml @ 75 mls/hr IV . [id number] [facility] Rx#:[id number] Other: Voiding Method Toilet Toilet Toilet # Voids 2 # Bowel Movements 0 - Exam GENERAL EXAM: Alert, very pleasant 68-year-old gentleman, on room air, comfortable in no apparent distress. HEAD: Normocephalic. EYES: Normal reaction of pupils, equal size. NOSE: Clear with pink turbinates. THROAT: No erythema or exudates. NECK: No masses, no JVD. CHEST: No chest wall deformity. LUNGS: Equal air entry with faint crackles in the posterior bases. CVS: S1 and S2 normal with no audible murmur, regular rhythm. ABDOMEN: No hepatosplenomegaly, normal bowel sounds, no guarding or rigidity. SPINE: No scoliosis or deformity SKIN: No rashes CENTRAL NERVOUS SYSTEM: No focal deficits, tone is normal in all 4 extremities. EXTREMITIES: There is no peripheral edema. No clubbing, no cyanosis. Peripheral pulses are intact. - Labs CBC & Chem 7: 02/28/21 05:14 02/28/21 05:14 Labs: Abnormal Lab Results - Last 24 Hours (Table) 02/27/21 02/28/21 02/28/21 Range/Units 12:50 05:14 05:14 RBC 3.70 L (4.30-5.90) m/uL Hgb 12.0 L (13.0-17.5) gm/dL Hct 35.7 L (39.0-53.0) % RDW 19.4 H (11.5-15.5) % Lymphocytes # (Manual) 0.83 L (1.0-4.8) k/uL Metamyelocytes # (Man) 0.10 H (0) k/uL Myelocytes # (Manual) 0.21 H (0) k/uL APTT 44.7 H 42.6 H (22.0-30.0) sec Carbon Dioxide (21.6-31.8) mmol/L BUN (9.0-27.0) mg/dL Creatinine (0.6-1.5) mg/dL Glucose (70-110) mg/dL Calcium (8.7-10.3) mg/dL Albumin (3.80-4.90) g/dL Globulin (1.6-3.3) g/dL Albumin/Globulin Ratio (1.60-3.17) g/dL 02/28/21 Range/Units 05:14 RBC (4.30-5.90) m/uL Hgb (13.0-17.5) gm/dL Hct (39.0-53.0) % RDW (11.5-15.5) % Lymphocytes # (Manual) (1.0-4.8) k/uL Metamyelocytes # (Man) (0) k/uL Myelocytes # (Manual) (0) k/uL APTT (22.0-30.0) sec Carbon Dioxide 20.8 L (21.6-31.8) mmol/L BUN 7.0 L (9.0-27.0) mg/dL Creatinine 0.4 L (0.6-1.5) mg/dL Glucose 112 H (70-110) mg/dL Calcium 8.3 L (8.7-10.3) mg/dL Albumin 3.60 L (3.80-4.90) g/dL Globulin 3.5 H (1.6-3.3) g/dL Albumin/Globulin Ratio 1.03 L (1.60-3.17) g/dL Microbiology - Last 24 Hours (Table) 02/25/21 12:43 Blood Culture - Preliminary Blood No Growth after 48 hours Assessment and Plan Assessment: 1 Acute bilateral and central pulmonary embolism, with CT evidence of right heart strain and shortness of breath, acute on chronic. Echocardiogram showed severe RV enlargement, but PA pressures were not significantly elevated at 38.6 mmHg and evidence of mild tricuspid regurgitation. No immediate indication for EKOS at this time. Stable and on room air. Heparin drip, being transitioned to Eliquis 2 History of advanced/metastatic small cell lung cancer, with history of recent progression from November 2020, currently having completed 4 cycles of Zepzelca, and most recently on Neulasta 3 Increased weakness and falls 4 Leukopenia and anemia, likely chemotherapy induced. 5 History of COPD 6 Diabetes mellitus type 2 7 Hypertension 8 Hyperlipidemia 9 Hypothyroidism 10 Former smoker 11 Coronary artery disease Plan: The patient was seen and evaluated by Dr. Coronle Currently stable from the pulmonary standpoint Being transitioned to Eliquis I, the cosigning physician, performed a history & physical examination of the patient. Lungs sounds with faint crackles in the posterior bases. Maintaining good O2 saturations in the 90s on room air. I discussed the assessment and plan of care with my nurse practitioner, Yandy Ayala. I attest to the above note as dictated by her.
--- NOTE | 2021-02-28 11:58 | P.PN ---
Subjective Progress Note Date: 02/28/21 Principal diagnosis: Pulmonary embolism Patient is seen and examined lying in bed. He states he's feeling much better. Denies any shortness of breath or chest pain. States dyspnea on exertion has improved. He remains on 2 L of nasal cannula and oxygen is 94%. Patient has be en transitioned from heparin drip to Eliquis. Objective - Vital Signs Vital signs: Vital Signs Temp 98.1 F 02/28/21 05:00 Pulse 72 02/28/21 08:13 Resp 16 02/28/21 08:00 BP 100/57 02/28/21 05:00 Pulse Ox 94 L 02/28/21 05:00 Intake & Output 02/27/21 02/28/21 02/28/21 18:59 06:59 18:59 Intake Total 869.112 9738.808 Balance 886.215 5756.808 Intake: Intake, IV Titration 358.974 1036.808 Amount Heparin Sod,Pork in 0.45% 126.303 267.808 NaCl 25,000 unit In 0.45 % NaCl 1 250ml.bag @ 18 UNITS/KG/HR 13.798 mls/hr IV .Q18H8M [facility] Rx#: [id number] Sodium Chloride 0.9% 1, 600 825 000 ml @ 75 mls/hr IV . [id number] [facility] Rx#:[id number] Other: Voiding Method Toilet Toilet Toilet # Voids 2 # Bowel Movements 0 - Exam General appearance: The patient is alert, oriented, in no acute distress. HET: Head is normocephalic and atraumatic. Neck: Supple without lymphadenopathy. Trachea midline. Heart: S1 S2. Regular rate and rhythm. Lungs: Clear to auscultation bilaterally. Neurological: No focal deficits. Strength and sensation are grossly intact. - Labs CBC & Chem 7: 02/28/21 05:14 02/28/21 05:14 Labs: Abnormal Lab Results - Last 24 Hours (Table) 02/27/21 02/28/21 02/28/21 Range/Units 12:50 05:14 05:14 RBC 3.70 L (4.30-5.90) m/uL Hgb 12.0 L (13.0-17.5) gm/dL Hct 35.7 L (39.0-53.0) % RDW 19.4 H (11.5-15.5) % Lymphocytes # (Manual) 0.83 L (1.0-4.8) k/uL Metamyelocytes # (Man) 0.10 H (0) k/uL Myelocytes # (Manual) 0.21 H (0) k/uL APTT 44.7 H 42.6 H (22.0-30.0) sec Microbiology - Last 24 Hours (Table) 02/25/21 12:43 Blood Culture - Preliminary Blood No Growth after 48 hours Assessment and Plan Assessment: 1. Multiple pulmonary emboli with saddle urinary embolism 2. Stage IV lung cancer on chemotherapy 3. COPD 4. Coronary artery disease with history of stent 5. Former smoker 6. Diabetes mellitus 7. Hypertension 8. Hyperlipidemia 9. Hypothyroidism 10. GERD Plan: 1. Agree with transition to [facility] 2. No plans on vascular surgical intervention at this time due to increased risk from patient's lung cancer 3. Continue medical management 4. Continue with recommendations from pulmonology Thank you for this consultation, we will sign off at this time. The impression and plan of care has been dictated as directed. I performed a history and examination of this patient, discussed the same with the dictator. I agree with the dictator's note ,documented as a scribe. Any additional findings or plans will be noted.
--- NOTE | 2021-02-28 15:10 | P.PN ---
Subjective Progress Note Date: 02/28/21 Principal diagnosis: Acute DVT/PE Resting Comfortably Objective - Vital Signs Vital signs: Vital Signs Temp 97.5 F L 02/28/21 13:00 Pulse 67 02/28/21 13:00 Resp 17 02/28/21 13:00 BP 105/65 02/28/21 13:00 Pulse Ox 95 02/28/21 13:00 Intake & Output 02/27/21 02/28/21 02/28/21 18:59 06:59 18:59 Intake Total 121.197 1158.808 Balance 826.088 6284.808 Weight 76.657 kg Intake: Intake, IV Titration 788.137 9715.808 Amount Heparin Sod,Pork in 0.45% 126.303 267.808 NaCl 25,000 unit In 0.45 % NaCl 1 250ml.bag @ 18 UNITS/KG/HR 13.798 mls/hr IV .Q18H8M [facility] Rx#: [id number] Sodium Chloride 0.9% 1, 600 825 000 ml @ 75 mls/hr IV . [id number] [facility] Rx#:[id number] Other: Voiding Method Toilet Toilet Toilet # Voids 2 # Bowel Movements 0 - Exam - Constitutional General appearance: Present: average body habitus, cooperative, no acute distress - EENT Eyes: Present: anicteric sclerae, EOMI ENT: Present: hearing grossly normal - Respiratory Respiratory: bilateral: CTA, diminished - Cardiovascular Heart sounds: normal: S1, S2 - Peripheral edema leg Peripheral Edema: bilateral: None - Gastrointestinal General gastrointestinal: Present: normal bowel sounds, soft - Neurologic Neurologic: Present: CNII-XII intact - Musculoskeletal Musculoskeletal: Present: generalized weakness - Psychiatric Psychiatric: Present: A&O x's 3, appropriate affect, intact judgment & insight - Labs CBC & Chem 7: 02/28/21 05:14 02/28/21 05:14 Labs: Abnormal Lab Results - Last 24 Hours (Table) 02/28/21 02/28/21 02/28/21 Range/Units 05:14 05:14 05:14 RBC 3.70 L (4.30-5.90) m/uL Hgb 12.0 L (13.0-17.5) gm/dL Hct 35.7 L (39.0-53.0) % RDW 19.4 H (11.5-15.5) % Lymphocytes # (Manual) 0.83 L (1.0-4.8) k/uL Metamyelocytes # (Man) 0.10 H (0) k/uL Myelocytes # (Manual) 0.21 H (0) k/uL APTT 42.6 H (22.0-30.0) sec Carbon Dioxide 20.8 L (21.6-31.8) mmol/L BUN 7.0 L (9.0-27.0) mg/dL Creatinine 0.4 L (0.6-1.5) mg/dL Glucose 112 H (70-110) mg/dL Calcium 8.3 L (8.7-10.3) mg/dL Albumin 3.60 L (3.80-4.90) g/dL Globulin 3.5 H (1.6-3.3) g/dL Albumin/Globulin Ratio 1.03 L (1.60-3.17) g/dL Microbiology - Last 24 Hours (Table) 02/25/21 12:43 Blood Culture - Preliminary Blood No Growth after 48 hours Assessment and Plan Plan: Assessment and Plan (1) SCLC (small cell lung carcinoma) Narrative/Plan: Progression on PET 11/28/20. Treatment regimen changed, s/p 4 cycles zepzelca. Current Visit: Yes Status: Chronic Priority: High Code(s): C34.90 - MALIGNANT NEOPLASM OF UNSP PART OF UNSP BRONCHUS OR LUNG SNOMED Code(s): 725708577 Anemia and Leukopenia due to antineoplastic chemotherapy Narrative/Plan: - Stable today no transfusions needed Current Visit: Yes Status: Acute Priority: Medium Code(s): D70.1 - AGRANULOCYTOSIS SECONDARY TO CANCER CHEMOTHERAPY; T45.1X5A - ADVERSE EFFECT OF ANTINEOPLASTIC AND IMMUNOSUP DRUGS, INIT SNOMED Code(s): 051208012 Acute DVT and Pulmonary Emboli: - Await further work-up to determine if heart strain and intervention is needed - Continue Heparin drip in interim in anticipation of possible intervention - Vascular Surgery Following sent to [facility] (10mg bid x7 days, then 5mg bid). Delay Next weeks scheduled PET scan for accurate read. Otherwise may continue with regular follow-up and last chemotherapy plan Eliquis to start this am
--- NOTE | 2021-02-28 18:24 | P.PN ---
Subjective Progress Note Date: 02/28/21 Principal diagnosis: Acute bilateral pulmonary embolism with saddle pulmonary was him with right heart strain Leukopenia Syncope 76-year-old male was admitted to the hospital with acute bilateral pulmonary embolism with saddle embolism with significant right heart strain. Patient was initiated on a high intensity heparin drip, transitioned to oral Eliquis for anticoagulation therapy. Several consultants have been following the patient's case throughout hospital stay. Patient has significant medical history of small cell neuroendocrine lung cancer, chest pain angina, COPD, diabetes mellitus type 2, GERD/reflux, hypertension, dyslipidemia, history of degenerative joint d isease, hypothyroidism, history of cardiac catheterizations, history of nicotine dependence, leukopenia, and syncopal episodes. 02/28/2021 Issue seen and examined at bedside. Patient resting comfortably with 2 L of nasal cannula oxygen. Patient has been transitioned from IV heparin to oral anticoagulation of Eliquis. Patient denies fever, chills chest pain, palpitations, abdominal pain, nausea, vomiting or diarrhea. Patient endorses shortness of breath, exertional shortness of breath, and generalized weakness. Vital signs are diagnostic testing have been reviewed. Objective - Vital Signs Vital signs: Vital Signs Temp 97.5 F L 02/28/21 13:00 Pulse 68 02/28/21 15:31 Resp 17 02/28/21 13:00 BP 105/65 02/28/21 13:00 Pulse Ox 95 02/28/21 13:00 Intake & Output 02/27/21 02/28/21 02/28/21 18:59 06:59 18:59 Intake Total 716.906 6369.808 Balance 397.360 8766.808 Weight 76.657 kg Intake: Intake, IV Titration 822.933 6406.808 Amount Heparin Sod,Pork in 0.45% 126.303 267.808 NaCl 25,000 unit In 0.45 % NaCl 1 250ml.bag @ 18 UNITS/KG/HR 13.798 mls/hr IV .Q18H8M [facility] Rx#: [id number] Sodium Chloride 0.9% 1, 600 825 000 ml @ 75 mls/hr IV . [id number] [facility] Rx#:[id number] Other: Voiding Method Toilet Toilet Toilet # Voids 2 2 # Bowel Movements 0 - Constitutional General appearance: Present: mild distress, thin - EENT Eyes: Present: EOMI, PERRLA Ears: bilateral: normal - Neck Neck: Present: normal ROM Carotids: bilateral: upstroke normal - Respiratory Respiratory: bilateral: diminished (Anterior and posterior lung dunn) - Cardiovascular Heart rate: 78 Rhythm: regular Heart sounds: normal: S1, S2 - Peripheral pulses radial pulse Peripheral Pulses: bilateral: Normal dorsalis pedis Peripheral Pulses: bilateral: Normal - Gastrointestinal General gastrointestinal: Present: normal bowel sounds, soft - Integumentary Integumentary: Present: decreased turgor, pale - Neurologic Neurologic: Present: CNII-XII intact - Musculoskeletal Musculoskeletal: Present: generalized weakness - Psychiatric Psychiatric: Present: A&O x's 3, appropriate affect, intact judgment & insight - Allied health notes Allied health notes reviewed: nursing - Labs CBC & Chem 7: 02/28/21 05:14 02/28/21 05:14 Labs: Abnormal Lab Results - Last 24 Hours (Table) 02/28/21 02/28/21 02/28/21 Range/Units 05:14 05:14 05:14 RBC 3.70 L (4.30-5.90) m/uL Hgb 12.0 L (13.0-17.5) gm/dL Hct 35.7 L (39.0-53.0) % RDW 19.4 H (11.5-15.5) % Lymphocytes # (Manual) 0.83 L (1.0-4.8) k/uL Metamyelocytes # (Man) 0.10 H (0) k/uL Myelocytes # (Manual) 0.21 H (0) k/uL APTT 42.6 H (22.0-30.0) sec Carbon Dioxide 20.8 L (21.6-31.8) mmol/L BUN 7.0 L (9.0-27.0) mg/dL Creatinine 0.4 L (0.6-1.5) mg/dL Glucose 112 H (70-110) mg/dL Calcium 8.3 L (8.7-10.3) mg/dL Albumin 3.60 L (3.80-4.90) g/dL Globulin 3.5 H (1.6-3.3) g/dL Albumin/Globulin Ratio 1.03 L (1.60-3.17) g/dL Microbiology - Last 24 Hours (Table) 02/25/21 12:43 Blood Culture - Preliminary Blood No Growth after 72 hours Assessment and Plan Assessment: Acute bilateral pulmonary malaise him with a saddle pulmonary embolism with right ventricular strain and acute cor pulmonale Syncopal episodes with fall Hyponatremia Leukopenia Anemia; normocytic anemia secondary to malignancy and chemotherapy 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
[2021-02-28 20:37] VITALS: RESP 18
[2021-02-28] MEDS: MIRTAZAPINE 15 MG TAB PO SCH (21:38)
[2021-02-28] MEDS: ATORVASTATIN 20 MG TAB PO SCH (21:38)
[2021-03-01] MEDS: LEVOTHYROXINE 25 MCG TAB PO SCH (05:34)
[2021-03-01 06:14] VITALS: BP 116/70; TEMP 97.6
[2021-03-01] MEDS: SYMBICORT 160-4.5 MCG INHALER INHALATION SCH (07:05)
[2021-03-01] MEDS: IPRATROPIUM 0.5 MG/2.5 ML NEBU INHALATION SCH ×2 (07:06→10:52)
[2021-03-01 07:51] LABS: Anisocytosis Slight; HCT 34.8 % (39.0-53.0); HGB 11.3 gm/dL (13.0-17.5); MCH 31.6 pg (25.0-35.0); MCHC 32.6 g/dL (31.0-37.0); Macrocytosis Slight; Mean Platelet Volume 7.7; Platelet Count 281 k/uL (150-450); RBC 3.59 m/uL (4.30-5.90); RDW 19.6 % (11.5-15.5); WBC 4.5 k/uL (3.8-10.6)
[2021-03-01] MEDS: MIDODRINE 5 MG TAB PO SCH (08:47)
[2021-03-01] MEDS: LORATADINE 10 MG TAB PO SCH (08:47)
[2021-03-01] MEDS: MONTELUKAST 10 MG TAB PO SCH (08:47)
[2021-03-01] MEDS: APIXABAN 5 MG TAB PO SCH (08:47)
[2021-03-01] MEDS: LUBIPROSTONE 24 MCG PO SCH (08:47)
[2021-03-01] MEDS: ESCITALOPRAM 10 MG TAB PO SCH (08:47)
[2021-03-01] MEDS: LACTULOSE 20 GM/30 ML CUP PO PRN (09:10)
[2021-03-01 09:53] LABS: African American GFR (CKD) 120.3 (60.0-200.0); Albumin 3.5 g/dL (3.80-4.90); Albumin/Globulin Ratio 1.06 (1.60-3.17); Anion Gap 6.9 mmol/L (4.00-12.00); Calcium 8.4 mg/dL (8.7-10.3); Carbon Dioxide 23.1 mmol/L (21.6-31.8); Globulin 3.3 g/dL (1.6-3.3); Non-African American GFR(CKD) 103.8 (60.0-200.0); Potassium 4.1 mmol/L (3.5-5.5); Total Bilirubin 0.4 mg/dL (0.2-1.2); Total Protein 6.8 g/dL (6.2-8.2)
[2021-03-01 10:55] VITALS: PULSE 72
[2021-03-01] MEDS: SODIUM CHLORIDE 0.9% 1,000 ML IV SCH (11:21)
--- NOTE | 2021-03-01 13:59 | P.PN ---
Subjective Progress Note Date: 03/01/21 Principal diagnosis: Acute pulmonary embolism On today's evaluation on 02/27/2021 patient seen in follow-up on medical oncology floor. Is awake and alert, in no acute distress, is on 2 L of oxygen with pulse ox of 97%, no acute events overnight, no chest discomfort, no hemopty sis. No worsening hypoxia. Echocardiogram has been completed showing severe enlargement of the right ventricle, but overall left ventricle systolic function was normal with an EF between 55 and 60%, mild tricuspid regurg, PA pressure was 38.6 mmHg. Pressures have been relatively stable. He remains on high intensity heparin infusion. This morning's PTT is 104.5, and heparin infusion was adjust ed accordingly. Breasts labs 7 reviewed, his white blood cell count is 3.6, hemoglobin is 11.3, platelet count is 252. Troponins were negative 3 at 0.014, 0.012, and less than 0.012. Overall patient is generally weak, he does get exertional dyspnea, but denies any specific complaints at this time, vascular surgery has been consulted for possibility of a cause, and at this time it was decided that oral anticoagulation should continue, and no urgent indication for EKOS. This was discussed with the patient and his family who were in agreement to continue with IV anticoagulation for another day, and start oral anticoagulation started. The patient is seen today 02/28/2021 in follow-up on the oncology floor. He is currently resting comfortably in bed. Awake and alert in no acute distress. Breathing easier today compared to yesterday. Maintaining good O2 saturations in the mid 90s on room air. He's been afebrile. Hemodynamically stable. Blood culture reveals no growth to date. White count 5.2. Hemoglobin 12.0. Sodium 138. Potassium 4.2. Creatinine 0.4. Glucose 112. PTT 42.6. He remains on a heparin drip. Being transitioned to Eliquis. Continues on Symbicort, albutero l, Singulair. The patient is seen today 03/01/2021 follow-up on the oncology floor. He is currently sitting up at the bedside. Awake and alert in no acute distress. Denies any worsening shortness of breath, cough or congestion. Maintaining good O2 saturations in the 90s on room air. White count 4.5. Hemoglobin 11.3. Sodium 138. Potassium 4.1. Creatinine 0.5. Transitioned to Eliquis. Remains on his Symbicort, albuterol, Singulair. Objective - Vital Signs Vital signs: Vital Signs Temp 97.6 F 03/01/21 05:00 Pulse 72 03/01/21 11:01 Resp 18 03/01/21 05:00 BP 116/70 03/01/21 05:00 Pulse Ox 92 L 03/01/21 09:34 Intake & Output 02/28/21 03/01/21 03/01/21 18:59 06:59 18:59 Intake Total 1500 Balance 1500 Weight 76.657 kg Intake: Intake, IV Titration 900 Amount Sodium Chloride 0.9% 1, 900 000 ml @ 75 mls/hr IV . [id number] [facility] Rx#:[id number] Oral 600 Other: Voiding Method Toilet Toilet Toilet # Voids 2 4 - Exam GENERAL EXAM: Alert, very pleasant 68-year-old gentleman, on room air, comf ortable in no apparent distress. HEAD: Normocephalic. EYES: Normal reaction of pupils, equal size. NOSE: Clear with pink turbinates. THROAT: No erythema or exudates. NECK: No masses, no JVD. CHEST: No chest wall deformity. LUNGS: Equal air entry with faint crackles in the posterior bases. CVS: S1 and S2 normal with no audible murmur, regular rhythm. ABDOMEN: No hepatosplenomegaly, normal bowel sounds, no guarding or rigidity. SPINE: No scoliosis or deformity SKIN: No rashes CENTRAL NERVOUS SYSTEM: No focal deficits, tone is normal in all 4 extremities. EXTREMITIES: There is no peripheral edema. No clubbing, no cyanosis. Peripheral pulses are intact. - Labs CBC & Chem 7: 03/01/21 05:51 03/01/21 05:51 Labs: Abnormal Lab Results - Last 24 Hours (Table) 03/01/21 03/01/21 Range/Units 05:51 05:51 RBC 3.59 L (4.30-5.90) m/uL Hgb 11.3 L (13.0-17.5) gm/dL Hct 34.8 L (39.0-53.0) % RDW 19.6 H (11.5-15.5) % BUN 8.0 L (9.0-27.0) mg/dL Creatinine 0.5 L (0.6-1.5) mg/dL Glucose 117 H (70-110) mg/dL Calcium 8.4 L (8.7-10.3) mg/dL Albumin 3.50 L (3.80-4.90) g/dL Albumin/Globulin Ratio 1.06 L (1.60-3.17) g/dL Microbiology - Last 24 Hours (Table) 02/25/21 12:43 Blood Culture - Preliminary Blood No Growth after 72 hours Assessment and Plan Assessment: 1 Acute bilateral and central pulmonary embolism, with CT evidence of right heart strain and shortness of breath, acute on chronic. Echocardiogram showed severe RV enlargement, but PA pressures were not significantly elevated at 38.6 mmHg and evidence of mild tricuspid regurgitation. No immediate indication for EKOS at this time. Stable and on room air. Transitioned to Eliquis 2 History of advanced/metastatic small cell lung cancer, with history of recent progression from November 2020, currently having completed 4 cycles of Zepzelca, and most recently on Neulasta 3 Increased weakness and falls 4 Leukopenia and anemia, likely chemotherapy induced. 5 History of COPD 6 Diabetes mellitus type 2 7 Hypertension 8 Hyperlipidemia 9 Hypothyroidism 10 Former smoker 11 Coronary artery disease Plan: The patient was seen and evaluated by Dr. Coronel Currently stable from the pulmonary standpoint Transitioned to [facility] Follow-up in the office in 1-2 weeks. I, the cosigning physician, performed a history & physical examination of the patient. Lungs sounds with faint crackles in the posterior bases. Maintaining good O2 saturations in the 90s on room air. I discussed the assessment and plan of care with my nurse practitioner, Yandy Ayala. I attest to the above note as dictated by her.
[2021-03-01 15:08] LABS: Basophils # (M) 0.09 k/uL (0-0.2); Eosinophils # (M) 0.05 k/uL (0-0.7); Lymphocytes # (M) 0.81 k/uL (1.0-4.8); Metamyelocytes # (M) 0.05 k/uL (0); Metamyelocytes % 1 %; Monocytes # (M) 0.81 k/uL (0-1.0); Myelocytes # (M) 0.14 k/uL (0); Myelocytes % 3 %; Neutrophils # (M) 2.61 k/uL (1.3-7.7); Neutrophils % (M) 58 %; Nucleated Red Blood Cells 0 /100 WBC (0-0); Total Cells Counted 200
--- NOTE | 2021-03-01 15:41 | P.PN ---
Subjective Progress Note Date: 03/01/21 Principal diagnosis: Acute DVT/PE Tolerating Eliquis well, no s/s bleeding. Objective - Vital Signs Vital signs: Vital Signs Temp 97.6 F 03/01/21 05:00 Pulse 72 03/01/21 11:01 Resp 18 03/01/21 05:00 BP 116/70 03/01/21 05:00 Pulse Ox 92 L 03/01/21 09:34 Intake & Output 02/28/21 03/01/21 03/01/21 18:59 06:59 18:59 Intake Total 1500 Balance 1500 Weight 76.657 kg Intake: Intake, IV Titration 900 Amount Sodium Chloride 0.9% 1, 900 000 ml @ 75 mls/hr IV . [id number] Rx#:[id number] Oral 600 Other: Voiding Method Toilet Toilet Toilet # Voids 2 4 - Exam - Constitutional General appearance: Present: average body habitus, cooperative, no acute distress - EENT Eyes: Present: anicteric sclerae, EOMI ENT: Present: hearing grossly normal - Respiratory Respiratory: bilateral: CTA, diminished - Cardiovascular Heart sounds: normal: S1, S2 - Peripheral edema leg Peripheral Edema: bilateral: None - Gastrointestinal General gastrointestinal: Present: normal bowel sounds, soft - Neurologic Neurologic: Present: CNII-XII intact - Musculoskeletal Musculoskeletal: Present: generalized weakness - Psychiatric Psychiatric: Present: A&O x's 3, appropriate affect, intact judgment & insight - Labs CBC & Chem 7: 03/01/21 05:51 03/01/21 05:51 Labs: Abnormal Lab Results - Last 24 Hours (Table) 03/01/21 03/01/21 Range/Units 05:51 05:51 RBC 3.59 L (4.30-5.90) m/uL Hgb 11.3 L (13.0-17.5) gm/dL Hct 34.8 L (39.0-53.0) % RDW 19.6 H (11.5-15.5) % Lymphocytes # (Manual) 0.81 L (1.0-4.8) k/uL Metamyelocytes # (Man) 0.05 H (0) k/uL Myelocytes # (Manual) 0.14 H (0) k/uL BUN 8.0 L (9.0-27.0) mg/dL Creatinine 0.5 L (0.6-1.5) mg/dL Glucose 117 H (70-110) mg/dL Calcium 8.4 L (8.7-10.3) mg/dL Albumin 3.50 L (3.80-4.90) g/dL Albumin/Globulin Ratio 1.06 L (1.60-3.17) g/dL Microbiology - Last 24 Hours (Table) 02/25/21 12:43 Blood Culture - Preliminary Blood No Growth after 96 hours Assessment and Plan Plan: Assessment and Plan (1) SCLC (small cell lung carcinoma) Narrative/Plan: Progression on PET 11/28/20. Treatment regimen changed, s/p 4 cycles zepzelca. Current Visit: Yes Status: Chronic Priority: High Code(s): C34.90 - MALIGNANT NEOPLASM OF UNSP PART OF UNSP BRONCHUS OR LUNG SNOMED Code(s): 164557650 Anemia and Leukopenia due to antineoplastic chemotherapy Narrative/Plan: - Stable today no transfusions needed Current Visit: Yes Status: Acute Priority: Medium Code(s): D70.1 - AGRANULOCYTOSIS SECONDARY TO CANCER CHEMOTHERAPY; T45.1X5A - ADVERSE EFFECT OF ANTINEOPLASTIC AND IMMUNOSUP DRUGS, INIT SNOMED Code(s): 319801369 Acute DVT and Pulmonary Emboli: - Await further work-up to determine if heart strain and intervention is needed - Continue Heparin drip in interim in anticipation of possible intervention - Vascular Surgery Following sent to [facility] (10mg bid x7 days, then 5mg bid). Delay Next weeks scheduled PET scan for accurate read. Otherwise may continue with regular follow-up and last chemotherapy plan Eliquis initiated 10mg po BID 02/28 and tolerating well Ok from oncology for discharge and plan to follow-up within 1-2 weeks at discharge
--- NOTE | 2021-03-02 06:40 | P.DS ---
Providers Date of admission: 02/27/21 08:02 Expected date of discharge: 03/01/21 Attending physician: Benito Martino Consults: 02/24/21 20:20 Consult Physician Routine Consulting Provider: Suhas Samson Consult Reason/Comments: Stage IV lung cancer, low WBC Do you want consulting provider notified?: Yes 02/25/21 21:13 Consult Physician Urgent Consulting Provider: Raymundo Maravilla Consult Reason/Comments: positive PE and elevated d dimer/ lung CA Do you want consulting provider notified?: Yes 02/26/21 09:07 Consult Physician Routine Consulting Provider: Raymundo Maravilla Consult Reason/Comments: PE Do you want consulting provider notified?: Yes 02/26/21 11:07 Consult Physician Urgent Consulting Provider: Samia Murillo Consult Reason/Comments: Saddle PE, right heart strain Do you want consulting provider notified?: Yes Primary care physician: Benito Martino Hospital Course: 76-year-old male was admitted to the hospital with acute bilateral pulmonary embolism with saddle embolism with significant right heart strain. Patient was initiated on a high intensity heparin drip, transitioned to oral Eliquis for anticoagulation therapy. Several consultants have been followed the patient's case throughout hospital stay. Patient has significant medical history of small cell neuroendocrine lung cancer, chest pain angina, COPD, diabetes mellitus type 2, GERD/reflux, hypertension, dyslipidemia, history of degenerative joint disease, hypothyroidism, history of cardiac catheterizations, history of nicotine dependence, leukopenia, and syncopal episodes. Patient tolerated high intensity heparin and transitioned to oral Eliquis for anticoagulation therapy of pulmonary embolism and right lower extremity DVT. 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 History of chest pain COPD Diabetes mellitus type 2 GERD/reflux Degenerative joint disease Hypothyroidism Full code Final diagnosis Acute bilateral pulmonary embolism with a saddle pulmonary embolism with the right ventricle strain and acute cor pulmonale Right lower extremity DVT Syncopal episode Leukopenia Small cell neuroendocrine lung cancer Health Concerns: Multiple comorbidities Complexity of medical treatment plan Pertinent Studies: Serial chest x-rays CT of the chest revealing pulmonary embolism saddle pulmonary embolism with right heart strain Venous Doppler positive DVT in the right lower extremity Echocardiogram, normal ejection fraction 55-60% Procedures: No procedures performed during hospital stay Patient Condition at Discharge: Fair Plan - Discharge Summary Discharge Rx Participant: Yes New Discharge Prescriptions: New Apixaban [Eliquis Starter Pack (for VTE)] 5 - 10 mg PO DIRECTED 30 Days #1 each Continue Levothyroxine Sodium [Synthroid] 25 mcg PO DAILY Atorvastatin [Lipitor] 20 mg PO HS Mirtazapine [Remeron] 15 mg PO HS #30 tab Fluticasone/Umeclidin/Vilanter [Trelegy Ellipta 100-62.5-25] 1 puff INHALATION RT-DAILY Fexofenadine HCl [Ene Allergy] 180 mg PO DAILY Lactulose [Constulose] 10 gm PO BID PRN PRN Reason: Constipation Lubiprostone 24 mcg PO BID Midodrine [ProAmatine] 5 mg PO TID Escitalopram [Lexapro] 10 mg PO DAILY HYDROcodone/APAP 10-325MG [[place] 10-325] 1 tab PO Q6HR PRN PRN Reason: Pain Montelukast [Singulair] 10 mg PO DAILY Ondansetron Odt [Zofran ODT] 4 mg PO Q6H PRN PRN Reason: Nausea Discharge Medication List Levothyroxine Sodium [Synthroid] 25 mcg PO DAILY 04/12/15 [History] Atorvastatin [Lipitor] 20 mg PO HS 08/02/15 [History] Mirtazapine [Remeron] 15 mg PO HS #30 tab 05/17/20 [Rx] Escitalopram [Lexapro] 10 mg PO DAILY 01/10/21 [History] Fluticasone/Umeclidin/Vilanter [Trelegy Ellipta 100-62.5-25] 1 puff INHALATION RT-DAILY 01/10/21 [History] Fexofenadine HCl [Ene Allergy] 180 mg PO DAILY 02/24/21 [History] HYDROcodone/APAP 10-325MG [[place] 10-325] 1 tab PO Q6HR PRN 02/24/21 [History] Lactulose [Constulose] 10 gm PO BID PRN 02/24/21 [History] Lubiprostone 24 mcg PO BID 02/24/21 [History] Midodrine [ProAmatine] 5 mg PO TID 02/24/21 [History] Montelukast [Singulair] 10 mg PO DAILY 02/24/21 [History] Ondansetron Odt [Zofran ODT] 4 mg PO Q6H PRN 02/24/21 [History] Apixaban [Eliquis Starter Pack (for VTE)] 5 - 10 mg PO DIRECTED 30 Days #1 each 02/28/21 [Rx] Follow up Appointment(s)/Referral(s): Benito Martino MD [Primary Care Provider] - 03/03/21 2:10 pm Jac Coronel MD [STAFF PHYSICIAN] - 03/17/21 3:00 pm (You will see Yandy Ayala you will also keep the appointment you have on Apr 03 as well.) Patient Instructions/Handouts: Pulmonary Embolism (GEN), Dehydration (GEN), COPD (Chronic Obstructive Pulmonary Disease) (IP) Discharge Disposition: HOME WITH HOME HEALTH SERVICES
== END 2021-03-01 12:32 | disposition home health service (06) | DRG 175 ==
LOC: EC 16:25 → 5NMEDONC 20:22 → OBSVTOIN 02-27 08:02
PROVIDERS: ADMIT Family Medicine; ATTEND Family Medicine
DX: I26.02 Saddle embolus of pulmonary artery with acute cor pulmonale (principal); I82.4Z1 Acute embolism and thrombosis of unspecified deep veins of right distal lower extremity; C34.90 Malignant neoplasm of unspecified part of unspecified bronchus or lung; C7A.8 Other malignant neuroendocrine tumors; E87.1 Hypo-osmolality and hyponatremia; I82.411 Acute embolism and thrombosis of right femoral vein; I82.431 Acute embolism and thrombosis of right popliteal vein; J44.1 Chronic obstructive pulmonary disease with (acute) exacerbation; D63.0 Anemia in neoplastic disease; D64.81 Anemia due to antineoplastic chemotherapy; D70.1 Agranulocytosis secondary to cancer chemotherapy; E03.9 Hypothyroidism, unspecified; E11.9 Type 2 diabetes mellitus without complications; E78.5 Hyperlipidemia, unspecified; E86.0 Dehydration; I07.1 Rheumatic tricuspid insufficiency; I10 Essential (primary) hypertension; I25.10 Atherosclerotic heart disease of native coronary artery without angina pectoris; I27.20 Pulmonary hypertension, unspecified; K21.9 Gastro-esophageal reflux disease without esophagitis; Z85.828 Personal history of other malignant neoplasm of skin; M19.90 Unspecified osteoarthritis, unspecified site; R09.02 Hypoxemia; I44.4 Left anterior fascicular block; R63.4 Abnormal weight loss; R62.7 Adult failure to thrive; T45.1X5A Adverse effect of antineoplastic and immunosuppressive drugs, initial encounter; Z91.81 History of falling; Z79.890 Hormone replacement therapy; Z79.899 Other long term (current) drug therapy; Z87.891 Personal history of nicotine dependence; Z95.5 Presence of coronary angioplasty implant and graft; Z68.22 Body mass index [BMI] 22.0-22.9, adult; Z88.0 Allergy status to penicillin; Z88.2 Allergy status to sulfonamides; Z88.1 Allergy status to other antibiotic agents; Z91.040 Latex allergy status
CPT/HCPCS: 36415; 70450; 71046; 71275; 80048; 80053; 81003; 82550; 83735; 84484; 85025; 85379; 85610; 85730; 87040; 93005; 93306; 93970; 94640; 94760; 96360; 96361; 99285

== ENCOUNTER → 2021-03-24 | Outpatient (CLI) | payer MEDICARE ==
--- NOTE | 2021-03-27 07:16 | PE ---
EXAMINATION TYPE: PET CT fusion skull to thigh DATE OF EXAM: 03/24/2021 COMPARISON: Prior PET/CT November 26, 2020 and older studies HISTORY: Left-sided lung cancer progress study. Originally diagnosed in April 2020 . Currently un dergoing chemotherapy. TECHNIQUE: Following the intravenous administration of 11.65 mCi of F-18 FDG, whole body images are performed from the skull base to the midthigh. Images are reviewed on the computer in the coronal, a xial, and sagittal planes. Reconstructed rotating images are created on independent workstation and reviewed on the computer. A localization and attenuation correction CT is performed in conjunction with the PET scan. Blood glucose level equals 98. SCAN: Subsequent Scan FINDINGS: SKULL BASE AND NECK: Exaggerated cervical curvature or positioning on current study is redemonstrate d. No new areas of abnormal hypermetabolic uptake. CHEST, MEDIASTINUM, AND HILAR REGION: Background mild to moderate underlying emphysematous change is redemonstrated greatest in the upper lungs. Persistent hypermetabolic left mid lung mass extending po steriorly decreased in size measuring 3.8 x 3.7 cm axial image 79 versus 5.7 x 5.2 cm prior study. Th e max SUV is 7.65 on axial image 74 on current study versus 8.43 on prior study . Continued enlarging hypermetabolic left prevascular lymph node now measures 5.0 x 3.8 cm axial image 76 current study versus 2.8 x 2.7 cm on prior study. Current Max SUV is 9.83 axial image #74 Versus 8 .48 on prior. Slightly enlarging Hypermetabolic lymph node superior mediastinum measuring 3.5 x 3.3 cm axial image 59 versus versus 2.5 x 2.3 cm prior study at level of proximal clavicles. The max SUV is 7.82 curre nt study axial image 57 versus 6.62 on prior. No new areas of abnormal hypermetabolic uptake. ABDOMEN AND PELVIS: No new areas of abnormal hypermetabolic uptake. No new adrenal masses. Normal exc retion. OSSEOUS STRUCTURES: No new areas of abnormal hypermetabolic uptake. OTHER CT: Coronary artery calcification and/or stents redemonstrated. Cardiomegaly again seen. Flame- shaped subareolar gynecomastia redemonstrated. Moderate calcified plaque of the aorta extends into branch vessels. Scattered bilateral pelvic phlebo liths. Exaggerated kyphosis in the cervicothoracic spine redemonstrated. IMPRESSION: Overall mixed response. Improved posterior left midlung mass. Worsening thoracic adenopat hy noted. No new disease identified.
== END | disposition home or self-care (01) ==
LOC: RADPETMAIN 11:17
PROVIDERS: ATTEND Internal Medicine Hematology & Oncology
DX: C34.82 Malignant neoplasm of overlapping sites of left bronchus and lung (principal)
CPT/HCPCS: 78815; A9552

== ENCOUNTER 2021-04-02 20:12 | Observation (INO) | payer MEDICARE ==
--- NOTE | 2021-04-02 21:17 | ED ---
General Adult HPI - General Chief complaint: Shortness of Breath Stated complaint: SOB Time Seen by Provider: 04/02/21 20:55 Source: patient Mode of arrival: ambulatory - History of Present Illness Initial comments: This patient is 76-year-old man with history of lung cancer who presents with what he is describing to me has chief complaint of headache. Patient states that this is his worst symptom and he would like this investigated most. He indicates left frontal headache. He states that it is been present for over a week. It is throbbing. He has not noted worsening factors. He states he gets minimally better with some Tylenol he had taken today. Patient denies any neurologic symptoms associated. No fever or chills. No neck pain. The patient does acknowledge that he has some dyspnea on exertion, and states that this man was standing or walking. He is not having any shortness of breath at rest. No leg pain or swelling today. -: week(s) Location: head Radiation: non-radiation Severity scale (1-10): 8 Quality: other (Throbbing) Consistency: constant Improves with: none Worsens with: none Associated Symptoms: shortness of breath Treatments Prior to Arrival: other (Tylenol) - Related Data Home Medications Medication Instructions Recorded Confirmed Levothyroxine Sodium [Synthroid] 25 mcg PO DAILY 04/12/15 02/24/21 Atorvastatin [Lipitor] 20 mg PO HS 08/02/15 02/24/21 Escitalopram [Lexapro] 10 mg PO DAILY 01/10/21 02/24/21 Fluticasone/Umeclidin/Vilanter 1 puff INHALATION RT-DAILY 01/10/21 02/24/21 [Trelegy Ellipta 100-62.5-25] Fexofenadine HCl [Ene Allergy] 180 mg PO DAILY 02/24/21 02/24/21 HYDROcodone/APAP 10-325MG [[place] 1 tab PO Q6HR PRN 02/24/21 02/24/21 10-325] Lactulose [Constulose] 10 gm PO BID PRN 02/24/21 02/24/21 Lubiprostone 24 mcg PO BID 02/24/21 02/24/21 Midodrine [ProAmatine] 5 mg PO TID 02/24/21 02/24/21 Montelukast [Singulair] 10 mg PO DAILY 02/24/21 02/24/21 Ondansetron Odt [Zofran ODT] 4 mg PO Q6H PRN 02/24/21 02/24/21 Previous Rx's Medication Instructions Recorded Mirtazapine [Remeron] 15 mg PO HS #30 tab 05/17/20 Apixaban [Eliquis Starter Pack 5 - 10 mg PO DIRECTED 30 Days 02/28/21 (for VTE)] #1 each Allergies Allergy/AdvReac Type Severity Reaction Status Date / Time Sulfa (Sulfonamide Allergy Severe Anaphylaxis Verified 02/24/21 17:31 Antibiotics) cefuroxime [From Ceftin] Allergy Unknown Verified 02/24/21 17:31 latex Allergy Rash/Hives Verified 02/24/21 17:31 Penicillins Allergy Swelling Verified 02/24/21 17:31 Review of Systems ROS Statement: Those systems with pertinent positive or pertinent negative responses have been documented in the HPI. ROS Other: All systems not noted in ROS Statement are negative. Constitutional: Denies: fever, chills, weakness Eyes: Denies: vision change ENT: Denies: ear pain, congestion Respiratory: Denies: cough, dyspnea Cardiovascular: Reports: dyspnea on exertion. Denies: chest pain, palpitations, syncope Gastrointestinal: Denies: abdominal pain, vomiting, diarrhea Genitourinary: Denies: dysuria, hematuria Musculoskeletal: Denies: back pain Skin: Denies: rash Neurological: Reports: as per HPI, headache. Denies: weakness, numbness, con fusion Past Medical History Past Medical History: Coronary Artery Disease (CAD), Cancer, Chest Pain / Angina, COPD, Diabetes Mellitus, GERD/Reflux, Hyperlipidemia, Hypertension, Osteoarthritis (OA), Skin Disorder, Thyroid Disorder Additional Past Medical History / Comment(s): Skin cancer, lung CA-stage 4. dx 12/2019 Hx of hemoptysis, wgt loss 120# in 12 months. History of Any Multi-Drug Resistant Organisms: None Reported Past Surgical History: Heart Catheterization, Orthopedic Surgery Additional Past Surgical History / Comment(s): heart cath x2. Lt Knee scope, Rt Shoulder surg. Colonoscopy. bilat cataracts w/ lens implants Past Anesthesia/Blood Transfusion Reactions: No Reported Reaction Past Psychological History: No Psychological Hx Reported Smoking Status: Former smoker Past Alcohol Use History: None Reported Past Drug Use History: None Reported - Past Family History Mother Family Medical History: Cancer, Dementia General Exam General appearance: alert, in no apparent distress Head exam: Present: atraumatic, normocephalic Eye exam: Present: normal appearance, PERRL, EOMI. Absent: scleral icterus, conjunctival injection Neck exam: Present: normal inspection, full ROM. Absent: tenderness, meningismus Respiratory exam: Absent: respiratory distress, wheezes, rales, rhonchi, stridor, accessory muscle use, decreased breath sounds, prolonged expiratory Cardiovascular Exam: Present: regular rate, normal rhythm, normal heart sounds. Absent: bradycardia, tachycardia, systolic murmur, diastolic murmur, rubs, gallop GI/Abdominal exam: Present: soft. Absent: distended, tenderness, guarding, rebound, rigid, mass Extremities exam: Present: normal inspection, normal capillary refill. Absent: pedal edema, calf tenderness Back exam: Present: normal inspection. Absent: CVA tenderness (R), CVA tenderness (L) Neurological exam: Present: alert, oriented X3, CN II-XII intact. Absent: motor sensory deficit Skin exam: Present: warm, dry, intact, normal color. Absent: rash Course Vital Signs 04/02/21 04/02/21 20:26 21:43 Temperature 97.6 F Pulse Rate 79 Respiratory 19 18 Rate Blood Pressure 98/66 O2 Sat by Pulse 97 Oximetry EKG Findings - EKG Results: EKG: interpreted by MEHREEND, sinus rhythm (Rate 73 bpm), normal ST/T - Blocks, [place], Hypertrophy, ST Abn: QRS axis and voltage: left axis deviation (-30 to -90) Chamber hypertrophy or enlargement: left ventricular hypertrophy or enlargement (LVE) Medical Decision Making - Lab Data Result diagrams: 04/02/21 21:21 Lab Results 04/02/21 04/02/21 Range/Units 21:21 21:21 WBC 7.4 (3.8-10.6) k/uL RBC 4.15 L (4.30-5.90) m/uL Hgb 12.8 L (13.0-17.5) gm/dL Hct 38.2 L (39.0-53.0) % MCV 92.2 (80.0-100.0) fL MCH 30.9 (25.0-35.0) pg MCHC 33.5 (31.0-37.0) g/dL RDW 15.8 H (11.5-15.5) % Plt Count 307 (150-450) k/uL MPV 7.9 Urine Color Light Yellow Urine Appearance Clear (Clear) Urine pH 6.0 (5.0-8.0) Ur Specific [place] 1.018 (1.001-1.035) Urine Protein Negative (Negative) Urine Glucose (UA) 4+ H (Negative) Urine Ketones Negative (Negative) Urine Blood Negative (Negative) Urine Nitrite Negative (Negative) Urine Bilirubin Negative (Negative) Urine Urobilinogen <2.0 (<2.0) mg/dL Ur Leukocyte Esterase Negative (Negative) Disposition Referrals: Benito Martino MD [Primary Care Provider] - 1-2 days
[2021-04-02] MEDS ORDERED: SODIUM CHLORIDE 0.9% 1,000 ML IV ONE ×2 (21:19→22:36)
--- NOTE | 2021-04-02 21:52 | XR ---
EXAMINATION TYPE: XR chest 1V portable DATE OF EXAM: 04/02/2021 COMPARISON: 02/24/2021 HISTORY: Short of breath TECHNIQUE: FINDINGS: There is slight increased interstitial pulmonary density. There is no heart failure nor con fluent pneumonic infiltrate. Costophrenic angles are clear. There is no pleural effusion. IMPRESSION: Pulmonary interstitial fibrosis. No acute lung disease. No change compared to old exam.
[2021-04-02 21:53] LABS: Appearance,Urine Clear (Clear); Bilirubin,Urine Negative (Negative); Blood,Urine Negative (Negative); Color,Urine Light Yellow; Glucose,Urine (UA) 4+ (Negative); Ketones,Urine Negative (Negative); Leukocyte Esterase,Urine Negative (Negative); Nitrite,Urine Negative (Negative); Protein,Urine Negative (Negative); Specific Gravity,Urine 1.018 (1.001-1.035); Urobilinogen,Urine <2.0 mg/dL (<2.0)
[2021-04-02 22:02] LABS: HCT 38.2 % (39.0-53.0); HGB 12.8 gm/dL (13.0-17.5); MCH 30.9 pg (25.0-35.0); MCHC 33.5 g/dL (31.0-37.0); MCV 92.2 fL (80.0-100.0); Mean Platelet Volume 7.9; Platelet Count 307 k/uL (150-450); RBC 4.15 m/uL (4.30-5.90); RDW 15.8 % (11.5-15.5); WBC 7.4 k/uL (3.8-10.6)
[2021-04-02 22:24] LABS: Partial Thromboplastin Time 22.9 sec (22.0-30.0); Prothrombin Time 10.5 sec (9.0-12.0)
--- NOTE | 2021-04-02 22:27 | CT ---
EXAMINATION TYPE: CT brain wo con DATE OF EXAM: 04/02/2021 COMPARISON: 02/25/2021 HISTORY: Headache CT DLP: 1159 mGycm Automated exposure control for dose reduction was used. There is cerebral atrophy. There is no mass effect nor midline shift. There is no sign of intracrania l hemorrhage. Calvarium is intact. There is normal aeration of the mastoid sinuses. IMPRESSION: Cerebral atrophy. No acute intracranial abnormality. No change.
[2021-04-02 22:29] LABS: ALT 20 U/L (4-49); AST 28 U/L (17-59); African American GFR (CKD) >90 (>60 ml/min/1.73 sqM); Albumin 3.7 g/dL (3.5-5.0); Alkaline Phosphatase 105 U/L (38-126); Anion Gap 12 mmol/L; Blood Urea Nitrogen 15 mg/dL (9-20); Calcium 9.5 mg/dL (8.4-10.2); Carbon Dioxide 22 mmol/L (22-30); Chloride 102 mmol/L (98-107); Glucose 154 mg/dL (74-99); Magnesium 2.2 mg/dL (1.6-2.3); Non-African American GFR(CKD) >90 (>60 ml/min/1.73 sqM); Potassium 4.2 mmol/L (3.5-5.1); Sodium 136 mmol/L (137-145); Total Bilirubin 0.7 mg/dL (0.2-1.3); Total Protein 7.8 g/dL (6.3-8.2)
[2021-04-02 22:31] LABS: Eosinophils # (M) 0.15 k/uL (0-0.7); Lymphocytes # (M) 1.41 k/uL (1.0-4.8); Monocytes # (M) 0.81 k/uL (0-1.0); Neutrophils # (M) 5.03 k/uL (1.3-7.7); Neutrophils % (M) 68 %; Nucleated Red Blood Cells 0 /100 WBC (0-0); Total Cells Counted 100
[2021-04-02] MEDS ORDERED: ONDANSETRON 4 MG/2 ML VIAL IVP PRN (23:56)
[2021-04-02] MEDS ORDERED: ACETAMINOPHEN TAB 325 MG TAB PO PRN (23:56)
[2021-04-02] MEDS ORDERED: MORPHINE SULFATE 4 MG/ML SYRINGE IV PRN (23:56)
[2021-04-03] MEDS ORDERED: NALOXONE 0.4 MG/ML 1 ML VIAL IV PRN
[2021-04-03] MEDS ORDERED: ENOXAPARIN 80 MG/0.8 ML SYRINGE SQ SCH (00:15)
[2021-04-03] MEDS: SODIUM CHLORIDE 0.9% 1,000 ML IV SCH ×2 (00:20→08:04)
[2021-04-03] MEDS ORDERED: CALCIUM CARBONATE 500 MG CHEWABLE PO PRN ×2 (02:22→02:29)
[2021-04-03 10:32] VITALS: BP 114/70; PULSE 78; RESP 18; TEMP 98.3
--- NOTE | 2021-04-03 12:00 | P.HPIM ---
History of Present Illness Patient is a pleasant 70-year-old male came with history of lung cancer came in with complaints of shortness of breath and headache. Headache was left frontal which resolved at this time patient has mild to moderate headache was throbbing in nature. CT of the head is negative. Patient received Tylenol after which headache improved. Patient was also a shortness of breath is saturating well at this time patient doesn't have any wheezing at this time patient had d-dimer that was negative. Patient does have some laryngitis and washings with laryngitis patient may have rhonchi this as well. Patient denied any sputum production. Patient bronchitis is either ALLERGIC or viral. Patient doesn't have any fever chills. Patient is actively receiving chemotherapy. Patient had a recent PET scan which showed mixed results with increased mediastinal lymphadenopathy and decreased size of lung mass. Patient is feeling better and wanted to go home. Patient is also found to have lactic acidosis without any evidence of infection lactic acidosis improved with IV fluid hydration. Patient denied any nausea vomiting patient is not on any metformin at this time and not any medication that can cause lactic acidosis. REVIEW OF SYSTEMS: CONSTITUTIONAL: No fever, no malaise, no fatigue. HEENT: No recent visual problems or hearing problems. Denied any sore throat. CARDIOVASCULAR: No chest pain, orthopnea, PND, no palpitations, no syncope. PULMONARY: no cough, no hemoptysis. GASTROINTESTINAL: No diarrhea, no nausea, no vomiting, no abdominal pain. NEUROLOGICAL: no weakness, no numbness. HEMATOLOGICAL: Denies any bleeding or petechiae. GENITOURINARY: Denies any burning micturition, frequency, or urgency. MUSCULOSKELETAL/RHEUMATOLOGICAL: Denies any joint pain, swelling, or any muscle pain. ENDOCRINE: Denies any polyuria or polydipsia. The rest of the 14-point review of systems is negative. PHYSICAL EXAMINATION: GENERAL: The patient is alert and oriented x3, not in any acute distress. Well developed, well nourished. HEENT: Pupils are round and equally reacting to light. EOMI. No scleral icterus. No conjunctival pallor. Normocephalic, atraumatic. No pharyngeal erythema. No thyromegaly. CARDIOVASCULAR: S1 and S2 present. No murmurs, rubs, or gallops. PULMONARY: Chest is clear to auscultation, no wheezing or crackles. ABDOMEN: Soft, nontender, nondistended, normoactive bowel sounds. No palpable organomegaly. MUSCULOSKELETAL: No joint swelling or deformity. EXTREMITIES: No cyanosis, clubbing, or pedal edema. NEUROLOGICAL: Gross neurological examination did not reveal any focal deficits. SKIN: No rashes. Assessment and plan -Shortness of breath: Resolved at this time no evidence of pneumonia, rule out pulmonary embolism with a d-dimer. Patient may have a viral upper respiratory infection including laryngitis patient does have change in his voice patient will be given Medrol Dosepak for that. -Headache which resolved at this time patient's CT of head is negative for any significant abnormality. -History of lung cancer follows up with oncology as an outpatient -Lactic acidosis probably secondary to mild dehydration which resolved at this time lactic lactic acid is minimally elevated to 2.5 no evidence of sepsis at this time. 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 Past Medical History Past Medical History: Coronary Artery Disease (CAD), Cancer, Chest Pain / Angina, COPD, Diabetes Mellitus, GERD/Reflux, Hyperlipidemia, Hypertension, Osteoarthritis (OA), Skin Disorder, Thyroid Disorder Additional Past Medical History / Comment(s): Skin cancer, lung CA-stage 4. dx 12/2019 Hx of hemoptysis, wgt loss 120# in 12 months. History of Any Multi-Drug Resistant Organisms: None Reported Past Surgical History: Heart Catheterization, Orthopedic Surgery Additional Past Surgical History / Comment(s): heart cath x2. Lt Knee scope, Rt Shoulder surg. Colonoscopy. bilat cataracts w/ lens implants Past Anesthesia/Blood Transfusion Reactions: No Reported Reaction Past Psychological History: No Psychological Hx Reported Smoking Status: Former smoker Past Alcohol Use History: None Reported Past Drug Use History: None Reported - Past Family History Mother Family Medical History: Cancer, Dementia Medications and Allergies Home Medications Medication Instructions Recorded Confirmed Type Levothyroxine Sodium [Synthroid] 25 mcg PO DAILY 04/12/15 04/02/21 History Atorvastatin [Lipitor] 20 mg PO HS 08/02/15 04/02/21 History Mirtazapine [Remeron] 15 mg PO HS #30 tab 05/17/20 04/02/21 Rx Escitalopram [Lexapro] 10 mg PO DAILY 01/10/21 04/02/21 History Fluticasone/Umeclidin/Vilanter 1 puff INHALATION RT-DAILY 01/10/21 04/02/21 History [Trelegy Ellipta 100-62.5-25] Fexofenadine HCl [Ene Allergy] 180 mg PO DAILY 02/24/21 04/02/21 History HYDROcodone/APAP 10-325MG [[place] 1 tab PO Q6HR PRN 02/24/21 04/02/21 History 10-325] Lactulose [Constulose] 10 gm PO BID PRN 02/24/21 04/02/21 History Lubiprostone 24 mcg PO BID 02/24/21 04/02/21 History Midodrine [ProAmatine] 5 mg PO TID 02/24/21 04/02/21 History Montelukast [Singulair] 10 mg PO DAILY 02/24/21 04/02/21 History Ondansetron Odt [Zofran ODT] 4 mg PO Q6H PRN 02/24/21 04/02/21 History Apixaban [Eliquis Starter Pack See Taper PO DIRECTED 04/02/21 04/02/21 History (for VTE)] methylPREDNISolone Dose Pack 4 mg PO DIRECTED #1 packet 04/03/21 Rx [Medrol Dose Pack] Allergies Allergy/AdvReac Type Severity Reaction Status Date / Time Sulfa (Sulfonamide Allergy Severe Anaphylaxis Verified 04/02/21 23:45 Antibiotics) cefuroxime [From Ceftin] Allergy Unknown Verified 04/02/21 23:45 latex Allergy Rash/Hives Verified 04/02/21 23:45 Penicillins Allergy Swelling Verified 04/02/21 23:45 Physical Exam Vitals: Vital Signs Temp Pulse Resp BP Pulse Ox 04/03/21 10:29 98.3 F 78 18 114/70 96 04/03/21 07:50 98 F 70 16 113/76 97 04/03/21 06:38 97.9 F 74 16 129/75 97 04/03/21 02:51 97.5 F L 77 16 120/74 99 04/03/21 00:00 73 16 127/86 99 04/02/21 23:00 73 18 121/75 04/02/21 22:00 73 18 123/79 04/02/21 21:43 18 04/02/21 20:26 97.6 F 79 19 98/66 97 Intake and Output 04/02/21 04/03/21 04/03/21 22:59 06:59 14:59 Other: Weight 72.575 kg Results CBC & Chem 7: 04/02/21 21:21 04/02/21 21:21 Labs: Abnormal Lab Results - Last 24 Hours (Table) 04/02/21 04/02/21 04/02/21 Range/Units 21:21 21:21 21:21 RBC 4.15 L (4.30-5.90) m/uL Hgb 12.8 L (13.0-17.5) gm/dL Hct 38.2 L (39.0-53.0) % RDW 15.8 H (11.5-15.5) % Sodium 136 L (137-145) mmol/L Creatinine 0.45 L (0.66-1.25) mg/dL Glucose 154 H (74-99) mg/dL Plasma Lactic Acid Luis (0.7-2.0) mmol/L Urine Glucose (UA) 4+ H (Negative) 04/02/21 04/03/21 Range/Units 21:21 01:37 RBC (4.30-5.90) m/uL Hgb (13.0-17.5) gm/dL Hct (39.0-53.0) % RDW (11.5-15.5) % Sodium (137-145) mmol/L Creatinine (0.66-1.25) mg/dL Glucose (74-99) mg/dL Plasma Lactic Acid Luis 2.7 H* 2.3 H* (0.7-2.0) mmol/L Urine Glucose (UA) (Negative)
== END 2021-04-03 11:22 | disposition home or self-care (01) ==
LOC: EC 20:12 → 6NMEDSUR 23:56
PROVIDERS: ADMIT Internal Medicine; ATTEND Internal Medicine
DX: R06.02 Shortness of breath (principal); R04.2 Hemoptysis; J04.0 Acute laryngitis; C34.90 Malignant neoplasm of unspecified part of unspecified bronchus or lung; Z20.822 Contact with and (suspected) exposure to COVID-19; E87.2 Acidosis; J44.9 Chronic obstructive pulmonary disease, unspecified; Z87.891 Personal history of nicotine dependence; E03.9 Hypothyroidism, unspecified; Z86.711 Personal history of pulmonary embolism; E78.5 Hyperlipidemia, unspecified; I10 Essential (primary) hypertension; K21.9 Gastro-esophageal reflux disease without esophagitis; I25.10 Atherosclerotic heart disease of native coronary artery without angina pectoris; E11.9 Type 2 diabetes mellitus without complications; M19.90 Unspecified osteoarthritis, unspecified site; Z85.828 Personal history of other malignant neoplasm of skin; Z98.890 Other specified postprocedural states; Z98.42 Cataract extraction status, left eye; Z98.41 Cataract extraction status, right eye; Z80.9 Family history of malignant neoplasm, unspecified; Z81.8 Family history of other mental and behavioral disorders; Z96.1 Presence of intraocular lens; Z79.01 Long term (current) use of anticoagulants; Z79.51 Long term (current) use of inhaled steroids; Z79.899 Other long term (current) drug therapy; Z88.0 Allergy status to penicillin; Z88.2 Allergy status to sulfonamides; Z88.1 Allergy status to other antibiotic agents; Z91.040 Latex allergy status
CPT/HCPCS: 96360; 96361 ×2; 96372; 99285; 36415; 93005; 85379; 83880; 80053; 83605 ×2; 83735; 84484; 85025; 85610; 85730; 81003; 87635; 71045; 70450; G0378; J1650